=== PATIENT | male | born 1960 | race American Indian/Alaskan Native ===

== ENCOUNTER 2017-04-17 14:10 | Outpatient (CLI) | payer MEDICARE ==
[2017-04-17] MEDS ORDERED: XYLOCAINE TOPICAL 4% TP ONE ×3 (14:58→15:10)
== END 2017-04-17 14:11 | disposition home or self-care (01) ==
LOC: WOUND 14:10
PROVIDERS: ATTEND Surgery
DX: L73.2 Hidradenitis suppurativa (principal); F17.200 Nicotine dependence, unspecified, uncomplicated
CPT/HCPCS: 97606

== ENCOUNTER 2017-04-20 12:59 | Outpatient (CLI) | payer MEDICARE | END 2017-04-20 13:00 | disposition home or self-care (01) | LOC: WOUND 12:59 | PROVIDERS: ATTEND Podiatrist | DX: L73.2 Hidradenitis suppurativa (principal); F17.200 Nicotine dependence, unspecified, uncomplicated | CPT/HCPCS: 97606 ==

== ENCOUNTER 2017-04-24 12:31 | Outpatient (CLI) | payer MEDICARE ==
[2017-04-24] MEDS ORDERED: XYLOCAINE TOPICAL 4% TP ONE (13:03)
[2017-04-24] MEDS ORDERED: NACL 0.9% IR PRN (13:03)
== END 2017-04-24 12:32 | disposition home or self-care (01) ==
LOC: WOUND 12:31
PROVIDERS: ATTEND Surgery
DX: L73.2 Hidradenitis suppurativa (principal); F17.200 Nicotine dependence, unspecified, uncomplicated
CPT/HCPCS: 97606

== ENCOUNTER 2017-04-27 12:38 | Outpatient (CLI) | payer MEDICARE | END 2017-04-27 12:39 | disposition home or self-care (01) | LOC: WOUND 12:38 | PROVIDERS: ATTEND Podiatrist | DX: L73.2 Hidradenitis suppurativa (principal); F17.200 Nicotine dependence, unspecified, uncomplicated | CPT/HCPCS: 97606 ==

== ENCOUNTER 2017-06-12 16:33 | Inpatient (IN) | payer MEDICARE ==
[2017-06-12] MEDS ORDERED: NACL 0.9% 500 ML 500 ML IV ONE (16:58)
[2017-06-12] MEDS ORDERED: NACL 0.9% 1000 ML 2,000 ML ONE (17:08)
[2017-06-12] MEDS ORDERED: ZOSYN/NS 4.5GM/100ML 4.5 GM/100 ML VIAL IV ONE (17:29)
[2017-06-12] MEDS ORDERED: NACL 0.9% 1000 ML 1,000 ML IV ONE (17:29)
[2017-06-12 17:49] LABS: Basophils # (Auto) 0.1 K/mm3 (0.0-0.1); Basophils % (Auto) 0.9 % (0.0-1.8); Eosinophils # (Auto) 0.1 K/mm3 (0.0-0.4); Eosinophils % (Auto) 0.4 % (0.0-4.3); Hematocrit 31.3 % (35.5-45.6); Hemoglobin 10.1 gm/dl (11.8-15.2); Lymphocytes # (Auto) 3.6 K/mm3 (1.2-5.4); Lymphocytes % (Auto) 22.9 % (13.4-35.0); Mean Corpuscular HGB Conc 32 % (32-34); Mean Corpuscular Hemoglobin 27 pg (28-32); Mean Corpuscular Volume 84 fl (84-94); Monocytes # (Auto) 0.6 K/mm3 (0.0-0.8); Monocytes % (Auto) 3.6 % (0.0-7.3); Red Blood Count 3.74 M/mm3 (3.65-5.03); Red Cell Distribution Width 15.5 % (13.2-15.2)
[2017-06-12 17:59] LABS: INR 1.05 (0.87-1.13)
[2017-06-12 18:13] LABS: Albumin 1.4 g/dL (3.9-5); BUN/Creatinine Ratio 11; Blood Urea Nitrogen 17 mg/dL (9-20); Hemolysis Index 0
[2017-06-12 18:14] LABS: Alanine Aminotransferase < 5 units/L (7-56)
--- NOTE | 2017-06-12 18:18 | XRay Report ---
FINAL REPORT PROCEDURE: XR CHEST 1V AP TECHNIQUE: A portable AP chest radiograph was obtained at 06/12/2017 21:45 (T) . CPT 52615 HISTORY: Possible sepsis. COMPARISON: Chest radiograph dated 05/02/2017. FINDINGS: Heart: Normal. Mediastinum/Vessels: Mild aortic tortuosity. Lungs/Pleural space: Subtle line overlies lateral left lower thorax/costophrenic angle. Bony thorax: Mild degenerative changes of the spine. Subchondral cystic change of the left greater tuberosity. Life support devices: Removal of PICC line. IMPRESSION: Mild aortic tortuosity. No new radiographic evidence of acute cardiopulmonary disease. Subtle line overlying the lateral left lower thorax/costophrenic angle felt to most likely be overlying skin fold rather than subtle pneumothorax. Consider PA and lateral chest radiograph for further characterization if this is of continued clinical concern.
[2017-06-12 18:44] LABS: Platelet Count 437 K/mm3 (140-440)
--- NOTE | 2017-06-12 19:01 | Emergency Department Report ---
ED Abdominal Pain HPI - General Chief Complaint: Fever Stated Complaint: PAIN CHILLS Time Seen by Provider: 06/12/17 17:07 Source: patient Mode of arrival: Wheelchair Limitations: No Limitations - History of Present Illness Initial Comments: This is a pleasant 57-year-old Afro-[place] male who suffers from hydradenitis as well as rectal polyps, who reports that he has had surgery multiple times in the suprapubic and groin area. He last had surgery in May 2017 and again in March 2017. He denies really any other significant past medical history. He states that he smokes cigars from time to time but has not had any since January. He also denies any type of alcohol or illicit drug use. He reports that with this episode he noticed over the last 24 hours worsening abdominal pain with drainage as well. He also feels very weak and is nauseated. His blood pressure in triage was 71/35. He reports having chills. He also was noted to be tachycardic with a heart rate of 105 in triage. MD Complaint: abdominal pain -: Gradual Location: suprapubic Radiation: none Migration to: no migration Severity: severe Quality: dull Consistency: constant Improves With: nothing Worsens With: nothing Context: recent surgery/procedure Associated Symptoms: nausea, chills - Related Data Home Medications Medication Instructions Recorded Confirmed Last Taken No Known Home Medications [No 06/12/17 06/12/17 Unknown Reported Home Medications] Allergies Allergy/AdvReac Type Severity Reaction Status Date / Time No Known Allergies Allergy Verified 03/27/17 23:28 ED Review of Systems ROS: Stated complaint: PAIN CHILLS Other details as noted in HPI Comment: All other systems reviewed and negative Constitutional: see HPI, chills Eyes: as per HPI ENT: as per HPI Respiratory: see HPI Cardiovascular: as per HPI Endocrine: see HPI Gastrointestinal: as per HPI, nausea Genitourinary: as per HPI Musculoskeletal: as per HPI Skin: as per HPI Neurological: as per HPI Psychiatric: as per HPI Hematological/Lymphatic: as per HPI ED Past Medical Hx - Past Medical History Hx Hypertension: No Hx Deep Vein Thrombosis: No Hx Renal Disease: No Additional medical history: hydrodenitis, Rectal polyps, - Surgical History Hx Pacemaker: No Hx Internal Defibrillator: No Additional Surgical History: multiple skin graft, wound vac to stomach - Social History Smoking Status: Unknown if ever smoked Substance Use Type: None - Medications Home Medications: Home Medications Medication Instructions Recorded Confirmed Last Taken Type No Known Home Medications [No 06/12/17 06/12/17 Unknown History Reported Home Medications] ED Physical Exam - General Limitations: No Limitations General appearance: alert, anxious - Head Head exam: Present: atraumatic, normocephalic - Eye Eye exam: Present: normal appearance, PERRL, EOMI - ENT ENT exam: Present: normal exam, normal orophraynx - Neck Neck exam: Present: normal inspection, tenderness - Respiratory Respiratory exam: Present: normal lung sounds bilaterally. Absent: respiratory distress, wheezes, rales, rhonchi - Cardiovascular Cardiovascular Exam: Present: normal rhythm, tachycardia, normal heart sounds - GI/Abdominal GI/Abdominal exam: Present: soft, tenderness (suprapubic area, he is bandaged, I did remove the bandage and there is an open wound there with some purulent material but seems to be present. I cannot tell how deep this wound goes however.), normal bowel sounds. Absent: guarding, rebound, rigid - Rectal Rectal exam: Present: deferred - Extremities Exam Extremities exam: Present: normal inspection, normal capillary refill - Back Exam Back exam: Present: normal inspection, full ROM - Neurological Exam Neurological exam: Present: alert, oriented X3, CN II-XII intact - Psychiatric Psychiatric exam: Present: normal affect, normal mood - Skin Skin exam: Present: warm, dry ED Course Vital Signs 06/12/17 06/12/17 06/12/17 16:53 17:10 17:15 Temperature 97.6 F Pulse Rate 105 H 99 H 99 H Respiratory 18 15 17 Rate Blood Pressure 71/35 O2 Sat by Pulse 100 Oximetry 06/12/17 06/12/17 06/12/17 17:30 17:45 18:00 Temperature Pulse Rate 93 H 94 H 104 H Respiratory 14 12 11 L Rate Blood Pressure 127/57 127/57 133/58 O2 Sat by Pulse 99 100 100 Oximetry 06/12/17 06/12/17 06/12/17 18:15 18:30 18:32 Temperature Pulse Rate 100 H 99 H Respiratory 16 18 23 Rate Blood Pressure 130/59 125/53 O2 Sat by Pulse 100 100 Oximetry 06/12/17 06/12/17 06/12/17 18:45 19:21 19:30 Temperature Pulse Rate 102 H 91 H 91 H Respiratory 17 17 21 Rate Blood Pressure 125/53 114/62 O2 Sat by Pulse 100 100 100 Oximetry 06/12/17 06/12/17 06/12/17 19:45 20:00 20:15 Temperature Pulse Rate 91 H 90 98 H Respiratory 17 8 L 22 Rate Blood Pressure 115/56 119/63 105/51 O2 Sat by Pulse 100 100 100 Oximetry 06/12/17 20:27 Temperature 98 F Pulse Rate Respiratory Rate Blood Pressure O2 Sat by Pulse Oximetry - Reevaluation(s) Reevaluation #1: 06/12/17 19:02 At this time the patient does rule in for sepsis. We did give him Zosyn as well as 2 L of normal saline. I did return to the hospitalist as well for admission. He also complains of pain for which we'll give him Zofran and morphine. Admission pending. CT scan of the abdomen and pelvis is also pending at this time. 06/12/17 20:07 I discussed the case with hospitalist. We will go ahead and admit the patient for sepsis. We went ahead and give the patient Zofran IV as well as 2 L of normal saline. CT scan results are still pending at this time. ED Medical Decision Making - Lab Data Result diagrams: 06/12/17 17:43 06/12/17 17:43 Critical care attestation.: If time is entered above; I have spent that time in minutes in the direct care of this critically ill patient, excluding procedure time. ED Disposition Clinical Impression: Hydradenitis, Abscess Sepsis Qualifiers: Sepsis type: sepsis due to unspecified organism Qualified Code(s): A41.9 - Sepsis, unspecified organism Disposition: OP ADMIT IP TO THIS HOSP Is pt being admited?: Yes Does the pt Need Aspirin: No Condition: Stable
[2017-06-12] MEDS ORDERED: MORPHINE IV ONE (19:04)
[2017-06-12] MEDS ORDERED: ZOFRAN IV ONE (19:04)
--- NOTE | 2017-06-12 20:20 | Cat Scan Report ---
FINAL REPORT PROCEDURE: CT ABDOMEN PELVIS W CON TECHNIQUE: Computerized axial tomography of the abdomen and pelvis was performed after the IV injection of iodinated nonionic contrast. HISTORY: Fever/Sepsis COMPARISON: 04/30/2017 FINDINGS: Visualized lower thorax: No significant abnormality. Liver: The hepatic dome is not fully included on this exam.. Spleen: Normal size and attenuation. Gallbladder and biliary system: There is linear calcification, possibly related to cholelithiasis or wall calcification. Pancreas: Normal. Adrenals: Normal. Kidneys: Normal. GI tract: No bowel obstruction or acute inflammation is seen. Lymph nodes and mesentery: Enlarged bilateral inguinal nodes are present. Vasculature: Normal. Bladder: Circumferential wall thickening can be seen with cystitis. Reproductive organs: As seen on the prior exam there is perineal subcutaneous edema and abnormal skin thickening, in the perineal region, including the penile and scrotal skin. This appears mildly increased compared to the prior exam. No subcutaneous/soft tissue air is seen. There are phlegmonous changes in the scrotum. Edema involves the distal right inguinal canal. There may be complex scrotal hydrocele present. There is a small organized subcutaneous fluid collection/abscess, measuring up to 17 millimeters in the left buttock subcutaneous tissues. Peritoneum: No free fluid. Musculoskeletal structures: There are multilevel thoracolumbar spine degenerative disc changes. Other: None. 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 Findings were discussed with Dr. Toro at 7:11 p.m. central standard time on 06/12/2017
[2017-06-12 20:34] LABS: Bacteria,Urine 1+ /HPF (Negative); Bilirubin,Urine NEG (Negative); Blood,Urine SM (Negative); Color,Urine Yellow (Yellow); Hyaline Casts,Urine 1 /LPF; Mucus,Urine FEW /HPF
--- NOTE | 2017-06-12 21:28 | History and Physical Report ---
History of Present Illness Date of examination: 06/12/17 Date of admission: 06/12/17 Chief complaint: CC:Groin /Suprapubic Abscess for 1 month History of present illness: History of Present IllnessL: This is a pleasant 57-year-old Afro-[place] male who suffers from hydradenitis as well as rectal polyps, who reports that he has had surgery multiple times in the suprapubic and groin area. He last had surgery in May 2017 and again in March 2017. He denies really any other significant past medical history. He states that he smokes cigars from time to time but has not had any since January. He also denies any type of alcohol or illicit drug use. He reports that with this episode he noticed over the last 24 hours worsening abdominal pain with drainage as well. He also feels very weak and is nauseated. His blood pressure in triage was 71/35. He reports having chills. He also was noted to be tachycardic with a heart rate of 105 in triage. Past Medical History Hx Hypertension: No Hx Deep Vein Thrombosis: No Hx Renal Disease: No Additional medical history: hydrodenitis, Rectal polyps, Surgical History Hx Pacemaker: No Hx Internal Defibrillator: No Additional Surgical History: multiple skin graft, wound vac to stomach Social History Smoking Status: Unknown if ever smoked Substance Use Type: None Family HX Htn Medications Home Medications: Home Medications Medication Instructions Recorded Confirmed Last Taken Type No Known Home Medications [No 06/12/17 06/12/17 Unknown History Reported Home Medications] Medications and Allergies Allergies Allergy/AdvReac Type Severity Reaction Status Date / Time No Known Allergies Allergy Verified 03/27/17 23:28 Home Medications Medication Instructions Recorded Confirmed Last Taken Type No Known Home Medications [No 06/12/17 06/12/17 Unknown History Reported Home Medications] Review of Systems Constitutional: fever, chills, anorexia, fatigue, weakness, no weight loss, no weight gain Ears, nose, mouth and throat: sore throat, swelling in mouth Cardiovascular: no chest pain, no orthopnea, no palpitations, no rapid/ irregular heart beat, no edema, no syncope, no lightheadedness, no shortness of breath Respiratory: no cough, no cough with sputum, no excessive sputum, no hemoptysis , no shortness of breath, no dyspnea on exertion Gastrointestinal: no abdominal pain, no nausea, no vomiting, no diarrhea, no constipation, no change in bowel habits, no hematemesis, no coffee ground emesis Genitourinary Male: no dysuria, no hematuria, no flank pain, no discharge, no urinary frequency, no urinary hesitancy, no nocturia, no incontinence, no erectile dysfunction, no genital pain Rectal: pain Musculoskeletal: no neck stiffness, no neck pain, no shooting arm pain, no arm numbness/tingling, no low back pain, no shooting leg pain, no leg numbness/ tingling, no redness of joints Integumentary: redness, sores, wounds, boils, blisters Neurological: no seizures, no syncope Psychiatric: no anxiety, no memory loss, no change in sleep habits, no sleep disturbances, no insomnia, no hypersomnia, no change in appetite Endocrine: no cold intolerance, no heat intolerance, no polyphagia, no excessive thirst, no polydipsia, no polyuria, no nocturia, no excessive sweating , no flushing, no weight change Hematologic/Lymphatic: no easy bruising, no easy bleeding Allergic/Immunologic: no urticaria, no allergic rhinitis, no wheezing Exam - Constitutional Vitals: Temp Pulse Resp BP Pulse Ox 98 F 98 H 22 105/51 100 06/12/17 20:27 06/12/17 20:15 06/12/17 20:15 06/12/17 20:15 06/12/17 20:15 General appearance: Present: no acute distress, well-nourished - EENT Eyes: Present: PERRL ENT: hearing intact, clear oral mucosa - Neck Neck: Present: supple, normal ROM - Respiratory Respiratory effort: normal Respiratory: bilateral: CTA - Cardiovascular Heart rate: 70 Rhythm: regular Heart Sounds: Present: S1 & S2. Absent: rub, click - Extremities Extremities: no ischemia, pulses intact, pulses symmetrical, No edema - Peripheral Assessment Sacral Edema Type: Pitting Skin Temperature: Hot Peripheral Pulses: within normal limits - Abdominal General gastrointestinal: Present: tender (Suprapubic region and Groin --- Multiple abscesses,Sacral region --Decub ulcer), normal bowel sounds Male genitourinary: Present: normal - Rectal Rectal Exam: deferred - Integumentary Integumentary: Present: normal turgor - Musculoskeletal Musculoskeletal: gait normal, strength equal bilaterally - Psychiatric Psychiatric: appropriate mood/affect, intact judgment & insight - Neurologic Neurologic: CNII-XII intact, moves all extremities - Allied Health Allied health notes reviewed: nursing, case management Results - Labs CBC & Chem 7: 06/13/17 04:24 06/13/17 04:24 Labs: Laboratory Last Values WBC 15.8 K/mm3 (4.5-11.0) H 06/12/17 17:43 RBC 3.74 M/mm3 (3.65-5.03) 06/12/17 17:43 Hgb 10.1 gm/dl (11.8-15.2) L 06/12/17 17:43 Hct 31.3 % (35.5-45.6) L 06/12/17 17:43 MCV 84 fl (84-94) 06/12/17 17:43 MCH 27 pg (28-32) L 06/12/17 17:43 MCHC 32 % (32-34) 06/12/17 17:43 RDW 15.5 % (13.2-15.2) H 06/12/17 17:43 Plt Count 437 K/mm3 (140-440) 06/12/17 17:43 Lymph % (Auto) 22.9 % (13.4-35.0) 06/12/17 17:43 [place] % (Auto) 3.6 % (0.0-7.3) 06/12/17 17:43 Eos % (Auto) 0.4 % (0.0-4.3) 06/12/17 17:43 Baso % (Auto) 0.9 % (0.0-1.8) 06/12/17 17:43 Lymph # 3.6 K/mm3 (1.2-5.4) 06/12/17 17:43 [place] # 0.6 K/mm3 (0.0-0.8) 06/12/17 17:43 Eos # 0.1 K/mm3 (0.0-0.4) 06/12/17 17:43 Baso # 0.1 K/mm3 (0.0-0.1) 06/12/17 17:43 Seg Neutrophils % 72.2 % (40.0-70.0) H 06/12/17 17:43 Seg Neutrophils # 11.4 K/mm3 (1.8-7.7) H 06/12/17 17:43 PT 14.2 Sec. (12.2-14.9) 06/12/17 17:43 INR 1.05 (0.87-1.13) 06/12/17 17:43 VBG pH 7.273 (7.320-7.420) L 06/12/17 18:31 Sodium 139 mmol/L (137-145) 06/12/17 17:43 Potassium 3.8 mmol/L (3.6-5.0) 06/12/17 17:43 Chloride 99.2 mmol/L (98-107) 06/12/17 17:43 Carbon Dioxide 24 mmol/L (22-30) 06/12/17 17:43 Anion Gap 20 mmol/L 06/12/17 17:43 BUN 17 mg/dL (9-20) 06/12/17 17:43 Creatinine 1.5 mg/dL (0.8-1.5) 06/12/17 17:43 Estimated GFR 58 ml/min 06/12/17 17:43 BUN/Creatinine Ratio 11 % 06/12/17 17:43 Glucose 108 mg/dL (75-100) H 06/12/17 17:43 Lactic Acid 2.60 mmol/L (0.7-2.0) H* 06/12/17 20:38 Calcium 8.0 mg/dL (8.4-10.2) L 06/12/17 17:43 Total Bilirubin 0.60 mg/dL (0.1-1.2) 06/12/17 17:43 AST 9 units/L (5-40) 06/12/17 17:43 ALT < 5 units/L (7-56) L 06/12/17 17:43 Alkaline Phosphatase 116 units/L (35-129) 06/12/17 17:43 Total Protein 8.3 g/dL (6.3-8.2) H 06/12/17 17:43 Albumin 1.4 g/dL (3.9-5) L 06/12/17 17:43 Albumin/Globulin Ratio 0.2 % 06/12/17 17:43 Urine Color Yellow (Yellow) 06/12/17 Unknown Urine Turbidity Clear (Clear) 06/12/17 Unknown Urine pH 6.0 (5.0-7.0) 06/12/17 Unknown Ur Specific [place] 1.016 (1.003-1.030) 06/12/17 Unknown Urine Protein 30 mg/dl mg/dL (Negative) 06/12/17 Unknown Urine Glucose (UA) Neg mg/dL (Negative) 06/12/17 Unknown Urine Ketones Neg mg/dL (Negative) 06/12/17 Unknown Urine Blood Sm (Negative) 06/12/17 Unknown Urine Nitrite Neg (Negative) 06/12/17 Unknown Urine Bilirubin Neg (Negative) 06/12/17 Unknown Urine Urobilinogen 4.0 mg/dL (<2.0) 06/12/17 Unknown Ur Leukocyte Esterase Neg (Negative) 06/12/17 Unknown Urine WBC (Auto) 4.0 /HPF (0.0-6.0) 06/12/17 Unknown Urine RBC (Auto) 12.0 /HPF (0.0-6.0) 06/12/17 Unknown Urine Bacteria (Auto) 1+ /HPF (Negative) 06/12/17 Unknown Hyaline Casts 1 /LPF 06/12/17 Unknown Urine Mucus Few /HPF 06/12/17 Unknown Short CBC 06/12/17 Range/Units 17:43 WBC 15.8 H (4.5-11.0) K/mm3 Hgb 10.1 L (11.8-15.2) gm/dl Hct 31.3 L (35.5-45.6) % Plt Count 437 (140-440) K/mm3 BMP 06/12/17 17:43 Sodium 139 Potassium 3.8 Chloride 99.2 Carbon Dioxide 24 BUN 17 Creatinine 1.5 Glucose 108 H Calcium 8.0 L Liver Function 06/12/17 Range/Units 17:43 Total Bilirubin 0.60 (0.1-1.2) mg/dL AST 9 (5-40) units/L ALT < 5 L (7-56) units/L Alkaline Phosphatase 116 (35-129) units/L Albumin 1.4 L (3.9-5) g/dL Urine 06/12/17 Range/Units Unknown Urine Color Yellow (Yellow) Urine pH 6.0 (5.0-7.0) Ur Specific [place] 1.016 (1.003-1.030) Urine Protein 30 mg/dl (Negative) mg/dL Urine Glucose (UA) Neg (Negative) mg/dL - Imaging and Cardiology CT scan - abdomen: report reviewed (Perineal region thickening of skin sub cutaneous edema /Phlegmon ??Suzy's gangrene) Assessment and Plan Assessment and plan: The high probability of a clinically significant, sudden or life threatening deterioration of the [Pulmonary, cadiac, renal] system(s) required my full and direct attention, intervention and personal management. The aggregate critical care time was [35] minutes. This time is in addition to time spent performing reported procedures but includes the following: [x] Data Review and interpretation [x] Patient assessment and monitoring of vital signs [x] Documentation [x] Medication orders and management Advance Directives: Yes (Full code) VTE prophylaxis?: Chemical Plan of care discussed with patient/family: Yes - Patient Problems (1) Sepsis Current Visit: Yes Status: Acute Qualifiers: Sepsis type: sepsis due to unspecified organism Qualified Code(s): A41.9 - Sepsis, unspecified organism Plan to address problem: IV Zosyn and IV vancomycin IV Fluids ID consult Critical care consult (2) Hidradenitis suppurativa Current Visit: Yes Status: Acute Plan to address problem: Purulent discharge-may need I and D Surgery consult (3) Hypotension Current Visit: No Status: Acute Plan to address problem: IV Fluids for now Vasopressors if necessary (4) Elevated lactic acid level Current Visit: Yes Status: Acute Plan to address problem: Trending down-in favor of Sepsis-IV Abx for now. (5) DVT prophylaxis Current Visit: Yes Status: Acute Plan to address problem: On Heparin
[2017-06-12] MEDS ORDERED: ZOFRAN IV PRN (21:39)
[2017-06-12] MEDS ORDERED: SODIUM CHLORIDE FLUSH SYRINGE 10 ML IV PRN (21:39)
[2017-06-12] MEDS ORDERED: TYLENOL PO PRN (21:39)
[2017-06-12] MEDS ORDERED: ZOSYN/NS 4.5GM/100ML 4.5 GM/100 ML VIAL IV SCH (22:00)
[2017-06-12] MEDS ORDERED: VANCOMYCIN PHARMACY TO DOSE IV SCH (22:00)
[2017-06-12] MEDS ORDERED: VANCOMYCIN 1,750 MG in NACL 0.9% 500 ML 500 ML IV ONE (22:00)
[2017-06-12] MEDS ORDERED: DILAUDID IV ONE (22:07)
[2017-06-12] MEDS: SODIUM CHLORIDE FLUSH SYRINGE 10 ML IV SCH (23:58)
[2017-06-12] MEDS: DILAUDID IV PRN (23:59)
[2017-06-13] MEDS: HEPARIN SUB-Q SCH ×2 (00:01→10:33)
[2017-06-13] MEDS: ZOSYN/NS 3.375GM/50ML 3.375 GM/50 ML BAG IV SCH ×5 (00:13→18:10)
[2017-06-13] MEDS ORDERED: NACL 0.9% 1000 ML 1,000 ML IV ONE ×2 (01:25→02:11)
[2017-06-13 04:55] LABS: Basophils # (Auto) 0.1 K/mm3 (0.0-0.1); Basophils % (Auto) 0.5 % (0.0-1.8); Eosinophils # (Auto) 0.1 K/mm3 (0.0-0.4); Eosinophils % (Auto) 0.8 % (0.0-4.3); Hematocrit 25.1 % (35.5-45.6); Hemoglobin 7.9 gm/dl (11.8-15.2); Lymphocytes # (Auto) 3.2 K/mm3 (1.2-5.4); Lymphocytes % (Auto) 19.3 % (13.4-35.0); Mean Corpuscular HGB Conc 31 % (32-34); Mean Corpuscular Hemoglobin 27 pg (28-32); Mean Corpuscular Volume 85 fl (84-94); Monocytes # (Auto) 1.1 K/mm3 (0.0-0.8); Monocytes % (Auto) 6.7 % (0.0-7.3); Platelet Count 362 K/mm3 (140-440); Red Blood Count 2.95 M/mm3 (3.65-5.03); Red Cell Distribution Width 15.3 % (13.2-15.2)
[2017-06-13 05:07] LABS: Albumin 1.3 g/dL (3.9-5); BUN/Creatinine Ratio 11; Blood Urea Nitrogen 15 mg/dL (9-20); Calcium 7.1 mg/dL (8.4-10.2); Hemolysis Index 2
[2017-06-13 05:15] LABS: Alanine Aminotransferase < 5 units/L (7-56)
--- NOTE | 2017-06-13 09:14 | Event Note ---
Date: 06/13/17 Asked to see patient for surgical consult. Review of records show that Patient has been managed by Dr. Aguilar for his groin and perineal wounds. pt reports that he has chronic pain and wound issues in the perineal region. Today, the pain in that area has increased. Examination reveals clean groin and perineal wounds. The scrotum is thickened, tender, with multiple open wounds. I contacted Dr. Bradford and requested that he consult Dr. Aguilar for the wounds that he has been managing for the past couple of months. I asked that urology be consulted for the possible scrotal infection. Dr. Bradford said he would contact them. Please call if there are any questions. Thank you.
[2017-06-13] MEDS: SODIUM CHLORIDE FLUSH SYRINGE 10 ML IV SCH (10:28)
[2017-06-13] MEDS: DILAUDID IV PRN ×2 (13:22→18:09)
--- NOTE | 2017-06-13 14:22 | Consultation ---
History of Present Illness Consult date: 06/13/17 Reason for consult: other (Hidradenitis of perineum) - History of present illness History of present illness: 57 yo male well know to me for his severe hidradenitis of his lower abdomen, perineum, buttocks and right axilla Medications and Allergies Allergies Allergy/AdvReac Type Severity Reaction Status Date / Time No Known Allergies Allergy Verified 03/27/17 23:28 Home Medications Medication Instructions Recorded Confirmed Last Taken Type No Known Home Medications [No 06/12/17 06/12/17 Unknown History Reported Home Medications] Active Meds: Active Medications Acetaminophen (Tylenol) 650 mg PO Q4H PRN PRN Reason: Pain MILD(1-3)/Fever >100.5/BARNES Heparin Sodium (Porcine) (Heparin) 5,000 unit SUB-Q Q12HR [facility] Last Admin: 06/13/17 10:33 Dose: 5,000 unit Hydromorphone HCl (Dilaudid) 0.5 mg IV Q3H PRN PRN Reason: Pain , Severe (7-10) Last Admin: 06/13/17 13:22 Dose: 0.5 mg Sodium Chloride (Nacl 0.9% 1000 Ml) 1,000 mls @ 75 mls/hr IV DIRECT [facility] Piperacillin Sod/Tazobactam Sod (Zosyn/Ns 3.375gm/50ml) 3.375 gm in 50 mls @ 100 mls/hr IV Q6HR [facility] Last Admin: 06/13/17 12:43 Dose: 100 mls/hr Vancomycin HCl 1,250 mg/ (Sodium Chloride) 262.5 mls @ 166.667 mls/hr IV Q24H [facility] Morphine Sulfate (Morphine) 2 mg IV Q4H PRN PRN Reason: Pain, Moderate (4-6) Ondansetron HCl (Zofran) 4 mg IV Q8H PRN PRN Reason: Nausea And Vomiting Oxycodone/Acetaminophen (Percocet 5/325) 1 tab PO Q6H PRN PRN Reason: Pain, Moderate (4-6) Sodium Chloride (Sodium Chloride Flush Syringe 10 Ml) 10 ml IV BID [facility] Last Admin: 06/13/17 10:28 Dose: 10 ml Sodium Chloride (Sodium Chloride Flush Syringe 10 Ml) 10 ml IV PRN PRN PRN Reason: LINE FLUSH Vancomycin HCl (Vancomycin Pharmacy To Dose) 1 each IV PKCONSULT [facility]; Protocol Review of Systems All systems: negative (none) Exam Vital Signs Temp Pulse Resp BP Pulse Ox 97.6 F 105 H 18 71/35 100 06/12/17 16:53 06/12/17 16:53 06/12/17 16:53 06/12/17 16:53 06/12/17 16:53 - Integumentary other (Open wounds of the lower abdomen and perineum are fairly clean.) Results - Labs 06/13/17 04:24 06/13/17 04:24 Abnormal lab results 06/12/17 06/12/17 06/12/17 Range/Units 17:43 17:43 17:43 WBC 15.8 H (4.5-11.0) K/mm3 RBC (3.65-5.03) M/mm3 Hgb 10.1 L (11.8-15.2) gm/dl Hct 31.3 L (35.5-45.6) % MCH 27 L (28-32) pg MCHC (32-34) % RDW 15.5 H (13.2-15.2) % [place] # (0.0-0.8) K/mm3 Seg Neutrophils % 72.2 H (40.0-70.0) % Seg Neutrophils # 11.4 H (1.8-7.7) K/mm3 VBG pH (7.320-7.420) Glucose 108 H (75-100) mg/dL Lactic Acid 5.30 H* (0.7-2.0) mmol/L Calcium 8.0 L (8.4-10.2) mg/dL ALT < 5 L (7-56) units/L Total Protein 8.3 H (6.3-8.2) g/dL Albumin 1.4 L (3.9-5) g/dL 06/12/17 06/12/17 06/12/17 Range/Units 18:31 18:50 20:38 WBC (4.5-11.0) K/mm3 RBC (3.65-5.03) M/mm3 Hgb (11.8-15.2) gm/dl Hct (35.5-45.6) % MCH (28-32) pg MCHC (32-34) % RDW (13.2-15.2) % [place] # (0.0-0.8) K/mm3 Seg Neutrophils % (40.0-70.0) % Seg Neutrophils # (1.8-7.7) K/mm3 VBG pH 7.273 L (7.320-7.420) Glucose (75-100) mg/dL Lactic Acid 3.30 H* 2.60 H* (0.7-2.0) mmol/L Calcium (8.4-10.2) mg/dL ALT (7-56) units/L Total Protein (6.3-8.2) g/dL Albumin (3.9-5) g/dL 06/13/17 06/13/17 Range/Units 04:24 04:24 WBC 16.4 H (4.5-11.0) K/mm3 RBC 2.95 L (3.65-5.03) M/mm3 Hgb 7.9 L (11.8-15.2) gm/dl Hct 25.1 L D (35.5-45.6) % MCH 27 L (28-32) pg MCHC 31 L (32-34) % RDW 15.3 H (13.2-15.2) % [place] # 1.1 H (0.0-0.8) K/mm3 Seg Neutrophils % 72.7 H (40.0-70.0) % Seg Neutrophils # 11.9 H (1.8-7.7) K/mm3 VBG pH (7.320-7.420) Glucose (75-100) mg/dL Lactic Acid (0.7-2.0) mmol/L Calcium 7.1 L (8.4-10.2) mg/dL ALT < 5 L (7-56) units/L Total Protein 6.2 L D (6.3-8.2) g/dL Albumin 1.3 L (3.9-5) g/dL Diabetes panel 06/12/17 06/12/17 06/13/17 Range/Units 17:43 21:46 04:24 Sodium 139 137 (137-145) mmol/L Potassium 3.8 4.0 (3.6-5.0) mmol/L Chloride 99.2 102.5 (98-107) mmol/L Carbon Dioxide 24 25 (22-30) mmol/L BUN 17 15 (9-20) mg/dL Creatinine 1.5 1.4 (0.8-1.5) mg/dL Glucose 108 H 100 (75-100) mg/dL Hemoglobin A1c 4.5 (4-6) % Calcium 8.0 L 7.1 L (8.4-10.2) mg/dL AST 9 6 (5-40) units/L ALT < 5 L < 5 L (7-56) units/L Alkaline Phosphatase 116 82 (35-129) units/L Total Protein 8.3 H 6.2 L D (6.3-8.2) g/dL Albumin 1.4 L 1.3 L (3.9-5) g/dL Calcium panel 06/12/17 06/13/17 Range/Units 17:43 04:24 Calcium 8.0 L 7.1 L (8.4-10.2) mg/dL Albumin 1.4 L 1.3 L (3.9-5) g/dL Pituitary panel 06/12/17 06/13/17 Range/Units 17:43 04:24 Sodium 139 137 (137-145) mmol/L Potassium 3.8 4.0 (3.6-5.0) mmol/L Chloride 99.2 102.5 (98-107) mmol/L Carbon Dioxide 24 25 (22-30) mmol/L BUN 17 15 (9-20) mg/dL Creatinine 1.5 1.4 (0.8-1.5) mg/dL Glucose 108 H 100 (75-100) mg/dL Calcium 8.0 L 7.1 L (8.4-10.2) mg/dL Adrenal panel 06/12/17 06/13/17 Range/Units 17:43 04:24 Sodium 139 137 (137-145) mmol/L Potassium 3.8 4.0 (3.6-5.0) mmol/L Chloride 99.2 102.5 (98-107) mmol/L Carbon Dioxide 24 25 (22-30) mmol/L BUN 17 15 (9-20) mg/dL Creatinine 1.5 1.4 (0.8-1.5) mg/dL Glucose 108 H 100 (75-100) mg/dL Calcium 8.0 L 7.1 L (8.4-10.2) mg/dL Total Bilirubin 0.60 0.30 (0.1-1.2) mg/dL AST 9 6 (5-40) units/L ALT < 5 L < 5 L (7-56) units/L Alkaline Phosphatase 116 82 (35-129) units/L Total Protein 8.3 H 6.2 L D (6.3-8.2) g/dL Albumin 1.4 L 1.3 L (3.9-5) g/dL - Imaging CT scan - abdomen: report reviewed CT scan - pelvis: report reviewed Assessment and Plan - Patient Problems (1) Hidradenitis suppurativa Current Visit: Yes Status: Acute Plan to address problem: 1) Wound care consult to replace his wound vac (2) Left buttock abscess Current Visit: Yes Status: Acute Plan to address problem: 1) IV antibiotics 2) Consider I&D if unresponsive to antibiotics
--- NOTE | 2017-06-13 14:32 | Consultation ---
History of Present Illness - Reason for Consult Consult date: 06/13/17 hydradenitis Requesting physician: SYDNEY WHITTAKER - History of Present Illness 57 years old male with history of hidradenitis suppurativa, recently moved here from [place], known to ID, admitted on 03/27/2017 due to worsening right axillary pain and purulent drainage, bilateral inguinal pain and purulent drainage and gluteal pain and drainage as well as lower abdominal wall pain and drainage. Patient is status post multiple I and D's in the past as well as skin grafting. Patient was taken to the operating room and underwent I and D of abscess, skin and subcutaneous tissue on 03/29/2017. OR wound cultures grew MRSA. He was discharged on zyvox po. Unfortunately, patient was redmitted 04/30- due to worsening bilateral groin, suprapubic and perineal pain with foul -smelling discharge and subjective fever. He was found septic with leukocytosis and hypotension. Source was felt to be extensive bilateral groin, pubic and perineal cellulitis and abscesses from hidradenitis. CT showed marked perineal skin thickening with SQ stranding and edema cellulitiis /forniers. Taken to the OR debridement 05/01. ID plan was to continue vancomycin 1.5 g IV q day and levaquin 750 mg Po qday total 4 weeks until 05/28/17. Patient stayed in patient until he finished it. Unfortunately, patient was readmitted on 06/12/17 due to 24 hours history of worsening abdominal pain, scrotal edema and drainage. He has been experiencing chills and subjective fever for a week. In the ED, initial temperature 97.6, heart rate 105, respiration 18, O2 sat 100 , blood pressure 71/35. Initial white count 15.8. Hemoglobin 10.1. Platelets 437. Lactic acid 3.3. Urinalysis negative. Microbiology: Blood cultures: 04/28 neg 04/30 neg 06/12 ngtd Urine cultures: 06/12 pending Respiratory cultures: Wound cultures: 03/29 +MRSA Current Antimicrobials: Zosyn 06/12 Vancomycin 06/12 Past History Past Medical History: other (hidradenitis, MRSA infection ) Past Surgical History: Other (multiple hidradenitis I+D, previous skin grafts) Social history: no significant social history Family history: no significant family history Medications and Allergies Allergies Allergy/AdvReac Type Severity Reaction Status Date / Time No Known Allergies Allergy Verified 03/27/17 23:28 Home Medications Medication Instructions Recorded Confirmed Last Taken Type No Known Home Medications [No 06/12/17 06/12/17 Unknown History Reported Home Medications] Active Meds: Active Medications Acetaminophen (Tylenol) 650 mg PO Q4H PRN PRN Reason: Pain MILD(1-3)/Fever >100.5/BARNES Heparin Sodium (Porcine) (Heparin) 5,000 unit SUB-Q Q12HR [facility] Last Admin: 06/13/17 10:33 Dose: 5,000 unit Hydromorphone HCl (Dilaudid) 0.5 mg IV Q3H PRN PRN Reason: Pain , Severe (7-10) Last Admin: 06/13/17 13:22 Dose: 0.5 mg Sodium Chloride (Nacl 0.9% 1000 Ml) 1,000 mls @ 75 mls/hr IV DIRECT [facility] Piperacillin Sod/Tazobactam Sod (Zosyn/Ns 3.375gm/50ml) 3.375 gm in 50 mls @ 100 mls/hr IV Q6HR [facility] Last Admin: 06/13/17 12:43 Dose: 100 mls/hr Vancomycin HCl 1,250 mg/ (Sodium Chloride) 262.5 mls @ 166.667 mls/hr IV Q24H [facility] Morphine Sulfate (Morphine) 2 mg IV Q4H PRN PRN Reason: Pain, Moderate (4-6) Ondansetron HCl (Zofran) 4 mg IV Q8H PRN PRN Reason: Nausea And Vomiting Oxycodone/Acetaminophen (Percocet 5/325) 1 tab PO Q6H PRN PRN Reason: Pain, Moderate (4-6) Sodium Chloride (Sodium Chloride Flush Syringe 10 Ml) 10 ml IV BID [facility] Last Admin: 06/13/17 10:28 Dose: 10 ml Sodium Chloride (Sodium Chloride Flush Syringe 10 Ml) 10 ml IV PRN PRN PRN Reason: LINE FLUSH Vancomycin HCl (Vancomycin Pharmacy To Dose) 1 each IV PKCONSULT [facility]; Protocol Review of Systems All systems: negative (as per HPI) Physical Examination - Physical Exam Narrative exam: Assessment: 1) Sepsis: Present on admission, manifested by tachycardia, hypotension, leukocytosis, increased lactate. Etiology most likely surgical wound infection- scrotum wound. 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 -S/P OR I and D of abscess, skin and subcutaneous tissue on 03/29/2017. OR wound cultures grew MRSA. He was discharged on zyvox po. U -S/P extensive OR debridement 05/01/17. -S/P vancomycin 1.5 g IV q day and levaquin 750 mg Po qday total 4 weeks until 05/28/17. Plan: -follow-up blood cultures -obtain C-reactive protein -obtain deep wound cultures -Urology eval in view of worsening scrotal drainage and sinus tracts -continue zosyn and vanco -contact isolation Thank you for your consultation, will follow up with you. Leslee Gaston MD Infectious Diseases Specialist [facility] M [phone] O [phone] - Constitutional Vitals: Vital Signs Temp Pulse Resp BP Pulse Ox 98 F 78 16 106/57 96 06/13/17 06:50 06/13/17 13:10 06/13/17 13:10 06/13/17 13:10 06/13/17 13:10 Temperature -Last 24 Hours Temperature 98 F Temperature 98 F Temperature 97.6 F Results - Labs CBC & Chem 7: 06/13/17 04:24 06/13/17 04:24 Labs: Abnormal lab results 06/12/17 06/12/17 06/12/17 Range/Units 17:43 17:43 17:43 WBC 15.8 H (4.5-11.0) K/mm3 RBC (3.65-5.03) M/mm3 Hgb 10.1 L (11.8-15.2) gm/dl Hct 31.3 L (35.5-45.6) % MCH 27 L (28-32) pg MCHC (32-34) % RDW 15.5 H (13.2-15.2) % [place] # (0.0-0.8) K/mm3 Seg Neutrophils % 72.2 H (40.0-70.0) % Seg Neutrophils # 11.4 H (1.8-7.7) K/mm3 VBG pH (7.320-7.420) Glucose 108 H (75-100) mg/dL Lactic Acid 5.30 H* (0.7-2.0) mmol/L Calcium 8.0 L (8.4-10.2) mg/dL ALT < 5 L (7-56) units/L Total Protein 8.3 H (6.3-8.2) g/dL Albumin 1.4 L (3.9-5) g/dL 06/12/17 06/12/17 06/12/17 Range/Units 18:31 18:50 20:38 WBC (4.5-11.0) K/mm3 RBC (3.65-5.03) M/mm3 Hgb (11.8-15.2) gm/dl Hct (35.5-45.6) % MCH (28-32) pg MCHC (32-34) % RDW (13.2-15.2) % [place] # (0.0-0.8) K/mm3 Seg Neutrophils % (40.0-70.0) % Seg Neutrophils # (1.8-7.7) K/mm3 VBG pH 7.273 L (7.320-7.420) Glucose (75-100) mg/dL Lactic Acid 3.30 H* 2.60 H* (0.7-2.0) mmol/L Calcium (8.4-10.2) mg/dL ALT (7-56) units/L Total Protein (6.3-8.2) g/dL Albumin (3.9-5) g/dL 06/13/17 06/13/17 Range/Units 04:24 04:24 WBC 16.4 H (4.5-11.0) K/mm3 RBC 2.95 L (3.65-5.03) M/mm3 Hgb 7.9 L (11.8-15.2) gm/dl Hct 25.1 L D (35.5-45.6) % MCH 27 L (28-32) pg MCHC 31 L (32-34) % RDW 15.3 H (13.2-15.2) % [place] # 1.1 H (0.0-0.8) K/mm3 Seg Neutrophils % 72.7 H (40.0-70.0) % Seg Neutrophils # 11.9 H (1.8-7.7) K/mm3 VBG pH (7.320-7.420) Glucose (75-100) mg/dL Lactic Acid (0.7-2.0) mmol/L Calcium 7.1 L (8.4-10.2) mg/dL ALT < 5 L (7-56) units/L Total Protein 6.2 L D (6.3-8.2) g/dL Albumin 1.3 L (3.9-5) g/dL
--- NOTE | 2017-06-13 14:37 | Consultation ---
History of Present Illness - Reason for Consult Consult date: 06/13/17 - History of Present Illness This is a pleasant 57-year-old Afro-[place] male who suffers from hydradenitis as well as rectal polyps, who reports that he has had surgery multiple times in the suprapubic and groin area. He last had surgery in May 2017 and again in March 2017. He denies really any other significant past medical history. He states that he smokes cigars from time to time but has not had any since January. He also denies any type of alcohol or illicit drug use. He reports that with this episode he noticed over the last 24 hours worsening abdominal pain with drainage as well. He also feels very weak and is nauseated. His blood pressure in triage was 71/35. He reports having chills. Debridment by Dr. Jeff magallon abd would voided jesus colored urine CTAP - normal gu tract SQ inflammation A/P hydradenitis conservative therapy for now Medications and Allergies Allergies Allergy/AdvReac Type Severity Reaction Status Date / Time No Known Allergies Allergy Verified 03/27/17 23:28 Home Medications Medication Instructions Recorded Confirmed Last Taken Type No Known Home Medications [No 06/12/17 06/12/17 Unknown History Reported Home Medications] Active Meds: Active Medications Acetaminophen (Tylenol) 650 mg PO Q4H PRN PRN Reason: Pain MILD(1-3)/Fever >100.5/BARNES Heparin Sodium (Porcine) (Heparin) 5,000 unit SUB-Q Q12HR [facility] Last Admin: 06/13/17 10:33 Dose: 5,000 unit Hydromorphone HCl (Dilaudid) 0.5 mg IV Q3H PRN PRN Reason: Pain , Severe (7-10) Last Admin: 06/13/17 13:22 Dose: 0.5 mg Sodium Chloride (Nacl 0.9% 1000 Ml) 1,000 mls @ 75 mls/hr IV DIRECT [facility] Piperacillin Sod/Tazobactam Sod (Zosyn/Ns 3.375gm/50ml) 3.375 gm in 50 mls @ 100 mls/hr IV Q6HR [facility] Last Admin: 06/13/17 12:43 Dose: 100 mls/hr Vancomycin HCl 1,250 mg/ (Sodium Chloride) 262.5 mls @ 166.667 mls/hr IV Q24H [facility] Morphine Sulfate (Morphine) 2 mg IV Q4H PRN PRN Reason: Pain, Moderate (4-6) Ondansetron HCl (Zofran) 4 mg IV Q8H PRN PRN Reason: Nausea And Vomiting Oxycodone/Acetaminophen (Percocet 5/325) 1 tab PO Q6H PRN PRN Reason: Pain, Moderate (4-6) Sodium Chloride (Sodium Chloride Flush Syringe 10 Ml) 10 ml IV BID [facility] Last Admin: 06/13/17 10:28 Dose: 10 ml Sodium Chloride (Sodium Chloride Flush Syringe 10 Ml) 10 ml IV PRN PRN PRN Reason: LINE FLUSH Vancomycin HCl (Vancomycin Pharmacy To Dose) 1 each IV PKCONSULT [facility]; Protocol Exam - Constitutional Vitals: Temp Pulse Resp BP Pulse Ox 98 F 78 16 106/57 96 06/13/17 06:50 06/13/17 13:10 06/13/17 13:10 06/13/17 13:10 06/13/17 13:10 Results - Labs CBC & Chem 7: 06/13/17 04:24 06/13/17 04:24 Labs: Abnormal lab results 06/12/17 06/12/17 06/12/17 Range/Units 17:43 17:43 17:43 WBC 15.8 H (4.5-11.0) K/mm3 RBC (3.65-5.03) M/mm3 Hgb 10.1 L (11.8-15.2) gm/dl Hct 31.3 L (35.5-45.6) % MCH 27 L (28-32) pg MCHC (32-34) % RDW 15.5 H (13.2-15.2) % [place] # (0.0-0.8) K/mm3 Seg Neutrophils % 72.2 H (40.0-70.0) % Seg Neutrophils # 11.4 H (1.8-7.7) K/mm3 VBG pH (7.320-7.420) Glucose 108 H (75-100) mg/dL Lactic Acid 5.30 H* (0.7-2.0) mmol/L Calcium 8.0 L (8.4-10.2) mg/dL ALT < 5 L (7-56) units/L Total Protein 8.3 H (6.3-8.2) g/dL Albumin 1.4 L (3.9-5) g/dL 06/12/17 06/12/17 06/12/17 Range/Units 18:31 18:50 20:38 WBC (4.5-11.0) K/mm3 RBC (3.65-5.03) M/mm3 Hgb (11.8-15.2) gm/dl Hct (35.5-45.6) % MCH (28-32) pg MCHC (32-34) % RDW (13.2-15.2) % [place] # (0.0-0.8) K/mm3 Seg Neutrophils % (40.0-70.0) % Seg Neutrophils # (1.8-7.7) K/mm3 VBG pH 7.273 L (7.320-7.420) Glucose (75-100) mg/dL Lactic Acid 3.30 H* 2.60 H* (0.7-2.0) mmol/L Calcium (8.4-10.2) mg/dL ALT (7-56) units/L Total Protein (6.3-8.2) g/dL Albumin (3.9-5) g/dL 06/13/17 06/13/17 Range/Units 04:24 04:24 WBC 16.4 H (4.5-11.0) K/mm3 RBC 2.95 L (3.65-5.03) M/mm3 Hgb 7.9 L (11.8-15.2) gm/dl Hct 25.1 L D (35.5-45.6) % MCH 27 L (28-32) pg MCHC 31 L (32-34) % RDW 15.3 H (13.2-15.2) % [place] # 1.1 H (0.0-0.8) K/mm3 Seg Neutrophils % 72.7 H (40.0-70.0) % Seg Neutrophils # 11.9 H (1.8-7.7) K/mm3 VBG pH (7.320-7.420) Glucose (75-100) mg/dL Lactic Acid (0.7-2.0) mmol/L Calcium 7.1 L (8.4-10.2) mg/dL ALT < 5 L (7-56) units/L Total Protein 6.2 L D (6.3-8.2) g/dL Albumin 1.3 L (3.9-5) g/dL
--- NOTE | 2017-06-13 14:48 | Consultation ---
History of Present Illness Consult date: 06/13/17 Reason for consult: other (hypotension, sepsis, hydradenitis) History of present illness: Called to evaluate at the ED, case off a 57-year-old -[place] male, admitted reportedly with no shock, abdominal pain and history of suppurative hidradenitis. The patient reports that he had been on multiple surgeries and debridement 2 years. Currently being followed by Dr. Celis for surgery. He fell sick, no sharing with some mid lower abdominal discomfort today and then presented to the ER for evaluation. Also questionable fever. Noted with blood pressure 78/35 mmHg on arrival. Admitted by hospitalist with rule out sepsis with shock. However, has reported by nursing staff to me, the patient had a fluid bolus on some IV fluids and his blood pressure is 108/79 at the time of my review. He denies any cough or expectoration. He denies any chest pain. Currently is not on any pressors nor dizziness being used prior to my arrival. Medications and Allergies Allergies Allergy/AdvReac Type Severity Reaction Status Date / Time No Known Allergies Allergy Verified 03/27/17 23:28 Home Medications Medication Instructions Recorded Confirmed Last Taken Type No Known Home Medications [No 06/12/17 06/12/17 Unknown History Reported Home Medications] Active Meds: Active Medications Acetaminophen (Tylenol) 650 mg PO Q4H PRN PRN Reason: Pain MILD(1-3)/Fever >100.5/BARNES Heparin Sodium (Porcine) (Heparin) 5,000 unit SUB-Q Q12HR [facility] Last Admin: 06/13/17 10:33 Dose: 5,000 unit Hydromorphone HCl (Dilaudid) 0.5 mg IV Q3H PRN PRN Reason: Pain , Severe (7-10) Last Admin: 06/13/17 13:22 Dose: 0.5 mg Sodium Chloride (Nacl 0.9% 1000 Ml) 1,000 mls @ 75 mls/hr IV DIRECT [facility] Piperacillin Sod/Tazobactam Sod (Zosyn/Ns 3.375gm/50ml) 3.375 gm in 50 mls @ 100 mls/hr IV Q6HR [facility] Last Admin: 06/13/17 12:43 Dose: 100 mls/hr Vancomycin HCl 1,250 mg/ (Sodium Chloride) 262.5 mls @ 166.667 mls/hr IV Q24H [facility] Morphine Sulfate (Morphine) 2 mg IV Q4H PRN PRN Reason: Pain, Moderate (4-6) Ondansetron HCl (Zofran) 4 mg IV Q8H PRN PRN Reason: Nausea And Vomiting Oxycodone/Acetaminophen (Percocet 5/325) 1 tab PO Q6H PRN PRN Reason: Pain, Moderate (4-6) Sodium Chloride (Sodium Chloride Flush Syringe 10 Ml) 10 ml IV BID [facility] Last Admin: 06/13/17 10:28 Dose: 10 ml Sodium Chloride (Sodium Chloride Flush Syringe 10 Ml) 10 ml IV PRN PRN PRN Reason: LINE FLUSH Vancomycin HCl (Vancomycin Pharmacy To Dose) 1 each IV PKCONSULT [facility]; Protocol Review of Systems Constitutional: weakness, malaise, no fever, no chills, no sweats, no night sweats Cardiovascular: edema, lightheadedness, no chest pain, no orthopnea, no palpitations, no rapid/irregular heart beat, no shortness of breath, no dyspnea on exertion, no paroxysmal nocturnal dyspnea Respiratory: no cough, no cough with sputum, no excessive sputum, no hemoptysis , no wheezing Gastrointestinal: abdominal pain, nausea, no vomiting, no diarrhea, no constipation Genitourinary Male: other (see HPI) Musculoskeletal: no neck stiffness, no neck pain Integumentary: other (see HPI) Neurological: no head injury, no transient paralysis, no paralysis, no weakness , no parathesias Psychiatric: no anxiety, no memory loss, no change in sleep habits, no sleep disturbances Endocrine: no cold intolerance, no heat intolerance, no polyphagia Physical Examination Vital signs: Vital Signs Temp Pulse Resp BP Pulse Ox 97.6 F 105 H 18 71/35 100 06/12/17 16:53 06/12/17 16:53 06/12/17 16:53 06/12/17 16:53 06/12/17 16:53 General appearance: no acute distress Eyes: non-icteric ENT: oropharynx moist Neck: supple, no JVD Ascultation: Bilateral: clear, diminished breath sounds Cardiovascular: regular rate and rhythm Gastrointestinal: normoactive bowel sounds, non-distended Integumentary: other (open lower abdominal wound, no gross exudate) Extremities: no cyanosis Musculoskeletal: no deformities normal mental status, non-focal exam, CN II-XII normal, motor strength normal and mood appropriate, affect normal Results - Laboratory Findings CBC and BMP: 06/14/17 05:59 06/14/17 05:59 PT/INR, D-dimer PT 14.2 Sec. (12.2-14.9) 06/12/17 17:43 INR 1.05 (0.87-1.13) 06/12/17 17:43 Abnormal lab findings: Abnormal Labs 06/12/17 06/12/17 06/12/17 17:43 17:43 17:43 WBC 15.8 H RBC Hgb 10.1 L Hct 31.3 L MCH 27 L MCHC RDW 15.5 H [place] # Seg Neutrophils % 72.2 H Seg Neutrophils # 11.4 H VBG pH Glucose 108 H Lactic Acid 5.30 H* Calcium 8.0 L ALT < 5 L Total Protein 8.3 H Albumin 1.4 L 06/12/17 06/12/17 06/12/17 18:31 18:50 20:38 WBC RBC Hgb Hct MCH MCHC RDW [place] # Seg Neutrophils % Seg Neutrophils # VBG pH 7.273 L Glucose Lactic Acid 3.30 H* 2.60 H* Calcium ALT Total Protein Albumin 06/13/17 06/13/17 04:24 04:24 WBC 16.4 H RBC 2.95 L Hgb 7.9 L Hct 25.1 L D MCH 27 L MCHC 31 L RDW 15.3 H [place] # 1.1 H Seg Neutrophils % 72.7 H Seg Neutrophils # 11.9 H VBG pH Glucose Lactic Acid Calcium 7.1 L ALT < 5 L Total Protein 6.2 L D Albumin 1.3 L - Diagnostic Findings CT scan - chest: report reviewed Assessment and Plan Hypotension episode. Currently resolved. Blood pressure as noted above. Possibly related to hypovolemia, see prior discussion. Patient is not on any pressors Hidradenitis Supurativa Left buttock abscess. Evaluated by the ID for sepsis but currently the patient feels improved after IV fluids Continue antibiotics per hospital medicine, ID. No oxygen, respiratory or cardiac complaints at the bedside at the present time. If the patient blood pressure continues to be stable , would advise to continue with gentle fluids and hydration and monitor urine output. No indications for pressors at the present time. If his current clinical status continues to improve, he called possibly be admitted to the floor with close monitoring.Will leave to hospitalist to decide on this Thanks
--- NOTE | 2017-06-13 18:06 | Progress Note ---
Assessment and Plan Assessment and plan: Severe sepsis with hypotension - Patient is managed according to sepsis protocol with IV fluids and IV antibiotics - ID and mechanic and welder consult appreciated - Blood pressure is normalized now Extensive ulceration in the groin and scrotal area, left buttock abscess - Patient has been followed with Dr. Aguilar and had surgery before, evaluated by Dr. Aguilar recommended to continue IV antibiotics and if no improvement he will do I and D - Urology was consulted and recommended CT abdomen and pelvis, and conservative management - Pain control DVT prophylaxis - On heparin Disposition - Patient was held for ICU admission but vital signs are stable and can be downgraded to telemetry admission. History Interval history: Patient was seen and evaluated this morning, patient denied fever or chills. Patient had this wound for long time and had surgery by Dr. Aguilar Last month. Hospitalist Physical - Physical exam Narrative exam: Not in cardiopulmonary distress. The patient appeared well nourished and normally developed. Vital signs as documented. Head exam is unremarkable. No scleral icterus . Neck is without jugular venous distension, thyromegaly, or carotid bruits. Lungs are clear to auscultation. Cardiac exam reveals regular rate and Rhythm. First and second heart sounds normal. No murmurs, rubs or gallops. Abdominal exam reveals normal bowel sounds, no masses, no organomegaly and no aortic enlargement. Extensive ulceration in the groin area, involving the scrotum. Extremities are nonedematous and both femoral and pedal pulses are normal. 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 No focal weakness. - Constitutional Vitals: Temp Pulse Resp BP Pulse Ox 98 F 84 16 99/60 100 06/13/17 06:50 06/13/17 15:25 06/13/17 15:25 06/13/17 15:25 06/13/17 15:25 General appearance: Present: no acute distress, well-nourished Results - Labs CBC & Chem 7: 06/13/17 04:24 06/13/17 04:24 Labs: Laboratory Last Values WBC 16.4 K/mm3 (4.5-11.0) H 06/13/17 04:24 RBC 2.95 M/mm3 (3.65-5.03) L 06/13/17 04:24 Hgb 7.9 gm/dl (11.8-15.2) L 06/13/17 04:24 Hct 25.1 % (35.5-45.6) L D 06/13/17 04:24 MCV 85 fl (84-94) 06/13/17 04:24 MCH 27 pg (28-32) L 06/13/17 04:24 MCHC 31 % (32-34) L 06/13/17 04:24 RDW 15.3 % (13.2-15.2) H 06/13/17 04:24 Plt Count 362 K/mm3 (140-440) 06/13/17 04:24 Lymph % (Auto) 19.3 % (13.4-35.0) 06/13/17 04:24 [place] % (Auto) 6.7 % (0.0-7.3) 06/13/17 04:24 Eos % (Auto) 0.8 % (0.0-4.3) 06/13/17 04:24 Baso % (Auto) 0.5 % (0.0-1.8) 06/13/17 04:24 Lymph # 3.2 K/mm3 (1.2-5.4) 06/13/17 04:24 [place] # 1.1 K/mm3 (0.0-0.8) H 06/13/17 04:24 Eos # 0.1 K/mm3 (0.0-0.4) 06/13/17 04:24 Baso # 0.1 K/mm3 (0.0-0.1) 06/13/17 04:24 Seg Neutrophils % 72.7 % (40.0-70.0) H 06/13/17 04:24 Seg Neutrophils # 11.9 K/mm3 (1.8-7.7) H 06/13/17 04:24 PT 14.2 Sec. (12.2-14.9) 06/12/17 17:43 INR 1.05 (0.87-1.13) 06/12/17 17:43 VBG pH 7.273 (7.320-7.420) L 06/12/17 18:31 Sodium 137 mmol/L (137-145) 06/13/17 04:24 Potassium 4.0 mmol/L (3.6-5.0) 06/13/17 04:24 Chloride 102.5 mmol/L (98-107) 06/13/17 04:24 Carbon Dioxide 25 mmol/L (22-30) 06/13/17 04:24 Anion Gap 14 mmol/L 06/13/17 04:24 BUN 15 mg/dL (9-20) 06/13/17 04:24 Creatinine 1.4 mg/dL (0.8-1.5) 06/13/17 04:24 Estimated GFR > 60 ml/min 06/13/17 04:24 BUN/Creatinine Ratio 11 % 06/13/17 04:24 Glucose 100 mg/dL (75-100) 06/13/17 04:24 Hemoglobin A1c 4.5 % (4-6) 06/12/17 21:46 Lactic Acid 1.10 mmol/L (0.7-2.0) 06/12/17 23:09 Calcium 7.1 mg/dL (8.4-10.2) L 06/13/17 04:24 Total Bilirubin 0.30 mg/dL (0.1-1.2) 06/13/17 04:24 AST 6 units/L (5-40) 06/13/17 04:24 ALT < 5 units/L (7-56) L 06/13/17 04:24 Alkaline Phosphatase 82 units/L (35-129) 06/13/17 04:24 C-Reactive Protein 13.80 mg/dL (0.00-1.30) H 06/13/17 15:26 Total Protein 6.2 g/dL (6.3-8.2) L D 06/13/17 04:24 Albumin 1.3 g/dL (3.9-5) L 06/13/17 04:24 Albumin/Globulin Ratio 0.3 % 06/13/17 04:24 Urine Color Yellow (Yellow) 06/12/17 Unknown Urine Turbidity Clear (Clear) 06/12/17 Unknown Urine pH 6.0 (5.0-7.0) 06/12/17 Unknown Ur Specific [place] 1.016 (1.003-1.030) 06/12/17 Unknown Urine Protein 30 mg/dl mg/dL (Negative) 06/12/17 Unknown Urine Glucose (UA) Neg mg/dL (Negative) 06/12/17 Unknown Urine Ketones Neg mg/dL (Negative) 06/12/17 Unknown Urine Blood Sm (Negative) 06/12/17 Unknown Urine Nitrite Neg (Negative) 06/12/17 Unknown Urine Bilirubin Neg (Negative) 06/12/17 Unknown Urine Urobilinogen 4.0 mg/dL (<2.0) 06/12/17 Unknown Ur Leukocyte Esterase Neg (Negative) 06/12/17 Unknown Urine WBC (Auto) 4.0 /HPF (0.0-6.0) 06/12/17 Unknown Urine RBC (Auto) 12.0 /HPF (0.0-6.0) 06/12/17 Unknown Urine Bacteria (Auto) 1+ /HPF (Negative) 06/12/17 Unknown Hyaline Casts 1 /LPF 06/12/17 Unknown Urine Mucus Few /HPF 06/12/17 Unknown
[2017-06-14] MEDS: MORPHINE IV PRN ×2 (00:56→11:09)
[2017-06-14] MEDS: SODIUM CHLORIDE FLUSH SYRINGE 10 ML IV SCH ×3 (00:57→23:40)
[2017-06-14] MEDS: ZOSYN/NS 3.375GM/50ML 3.375 GM/50 ML BAG IV SCH ×5 (00:58→23:36)
[2017-06-14] MEDS: NACL 0.9% 1000 ML 1,000 ML IV SCH ×2 (00:59→10:04)
[2017-06-14] MEDS: HEPARIN SUB-Q SCH ×3 (01:09→23:23)
[2017-06-14] MEDS: VANCOMYCIN 1,250 MG in NACL 0.9% 250ML 250 ML IV SCH ×2 (01:10→23:38)
[2017-06-14 06:15] LABS: Basophils # (Auto) 0.1 K/mm3 (0.0-0.1); Basophils % (Auto) 0.5 % (0.0-1.8); Eosinophils # (Auto) 0.4 K/mm3 (0.0-0.4); Eosinophils % (Auto) 3.2 % (0.0-4.3); Hematocrit 24.9 % (35.5-45.6); Hemoglobin 7.8 gm/dl (11.8-15.2); Lymphocytes # (Auto) 2.7 K/mm3 (1.2-5.4); Lymphocytes % (Auto) 19.6 % (13.4-35.0); Mean Corpuscular HGB Conc 31 % (32-34); Mean Corpuscular Hemoglobin 27 pg (28-32); Mean Corpuscular Volume 85 fl (84-94); Monocytes # (Auto) 0.7 K/mm3 (0.0-0.8); Platelet Count 318 K/mm3 (140-440); Red Blood Count 2.95 M/mm3 (3.65-5.03); Red Cell Distribution Width 15.3 % (13.2-15.2)
[2017-06-14 06:36] LABS: BUN/Creatinine Ratio 9; Blood Urea Nitrogen 12 mg/dL (9-20); Hemolysis Index 0
--- NOTE | 2017-06-14 15:30 | Progress Note ---
Assessment and Plan Assessment and plan: Severe sepsis with hypotension - Patient is managed according to sepsis protocol with IV fluids and IV antibiotics - ID and lamp shade maker consult appreciated - Blood pressure is marginally low and NS ordered Extensive ulceration in the groin and scrotal area, left buttock abscess - Patient has been followed with Dr. Aguilar and had surgery before, evaluated by Dr. Aguilar recommended to continue IV antibiotics and if no improvement he will do I and D - Urology was consulted and recommended CT abdomen and pelvis, and conservative management - Pain control DVT prophylaxis - On heparin Disposition - Patient was held for ICU admission but vital signs are stable and can be downgraded to telemetry admission. History Interval history: Patient was seen and evaluated this morning, patient denied fever or chills. Patient had this wound for long time and had surgery by Dr. Aguilar Last month. Hospitalist Physical - Physical exam Narrative exam: Not in cardiopulmonary distress. The patient appeared well nourished and normally developed. Vital signs as documented. Head exam is unremarkable. No scleral icterus . Neck is without jugular venous distension, thyromegaly, or carotid bruits. Lungs are clear to auscultation. Cardiac exam reveals regular rate and Rhythm. First and second heart sounds normal. No murmurs, rubs or gallops. Abdominal exam reveals normal bowel sounds, no masses, no organomegaly and no aortic enlargement. Extensive ulceration in the groin area, involving the scrotum. Extremities are nonedematous and both femoral and pedal pulses are normal. 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 No focal weakness. - Constitutional Vitals: Temp Pulse Resp BP Pulse Ox 98.5 F 79 18 90/43 100 06/14/17 08:10 06/14/17 08:10 06/14/17 08:10 06/14/17 08:10 06/14/17 08:10 General appearance: Present: no acute distress, well-nourished Results - Labs CBC & Chem 7: 06/14/17 05:59 06/14/17 05:59 Labs: Laboratory Last Values WBC 13.7 K/mm3 (4.5-11.0) H 06/14/17 05:59 RBC 2.95 M/mm3 (3.65-5.03) L 06/14/17 05:59 Hgb 7.8 gm/dl (11.8-15.2) L 06/14/17 05:59 Hct 24.9 % (35.5-45.6) L 06/14/17 05:59 MCV 85 fl (84-94) 06/14/17 05:59 MCH 27 pg (28-32) L 06/14/17 05:59 MCHC 31 % (32-34) L 06/14/17 05:59 RDW 15.3 % (13.2-15.2) H 06/14/17 05:59 Plt Count 318 K/mm3 (140-440) 06/14/17 05:59 Lymph % (Auto) 19.6 % (13.4-35.0) 06/14/17 05:59 [place] % (Auto) 5.0 % (0.0-7.3) 06/14/17 05:59 Eos % (Auto) 3.2 % (0.0-4.3) 06/14/17 05:59 Baso % (Auto) 0.5 % (0.0-1.8) 06/14/17 05:59 Lymph # 2.7 K/mm3 (1.2-5.4) 06/14/17 05:59 [place] # 0.7 K/mm3 (0.0-0.8) 06/14/17 05:59 Eos # 0.4 K/mm3 (0.0-0.4) 06/14/17 05:59 Baso # 0.1 K/mm3 (0.0-0.1) 06/14/17 05:59 Seg Neutrophils % 71.7 % (40.0-70.0) H 06/14/17 05:59 Seg Neutrophils # 9.9 K/mm3 (1.8-7.7) H 06/14/17 05:59 PT 14.2 Sec. (12.2-14.9) 06/12/17 17:43 INR 1.05 (0.87-1.13) 06/12/17 17:43 VBG pH 7.273 (7.320-7.420) L 06/12/17 18:31 Sodium 138 mmol/L (137-145) 06/14/17 05:59 Potassium 3.9 mmol/L (3.6-5.0) 06/14/17 05:59 Chloride 104.4 mmol/L (98-107) 06/14/17 05:59 Carbon Dioxide 24 mmol/L (22-30) 06/14/17 05:59 Anion Gap 14 mmol/L 06/14/17 05:59 BUN 12 mg/dL (9-20) 06/14/17 05:59 Creatinine 1.4 mg/dL (0.8-1.5) 06/14/17 05:59 Estimated GFR > 60 ml/min 06/14/17 05:59 BUN/Creatinine Ratio 9 % 06/14/17 05:59 Glucose 61 mg/dL (75-100) L 06/14/17 05:59 Hemoglobin A1c 4.5 % (4-6) 06/12/17 21:46 Lactic Acid 1.10 mmol/L (0.7-2.0) 06/12/17 23:09 Calcium 7.0 mg/dL (8.4-10.2) L 06/14/17 05:59 Total Bilirubin 0.30 mg/dL (0.1-1.2) 06/13/17 04:24 AST 6 units/L (5-40) 06/13/17 04:24 ALT < 5 units/L (7-56) L 06/13/17 04:24 Alkaline Phosphatase 82 units/L (35-129) 06/13/17 04:24 C-Reactive Protein 13.80 mg/dL (0.00-1.30) H 06/13/17 15:26 Total Protein 6.2 g/dL (6.3-8.2) L D 06/13/17 04:24 Albumin 1.3 g/dL (3.9-5) L 06/13/17 04:24 Albumin/Globulin Ratio 0.3 % 06/13/17 04:24 Urine Color Yellow (Yellow) 06/12/17 Unknown Urine Turbidity Clear (Clear) 06/12/17 Unknown Urine pH 6.0 (5.0-7.0) 06/12/17 Unknown Ur Specific [place] 1.016 (1.003-1.030) 06/12/17 Unknown Urine Protein 30 mg/dl mg/dL (Negative) 06/12/17 Unknown Urine Glucose (UA) Neg mg/dL (Negative) 06/12/17 Unknown Urine Ketones Neg mg/dL (Negative) 06/12/17 Unknown Urine Blood Sm (Negative) 06/12/17 Unknown Urine Nitrite Neg (Negative) 06/12/17 Unknown Urine Bilirubin Neg (Negative) 06/12/17 Unknown Urine Urobilinogen 4.0 mg/dL (<2.0) 06/12/17 Unknown Ur Leukocyte Esterase Neg (Negative) 06/12/17 Unknown Urine WBC (Auto) 4.0 /HPF (0.0-6.0) 06/12/17 Unknown Urine RBC (Auto) 12.0 /HPF (0.0-6.0) 06/12/17 Unknown Urine Bacteria (Auto) 1+ /HPF (Negative) 06/12/17 Unknown Hyaline Casts 1 /LPF 06/12/17 Unknown Urine Mucus Few /HPF 06/12/17 Unknown
--- NOTE | 2017-06-14 17:52 | Progress Note ---
Assessment and Plan Assessment: 1) Sepsis: better, still hypotension. Etiology most likely surgical wound infection-scrotum wound. 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 -S/P OR I and D of abscess, skin and subcutaneous tissue on 03/29/2017. OR wound cultures grew MRSA. He was discharged on zyvox po. U -S/P extensive OR debridement 05/01/17. -S/P vancomycin 1.5 g IV q day and levaquin 750 mg Po qday total 4 weeks until 05/28/17. -crp=13.8 Plan: -follow-up blood cultures -obtain deep wound cultures -PENDING -continue zosyn and vanco -day 2 -contact isolation Thank you for your consultation, will follow up with you. Leslee Gaston MD Infectious Diseases Specialist [facility] ([facility] M [phone] O [phone] Subjective Date of service: 06/14/17 Principal diagnosis: scrotal wounds Interval history: Feels better, decreased scrotal pain. No fever. Still some hypotension. Microbiology: Blood cultures: 04/28 neg 04/30 neg 06/12 ngtd Urine cultures: 06/12 pending Respiratory cultures: Wound cultures: 03/29 +MRSA Current Antimicrobials: Zosyn 06/12 Vancomycin 06/12 Objective - Exam Narrative Exam: General appearance: Alert in NAD, conversant Eyes: anicteric sclerae, moist conjunctivae; no lid-lag; PERRLA HENT: Atraumatic; oropharynx clear with moist mucous membranes and no mucosal ulcerations/no oral thrush; normal hard and soft palate. Normal external ears. Neck: Trachea midline; supple, no thyromegaly or lymphadenopathy Lungs: CTA, with normal respiratory effort and no intercostal retractions CV: RRR, no murmurs Abdomen: Soft, non-tender; no masses or hepatosplenomegaly Extremities: No peripheral edema or extremity lymphadenopathy Skin: +mons / suprapubic and linnea groin wounds with good granulation tissue, no pus. Scrotal wound with sinus tracts and copious purulence.Not examined today Psych: Appropriate affect, alert and oriented to person, place and time. Neuro: alert and oriented x 3. Moving all extremities Lines: No CVL / PICC - Constitutional Vitals: Vital Signs Temp Pulse Resp BP Pulse Ox 99.0 F 90 18 94/56 100 06/14/17 15:24 06/14/17 15:24 06/14/17 15:23 06/14/17 15:23 06/14/17 15:24 Temperature -Last 24 Hours Temperature 99.0 F Temperature 99.0 F Temperature 98.4 F Temperature 98.5 F Temperature 98.5 F Temperature 98.1 F Temperature 98.0 F - Labs CBC & Chem 7: 06/14/17 05:59 06/14/17 05:59 Labs: Abnormal lab results 06/14/17 06/14/17 Range/Units 05:59 05:59 WBC 13.7 H (4.5-11.0) K/mm3 RBC 2.95 L (3.65-5.03) M/mm3 Hgb 7.8 L (11.8-15.2) gm/dl Hct 24.9 L (35.5-45.6) % MCH 27 L (28-32) pg MCHC 31 L (32-34) % RDW 15.3 H (13.2-15.2) % Seg Neutrophils % 71.7 H (40.0-70.0) % Seg Neutrophils # 9.9 H (1.8-7.7) K/mm3 Glucose 61 L (75-100) mg/dL Calcium 7.0 L (8.4-10.2) mg/dL
[2017-06-14] MEDS: PERCOCET 5/325 PO PRN (18:50)
[2017-06-15] MEDS: VANCOMYCIN 1,250 MG in NACL 0.9% 250ML 250 ML IV SCH ×2 (00:40→22:57)
[2017-06-15] MEDS: NACL 0.9% 1000 ML 1,000 ML IV SCH ×3 (00:43→19:19)
[2017-06-15] MEDS: PERCOCET 5/325 PO PRN ×3 (00:45→23:52)
[2017-06-15] MEDS: ZOSYN/NS 3.375GM/50ML 3.375 GM/50 ML BAG IV SCH ×4 (07:19→23:44)
[2017-06-15] MEDS: SODIUM CHLORIDE FLUSH SYRINGE 10 ML IV SCH ×2 (09:39→22:44)
[2017-06-15] MEDS: HEPARIN SUB-Q SCH ×2 (09:40→22:43)
--- NOTE | 2017-06-15 10:04 | Query- Nutrition ---
Kem Gurrola__Warren Date:__06/15/2017 Watch Train Inspector/CDS:__Shelby Phone#:___[phone] Exercise your independent professional judgment when responding to query. Questions asked do not imply a particular answer is desired or expected. We greatly appreciate your clarification on this issue. Clinical Documentation States: 57 Year old male was admitted on 06/12/2017 for Groin /Suprapubic Abscess for 1 month. Clinical Findings Show: Albumin: 1.4 Please select the most appropriate option 3 [] Mild Malnutrition [] Mild - Moderate Malnutrition [x] Moderate - Severe Malnutrition [] Severe Malnutrition Serum Albumin 2.8 to 3.4 g/dl or Pre-albumin 5 to 17 mg/dl1,2 Inadequate nutritional intake1,2,3,4 NPO > 5 days Weight loss: 5% in 1 month or 7.5% in 3 months or 10% in 6 months1, 3,4 BMI 16 to 18.4 or Weight <90% of ideal body weight1,2,3,4 Serum Albumin < 2.8 g/ dl1,2 Lymphocytes < 1500/ L2 Inadequate nutritional intake3, high stress e.g. major trauma, sepsis,pancreatitis, blunt etc. Decubitus ulcers1,2, , skin breakdown2, easy hair pluckability2 Weight <80% standard for height2 Triceps skin fold <3 mm2 Mid-arm muscle circumference <15 cm2 Creatinine-height index <60% standard2 [ ] Cachexia [ ] Emaciated w/Malnutrition [ ] Other: [ ] Unable to determine [ ] Comment/Explanation: Present on Admission: [ x] Yes (Y) [ ] Clinically undeterminable (W) [ ] No (N) Please also document response in your Progress Notes and/or Discharge Summary and indicate if the condition was present on admission. MTDD
--- NOTE | 2017-06-15 12:07 | Progress Note ---
Assessment and Plan Assessment and plan: Severe sepsis with hypotension - Patient is managed according to sepsis protocol with IV fluids and IV antibiotics - ID and method consultant consult appreciated - Blood pressure is on the low side of normal, continue IV fluids, could be due to loss of fluid through the skin or due to sepsis Extensive ulceration in the groin and scrotal area, left buttock abscess - Patient has been followed with Dr. Aguilar and had surgery before, evaluated by Dr. Aguilar recommended to continue IV antibiotics and if no improvement he will do I and D - Urology was consulted and recommended conservative management - Pain control DVT prophylaxis - On heparin Disposition - continue inpatient care. History Interval history: Patient was seen and evaluated this morning, patient denied fever or chills. Patient had this wound for long time and had surgery by Dr. Aguilar. Hospitalist Physical - Physical exam Narrative exam: Not in cardiopulmonary distress. The patient appeared well nourished and normally developed. Vital signs as documented. Head exam is unremarkable. No scleral icterus . Neck is without jugular venous distension, thyromegaly, or carotid bruits. Lungs are clear to auscultation. Cardiac exam reveals regular rate and Rhythm. First and second heart sounds normal. No murmurs, rubs or gallops. Abdominal exam reveals normal bowel sounds, no masses, no organomegaly and no aortic enlargement. Extensive ulceration in the groin area, involving the scrotum. Extremities are nonedematous and both femoral and pedal pulses are normal. 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 No focal weakness. - Constitutional Vitals: Temp Pulse Resp BP Pulse Ox 99.3 F 80 20 94/57 99 06/15/17 11:48 06/15/17 11:48 06/15/17 11:48 06/15/17 07:38 06/15/17 11:48 General appearance: Present: no acute distress, well-nourished Results - Labs CBC & Chem 7: 06/14/17 05:59 06/14/17 05:59 Labs: Laboratory Last Values WBC 13.7 K/mm3 (4.5-11.0) H 06/14/17 05:59 RBC 2.95 M/mm3 (3.65-5.03) L 06/14/17 05:59 Hgb 7.8 gm/dl (11.8-15.2) L 06/14/17 05:59 Hct 24.9 % (35.5-45.6) L 06/14/17 05:59 MCV 85 fl (84-94) 06/14/17 05:59 MCH 27 pg (28-32) L 06/14/17 05:59 MCHC 31 % (32-34) L 06/14/17 05:59 RDW 15.3 % (13.2-15.2) H 06/14/17 05:59 Plt Count 318 K/mm3 (140-440) 06/14/17 05:59 Lymph % (Auto) 19.6 % (13.4-35.0) 06/14/17 05:59 [place] % (Auto) 5.0 % (0.0-7.3) 06/14/17 05:59 Eos % (Auto) 3.2 % (0.0-4.3) 06/14/17 05:59 Baso % (Auto) 0.5 % (0.0-1.8) 06/14/17 05:59 Lymph # 2.7 K/mm3 (1.2-5.4) 06/14/17 05:59 [place] # 0.7 K/mm3 (0.0-0.8) 06/14/17 05:59 Eos # 0.4 K/mm3 (0.0-0.4) 06/14/17 05:59 Baso # 0.1 K/mm3 (0.0-0.1) 06/14/17 05:59 Seg Neutrophils % 71.7 % (40.0-70.0) H 06/14/17 05:59 Seg Neutrophils # 9.9 K/mm3 (1.8-7.7) H 06/14/17 05:59 PT 14.2 Sec. (12.2-14.9) 06/12/17 17:43 INR 1.05 (0.87-1.13) 06/12/17 17:43 VBG pH 7.273 (7.320-7.420) L 06/12/17 18:31 Sodium 138 mmol/L (137-145) 06/14/17 05:59 Potassium 3.9 mmol/L (3.6-5.0) 06/14/17 05:59 Chloride 104.4 mmol/L (98-107) 06/14/17 05:59 Carbon Dioxide 24 mmol/L (22-30) 06/14/17 05:59 Anion Gap 14 mmol/L 06/14/17 05:59 BUN 12 mg/dL (9-20) 06/14/17 05:59 Creatinine 1.4 mg/dL (0.8-1.5) 06/14/17 05:59 Estimated GFR > 60 ml/min 06/14/17 05:59 BUN/Creatinine Ratio 9 % 06/14/17 05:59 Glucose 61 mg/dL (75-100) L 06/14/17 05:59 Hemoglobin A1c 4.5 % (4-6) 06/12/17 21:46 Lactic Acid 1.10 mmol/L (0.7-2.0) 06/12/17 23:09 Calcium 7.0 mg/dL (8.4-10.2) L 06/14/17 05:59 Total Bilirubin 0.30 mg/dL (0.1-1.2) 06/13/17 04:24 AST 6 units/L (5-40) 06/13/17 04:24 ALT < 5 units/L (7-56) L 06/13/17 04:24 Alkaline Phosphatase 82 units/L (35-129) 06/13/17 04:24 C-Reactive Protein 13.80 mg/dL (0.00-1.30) H 06/13/17 15:26 Total Protein 6.2 g/dL (6.3-8.2) L D 06/13/17 04:24 Albumin 1.3 g/dL (3.9-5) L 06/13/17 04:24 Albumin/Globulin Ratio 0.3 % 06/13/17 04:24 Urine Color Yellow (Yellow) 06/12/17 Unknown Urine Turbidity Clear (Clear) 06/12/17 Unknown Urine pH 6.0 (5.0-7.0) 06/12/17 Unknown Ur Specific [place] 1.016 (1.003-1.030) 06/12/17 Unknown Urine Protein 30 mg/dl mg/dL (Negative) 06/12/17 Unknown Urine Glucose (UA) Neg mg/dL (Negative) 06/12/17 Unknown Urine Ketones Neg mg/dL (Negative) 06/12/17 Unknown Urine Blood Sm (Negative) 06/12/17 Unknown Urine Nitrite Neg (Negative) 06/12/17 Unknown Urine Bilirubin Neg (Negative) 06/12/17 Unknown Urine Urobilinogen 4.0 mg/dL (<2.0) 06/12/17 Unknown Ur Leukocyte Esterase Neg (Negative) 06/12/17 Unknown Urine WBC (Auto) 4.0 /HPF (0.0-6.0) 06/12/17 Unknown Urine RBC (Auto) 12.0 /HPF (0.0-6.0) 06/12/17 Unknown Urine Bacteria (Auto) 1+ /HPF (Negative) 06/12/17 Unknown Hyaline Casts 1 /LPF 06/12/17 Unknown Urine Mucus Few /HPF 06/12/17 Unknown
--- NOTE | 2017-06-15 14:27 | Progress Note ---
Assessment and Plan Assessment: 1) Sepsis: better, still hypotension. Etiology most likely surgical wound infection-scrotum wound. 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 -S/P OR I and D of abscess, skin and subcutaneous tissue on 03/29/2017. OR wound cultures grew MRSA. He was discharged on zyvox po. U -S/P extensive OR debridement 05/01/17. -S/P vancomycin 1.5 g IV q day and levaquin 750 mg Po qday total 4 weeks until 05/28/17. -crp=13.8 -Wound cx + normal skin deb 3) Anemia-worsening Plan: -anemia w/u per hospitalist -check cortisol -I asked Dr Aguilar need for further I&D and he will re-eval -continue zosyn and vanco -day 3 -contact isolation I am rounding on Sunday Thank you for your consultation, will follow up with you. Leslee Gaston MD Infectious Diseases Specialist [facility] [phone] O [phone] Subjective Date of service: 06/15/17 Principal diagnosis: scrotal wounds Interval history: Feels better, decreased scrotal pain. No fever. Still some hypotension. Microbiology: Blood cultures: 04/28 neg 04/30 neg 06/12 ngtd Urine cultures: 06/12 pending Respiratory cultures: Wound cultures: 03/29 +MRSA Current Antimicrobials: Zosyn 06/12 Vancomycin 06/12 Objective - Constitutional Vitals: Vital Signs Temp Pulse Resp BP Pulse Ox 99.3 F 80 20 94/57 99 06/15/17 11:48 06/15/17 11:48 06/15/17 11:48 06/15/17 07:38 06/15/17 11:48 Temperature -Last 24 Hours Temperature 99.3 F Temperature 98.3 F Temperature 98.5 F Temperature 98.7 F Temperature 99.1 F Temperature 99.0 F Temperature 99.0 F - Labs CBC & Chem 7: 06/14/17 05:59 06/14/17 05:59
[2017-06-15 15:30] LABS: Iron 32 ug/dL (49-181); Total Iron Binding Capacity 64 mcg/dL (250-450)
[2017-06-16 06:21] LABS: Basophils # (Auto) 0.1 K/mm3 (0.0-0.1); Basophils % (Auto) 0.6 % (0.0-1.8); Eosinophils # (Auto) 0.4 K/mm3 (0.0-0.4); Eosinophils % (Auto) 3.4 % (0.0-4.3); Hematocrit 23.9 % (35.5-45.6); Hemoglobin 7.7 gm/dl (11.8-15.2); Lymphocytes # (Auto) 2.9 K/mm3 (1.2-5.4); Lymphocytes % (Auto) 25.3 % (13.4-35.0); Mean Corpuscular HGB Conc 32 % (32-34); Mean Corpuscular Hemoglobin 27 pg (28-32); Mean Corpuscular Volume 83 fl (84-94); Monocytes # (Auto) 0.5 K/mm3 (0.0-0.8); Monocytes % (Auto) 4.8 % (0.0-7.3); Platelet Count 289 K/mm3 (140-440); Red Blood Count 2.89 M/mm3 (3.65-5.03); Red Cell Distribution Width 15.1 % (13.2-15.2)
[2017-06-16 06:35] LABS: BUN/Creatinine Ratio 8; Blood Urea Nitrogen 11 mg/dL (9-20); Calcium 7.1 mg/dL (8.4-10.2); Hemolysis Index 1
[2017-06-16] MEDS: ZOSYN/NS 3.375GM/50ML 3.375 GM/50 ML BAG IV SCH ×4 (06:50→23:20)
--- NOTE | 2017-06-16 08:38 | Progress Note ---
Assessment and Plan Assessment and plan: Severe sepsis with hypotension - Patient is managed according to sepsis protocol with IV fluids and IV antibiotics - ID and regional account director consult appreciated - Blood pressure is normalized Extensive ulceration in the groin and scrotal area, left buttock abscess - Patient has been followed with Dr. Aguilar and had surgery before, evaluated by Dr. Aguilar recommended to continue IV antibiotics and if no improvement he will do I and D - Urology was consulted and recommended conservative management - Pain control Anemia of chronic illness - patient doesn't need transfusion at this point from medical point of view - Will treat the underlying condition - Will transfuse if Hemoglobin is below 7 or if he is going to have surgery DVT prophylaxis - On heparin Disposition - continue inpatient care. History Interval history: Patient was seen and evaluated this morning, patient denied fever or chills. Patient had this wound for long time and had surgery by Dr. Aguilar. Hospitalist Physical - Physical exam Narrative exam: Not in cardiopulmonary distress. The patient appeared well nourished and normally developed. Vital signs as documented. Head exam is unremarkable. No scleral icterus . Neck is without jugular venous distension, thyromegaly, or carotid bruits. Lungs are clear to auscultation. Cardiac exam reveals regular rate and Rhythm. First and second heart sounds normal. No murmurs, rubs or gallops. Abdominal exam reveals normal bowel sounds, no masses, no organomegaly and no aortic enlargement. Extensive ulceration in the groin area, involving the scrotum. Extremities are nonedematous and both femoral and pedal pulses are normal. CARTON LINER: Alert and oriented 3. No focal weakness. - Constitutional Vitals: Temp Pulse Resp BP Pulse Ox 97.6 F 82 14 105/63 98 06/16/17 07:56 06/16/17 07:56 06/16/17 07:56 06/16/17 07:56 06/16/17 07:56 General appearance: Present: no acute distress, well-nourished Results - Labs CBC & Chem 7: 06/16/17 05:56 06/16/17 05:56 Labs: Laboratory Last Values WBC 11.3 K/mm3 (4.5-11.0) H 06/16/17 05:56 RBC 2.89 M/mm3 (3.65-5.03) L 06/16/17 05:56 Hgb 7.7 gm/dl (11.8-15.2) L 06/16/17 05:56 Hct 23.9 % (35.5-45.6) L 06/16/17 05:56 MCV 83 fl (84-94) L 06/16/17 05:56 MCH 27 pg (28-32) L 06/16/17 05:56 MCHC 32 % (32-34) 06/16/17 05:56 RDW 15.1 % (13.2-15.2) 06/16/17 05:56 Plt Count 289 K/mm3 (140-440) 06/16/17 05:56 Lymph % (Auto) 25.3 % (13.4-35.0) 06/16/17 05:56 [place] % (Auto) 4.8 % (0.0-7.3) 06/16/17 05:56 Eos % (Auto) 3.4 % (0.0-4.3) 06/16/17 05:56 Baso % (Auto) 0.6 % (0.0-1.8) 06/16/17 05:56 Lymph # 2.9 K/mm3 (1.2-5.4) 06/16/17 05:56 [place] # 0.5 K/mm3 (0.0-0.8) 06/16/17 05:56 Eos # 0.4 K/mm3 (0.0-0.4) 06/16/17 05:56 Baso # 0.1 K/mm3 (0.0-0.1) 06/16/17 05:56 Seg Neutrophils % 65.9 % (40.0-70.0) 06/16/17 05:56 Seg Neutrophils # 7.5 K/mm3 (1.8-7.7) 06/16/17 05:56 PT 14.2 Sec. (12.2-14.9) 06/12/17 17:43 INR 1.05 (0.87-1.13) 06/12/17 17:43 VBG pH 7.273 (7.320-7.420) L 06/12/17 18:31 Sodium 139 mmol/L (137-145) 06/16/17 05:56 Potassium 3.9 mmol/L (3.6-5.0) 06/16/17 05:56 Chloride 105.7 mmol/L (98-107) 06/16/17 05:56 Carbon Dioxide 24 mmol/L (22-30) 06/16/17 05:56 Anion Gap 13 mmol/L 06/16/17 05:56 BUN 11 mg/dL (9-20) 06/16/17 05:56 Creatinine 1.4 mg/dL (0.8-1.5) 06/16/17 05:56 Estimated GFR > 60 ml/min 06/16/17 05:56 BUN/Creatinine Ratio 8 % 06/16/17 05:56 Glucose 58 mg/dL (75-100) L 06/16/17 05:56 Hemoglobin A1c 4.5 % (4-6) 06/12/17 21:46 Lactic Acid 1.10 mmol/L (0.7-2.0) 06/12/17 23:09 Calcium 7.1 mg/dL (8.4-10.2) L 06/16/17 05:56 Iron 32 ug/dL (49-181) L 06/15/17 14:49 TIBC 64 mcg/dL (250-450) L 06/15/17 14:49 Ferritin 317.5 ng/mL (13.0-400.0) 06/15/17 14:49 Total Bilirubin 0.30 mg/dL (0.1-1.2) 06/13/17 04:24 AST 6 units/L (5-40) 06/13/17 04:24 ALT < 5 units/L (7-56) L 06/13/17 04:24 Alkaline Phosphatase 82 units/L (35-129) 06/13/17 04:24 C-Reactive Protein 13.80 mg/dL (0.00-1.30) H 06/13/17 15:26 Total Protein 6.2 g/dL (6.3-8.2) L D 06/13/17 04:24 Albumin 1.3 g/dL (3.9-5) L 06/13/17 04:24 Albumin/Globulin Ratio 0.3 % 06/13/17 04:24 Urine Color Yellow (Yellow) 06/12/17 Unknown Urine Turbidity Clear (Clear) 06/12/17 Unknown Urine pH 6.0 (5.0-7.0) 06/12/17 Unknown Ur Specific [place] 1.016 (1.003-1.030) 06/12/17 Unknown Urine Protein 30 mg/dl mg/dL (Negative) 06/12/17 Unknown Urine Glucose (UA) Neg mg/dL (Negative) 06/12/17 Unknown Urine Ketones Neg mg/dL (Negative) 06/12/17 Unknown Urine Blood Sm (Negative) 06/12/17 Unknown Urine Nitrite Neg (Negative) 06/12/17 Unknown Urine Bilirubin Neg (Negative) 06/12/17 Unknown Urine Urobilinogen 4.0 mg/dL (<2.0) 06/12/17 Unknown Ur Leukocyte Esterase Neg (Negative) 06/12/17 Unknown Urine WBC (Auto) 4.0 /HPF (0.0-6.0) 06/12/17 Unknown Urine RBC (Auto) 12.0 /HPF (0.0-6.0) 06/12/17 Unknown Urine Bacteria (Auto) 1+ /HPF (Negative) 06/12/17 Unknown Hyaline Casts 1 /LPF 06/12/17 Unknown Urine Mucus Few /HPF 06/12/17 Unknown Vancomycin Trough 18.7 ug/mL (5.0-20.0) 06/15/17 21:16
[2017-06-16] MEDS: HEPARIN SUB-Q SCH ×2 (10:08→21:44)
[2017-06-16] MEDS: SODIUM CHLORIDE FLUSH SYRINGE 10 ML IV SCH ×2 (10:09→22:25)
[2017-06-16] MEDS: NACL 0.9% 1000 ML 1,000 ML IV SCH ×2 (10:10→18:02)
[2017-06-16] MEDS: PERCOCET 5/325 PO PRN ×2 (13:12→21:43)
--- NOTE | 2017-06-16 15:00 | Progress Note ---
Assessment and Plan - Patient Problems (1) Hidradenitis suppurativa Current Visit: Yes Status: Acute (2) Left buttock abscess Current Visit: Yes Status: Acute Plan to address problem: 1) Continue IV antibiotics as I am trying to allow the extensive lower abdominal and perineal wounds heal before proceeding to excision of his buttock hidradenitis. Subjective Date of service: 06/16/17 Patient Reports: Positive: no new complaints Objective Vital Signs - 12hr 06/16/17 06/16/17 05:06 07:56 Temperature 98.1 F 97.6 F Pulse Rate 72 82 Respiratory 18 14 Rate Blood Pressure 107/54 105/63 O2 Sat by Pulse 99 98 Oximetry - Integumentary other (Abdominal, perineal and buttock wounds are unchanged.) - Labs 06/16/17 05:56 06/16/17 05:56 Diabetes panel 06/16/17 Range/Units 05:56 Sodium 139 (137-145) mmol/L Potassium 3.9 (3.6-5.0) mmol/L Chloride 105.7 (98-107) mmol/L Carbon Dioxide 24 (22-30) mmol/L BUN 11 (9-20) mg/dL Creatinine 1.4 (0.8-1.5) mg/dL Glucose 58 L (75-100) mg/dL Calcium 7.1 L (8.4-10.2) mg/dL Calcium panel 06/16/17 Range/Units 05:56 Calcium 7.1 L (8.4-10.2) mg/dL Pituitary panel 06/16/17 Range/Units 05:56 Sodium 139 (137-145) mmol/L Potassium 3.9 (3.6-5.0) mmol/L Chloride 105.7 (98-107) mmol/L Carbon Dioxide 24 (22-30) mmol/L BUN 11 (9-20) mg/dL Creatinine 1.4 (0.8-1.5) mg/dL Glucose 58 L (75-100) mg/dL Calcium 7.1 L (8.4-10.2) mg/dL Adrenal panel 06/16/17 Range/Units 05:56 Sodium 139 (137-145) mmol/L Potassium 3.9 (3.6-5.0) mmol/L Chloride 105.7 (98-107) mmol/L Carbon Dioxide 24 (22-30) mmol/L BUN 11 (9-20) mg/dL Creatinine 1.4 (0.8-1.5) mg/dL Glucose 58 L (75-100) mg/dL Calcium 7.1 L (8.4-10.2) mg/dL
[2017-06-16] MEDS: VANCOMYCIN 1,250 MG in NACL 0.9% 250ML 250 ML IV SCH (21:43)
[2017-06-17] MEDS: ZOSYN/NS 3.375GM/50ML 3.375 GM/50 ML BAG IV SCH ×4 (05:43→23:49)
[2017-06-17] MEDS: NACL 0.9% 1000 ML 1,000 ML IV SCH ×2 (05:47→16:16)
[2017-06-17] MEDS: SODIUM CHLORIDE FLUSH SYRINGE 10 ML IV SCH ×2 (09:23→21:48)
[2017-06-17] MEDS: HEPARIN SUB-Q SCH ×2 (09:23→21:36)
--- NOTE | 2017-06-17 10:39 | Progress Note ---
Assessment and Plan Assessment and plan: Severe sepsis with hypotension - Patient is managed according to sepsis protocol with IV fluids and IV antibiotics - ID and director aeronautics commission consult appreciated - Blood pressure is normalized Extensive ulceration in the groin and scrotal area, left buttock abscess - Patient has been followed with Dr. Aguilar and had surgery before, evaluated by Dr. Aguilar recommended to continue IV antibiotics and if no improvement he will do I and D - Urology was consulted and recommended conservative management - Pain control Anemia of chronic illness - patient doesn't need transfusion at this point from medical point of view - Will treat the underlying condition - Will transfuse if Hemoglobin is below 7 or if he is going to have surgery DVT prophylaxis - On heparin Disposition - continue inpatient care. History Interval history: Patient was seen and evaluated this morning, patient denied fever or chills. Patient is complaining pain. Hospitalist Physical - Physical exam Narrative exam: Not in cardiopulmonary distress. The patient appeared well nourished and normally developed. Vital signs as documented. Head exam is unremarkable. No scleral icterus . Neck is without jugular venous distension, thyromegaly, or carotid bruits. Lungs are clear to auscultation. Cardiac exam reveals regular rate and Rhythm. First and second heart sounds normal. No murmurs, rubs or gallops. Abdominal exam reveals normal bowel sounds, no masses, no organomegaly and no aortic enlargement. Extensive ulceration in the groin area, involving the scrotum. Extremities are nonedematous and both femoral and pedal pulses are normal. PRESS TENDER SH[employer] GOODS: Alert and oriented 3. No focal weakness. - Constitutional Vitals: Temp Pulse Resp BP Pulse Ox 98.2 F 80 16 104/62 99 06/17/17 08:14 06/17/17 08:14 06/17/17 08:14 06/17/17 08:14 06/17/17 08:14 General appearance: Present: no acute distress, well-nourished Results - Labs CBC & Chem 7: 06/16/17 05:56 06/16/17 05:56 Labs: Laboratory Last Values WBC 11.3 K/mm3 (4.5-11.0) H 06/16/17 05:56 RBC 2.89 M/mm3 (3.65-5.03) L 06/16/17 05:56 Hgb 7.7 gm/dl (11.8-15.2) L 06/16/17 05:56 Hct 23.9 % (35.5-45.6) L 06/16/17 05:56 MCV 83 fl (84-94) L 06/16/17 05:56 MCH 27 pg (28-32) L 06/16/17 05:56 MCHC 32 % (32-34) 06/16/17 05:56 RDW 15.1 % (13.2-15.2) 06/16/17 05:56 Plt Count 289 K/mm3 (140-440) 06/16/17 05:56 Lymph % (Auto) 25.3 % (13.4-35.0) 06/16/17 05:56 [place] % (Auto) 4.8 % (0.0-7.3) 06/16/17 05:56 Eos % (Auto) 3.4 % (0.0-4.3) 06/16/17 05:56 Baso % (Auto) 0.6 % (0.0-1.8) 06/16/17 05:56 Lymph # 2.9 K/mm3 (1.2-5.4) 06/16/17 05:56 [place] # 0.5 K/mm3 (0.0-0.8) 06/16/17 05:56 Eos # 0.4 K/mm3 (0.0-0.4) 06/16/17 05:56 Baso # 0.1 K/mm3 (0.0-0.1) 06/16/17 05:56 Seg Neutrophils % 65.9 % (40.0-70.0) 06/16/17 05:56 Seg Neutrophils # 7.5 K/mm3 (1.8-7.7) 06/16/17 05:56 PT 14.2 Sec. (12.2-14.9) 06/12/17 17:43 INR 1.05 (0.87-1.13) 06/12/17 17:43 VBG pH 7.273 (7.320-7.420) L 06/12/17 18:31 Sodium 139 mmol/L (137-145) 06/16/17 05:56 Potassium 3.9 mmol/L (3.6-5.0) 06/16/17 05:56 Chloride 105.7 mmol/L (98-107) 06/16/17 05:56 Carbon Dioxide 24 mmol/L (22-30) 06/16/17 05:56 Anion Gap 13 mmol/L 06/16/17 05:56 BUN 11 mg/dL (9-20) 06/16/17 05:56 Creatinine 1.4 mg/dL (0.8-1.5) 06/16/17 05:56 Estimated GFR > 60 ml/min 06/16/17 05:56 BUN/Creatinine Ratio 8 % 06/16/17 05:56 Glucose 58 mg/dL (75-100) L 06/16/17 05:56 Hemoglobin A1c 4.5 % (4-6) 06/12/17 21:46 Lactic Acid 1.10 mmol/L (0.7-2.0) 06/12/17 23:09 Calcium 7.1 mg/dL (8.4-10.2) L 06/16/17 05:56 Iron 32 ug/dL (49-181) L 06/15/17 14:49 TIBC 64 mcg/dL (250-450) L 06/15/17 14:49 Ferritin 317.5 ng/mL (13.0-400.0) 06/15/17 14:49 Total Bilirubin 0.30 mg/dL (0.1-1.2) 06/13/17 04:24 AST 6 units/L (5-40) 06/13/17 04:24 ALT < 5 units/L (7-56) L 06/13/17 04:24 Alkaline Phosphatase 82 units/L (35-129) 06/13/17 04:24 C-Reactive Protein 13.80 mg/dL (0.00-1.30) H 06/13/17 15:26 Total Protein 6.2 g/dL (6.3-8.2) L D 06/13/17 04:24 Albumin 1.3 g/dL (3.9-5) L 06/13/17 04:24 Albumin/Globulin Ratio 0.3 % 06/13/17 04:24 Urine Color Yellow (Yellow) 06/12/17 Unknown Urine Turbidity Clear (Clear) 06/12/17 Unknown Urine pH 6.0 (5.0-7.0) 06/12/17 Unknown Ur Specific [place] 1.016 (1.003-1.030) 06/12/17 Unknown Urine Protein 30 mg/dl mg/dL (Negative) 06/12/17 Unknown Urine Glucose (UA) Neg mg/dL (Negative) 06/12/17 Unknown Urine Ketones Neg mg/dL (Negative) 06/12/17 Unknown Urine Blood Sm (Negative) 06/12/17 Unknown Urine Nitrite Neg (Negative) 06/12/17 Unknown Urine Bilirubin Neg (Negative) 06/12/17 Unknown Urine Urobilinogen 4.0 mg/dL (<2.0) 06/12/17 Unknown Ur Leukocyte Esterase Neg (Negative) 06/12/17 Unknown Urine WBC (Auto) 4.0 /HPF (0.0-6.0) 06/12/17 Unknown Urine RBC (Auto) 12.0 /HPF (0.0-6.0) 06/12/17 Unknown Urine Bacteria (Auto) 1+ /HPF (Negative) 06/12/17 Unknown Hyaline Casts 1 /LPF 06/12/17 Unknown Urine Mucus Few /HPF 06/12/17 Unknown Vancomycin Trough 18.7 ug/mL (5.0-20.0) 06/15/17 21:16
[2017-06-17] MEDS: PERCOCET 5/325 PO PRN (21:43)
[2017-06-17] MEDS: VANCOMYCIN 1,250 MG in NACL 0.9% 250ML 250 ML IV SCH (21:44)
[2017-06-18] MEDS: NACL 0.9% 1000 ML 1,000 ML IV SCH (05:35)
[2017-06-18] MEDS: ZOSYN/NS 3.375GM/50ML 3.375 GM/50 ML BAG IV SCH ×3 (05:35→22:57)
[2017-06-18 05:41] LABS: Basophils # (Auto) 0.1 K/mm3 (0.0-0.1); Basophils % (Auto) 0.6 % (0.0-1.8); Eosinophils # (Auto) 0.5 K/mm3 (0.0-0.4); Eosinophils % (Auto) 4.4 % (0.0-4.3); Hematocrit 23.1 % (35.5-45.6); Hemoglobin 7.6 gm/dl (11.8-15.2); Lymphocytes # (Auto) 3.2 K/mm3 (1.2-5.4); Mean Corpuscular HGB Conc 33 % (32-34); Mean Corpuscular Hemoglobin 27 pg (28-32); Mean Corpuscular Volume 83 fl (84-94); Monocytes # (Auto) 0.5 K/mm3 (0.0-0.8); Platelet Count 258 K/mm3 (140-440); Red Blood Count 2.79 M/mm3 (3.65-5.03); Red Cell Distribution Width 15.2 % (13.2-15.2)
--- NOTE | 2017-06-18 06:53 | Progress Note ---
Assessment and Plan Assessment and plan: Severe sepsis with hypotension - Patient is managed according to sepsis protocol with IV fluids and IV antibiotics - Hypertension resolved with - Leukocytosis resolved with - Cultures no growth so far Extensive ulceration in the groin and scrotal area, left buttock abscess - Patient has been followed with Dr. Aguilar - Urology was consulted for ulceration around the testicular area and recommended conservative management Anemia of chronic illness - Hemoglobin this morning is 7.6 - We will transfuse if hemoglobin is below 7 DVT prophylaxis - On heparin Disposition -Continue inpatient care, follow with surgery if they want to any intervention at this time. History Interval history: Patient was seen and evaluated this morning, patient denied fever or chills. Patient is complaining pain. Hospitalist Physical - Physical exam Narrative exam: Not in cardiopulmonary distress. The patient appeared well nourished and normally developed. Vital signs as documented. Head exam is unremarkable. No scleral icterus . Neck is without jugular venous distension, thyromegaly, or carotid bruits. Lungs are clear to auscultation. Cardiac exam reveals regular rate and Rhythm. First and second heart sounds normal. No murmurs, rubs or gallops. Abdominal exam reveals normal bowel sounds, no masses, no organomegaly and no aortic enlargement. Extensive ulceration in the groin area, involving the scrotum. Extremities are nonedematous and both femoral and pedal pulses are normal. STAFF RADIOLOGIST: Alert and oriented 3. No focal weakness. - Constitutional Vitals: Temp Pulse Resp BP Pulse Ox 98.1 F 74 17 108/59 99 06/18/17 02:05 06/18/17 05:35 06/18/17 05:35 06/18/17 05:35 06/18/17 05:35 General appearance: Present: no acute distress, well-nourished Results - Labs CBC & Chem 7: 06/18/17 04:45 06/18/17 04:45 Labs: Laboratory Last Values WBC 10.8 K/mm3 (4.5-11.0) 06/18/17 04:45 RBC 2.79 M/mm3 (3.65-5.03) L 06/18/17 04:45 Hgb 7.6 gm/dl (11.8-15.2) L 06/18/17 04:45 Hct 23.1 % (35.5-45.6) L 06/18/17 04:45 MCV 83 fl (84-94) L 06/18/17 04:45 MCH 27 pg (28-32) L 06/18/17 04:45 MCHC 33 % (32-34) 06/18/17 04:45 RDW 15.2 % (13.2-15.2) 06/18/17 04:45 Plt Count 258 K/mm3 (140-440) 06/18/17 04:45 Lymph % (Auto) 30.0 % (13.4-35.0) 06/18/17 04:45 [place] % (Auto) 5.0 % (0.0-7.3) 06/18/17 04:45 Eos % (Auto) 4.4 % (0.0-4.3) H 06/18/17 04:45 Baso % (Auto) 0.6 % (0.0-1.8) 06/18/17 04:45 Lymph # 3.2 K/mm3 (1.2-5.4) 06/18/17 04:45 [place] # 0.5 K/mm3 (0.0-0.8) 06/18/17 04:45 Eos # 0.5 K/mm3 (0.0-0.4) H 06/18/17 04:45 Baso # 0.1 K/mm3 (0.0-0.1) 06/18/17 04:45 Seg Neutrophils % 60.0 % (40.0-70.0) 06/18/17 04:45 Seg Neutrophils # 6.5 K/mm3 (1.8-7.7) 06/18/17 04:45 PT 14.2 Sec. (12.2-14.9) 06/12/17 17:43 INR 1.05 (0.87-1.13) 06/12/17 17:43 VBG pH 7.273 (7.320-7.420) L 06/12/17 18:31 Sodium 139 mmol/L (137-145) 06/18/17 04:45 Potassium 3.7 mmol/L (3.6-5.0) 06/18/17 04:45 Chloride 106.1 mmol/L (98-107) 06/18/17 04:45 Carbon Dioxide 23 mmol/L (22-30) 06/18/17 04:45 Anion Gap 14 mmol/L 06/18/17 04:45 BUN 11 mg/dL (9-20) 06/18/17 04:45 Creatinine 1.5 mg/dL (0.8-1.5) 06/18/17 04:45 Estimated GFR 58 ml/min 06/18/17 04:45 BUN/Creatinine Ratio 7 % 06/18/17 04:45 Glucose 65 mg/dL (75-100) L 06/18/17 04:45 Hemoglobin A1c 4.5 % (4-6) 06/12/17 21:46 Lactic Acid 1.10 mmol/L (0.7-2.0) 06/12/17 23:09 Calcium 7.0 mg/dL (8.4-10.2) L 06/18/17 04:45 Iron 32 ug/dL (49-181) L 06/15/17 14:49 TIBC 64 mcg/dL (250-450) L 06/15/17 14:49 Ferritin 317.5 ng/mL (13.0-400.0) 06/15/17 14:49 Total Bilirubin 0.30 mg/dL (0.1-1.2) 06/13/17 04:24 AST 6 units/L (5-40) 06/13/17 04:24 ALT < 5 units/L (7-56) L 06/13/17 04:24 Alkaline Phosphatase 82 units/L (35-129) 06/13/17 04:24 C-Reactive Protein 13.80 mg/dL (0.00-1.30) H 06/13/17 15:26 Total Protein 6.2 g/dL (6.3-8.2) L D 06/13/17 04:24 Albumin 1.3 g/dL (3.9-5) L 06/13/17 04:24 Albumin/Globulin Ratio 0.3 % 06/13/17 04:24 Urine Color Yellow (Yellow) 06/12/17 Unknown Urine Turbidity Clear (Clear) 06/12/17 Unknown Urine pH 6.0 (5.0-7.0) 06/12/17 Unknown Ur Specific [place] 1.016 (1.003-1.030) 06/12/17 Unknown Urine Protein 30 mg/dl mg/dL (Negative) 06/12/17 Unknown Urine Glucose (UA) Neg mg/dL (Negative) 06/12/17 Unknown Urine Ketones Neg mg/dL (Negative) 06/12/17 Unknown Urine Blood Sm (Negative) 06/12/17 Unknown Urine Nitrite Neg (Negative) 06/12/17 Unknown Urine Bilirubin Neg (Negative) 06/12/17 Unknown Urine Urobilinogen 4.0 mg/dL (<2.0) 06/12/17 Unknown Ur Leukocyte Esterase Neg (Negative) 06/12/17 Unknown Urine WBC (Auto) 4.0 /HPF (0.0-6.0) 06/12/17 Unknown Urine RBC (Auto) 12.0 /HPF (0.0-6.0) 06/12/17 Unknown Urine Bacteria (Auto) 1+ /HPF (Negative) 06/12/17 Unknown Hyaline Casts 1 /LPF 06/12/17 Unknown Urine Mucus Few /HPF 06/12/17 Unknown Vancomycin Trough 18.7 ug/mL (5.0-20.0) 06/15/17 21:16
[2017-06-18] MEDS ORDERED: MYLICON PO PRN (09:46)
--- NOTE | 2017-06-18 10:12 | Progress Note ---
Assessment and Plan Assessment: 1) Sepsis: resolved. Etiology most likely surgical wound infection-scrotum wound. 2) Extensive hidradenitis suppurative to pubic mons, bilateral groin, bilateral gluteal area, scrotum and bialteral axilla: better -Patient is status post multiple I and D's in the past as well as skin grafting. -S/P OR I & D of abscess, skin and subcutaneous tissue on 03/29/2017. OR wound cultures grew MRSA. He was discharged on zyvox po. U -S/P extensive OR debridement 05/01/17. -S/P vancomycin 1.5 g IV q day and levaquin 750 mg Po q day total 4 weeks until 05/28/17. -crp=13.8 -Wound cx + normal skin deb 3) Anemia Plan: -per Dr Aguilar- continue IV abx as extensive lower abdominal and perineal wounds heal before proceeding to excision of his buttock hidradenitis. -continue zosyn and vanco -day 6 -repeat CRP -contact isolation -pt has not coverage for home IV abx, will consider PO abx as the only option, will discuss with Dr Aguilar Thank you for your consultation, will follow up with you. Leslee Gaston MD Infectious Diseases Specialist [facility] ([facility]) M [phone] O [phone] Subjective Date of service: 06/18/17 Principal diagnosis: scrotal wounds Interval history: Feels better, decreased scrotal pain, still 8/10. No fever. No hypotension. Microbiology: Blood cultures: 04/28 neg 04/30 neg 06/12 ngtd Urine cultures: 06/12 pending Respiratory cultures: Wound cultures: 03/29 +MRSA 06/14 usual skin deb Current Antimicrobials: Zosyn 06/12 Vancomycin 06/12 Objective - Exam Narrative Exam: General appearance: Alert in NAD, conversant Eyes: anicteric sclerae, moist conjunctivae; no lid-lag; PERRLA HENT: Atraumatic; oropharynx clear with moist mucous membranes and no mucosal ulcerations/no oral thrush; normal hard and soft palate. Normal external ears. Neck: Trachea midline; supple, no thyromegaly or lymphadenopathy Lungs: CTA, with normal respiratory effort and no intercostal retractions CV: RRR, no murmurs Abdomen: Soft, non-tender; no masses or hepatosplenomegaly Extremities: No peripheral edema or extremity lymphadenopathy Skin: Not examined today Psych: Appropriate affect, alert and oriented to person, place and time. Neuro: alert and oriented x 3. Moving all extremities Lines: No CVL / PICC - Constitutional Vitals: Vital Signs Temp Pulse Resp BP Pulse Ox 97.7 F 71 20 109/62 100 06/18/17 08:25 06/18/17 08:25 06/18/17 08:25 06/18/17 08:25 06/18/17 08:25 Temperature -Last 24 Hours Temperature 97.7 F Temperature 98.1 F Temperature 98.8 F Temperature 98.3 F - Labs CBC & Chem 7: 06/18/17 04:45 06/18/17 04:45 Labs: Abnormal lab results 06/18/17 06/18/17 Range/Units 04:45 04:45 RBC 2.79 L (3.65-5.03) M/mm3 Hgb 7.6 L (11.8-15.2) gm/dl Hct 23.1 L (35.5-45.6) % MCV 83 L (84-94) fl MCH 27 L (28-32) pg Eos % (Auto) 4.4 H (0.0-4.3) % Eos # 0.5 H (0.0-0.4) K/mm3 Glucose 65 L (75-100) mg/dL Calcium 7.0 L (8.4-10.2) mg/dL
[2017-06-18] MEDS: PEPCID PO SCH (10:30)
[2017-06-18] MEDS: HEPARIN SUB-Q SCH ×2 (10:33→22:57)
[2017-06-18] MEDS: SODIUM CHLORIDE FLUSH SYRINGE 10 ML IV SCH ×2 (15:24→22:57)
[2017-06-18] MEDS: PERCOCET 5/325 PO PRN (22:56)
[2017-06-18] MEDS: VANCOMYCIN 1,250 MG in NACL 0.9% 250ML 250 ML IV SCH (22:58)
[2017-06-19] MEDS: ZOSYN/NS 3.375GM/50ML 3.375 GM/50 ML BAG IV SCH ×5 (01:42→23:26)
[2017-06-19] MEDS: NACL 0.9% 1000 ML 1,000 ML IV SCH ×2 (01:43→18:35)
--- NOTE | 2017-06-19 11:23 | Progress Note ---
Assessment and Plan Assessment: 1) Sepsis: resolved. Etiology most likely surgical wound infection-scrotum wound. 2) Extensive hidradenitis suppurative to pubic mons, bilateral groin, bilateral gluteal area, scrotum and bialteral axilla: better -Patient is status post multiple I and D's in the past as well as skin grafting. -S/P OR I & D of abscess, skin and subcutaneous tissue on 03/29/2017. OR wound cultures grew MRSA. He was discharged on zyvox po. U -S/P extensive OR debridement 05/01/17. -S/P vancomycin 1.5 g IV q day and levaquin 750 mg Po q day total 4 weeks until 05/28/17. -crp=13.8 -Wound cx + normal skin deb 3) Anemia Plan: -Dr Aguilar will take him to the OR for buttocks I+D -continue zosyn and vanco -day 7 -contact isolation -pt has not coverage for home IV abx, will consider PO abx as the only option, will discuss with Dr Aguilar Thank you for your consultation, will follow up with you. Leslee Gaston MD Infectious Diseases Specialist [facility] ([facility]) M [phone] O [phone] Subjective Date of service: 06/19/17 Principal diagnosis: scrotal wounds Interval history: still 11/09. No fever. No hypotension. Microbiology: Blood cultures: 04/28 neg 04/30 neg 06/12 ngtd Urine cultures: 06/12 pending Respiratory cultures: Wound cultures: 03/29 +MRSA 06/14 usual skin deb Current Antimicrobials: Zosyn 06/12 Vancomycin 06/12 Objective - Exam Narrative Exam: General appearance: Alert in NAD, conversant Eyes: anicteric sclerae, moist conjunctivae; no lid-lag; PERRLA HENT: Atraumatic; oropharynx clear with moist mucous membranes and no mucosal ulcerations/no oral thrush; normal hard and soft palate. Normal external ears. Neck: Trachea midline; supple, no thyromegaly or lymphadenopathy Lungs: CTA, with normal respiratory effort and no intercostal retractions CV: RRR, no murmurs Abdomen: Soft, non-tender; no masses or hepatosplenomegaly Extremities: No peripheral edema or extremity lymphadenopathy Skin: Not examined today Psych: Appropriate affect, alert and oriented to person, place and time. Neuro: alert and oriented x 3. Moving all extremities Lines: No CVL / PICC - Constitutional Vitals: Vital Signs Temp Pulse Resp BP Pulse Ox 97.9 F 79 20 104/62 99 06/19/17 08:33 06/19/17 08:33 06/19/17 08:33 06/19/17 08:33 06/19/17 08:33 Temperature -Last 24 Hours Temperature 97.9 F Temperature 97.9 F Temperature 98.3 F Temperature 98.3 F - Labs CBC & Chem 7: 06/18/17 04:45 06/18/17 04:45 Labs: Abnormal lab results 06/18/17 Range/Units 04:45 C-Reactive Protein 6.90 H (0.00-1.30) mg/dL
[2017-06-19] MEDS: PEPCID PO SCH (12:07)
[2017-06-19] MEDS: PERCOCET 5/325 PO PRN ×3 (12:07→23:25)
[2017-06-19] MEDS: HEPARIN SUB-Q SCH ×2 (12:08→21:57)
[2017-06-19] MEDS: SODIUM CHLORIDE FLUSH SYRINGE 10 ML IV SCH ×2 (12:09→21:57)
--- NOTE | 2017-06-19 14:36 | Progress Note ---
Assessment and Plan - Patient Problems (1) Hidradenitis suppurativa Current Visit: Yes Status: Acute (2) Left buttock abscess Current Visit: Yes Status: Acute Plan to address problem: 1) I&D tomorrow 2) NPO after MN Subjective Date of service: 06/19/17 Patient Reports: Positive: other (Continues to c/o left buttock pain/drainage) Objective Vital Signs - 12hr 06/19/17 06/19/17 06/19/17 05:00 08:33 12:01 Temperature 97.9 F 97.9 F 97.8 F Pulse Rate 78 79 98 H Respiratory 16 20 20 Rate Blood Pressure 108/60 104/62 101/44 O2 Sat by Pulse 99 99 96 Oximetry - Integumentary other (Cont'd drainage from left buttock) - Labs 06/18/17 04:45 06/18/17 04:45
--- NOTE | 2017-06-19 16:22 | Progress Note ---
Assessment and Plan Assessment and plan: Patient a 57-year-old male with past medical history of hidradenitis who presents to the Emergency Department for complains gluteal pain and discharge, Patient is status post excision of hidradenitis in the lower abdomen are currently doing well with good healing but still has extensive disesas Generalized Hidradenitis s/p Excision of abscessed skin * Excision of gluteal lesion by surgery in am * Continue abx, ID following. Patient will need extensive abx, await surgical outcome Chronic Pain syndrome * Continue pain control Anemia.of chronic disease * Stable will monitor Extensive bilateral groin, pubic and perineal cellulitis * urology recommend conservative managment, patient with multiple skin surgeries in the past CKD * Stable Tobacco abuse * quite DVT prophylaxis - On heparin Disposition -Continue inpatient care, 3) Anemia History Interval history: Patient seen and examined, still requiring more pain meds for better control, Hospitalist Physical - Physical exam Narrative exam: General appearance: NAD HEENT PERRLA, Atraumatic; oropharynx clear with moist mucous membranes Neck is supple, no thyromegaly or lymphadenopathy Lungs: CTA, no wheezing or Rhonchi CV: RRR, no murmurs, rubs or gallops Abdomen: Soft, +BS, non-tender; no masses or hepatosplenomegaly Extremities: No peripheral edema or extremity lymphadenopathy Neuro:AAOX3 Psych: Appropriate affect, alert and oriented to person, place and time. Skin: Wound dressing in place with drainage - Constitutional Vitals: Temp Pulse Resp BP Pulse Ox 97.8 F 98 H 20 101/44 96 06/19/17 12:01 06/19/17 12:01 06/19/17 12:01 06/19/17 12:01 06/19/17 12:01 General appearance: Present: no acute distress, well-nourished Results - Labs CBC & Chem 7: 06/18/17 04:45 06/18/17 04:45 Labs: Laboratory Last Values WBC 10.8 K/mm3 (4.5-11.0) 06/18/17 04:45 RBC 2.79 M/mm3 (3.65-5.03) L 06/18/17 04:45 Hgb 7.6 gm/dl (11.8-15.2) L 06/18/17 04:45 Hct 23.1 % (35.5-45.6) L 06/18/17 04:45 MCV 83 fl (84-94) L 06/18/17 04:45 MCH 27 pg (28-32) L 06/18/17 04:45 MCHC 33 % (32-34) 06/18/17 04:45 RDW 15.2 % (13.2-15.2) 06/18/17 04:45 Plt Count 258 K/mm3 (140-440) 06/18/17 04:45 Lymph % (Auto) 30.0 % (13.4-35.0) 06/18/17 04:45 [place] % (Auto) 5.0 % (0.0-7.3) 06/18/17 04:45 Eos % (Auto) 4.4 % (0.0-4.3) H 06/18/17 04:45 Baso % (Auto) 0.6 % (0.0-1.8) 06/18/17 04:45 Lymph # 3.2 K/mm3 (1.2-5.4) 06/18/17 04:45 [place] # 0.5 K/mm3 (0.0-0.8) 06/18/17 04:45 Eos # 0.5 K/mm3 (0.0-0.4) H 06/18/17 04:45 Baso # 0.1 K/mm3 (0.0-0.1) 06/18/17 04:45 Seg Neutrophils % 60.0 % (40.0-70.0) 06/18/17 04:45 Seg Neutrophils # 6.5 K/mm3 (1.8-7.7) 06/18/17 04:45 PT 14.2 Sec. (12.2-14.9) 06/12/17 17:43 INR 1.05 (0.87-1.13) 06/12/17 17:43 VBG pH 7.273 (7.320-7.420) L 06/12/17 18:31 Sodium 139 mmol/L (137-145) 06/18/17 04:45 Potassium 3.7 mmol/L (3.6-5.0) 06/18/17 04:45 Chloride 106.1 mmol/L (98-107) 06/18/17 04:45 Carbon Dioxide 23 mmol/L (22-30) 06/18/17 04:45 Anion Gap 14 mmol/L 06/18/17 04:45 BUN 11 mg/dL (9-20) 06/18/17 04:45 Creatinine 1.5 mg/dL (0.8-1.5) 06/18/17 04:45 Estimated GFR 58 ml/min 06/18/17 04:45 BUN/Creatinine Ratio 7 % 06/18/17 04:45 Glucose 65 mg/dL (75-100) L 06/18/17 04:45 Hemoglobin A1c 4.5 % (4-6) 06/12/17 21:46 Lactic Acid 1.10 mmol/L (0.7-2.0) 06/12/17 23:09 Calcium 7.0 mg/dL (8.4-10.2) L 06/18/17 04:45 Iron 32 ug/dL (49-181) L 06/15/17 14:49 TIBC 64 mcg/dL (250-450) L 06/15/17 14:49 Ferritin 317.5 ng/mL (13.0-400.0) 06/15/17 14:49 Total Bilirubin 0.30 mg/dL (0.1-1.2) 06/13/17 04:24 AST 6 units/L (5-40) 06/13/17 04:24 ALT < 5 units/L (7-56) L 06/13/17 04:24 Alkaline Phosphatase 82 units/L (35-129) 06/13/17 04:24 C-Reactive Protein 6.90 mg/dL (0.00-1.30) H 06/18/17 04:45 Total Protein 6.2 g/dL (6.3-8.2) L D 06/13/17 04:24 Albumin 1.3 g/dL (3.9-5) L 06/13/17 04:24 Albumin/Globulin Ratio 0.3 % 06/13/17 04:24 Urine Color Yellow (Yellow) 06/12/17 Unknown Urine Turbidity Clear (Clear) 06/12/17 Unknown Urine pH 6.0 (5.0-7.0) 06/12/17 Unknown Ur Specific [place] 1.016 (1.003-1.030) 06/12/17 Unknown Urine Protein 30 mg/dl mg/dL (Negative) 06/12/17 Unknown Urine Glucose (UA) Neg mg/dL (Negative) 06/12/17 Unknown Urine Ketones Neg mg/dL (Negative) 06/12/17 Unknown Urine Blood Sm (Negative) 06/12/17 Unknown Urine Nitrite Neg (Negative) 06/12/17 Unknown Urine Bilirubin Neg (Negative) 06/12/17 Unknown Urine Urobilinogen 4.0 mg/dL (<2.0) 06/12/17 Unknown Ur Leukocyte Esterase Neg (Negative) 06/12/17 Unknown Urine WBC (Auto) 4.0 /HPF (0.0-6.0) 06/12/17 Unknown Urine RBC (Auto) 12.0 /HPF (0.0-6.0) 06/12/17 Unknown Urine Bacteria (Auto) 1+ /HPF (Negative) 06/12/17 Unknown Hyaline Casts 1 /LPF 06/12/17 Unknown Urine Mucus Few /HPF 06/12/17 Unknown Vancomycin Trough 18.7 ug/mL (5.0-20.0) 06/15/17 21:16
--- NOTE | 2017-06-19 18:11 | Anesthesia Consultation ---
Anesthesia Consult and Med Hx Date of service: 06/19/17 - Airway Anesthetic Teeth Evaluation: Good ROM Head & Neck: Adequate Mental/Hyoid Distance: Adequate Mallampati Class: Class II Intubation Access Assessment: Probably Good - Pulmonary Exam CTA: Yes - Cardiac Exam Cardiac Exam: RRR - Pre-Operative Health Status ASA Pre-Surgery Classification: ASA2 Proposed Anesthetic Plan: General - Pulmonary Hx Smoking: Yes (cigars) Hx Asthma: No COPD: No Hx Pneumonia: No - Cardiovascular System Hx Hypertension: No Hx Pacemaker: No Hx Internal Defibrillator: No - Central Nervous System Hx Neuromuscular Disorder: No - Gastrointestinal Hx Gastroesophageal Reflux Disease: No - Endocrine Hx Renal Disease: No Hx End Stage Renal Disease: No - Hematic Hx Anemia: Yes (HGB 7.0 prior to 2 units rbc's) - Other Systems Hx Alcohol Use: Yes (rare) Hx Substance Use: No Hx Cancer: No Hx Obesity: No
[2017-06-19] MEDS: VANCOMYCIN 1,250 MG in NACL 0.9% 250ML 250 ML IV SCH (21:56)
[2017-06-20] MEDS: NACL 0.9% 1000 ML 1,000 ML IV SCH ×2 (05:30→20:32)
[2017-06-20] MEDS: ZOSYN/NS 3.375GM/50ML 3.375 GM/50 ML BAG IV SCH ×4 (05:30→23:14)
[2017-06-20 06:19] LABS: Hematocrit 21.8 % (35.5-45.6); Hemoglobin 6.9 gm/dl (11.8-15.2); Mean Corpuscular HGB Conc 32 % (32-34); Mean Corpuscular Hemoglobin 27 pg (28-32); Mean Corpuscular Volume 84 fl (84-94); Platelet Count 242 K/mm3 (140-440); Red Blood Count 2.59 M/mm3 (3.65-5.03); Red Cell Distribution Width 15.3 % (13.2-15.2)
[2017-06-20 06:39] LABS: Calcium 7.1 mg/dL (8.4-10.2)
[2017-06-20] MEDS ORDERED: NACL 0.9% 500 ML 500 ML IV ONE (11:00)
[2017-06-20] MEDS ORDERED: DILAUDID ONE (12:22)
[2017-06-20] MEDS ORDERED: XYLOCAINE MPF 2% ONE (12:22)
[2017-06-20] MEDS ORDERED: DIPRIVAN 10 MG/ML IV ONE (12:23)
[2017-06-20] MEDS ORDERED: MARCAINE 0.5% INFILTRATI ONE (12:42)
[2017-06-20] MEDS ORDERED: HYDROGEN PEROXIDE ONE (12:56)
[2017-06-20] MEDS: HEPARIN SUB-Q SCH ×2 (12:59→23:18)
[2017-06-20] MEDS: PEPCID PO SCH (12:59)
[2017-06-20] MEDS ORDERED: ZOFRAN IV PRN (13:15)
--- NOTE | 2017-06-20 13:19 | Anesthesia Day of Surgery ---
Anesthesia Day of Surgery - Day of Surgery Patient Examined: Yes Patient H&P Reviewed: Yes Patient is NPO: Yes
[2017-06-20] MEDS ORDERED: NACL 0.9% 1000 ML 1,000 ML ONE (13:28)
--- NOTE | 2017-06-20 13:49 | Anesthesia Day of Surgery ---
Anesthesia Day of Surgery - Day of Surgery Patient Examined: Yes Patient H&P Reviewed: Yes Patient is NPO: Yes
--- NOTE | 2017-06-20 13:50 | Anesthesia Consultation ---
Anesthesia Consult and Med Hx - Airway Anesthetic Teeth Evaluation: Good ROM Head & Neck: Adequate Mental/Hyoid Distance: Adequate Mallampati Class: Class III Intubation Access Assessment: Good - Pulmonary Exam CTA: Yes - Cardiac Exam Cardiac Exam: RRR - Pre-Operative Health Status ASA Pre-Surgery Classification: ASA3 Proposed Anesthetic Plan: General - Pulmonary Hx Smoking: Yes (cigars) Hx Asthma: No COPD: No Hx Pneumonia: No - Cardiovascular System Hx Hypertension: No Hx Pacemaker: No Hx Internal Defibrillator: No - Central Nervous System Hx Neuromuscular Disorder: No - Gastrointestinal Hx Gastroesophageal Reflux Disease: No - Endocrine Hx Renal Disease: No Hx End Stage Renal Disease: No - Hematic Hx Anemia: Yes (HGB 7.0 prior to 2 units rbc's) - Other Systems Hx Alcohol Use: Yes (rare) Hx Substance Use: No Hx Cancer: No Hx Obesity: No
[2017-06-20] MEDS ORDERED: D50W (25GM) Syringe IV ONE (13:56)
[2017-06-20] MEDS ORDERED: NEURONTIN PO NR (14:00)
[2017-06-20] MEDS ORDERED: VERSED IV NR (14:00)
[2017-06-20] MEDS ORDERED: ePHEDrine SULFATE ONE (14:15)
[2017-06-20] MEDS ORDERED: NACL 0.9% IR ONE (14:20)
[2017-06-20] MEDS: MORPHINE IV PRN ×3 (15:38→16:34)
--- NOTE | 2017-06-20 17:27 | Procedure Note ---
Date of procedure: 06/20/17 Pre-op diagnosis: Left buttock abscess Post-op diagnosis: same Procedure: I&D of left buttock abscess Description of procedure: Pt was intubated supine on his bed. He was repositioned prone on the OR table. Buttocks, thighs and lower back were prepped and draped. A hemostat was used to probe the left buttock abscess cavity. Skin and SQ tissue were incised over the hemostat completely unroofing the abscessed tract. This resulted in an approximately 10 cm incision after complete unroofing of the tract. The cavity was irrigated and packed with Surgicel followed by dry 4 X 4's, and ABD and Medipore tape. Pt tolerated the procedure well. He was extubated in the OR and was taken to PACU in stable condition. Anesthesia: CHAITANYA Surgeon: BECKY HERNANDEZ Estimated blood loss: minimal Pathology: none Condition: stable Disposition: PACU
--- NOTE | 2017-06-20 22:11 | Progress Note ---
Assessment and Plan Assessment and plan: Patient a 57-year-old male with past medical history of hidradenitis who presents to the Emergency Department for complains gluteal pain and discharge, Patient is status post excision of hidradenitis in the lower abdomen are currently doing well with good healing but still has extensive disesas Generalized Hidradenitis s/p Excision of abscessed skin * Excision of gluteal lesion today * Continue abx, ID following. Patient will need extensive abx, await surgical outcome * woundcare management of dressings Chronic Pain syndrome * Continue pain control Anemia.of chronic disease-severe * Stable will monitor * Give 2 units of PRBC, check h/h in am Extensive bilateral groin, pubic and perineal cellulitis * Urology recommend conservative management, patient with multiple skin surgeries in the past CKD * Stable Tobacco abuse * Patient states that he quit DVT prophylaxis - On heparin Disposition -Continue inpatient care, History Interval history: Patient seen and examined, better pain controlled, no new complaints. Hospitalist Physical - Physical exam Narrative exam: General appearance: NAD HEENT PERRLA, Atraumatic; oropharynx clear with moist mucous membranes Neck is supple, no thyromegaly or lymphadenopathy Lungs: CTA, no wheezing or Rhonchi CV: RRR, no murmurs, rubs or gallops Abdomen: Soft, +BS, non-tender; no masses or hepatosplenomegaly, dressing around the abdomen and perineum Extremities: No peripheral edema or extremity lymphadenopathy Neuro:AAOX3 Psych: Appropriate affect, alert and oriented to person, place and time. Skin: Wound dressing in place with drainage - Constitutional Vitals: Temp Pulse Resp BP Pulse Ox 97.9 F 95 H 18 117/70 99 06/20/17 19:29 06/20/17 19:29 06/20/17 19:29 06/20/17 19:29 06/20/17 19:29 General appearance: Present: no acute distress, well-nourished Results - Labs CBC & Chem 7: 06/20/17 05:25 06/20/17 05:25 Labs: Laboratory Last Values WBC 10.4 K/mm3 (4.5-11.0) 06/20/17 05:25 RBC 2.59 M/mm3 (3.65-5.03) L 06/20/17 05:25 Hgb 6.9 gm/dl (11.8-15.2) L 06/20/17 05:25 Hct 21.8 % (35.5-45.6) L 06/20/17 05:25 MCV 84 fl (84-94) 06/20/17 05:25 MCH 27 pg (28-32) L 06/20/17 05:25 MCHC 32 % (32-34) 06/20/17 05:25 RDW 15.3 % (13.2-15.2) H 06/20/17 05:25 Plt Count 242 K/mm3 (140-440) 06/20/17 05:25 Lymph % (Auto) 30.0 % (13.4-35.0) 06/18/17 04:45 [place] % (Auto) 5.0 % (0.0-7.3) 06/18/17 04:45 Eos % (Auto) 4.4 % (0.0-4.3) H 06/18/17 04:45 Baso % (Auto) 0.6 % (0.0-1.8) 06/18/17 04:45 Lymph # 3.2 K/mm3 (1.2-5.4) 06/18/17 04:45 [place] # 0.5 K/mm3 (0.0-0.8) 06/18/17 04:45 Eos # 0.5 K/mm3 (0.0-0.4) H 06/18/17 04:45 Baso # 0.1 K/mm3 (0.0-0.1) 06/18/17 04:45 Seg Neutrophils % 60.0 % (40.0-70.0) 06/18/17 04:45 Seg Neutrophils # 6.5 K/mm3 (1.8-7.7) 06/18/17 04:45 PT 14.2 Sec. (12.2-14.9) 06/12/17 17:43 INR 1.05 (0.87-1.13) 06/12/17 17:43 VBG pH 7.273 (7.320-7.420) L 06/12/17 18:31 Sodium 139 mmol/L (137-145) 06/20/17 05:25 Potassium 3.8 mmol/L (3.6-5.0) 06/20/17 05:25 Chloride 105.1 mmol/L (98-107) 06/20/17 05:25 Carbon Dioxide 25 mmol/L (22-30) 06/20/17 05:25 Anion Gap 13 mmol/L 06/20/17 05:25 BUN 14 mg/dL (9-20) 06/20/17 05:25 Creatinine 1.5 mg/dL (0.8-1.5) 06/20/17 05:25 Estimated GFR 58 ml/min 06/20/17 05:25 BUN/Creatinine Ratio 9 % 06/20/17 05:25 Glucose 52 mg/dL (75-100) L 06/20/17 05:25 POC Glucose 73 (70-105) 06/20/17 15:24 Hemoglobin A1c 4.5 % (4-6) 06/12/17 21:46 Lactic Acid 1.10 mmol/L (0.7-2.0) 06/12/17 23:09 Calcium 7.1 mg/dL (8.4-10.2) L 06/20/17 05:25 Iron 32 ug/dL (49-181) L 06/15/17 14:49 TIBC 64 mcg/dL (250-450) L 06/15/17 14:49 Ferritin 317.5 ng/mL (13.0-400.0) 06/15/17 14:49 Total Bilirubin 0.30 mg/dL (0.1-1.2) 06/13/17 04:24 AST 6 units/L (5-40) 06/13/17 04:24 ALT < 5 units/L (7-56) L 06/13/17 04:24 Alkaline Phosphatase 82 units/L (35-129) 06/13/17 04:24 C-Reactive Protein 6.90 mg/dL (0.00-1.30) H 06/18/17 04:45 Total Protein 6.2 g/dL (6.3-8.2) L D 06/13/17 04:24 Albumin 1.3 g/dL (3.9-5) L 06/13/17 04:24 Albumin/Globulin Ratio 0.3 % 06/13/17 04:24 Urine Color Yellow (Yellow) 06/12/17 Unknown Urine Turbidity Clear (Clear) 06/12/17 Unknown Urine pH 6.0 (5.0-7.0) 06/12/17 Unknown Ur Specific [place] 1.016 (1.003-1.030) 06/12/17 Unknown Urine Protein 30 mg/dl mg/dL (Negative) 06/12/17 Unknown Urine Glucose (UA) Neg mg/dL (Negative) 06/12/17 Unknown Urine Ketones Neg mg/dL (Negative) 06/12/17 Unknown Urine Blood Sm (Negative) 06/12/17 Unknown Urine Nitrite Neg (Negative) 06/12/17 Unknown Urine Bilirubin Neg (Negative) 06/12/17 Unknown Urine Urobilinogen 4.0 mg/dL (<2.0) 06/12/17 Unknown Ur Leukocyte Esterase Neg (Negative) 06/12/17 Unknown Urine WBC (Auto) 4.0 /HPF (0.0-6.0) 06/12/17 Unknown Urine RBC (Auto) 12.0 /HPF (0.0-6.0) 06/12/17 Unknown Urine Bacteria (Auto) 1+ /HPF (Negative) 06/12/17 Unknown Hyaline Casts 1 /LPF 06/12/17 Unknown Urine Mucus Few /HPF 06/12/17 Unknown Vancomycin Trough 22.6 ug/mL (5.0-20.0) H 06/20/17 20:37 Blood Type O POSITIVE 06/20/17 08:24 Antibody Screen Negative 06/20/17 08:24 Crossmatch See Detail 06/20/17 08:24
[2017-06-20] MEDS: VANCOMYCIN 1,250 MG in NACL 0.9% 250ML 250 ML IV SCH (23:08)
[2017-06-20] MEDS: SODIUM CHLORIDE FLUSH SYRINGE 10 ML IV SCH (23:08)
[2017-06-20] MEDS: DILAUDID IV PRN (23:16)
[2017-06-21 05:53] LABS: Hematocrit 25.7 % (35.5-45.6); Hemoglobin 8.3 gm/dl (11.8-15.2); Mean Corpuscular HGB Conc 33 % (32-34); Mean Corpuscular Hemoglobin 27 pg (28-32); Mean Corpuscular Volume 82 fl (84-94); Platelet Count 247 K/mm3 (140-440); Red Blood Count 3.12 M/mm3 (3.65-5.03); Red Cell Distribution Width 16.1 % (13.2-15.2)
[2017-06-21] MEDS: DILAUDID IV PRN (06:03)
[2017-06-21] MEDS: ZOSYN/NS 3.375GM/50ML 3.375 GM/50 ML BAG IV SCH (06:04)
[2017-06-21] MEDS: SODIUM CHLORIDE FLUSH SYRINGE 10 ML IV SCH ×3 (07:38→21:45)
[2017-06-21] MEDS: NACL 0.9% 1000 ML 1,000 ML IV SCH ×2 (10:24→19:31)
[2017-06-21] MEDS: HEPARIN SUB-Q SCH ×2 (10:25→21:45)
[2017-06-21] MEDS: PEPCID PO SCH (10:25)
[2017-06-21] MEDS: PERCOCET 5/325 PO PRN ×3 (10:32→21:44)
[2017-06-21] MEDS: ZOSYN/NS 4.5GM/100ML 4.5 GM/100 ML VIAL IV SCH ×2 (13:10→21:43)
--- NOTE | 2017-06-21 13:46 | Progress Note ---
Assessment and Plan Assessment: 1) Sepsis: resolved. Etiology most likely surgical wound infection-left buttocks abscess 2) Extensive hidradenitis suppurative to pubic mons, bilateral groin, bilateral gluteal area, scrotum and bialteral axilla: better -Patient is status post multiple I and D's in the past as well as skin grafting. -S/P OR I & D of abscess, skin and subcutaneous tissue on 03/29/2017. OR wound cultures grew MRSA. He was discharged on zyvox po. U -S/P extensive OR debridement 05/01/17. -S/P vancomycin 1.5 g IV q day and levaquin 750 mg Po q day total 4 weeks until 05/28/17. -crp=13.8 -Wound cx + normal skin dbe -S/P left buttocks I+D on 06/20 3) Anemia Plan: -upon discharge will do linezolid 600 mg po BID, cipro 500 mg PO q12 total 3 weeks until 07/03 -continue zosyn and vanco -day 9 while inpatient -contact isolation -pt to have excision of his buttock hidradenitis in the near future per Dr Aguilar. -ID clinic f/u in 2 weeks - after linezolid and cipro will do chronic suppression with doxycycline. I am signing off Thank you for your consultation, will follow up with you. Leslee Gaston MD Infectious Diseases Specialist [facility] ([facility]) M [phone] O [phone] Subjective Date of service: 06/21/17 Principal diagnosis: scrotal wounds Interval history: Feels ok, went to the OR yesterday. No fever. No hypotension. Microbiology: Blood cultures: 04/28 neg 04/30 neg 06/12 neg Urine cultures: 06/12 pending Respiratory cultures: Wound cultures: 03/29 +MRSA 06/14 usual skin deb Current Antimicrobials: Zosyn 06/12 Vancomycin 06/12 Objective - Exam Narrative Exam: General appearance: Alert in NAD, conversant Eyes: anicteric sclerae, moist conjunctivae; no lid-lag; PERRLA HENT: Atraumatic; oropharynx clear with moist mucous membranes and no mucosal ulcerations/no oral thrush; normal hard and soft palate. Normal external ears. Neck: Trachea midline; supple, no thyromegaly or lymphadenopathy Lungs: CTA, with normal respiratory effort and no intercostal retractions CV: RRR, no murmurs Abdomen: Soft, non-tender; no masses or hepatosplenomegaly Extremities: No peripheral edema or extremity lymphadenopathy Skin: Not examined today Psych: Appropriate affect, alert and oriented to person, place and time. Neuro: alert and oriented x 3. Moving all extremities Lines: No CVL / PICC - Constitutional Vitals: Vital Signs Temp Pulse Resp BP Pulse Ox 98.6 F 88 20 109/69 98 06/21/17 07:25 06/21/17 07:25 06/21/17 07:25 06/21/17 07:25 06/21/17 07:25 Temperature -Last 24 Hours Temperature 98.6 F Temperature 98.4 F Temperature 98.4 F Temperature 97.9 F Temperature 98.0 F Temperature 98.1 F Temperature 98.8 F - Labs CBC & Chem 7: 06/21/17 04:58 06/20/17 05:25 Labs: Abnormal lab results 06/20/17 06/20/17 06/21/17 Range/Units 08:24 20:37 04:58 WBC 12.2 H (4.5-11.0) K/mm3 RBC 3.12 L (3.65-5.03) M/mm3 Hgb 8.3 L (11.8-15.2) gm/dl Hct 25.7 L (35.5-45.6) % MCV 82 L (84-94) fl MCH 27 L (28-32) pg RDW 16.1 H (13.2-15.2) % Vancomycin Trough 22.6 H (5.0-20.0) ug/mL Crossmatch See Detail
--- NOTE | 2017-06-21 17:01 | Progress Note ---
Assessment and Plan Assessment and plan: Patient a 57-year-old male with past medical history of hidradenitis who presents to the Emergency Department for complains gluteal pain and discharge, Patient is status post excision of hidradenitis in the lower abdomen are currently doing well with good healing but still has extensive disesas Generalized Hidradenitis s/p Excision of abscessed skin * Excision of gluteal lesion done with success * Continue abx, ID following. Patient will need extensive abx, per ID can be switched to oral medications on discharge * woundcare management of dressings Chronic Pain syndrome * Continue pain control Anemia.of chronic disease-severe * Good response to 2 untis PRBC Extensive bilateral groin, pubic and perineal cellulitis * Urology recommend conservative management, patient with multiple skin surgeries in the past CKD * Stable Tobacco abuse * Patient states that he quit DVT prophylaxis - On heparin Disposition -Continue inpatient care, Discharge in am History Interval history: Patient seen and examined, doing well, s/p resection. pain better controlled Hospitalist Physical - Physical exam Narrative exam: General appearance: NAD HEENT PERRLA, Atraumatic; oropharynx clear with moist mucous membranes Neck is supple, no thyromegaly or lymphadenopathy Lungs: CTA, no wheezing or Rhonchi CV: RRR, no murmurs, rubs or gallops Abdomen: Soft, +BS, non-tender; no masses or hepatosplenomegaly, dressing around the abdomen and perineum Extremities: No peripheral edema or extremity lymphadenopathy Neuro:AAOX3 Psych: Appropriate affect, alert and oriented to person, place and time. Skin: Wound dressing in place with drainage - Constitutional Vitals: Temp Pulse Resp BP Pulse Ox 98.1 F 78 20 106/51 99 06/21/17 15:31 06/21/17 15:31 06/21/17 15:31 06/21/17 15:31 06/21/17 15:31 General appearance: Present: no acute distress, well-nourished Results - Labs CBC & Chem 7: 06/21/17 04:58 06/20/17 05:25 Labs: Laboratory Last Values WBC 12.2 K/mm3 (4.5-11.0) H 06/21/17 04:58 RBC 3.12 M/mm3 (3.65-5.03) L 06/21/17 04:58 Hgb 8.3 gm/dl (11.8-15.2) L 06/21/17 04:58 Hct 25.7 % (35.5-45.6) L 06/21/17 04:58 MCV 82 fl (84-94) L 06/21/17 04:58 MCH 27 pg (28-32) L 06/21/17 04:58 MCHC 33 % (32-34) 06/21/17 04:58 RDW 16.1 % (13.2-15.2) H 06/21/17 04:58 Plt Count 247 K/mm3 (140-440) 06/21/17 04:58 Lymph % (Auto) 30.0 % (13.4-35.0) 06/18/17 04:45 [place] % (Auto) 5.0 % (0.0-7.3) 06/18/17 04:45 Eos % (Auto) 4.4 % (0.0-4.3) H 06/18/17 04:45 Baso % (Auto) 0.6 % (0.0-1.8) 06/18/17 04:45 Lymph # 3.2 K/mm3 (1.2-5.4) 06/18/17 04:45 [place] # 0.5 K/mm3 (0.0-0.8) 06/18/17 04:45 Eos # 0.5 K/mm3 (0.0-0.4) H 06/18/17 04:45 Baso # 0.1 K/mm3 (0.0-0.1) 06/18/17 04:45 Seg Neutrophils % 60.0 % (40.0-70.0) 06/18/17 04:45 Seg Neutrophils # 6.5 K/mm3 (1.8-7.7) 06/18/17 04:45 PT 14.2 Sec. (12.2-14.9) 06/12/17 17:43 INR 1.05 (0.87-1.13) 06/12/17 17:43 VBG pH 7.273 (7.320-7.420) L 06/12/17 18:31 Sodium 139 mmol/L (137-145) 06/20/17 05:25 Potassium 3.8 mmol/L (3.6-5.0) 06/20/17 05:25 Chloride 105.1 mmol/L (98-107) 06/20/17 05:25 Carbon Dioxide 25 mmol/L (22-30) 06/20/17 05:25 Anion Gap 13 mmol/L 06/20/17 05:25 BUN 14 mg/dL (9-20) 06/20/17 05:25 Creatinine 1.5 mg/dL (0.8-1.5) 06/20/17 05:25 Estimated GFR 58 ml/min 06/20/17 05:25 BUN/Creatinine Ratio 9 % 06/20/17 05:25 Glucose 52 mg/dL (75-100) L 06/20/17 05:25 POC Glucose 73 (70-105) 06/20/17 15:24 Hemoglobin A1c 4.5 % (4-6) 06/12/17 21:46 Lactic Acid 1.10 mmol/L (0.7-2.0) 06/12/17 23:09 Calcium 7.1 mg/dL (8.4-10.2) L 06/20/17 05:25 Iron 32 ug/dL (49-181) L 06/15/17 14:49 TIBC 64 mcg/dL (250-450) L 06/15/17 14:49 Ferritin 317.5 ng/mL (13.0-400.0) 06/15/17 14:49 Total Bilirubin 0.30 mg/dL (0.1-1.2) 06/13/17 04:24 AST 6 units/L (5-40) 06/13/17 04:24 ALT < 5 units/L (7-56) L 06/13/17 04:24 Alkaline Phosphatase 82 units/L (35-129) 06/13/17 04:24 C-Reactive Protein 6.90 mg/dL (0.00-1.30) H 06/18/17 04:45 Total Protein 6.2 g/dL (6.3-8.2) L D 06/13/17 04:24 Albumin 1.3 g/dL (3.9-5) L 06/13/17 04:24 Albumin/Globulin Ratio 0.3 % 06/13/17 04:24 Urine Color Yellow (Yellow) 06/12/17 Unknown Urine Turbidity Clear (Clear) 06/12/17 Unknown Urine pH 6.0 (5.0-7.0) 06/12/17 Unknown Ur Specific [place] 1.016 (1.003-1.030) 06/12/17 Unknown Urine Protein 30 mg/dl mg/dL (Negative) 06/12/17 Unknown Urine Glucose (UA) Neg mg/dL (Negative) 06/12/17 Unknown Urine Ketones Neg mg/dL (Negative) 06/12/17 Unknown Urine Blood Sm (Negative) 06/12/17 Unknown Urine Nitrite Neg (Negative) 06/12/17 Unknown Urine Bilirubin Neg (Negative) 06/12/17 Unknown Urine Urobilinogen 4.0 mg/dL (<2.0) 06/12/17 Unknown Ur Leukocyte Esterase Neg (Negative) 06/12/17 Unknown Urine WBC (Auto) 4.0 /HPF (0.0-6.0) 06/12/17 Unknown Urine RBC (Auto) 12.0 /HPF (0.0-6.0) 06/12/17 Unknown Urine Bacteria (Auto) 1+ /HPF (Negative) 06/12/17 Unknown Hyaline Casts 1 /LPF 06/12/17 Unknown Urine Mucus Few /HPF 06/12/17 Unknown Vancomycin Trough 22.6 ug/mL (5.0-20.0) H 06/20/17 20:37 Blood Type O POSITIVE 06/20/17 08:24 Antibody Screen Negative 06/20/17 08:24 Crossmatch See Detail 06/20/17 08:24
--- NOTE | 2017-06-21 18:11 | Progress Note ---
Assessment and Plan - Patient Problems (1) Hidradenitis suppurativa Current Visit: Yes Status: Acute (2) Left buttock abscess Current Visit: Yes Status: Acute Plan to address problem: 1) Pt may be discharged from my perspective. 2) F/u in Wound Clinic Subjective Date of service: 06/21/17 Patient Reports: Positive: no new complaints Narrative: Pt states his left buttock feels much better. Objective Vital Signs - 12hr 06/21/17 06/21/17 07:25 15:31 Temperature 98.6 F 98.1 F Pulse Rate 88 78 Respiratory 20 20 Rate Blood Pressure 109/69 106/51 O2 Sat by Pulse 98 99 Oximetry - Rectum other (Left buttock wound was not examined.) - Labs 06/21/17 04:58 06/20/17 05:25
[2017-06-22] MEDS: ZOSYN/NS 4.5GM/100ML 4.5 GM/100 ML VIAL IV SCH (05:30)
[2017-06-22] MEDS: NACL 0.9% 1000 ML 1,000 ML IV SCH (05:30)
[2017-06-22] MEDS ORDERED: VANCOMYCIN/0.45 NS 1 GM/250 ML 1 GM/250 ML BAG IV SCH (06:00)
[2017-06-22] MEDS: PERCOCET 5/325 PO PRN (06:29)
[2017-06-22 07:21] LABS: Hematocrit 27.5 % (35.5-45.6); Hemoglobin 8.8 gm/dl (11.8-15.2); Mean Corpuscular HGB Conc 32 % (32-34); Mean Corpuscular Hemoglobin 27 pg (28-32); Mean Corpuscular Volume 83 fl (84-94); Platelet Count 237 K/mm3 (140-440); Red Cell Distribution Width 16.1 % (13.2-15.2)
[2017-06-22 07:44] LABS: Calcium 7.5 mg/dL (8.4-10.2)
[2017-06-22 07:52] VITALS: BP 112/70
--- NOTE | 2017-06-22 08:05 | Discharge Summary ---
Providers - Providers Date of Admission: 06/12/17 21:13 Attending physician: RUKHSANA CASH MD 06/12/17 21:39 Consult to Physician [CONS] Routine Consulting Provider: RIKI LOMAS Reason For Exam: Hydradenitis Place consult to:: Dr. Dolan Notified:: yes Phone number called:: [phone] Was contact made?: Yes If yes, spoke with:: Dr. Dolan Time called:: 10:04 06/12/17 21:40 Consult to Physician [CONS] Routine Consulting Provider: ABIMAEL KEE Reason For Exam: ccu admission Place consult to:: Dr. Soriano Notified:: Answering Service Phone number called:: [phone] Was contact made?: Yes If yes, spoke with:: Dr. Soriano Time called:: 21:50 06/13/17 08:34 Consult to Physician [CONS] Routine Consulting Provider: STEVE LUNA Reason For Exam: ?foreigners gangrene Place consult to:: Dr. Luna Notified:: yes Was contact made?: Yes If yes, spoke with:: Dr. Chan Time called:: 09:30 06/13/17 09:09 Consult to Physician [CONS] Routine Consulting Provider: BECKY LORA Reason For Exam: ulcer in the groin area Place consult to:: office Notified:: yes Phone number called:: [phone] Was contact made?: Yes If yes, spoke with:: Lavinia Time called:: 10:15 06/13/17 09:10 Consult to Physician [CONS] Routine Consulting Provider: ODELL LAFLEUR Reason For Exam: wound in the groin area extending to the scrotum Place consult to:: office Notified:: yes Phone number called:: [phone] Was contact made?: Yes If yes, spoke with:: Elida Time called:: 10:20 06/14/17 07:56 Consult to Dietitian/Nutrition [CONS] Routine Physician Instructions: Reason For Exam: Reason for Consult: Malnutrition 06/14/17 09:03 Consult to Wound/ET Nurse [CONS] Routine Reason For Exam: wound eval 06/14/17 10:32 Physical Therapy Evaluation and Treat [CONS] Routine Comment: Reason For Exam: decreased mobility/ deconditioning 06/20/17 17:17 Consult to Wound/ET Nurse [CONS] Routine Reason For Exam: Left buttock wound Primary care physician: EMILY LAM Hospitalization Reason for admission: severe soft tissue wound Condition: Stable Hospital course: Patient a 57-year-old male with past medical history of hidradenitis who presents to the Emergency Department for complains gluteal pain and discharge, Patient is status post excision of hidradenitis in the lower abdomen are currently doing well with good healing but still has extensive disesase . Patient has extensive disease and has reported multiple excisions. Today presented with presumed sepsis although more of increased drainage in the sacral area requiring further treatment debridements during this hospitalization. Patient was seen by infectious disease and also by wound surgeon with debridement done. Patient was advised about need to follow up at the wound care clinic we actually had arranged to provide Abbas past for this patient but he stated that he is financially stable to come to the Wound Care clinic and that the last time it was because he did not have access to his back count which has all been resolved at this time. He has a daughter who he says is also helpful. ID recommended that linezolid 600 mg po BID, cipro 500 mg PO q12 total 3 weeks until 07/03. This was prescribed for the patient. He did receive 2 unit packed red blood cells of blood prior to surgery. Since of anemia is felt to be secondary to multiple skin wound. He was seen by urologist recommendation for conservative management. In the past patient has had multiple skin surgeries including graft. Discharge diagnosis Sepsis Generalized Hidradenitis s/p Excision of abscessed skin Chronic Pain syndrome Anemia.of chronic disease-severe Extensive bilateral groin, pubic and perineal cellulitis CKD Ex tobacco user 1) : resolved. Etiology most likely surgical wound infection-left buttocks abscess 2) Extensive hidradenitis suppurative to pubic mons, bilateral groin, bilateral gluteal area, scrotum and bialteral axilla: better Disposition: DC-01 TO HOME OR SELFCARE Time spent for discharge: 35 mins Core Measure Documentation - Palliative Care Palliative Care/ Comfort Measures: Not Applicable - Core Measures Any of the following diagnoses?: none - VTE Discharge Requirements Deep Vein Thrombosis/Pulmonary Embolism Present on Admission: No Exam - Physical Exam Narrative exam: General appearance: NAD HEENT PERRLA, Atraumatic; oropharynx clear with moist mucous membranes Neck is supple, no thyromegaly or lymphadenopathy Lungs: CTA, no wheezing or Rhonchi CV: RRR, no murmurs, rubs or gallops Abdomen: Soft, +BS, non-tender; no masses or hepatosplenomegaly, dressing around the abdomen and perineum Extremities: No peripheral edema or extremity lymphadenopathy Neuro:AAOX3 Psych: Appropriate affect, alert and oriented to person, place and time. Skin: Wound dressing in place with drainage - Constitutional Vitals: Temp Pulse Resp BP Pulse Ox 98.8 F 67 20 112/70 93 06/22/17 07:21 06/22/17 07:21 06/22/17 07:21 06/22/17 07:21 06/22/17 07:21 Plan Activity: advance as tolerated, fall precautions Diet: regular Wound: per your surgeon's advice, per wound nurse instructions Special Instructions: smoking cessation Additional Instructions: follow at the wound care clinic with dr lora Follow up with: EMILY LAM MD [Primary Care Provider] - 3-5 Days BECKY LORA MD [Staff Physician] - 7 Days RIKI LOMAS MD [Staff Physician] - 7 Days Prescriptions: Ciprofloxacin HCl [Ciprofloxacin TAB] 500 mg PO Q12H #24 tab Linezolid [Zyvox] 600 mg PO BID #24 tablet Oxycodone HCl/Acetaminophen [Percocet 10/325 mg] 1 each PO Q6HR PRN #14 tablet PRN Reason: Pain
[2017-06-22] MEDS: HEPARIN SUB-Q SCH (10:36)
[2017-06-22] MEDS: DILAUDID IV PRN (10:36)
[2017-06-22] MEDS: PEPCID PO SCH (10:37)
[2017-06-22] MEDS: SODIUM CHLORIDE FLUSH SYRINGE 10 ML IV SCH (10:38)
== END 2017-06-22 13:30 | disposition home or self-care (01) | DRG 856 ==
LOC: ED 16:33 → CC1 21:13 → 3A 06-13 19:59
PROVIDERS: ADMIT Internal Medicine; ATTEND Internal Medicine
PROC: 30233N1 Transfusion of Nonautologous Red Blood Cells into Peripheral Vein, Percutaneous Approach (ICD-10-PCS; 2017-06-20)
PROC: 0JB90ZZ Excision of Buttock Subcutaneous Tissue and Fascia, Open Approach (ICD-10-PCS; principal; 2017-06-21)
PROC: 0J990ZZ Drainage of Buttock Subcutaneous Tissue and Fascia, Open Approach (ICD-10-PCS; 2017-06-21)
DX: T81.4XXA Infection following a procedure, initial encounter (principal); A41.9 Sepsis, unspecified organism; E43 Unspecified severe protein-calorie malnutrition; R65.20 Severe sepsis without septic shock; L02.31 Cutaneous abscess of buttock; L03.315 Cellulitis of perineum; L03.314 Cellulitis of groin; L73.2 Hidradenitis suppurativa; Z68.25 Body mass index [BMI] 25.0-25.9, adult; K62.1 Rectal polyp; N50.89 Other specified disorders of the male genital organs; D63.8 Anemia in other chronic diseases classified elsewhere; N18.9 Chronic kidney disease, unspecified; G89.4 Chronic pain syndrome; Z87.891 Personal history of nicotine dependence; Y83.8 Other surgical procedures as the cause of abnormal reaction of the patient, or of later complication, without mention of misadventure at the time of the procedure; Y92.89 Other specified places as the place of occurrence of the external cause
CPT/HCPCS: 36415; 71045; 74177; 80048; 80053; 80202; 81001; 82140; 82533; 82728; 82805; 82962; 83036; 83550; 85025; 85027; 85610; 86140; 86850; 86900; 86901; 86920; 87040; 87075; 87086; 87116; 93005; 93010; 96361; 96365; 96366; 96375; G8978-GP; G8979-GP; J1170; J1644; J2250; J2270; J2405; J2543; J2704; J3370; J7030; J7040; J7050; P9016; Q9967

== ENCOUNTER 2017-07-03 12:40 | Outpatient (CLI) | payer MEDICARE ==
[2017-07-03] MEDS ORDERED: XYLOCAINE TOPICAL 4% TP ONE ×2 (13:33→14:20)
[2017-07-03] MEDS ORDERED: NACL 0.9% IR ONE (13:33)
[2017-07-03] MEDS ORDERED: SILVER NITRATE TP ONE ×2 (14:16→16:00)
== END 2017-07-03 12:41 | disposition home or self-care (01) ==
LOC: WOUND 12:40
PROVIDERS: ATTEND Surgery
DX: T81.89XD Other complications of procedures, not elsewhere classified, subsequent encounter (principal); L73.2 Hidradenitis suppurativa; F17.200 Nicotine dependence, unspecified, uncomplicated; Y83.8 Other surgical procedures as the cause of abnormal reaction of the patient, or of later complication, without mention of misadventure at the time of the procedure
CPT/HCPCS: 97597; 97598

== ENCOUNTER 2017-07-10 12:58 | Outpatient (CLI) | payer MEDICARE ==
[2017-07-10] MEDS ORDERED: XYLOCAINE TOPICAL 4% TP ONE ×2 (13:16)
[2017-07-10] MEDS ORDERED: SILVER NITRATE TP ONE ×2 (13:52→14:34)
== END 2017-07-10 12:59 | disposition home or self-care (01) ==
LOC: WOUND 12:58
PROVIDERS: ATTEND Surgery
DX: T81.89XD Other complications of procedures, not elsewhere classified, subsequent encounter (principal); L73.2 Hidradenitis suppurativa; F17.200 Nicotine dependence, unspecified, uncomplicated; Y83.8 Other surgical procedures as the cause of abnormal reaction of the patient, or of later complication, without mention of misadventure at the time of the procedure
CPT/HCPCS: 17250

== ENCOUNTER 2017-07-17 12:47 | Outpatient (CLI) | payer MEDICARE ==
[2017-07-17] MEDS ORDERED: XYLOCAINE TOPICAL 4% TP ONE (13:35)
[2017-07-17] MEDS ORDERED: SILVER NITRATE TP ONE ×2 (14:17→16:52)
== END 2017-07-17 12:48 | disposition home or self-care (01) ==
LOC: WOUND 12:47
PROVIDERS: ATTEND Surgery
DX: T81.89XD Other complications of procedures, not elsewhere classified, subsequent encounter (principal); F17.210 Nicotine dependence, cigarettes, uncomplicated; Y83.8 Other surgical procedures as the cause of abnormal reaction of the patient, or of later complication, without mention of misadventure at the time of the procedure
CPT/HCPCS: 17250

== ENCOUNTER 2017-07-24 13:09 | Outpatient (CLI) | payer MEDICARE ==
[2017-07-24] MEDS ORDERED: XYLOCAINE TOPICAL 4% TP ONE ×2 (13:30→13:32)
[2017-07-24] MEDS ORDERED: SILVER NITRATE TP ONE ×2 (14:20→16:07)
== END 2017-07-24 13:10 | disposition home or self-care (01) ==
LOC: WOUND 13:09
PROVIDERS: ATTEND Surgery
DX: T81.89XD Other complications of procedures, not elsewhere classified, subsequent encounter (principal); F17.200 Nicotine dependence, unspecified, uncomplicated; Y83.8 Other surgical procedures as the cause of abnormal reaction of the patient, or of later complication, without mention of misadventure at the time of the procedure
CPT/HCPCS: 17250

== ENCOUNTER 2017-07-31 13:02 | Outpatient (CLI) | payer MEDICARE ==
[2017-07-31] MEDS ORDERED: XYLOCAINE TOPICAL 4% TP ONE ×2 (13:35→16:14)
== END 2017-07-31 13:03 | disposition home or self-care (01) ==
LOC: WOUND 13:02
PROVIDERS: ATTEND Surgery
DX: T81.89XD Other complications of procedures, not elsewhere classified, subsequent encounter (principal); L73.2 Hidradenitis suppurativa; F17.200 Nicotine dependence, unspecified, uncomplicated; Y83.8 Other surgical procedures as the cause of abnormal reaction of the patient, or of later complication, without mention of misadventure at the time of the procedure
CPT/HCPCS: 99215; G0463

== ENCOUNTER 2017-08-07 12:51 | Outpatient (CLI) | payer MEDICARE ==
[2017-08-07] MEDS ORDERED: XYLOCAINE TOPICAL 4% TP ONE (13:01)
[2017-08-07] MEDS ORDERED: SILVER NITRATE TP ONE ×2 (13:43→14:34)
== END 2017-08-07 12:52 | disposition home or self-care (01) ==
LOC: WOUND 12:51
PROVIDERS: ATTEND Surgery
DX: T81.89XD Other complications of procedures, not elsewhere classified, subsequent encounter (principal); L73.2 Hidradenitis suppurativa; F17.200 Nicotine dependence, unspecified, uncomplicated; Y83.8 Other surgical procedures as the cause of abnormal reaction of the patient, or of later complication, without mention of misadventure at the time of the procedure
CPT/HCPCS: 17250

== ENCOUNTER 2017-08-14 12:45 | Outpatient (CLI) | payer MEDICARE ==
[2017-08-14] MEDS ORDERED: SILVER NITRATE TP ONE ×2 (13:53→14:53)
[2017-08-14] MEDS ORDERED: XYLOCAINE TOPICAL 4% TP ONE (14:00)
== END 2017-08-14 12:46 | disposition home or self-care (01) ==
LOC: WOUND 12:45
PROVIDERS: ATTEND Surgery
DX: T81.89XD Other complications of procedures, not elsewhere classified, subsequent encounter (principal); L73.2 Hidradenitis suppurativa; F17.200 Nicotine dependence, unspecified, uncomplicated; Y83.8 Other surgical procedures as the cause of abnormal reaction of the patient, or of later complication, without mention of misadventure at the time of the procedure
CPT/HCPCS: 17250

== ENCOUNTER 2017-08-21 13:04 | Outpatient (CLI) | payer MEDICARE ==
[2017-08-21] MEDS ORDERED: XYLOCAINE TOPICAL 4% TP ONE ×2 (13:09→13:44)
[2017-08-21] MEDS ORDERED: SILVER NITRATE TP ONE ×2 (13:47→15:50)
[2017-08-21] MEDS ORDERED: NACL 0.9% 500 ML IR ONE (13:48)
[2017-08-21] MEDS ORDERED: NACL 0.9% IR ONE (15:00)
== END 2017-08-21 13:05 | disposition home or self-care (01) ==
LOC: WOUND 13:04
PROVIDERS: ATTEND Surgery
DX: T81.89XD Other complications of procedures, not elsewhere classified, subsequent encounter (principal); L73.2 Hidradenitis suppurativa; F17.200 Nicotine dependence, unspecified, uncomplicated; Y83.8 Other surgical procedures as the cause of abnormal reaction of the patient, or of later complication, without mention of misadventure at the time of the procedure
CPT/HCPCS: 17250

== ENCOUNTER 2017-08-28 12:53 | Outpatient (CLI) | payer MEDICARE ==
[2017-08-28] MEDS ORDERED: XYLOCAINE TOPICAL 4% TP ONE ×2 (13:09→14:00)
[2017-08-28] MEDS ORDERED: SILVER NITRATE TP ONE ×2 (13:37→13:45)
== END 2017-08-28 12:54 | disposition home or self-care (01) ==
LOC: WOUND 12:53
PROVIDERS: ATTEND Surgery
DX: T81.89XD Other complications of procedures, not elsewhere classified, subsequent encounter (principal); L73.2 Hidradenitis suppurativa; F17.200 Nicotine dependence, unspecified, uncomplicated; Y83.8 Other surgical procedures as the cause of abnormal reaction of the patient, or of later complication, without mention of misadventure at the time of the procedure
CPT/HCPCS: 17250

== ENCOUNTER 2017-09-04 12:41 | Outpatient (CLI) | payer MEDICARE ==
[2017-09-04] MEDS ORDERED: XYLOCAINE TOPICAL 4% TP ONE ×2 (13:26)
[2017-09-04] MEDS ORDERED: SILVER NITRATE TP ONE ×2 (13:28→14:55)
== END 2017-09-04 12:42 | disposition home or self-care (01) ==
LOC: WOUND 12:41
PROVIDERS: ATTEND Surgery
DX: T81.89XD Other complications of procedures, not elsewhere classified, subsequent encounter (principal); L73.2 Hidradenitis suppurativa; F17.200 Nicotine dependence, unspecified, uncomplicated; Y83.8 Other surgical procedures as the cause of abnormal reaction of the patient, or of later complication, without mention of misadventure at the time of the procedure
CPT/HCPCS: 17250

== ENCOUNTER 2017-09-18 12:58 | Outpatient (CLI) | payer MEDICARE ==
[2017-09-18] MEDS ORDERED: XYLOCAINE TOPICAL 4% TP ONE ×2 (13:04→13:36)
[2017-09-18] MEDS ORDERED: SILVER NITRATE TP ONE ×2 (13:05→13:36)
== END 2017-09-18 12:59 | disposition home or self-care (01) ==
LOC: WOUND 12:58
PROVIDERS: ATTEND Surgery
DX: T81.89XD Other complications of procedures, not elsewhere classified, subsequent encounter (principal); L73.2 Hidradenitis suppurativa; F17.200 Nicotine dependence, unspecified, uncomplicated; Y83.8 Other surgical procedures as the cause of abnormal reaction of the patient, or of later complication, without mention of misadventure at the time of the procedure
CPT/HCPCS: 17250

== ENCOUNTER 2017-09-25 13:03 | Outpatient (CLI) | payer MEDICARE ==
[2017-09-25] MEDS ORDERED: NACL 0.9% IR PRN (13:33)
[2017-09-25] MEDS ORDERED: XYLOCAINE TOPICAL 2% 5ML ONE (13:37)
[2017-09-25] MEDS ORDERED: XYLOCAINE TOPICAL 2% 30ML TP ONE ×2 (13:38→13:41)
[2017-09-25] MEDS ORDERED: XYLOCAINE TOPICAL 4% TP ONE (14:00)
[2017-09-25] MEDS ORDERED: SILVER NITRATE TP ONE (14:00)
== END 2017-09-25 13:04 | disposition home or self-care (01) ==
LOC: WOUND 13:03
PROVIDERS: ATTEND Surgery
DX: T81.89XD Other complications of procedures, not elsewhere classified, subsequent encounter (principal); L73.2 Hidradenitis suppurativa; F17.200 Nicotine dependence, unspecified, uncomplicated; Y83.8 Other surgical procedures as the cause of abnormal reaction of the patient, or of later complication, without mention of misadventure at the time of the procedure
CPT/HCPCS: 17250

== ENCOUNTER 2017-10-16 12:58 | Outpatient (CLI) | payer MEDICARE ==
[2017-10-16] MEDS ORDERED: XYLOCAINE TOPICAL 4% TP ONE ×2 (13:10→13:43)
[2017-10-16] MEDS ORDERED: SILVER NITRATE TP ONE (14:45)
== END 2017-10-16 12:59 | disposition home or self-care (01) ==
LOC: WOUND 12:58
PROVIDERS: ATTEND Surgery
DX: T81.89XD Other complications of procedures, not elsewhere classified, subsequent encounter (principal); L73.2 Hidradenitis suppurativa; F17.200 Nicotine dependence, unspecified, uncomplicated; Y83.8 Other surgical procedures as the cause of abnormal reaction of the patient, or of later complication, without mention of misadventure at the time of the procedure
CPT/HCPCS: 17250

== ENCOUNTER 2017-10-23 13:08 | Outpatient (CLI) | payer MEDICARE ==
[2017-10-23] MEDS ORDERED: XYLOCAINE TOPICAL 4% TP ONE ×2 (13:11→13:13)
[2017-10-23] MEDS ORDERED: SILVER NITRATE TP ONE ×2 (13:46→13:58)
[2017-10-23] MEDS ORDERED: NACL 0.9% 500 ML IR ONE (14:48)
[2017-10-23] MEDS ORDERED: NACL 0.9% IR PRN (15:06)
== END 2017-10-23 13:09 | disposition home or self-care (01) ==
LOC: WOUND 13:08
PROVIDERS: ATTEND Surgery
DX: T81.89XD Other complications of procedures, not elsewhere classified, subsequent encounter (principal); L73.2 Hidradenitis suppurativa; F17.200 Nicotine dependence, unspecified, uncomplicated; Y83.8 Other surgical procedures as the cause of abnormal reaction of the patient, or of later complication, without mention of misadventure at the time of the procedure
CPT/HCPCS: 17250

== ENCOUNTER 2017-10-30 12:59 | Outpatient (CLI) | payer MEDICARE ==
[2017-10-30] MEDS ORDERED: XYLOCAINE TOPICAL 4% TP ONE ×2 (13:08→13:31)
[2017-10-30] MEDS ORDERED: SILVER NITRATE TP ONE (13:31)
== END 2017-10-30 13:00 | disposition home or self-care (01) ==
LOC: WOUND 12:59
PROVIDERS: ATTEND Surgery
DX: T81.89XD Other complications of procedures, not elsewhere classified, subsequent encounter (principal); L73.2 Hidradenitis suppurativa; F17.200 Nicotine dependence, unspecified, uncomplicated; Y83.8 Other surgical procedures as the cause of abnormal reaction of the patient, or of later complication, without mention of misadventure at the time of the procedure
CPT/HCPCS: 17250; G0463; 99214

== ENCOUNTER → 2017-11-13 | Outpatient (CLI) | payer MEDICARE ==
[~2017-11-13] MED LIST: SILVER NITRATE TP ONE; XYLOCAINE TOPICAL 4% TP ONE
== END | disposition home or self-care (01) ==
LOC: WOUND 08:24
PROVIDERS: ATTEND Surgery
DX: T81.89XD Other complications of procedures, not elsewhere classified, subsequent encounter (principal); L73.2 Hidradenitis suppurativa; F17.200 Nicotine dependence, unspecified, uncomplicated; Y83.8 Other surgical procedures as the cause of abnormal reaction of the patient, or of later complication, without mention of misadventure at the time of the procedure
CPT/HCPCS: 17250

== ENCOUNTER 2017-11-20 12:15 | Outpatient (CLI) | payer MEDICARE ==
[2017-11-20] MEDS ORDERED: XYLOCAINE TOPICAL 4% TP ONE ×2 (12:55→13:01)
[2017-11-20] MEDS ORDERED: SILVER NITRATE TP ONE ×2 (13:05→15:51)
== END 2017-11-20 12:16 | disposition home or self-care (01) ==
LOC: WOUND 12:15
PROVIDERS: ATTEND Surgery
DX: T81.89XD Other complications of procedures, not elsewhere classified, subsequent encounter (principal); L73.2 Hidradenitis suppurativa; F17.200 Nicotine dependence, unspecified, uncomplicated; Y83.8 Other surgical procedures as the cause of abnormal reaction of the patient, or of later complication, without mention of misadventure at the time of the procedure
CPT/HCPCS: 17250

== ENCOUNTER 2017-12-11 13:03 | Outpatient (CLI) | payer MEDICARE ==
[2017-12-11] MEDS ORDERED: XYLOCAINE TOPICAL 4% TP ONE ×2 (13:08→14:27)
[2017-12-11] MEDS ORDERED: SILVER NITRATE TP ONE ×2 (13:24→14:27)
== END 2017-12-11 13:04 | disposition home or self-care (01) ==
LOC: WOUND 13:03
PROVIDERS: ATTEND Surgery
DX: T81.89XD Other complications of procedures, not elsewhere classified, subsequent encounter (principal); L73.2 Hidradenitis suppurativa; F17.200 Nicotine dependence, unspecified, uncomplicated; Y83.8 Other surgical procedures as the cause of abnormal reaction of the patient, or of later complication, without mention of misadventure at the time of the procedure
CPT/HCPCS: 17250

== ENCOUNTER 2017-12-18 12:45 | Outpatient (CLI) | payer MEDICARE ==
[2017-12-18] MEDS ORDERED: XYLOCAINE TOPICAL 4% TP ONE ×2 (12:58→13:14)
[2017-12-18] MEDS ORDERED: SILVER NITRATE TP ONE ×3 (13:05→13:57)
== END 2017-12-18 12:46 | disposition home or self-care (01) ==
LOC: WOUND 12:45
PROVIDERS: ATTEND Surgery
DX: T81.89XD Other complications of procedures, not elsewhere classified, subsequent encounter (principal); L73.2 Hidradenitis suppurativa; F17.200 Nicotine dependence, unspecified, uncomplicated; Y83.8 Other surgical procedures as the cause of abnormal reaction of the patient, or of later complication, without mention of misadventure at the time of the procedure
CPT/HCPCS: 17250

== ENCOUNTER 2018-03-19 13:22 | Outpatient (CLI) | payer MEDICARE ==
[2018-03-19] MEDS ORDERED: SILVER NITRATE TP ONE (14:00)
[2018-03-19] MEDS ORDERED: XYLOCAINE TOPICAL 4% TP ONE (14:00)
== END 2018-03-19 13:23 | disposition home or self-care (01) ==
LOC: WOUND 13:22
PROVIDERS: ATTEND Surgery
DX: T81.89XD Other complications of procedures, not elsewhere classified, subsequent encounter (principal); L73.2 Hidradenitis suppurativa; F17.200 Nicotine dependence, unspecified, uncomplicated; Y83.8 Other surgical procedures as the cause of abnormal reaction of the patient, or of later complication, without mention of misadventure at the time of the procedure
CPT/HCPCS: 17250

== ENCOUNTER 2018-04-16 13:12 | Outpatient (CLI) | payer MEDICARE ==
[2018-04-16] MEDS ORDERED: SILVER NITRATE TP ONE (13:30)
[2018-04-16] MEDS ORDERED: XYLOCAINE TOPICAL 4% TP ONE (13:30)
== END 2018-04-16 13:13 | disposition home or self-care (01) ==
LOC: WOUND 13:12
PROVIDERS: ATTEND Surgery
DX: T81.89XD Other complications of procedures, not elsewhere classified, subsequent encounter (principal); L73.2 Hidradenitis suppurativa; F17.200 Nicotine dependence, unspecified, uncomplicated; Y83.8 Other surgical procedures as the cause of abnormal reaction of the patient, or of later complication, without mention of misadventure at the time of the procedure
CPT/HCPCS: 17250

== ENCOUNTER 2018-04-27 21:43 | Inpatient (IN) | payer MEDICARE ==
[2018-04-27] MEDS ORDERED: NACL 0.9% 1000 ML 1,000 ML IV ONE (22:07)
[2018-04-27 22:30] LABS: Mean Corpuscular HGB Conc 30 % (32-34); Mean Corpuscular Volume 88 fl (84-94); Platelet Count 333 K/mm3 (140-440); Red Blood Count 1.21 M/mm3 (3.65-5.03)
[2018-04-27 22:43] LABS: INR 1.29 (0.87-1.13)
[2018-04-27 22:47] LABS: Partial Thromboplastin Time 21.5 Sec. (24.2-36.6)
[2018-04-27 22:48] LABS: Albumin 1.6 g/dL (3.9-5); BUN/Creatinine Ratio 29; Blood Urea Nitrogen 64 mg/dL (9-20); Calcium 7.2 mg/dL (8.4-10.2); Hemolysis Index 11
[2018-04-27 22:52] LABS: Hematocrit 10.6 % (35.5-45.6); Hemoglobin 3.1 gm/dl (11.8-15.2)
[2018-04-27 22:54] LABS: Alanine Aminotransferase < 5 units/L (7-56)
[2018-04-27] MEDS ORDERED: NACL 0.9% 500 ML 500 ML IV ONE (22:54)
[2018-04-27] MEDS ORDERED: PROTONIX IV ONE (22:56)
[2018-04-27] MEDS ORDERED: PROTONIX 80 MG in NACL 0.9% 100 ML IV SCH (23:00)
--- NOTE | 2018-04-27 23:05 | Emergency Department Report ---
ED GI Bleed HPI - General Chief complaint: GI Bleed Stated complaint: POSS GI BLEED Time Seen by Provider: 04/27/18 22:14 Source: EMS Mode of arrival: Stretcher Limitations: No Limitations - History of Present Illness Initial comments: 58-year-old male presents to ED with complaint of bloody stools 2 days. Reports dark red blood in stool. Also reports rectal pain due to history of hidradenitis. Patient reports nausea. Denies abdominal pain. Patient reports history of GI bleeding in the past. Does not currently have a russian rubber. MD complaint: melena -: days(s) (2) Quality: painless Consistency: intermittent Improves with: none Worsens with: none Context: history of GI bleed Associated Symptoms: nausea. denies: abdominal pain, fever/chills - Related Data Previous Rx's Medication Instructions Recorded Last Taken Type Ciprofloxacin HCl [Ciprofloxacin 500 mg PO Q12H #24 tab 06/22/17 Unknown Rx TAB] Linezolid [Zyvox] 600 mg PO BID #24 tablet 06/22/17 Unknown Rx Oxycodone HCl/Acetaminophen 1 each PO Q6HR PRN #14 tablet 06/22/17 Unknown Rx [Percocet 10/325 mg] Allergies Allergy/AdvReac Type Severity Reaction Status Date / Time No Known Allergies Allergy Verified 03/27/17 23:28 ED Review of Systems ROS: Stated complaint: POSS GI BLEED Other details as noted in HPI Comment: All other systems reviewed and negative Constitutional: denies: chills, fever Respiratory: denies: shortness of breath Cardiovascular: denies: chest pain Gastrointestinal: nausea, melena. denies: abdominal pain ED Past Medical Hx - Past Medical History Previous Medical History?: Yes Hx Hypertension: No Hx Congestive Heart Failure: No Hx Diabetes: No Hx Deep Vein Thrombosis: No Hx Renal Disease: No Hx Asthma: No Hx COPD: No Additional medical history: hydrodenitis, Rectal polyps, - Surgical History Past Surgical History?: Yes Hx Pacemaker: No Hx Internal Defibrillator: No Additional Surgical History: multiple skin graft, wound vac to stomach - Social History Smoking Status: Unknown if ever smoked Substance Use Type: None - Medications Home Medications: Home Medications Medication Instructions Recorded Confirmed Last Taken Type Ciprofloxacin HCl [Ciprofloxacin 500 mg PO Q12H #24 tab 06/22/17 Unknown Rx TAB] Linezolid [Zyvox] 600 mg PO BID #24 tablet 06/22/17 Unknown Rx Oxycodone HCl/Acetaminophen 1 each PO Q6HR PRN #14 tablet 06/22/17 Unknown Rx [Percocet 10/325 mg] ED Physical Exam - General Limitations: No Limitations General appearance: alert, in no apparent distress - Head Head exam: Present: atraumatic, normocephalic - Eye Eye exam: Present: normal appearance - ENT ENT exam: Present: mucous membranes moist - Neck Neck exam: Present: normal inspection - Respiratory Respiratory exam: Present: normal lung sounds bilaterally. Absent: respiratory distress - Cardiovascular Cardiovascular Exam: Present: regular rate, normal rhythm - GI/Abdominal GI/Abdominal exam: Present: soft. Absent: distended, tenderness - Rectal Rectal exam: Present: heme (+) stool, bloody stool (melena), other (intergluteal folds have appearance consistent w/ chronic hidradenitis) - Extremities Exam Extremities exam: Present: normal inspection - Neurological Exam Neurological exam: Present: alert, oriented X3 - Psychiatric Psychiatric exam: Present: normal affect, normal mood - Skin Skin exam: Present: warm, dry ED Course Vital Signs 04/27/18 04/27/18 04/27/18 21:48 21:55 22:00 Temperature 97.8 F Pulse Rate 92 H 93 H Respiratory 22 Rate Blood Pressure 68/21 97/38 97/38 O2 Sat by Pulse 67 L 67 L Oximetry 04/27/18 04/27/18 04/27/18 22:15 22:30 22:45 Temperature Pulse Rate 92 H 95 H 96 H Respiratory 12 22 13 Rate Blood Pressure 97/45 97/43 89/43 O2 Sat by Pulse 100 Oximetry 04/27/18 04/27/18 04/27/18 23:00 23:16 23:30 Temperature Pulse Rate 98 H 92 H 91 H Respiratory 18 19 17 Rate Blood Pressure 88/40 95/35 89/26 O2 Sat by Pulse 98 100 Oximetry 04/27/18 04/27/18 04/27/18 23:45 23:46 23:51 Temperature 97.6 F Pulse Rate 91 H 91 H 88 Respiratory 17 17 11 L Rate Blood Pressure 82/29 82/29 87/29 O2 Sat by Pulse 100 100 100 Oximetry 04/27/18 04/28/18 04/28/18 23:55 00:00 00:04 Temperature 97.5 F L Pulse Rate 90 88 Respiratory 14 11 L Rate Blood Pressure 85/31 93/31 O2 Sat by Pulse 100 100 Oximetry 04/28/18 04/28/18 04/28/18 00:05 00:07 00:10 Temperature Pulse Rate 91 H 89 95 H Respiratory 14 16 14 Rate Blood Pressure 91/39 91/39 76/37 O2 Sat by Pulse 100 100 100 Oximetry 04/28/18 04/28/18 04/28/18 00:12 00:15 00:16 Temperature 98.0 F Pulse Rate 94 H 92 H 92 H Respiratory 17 17 19 Rate Blood Pressure 76/37 83/44 83/44 O2 Sat by Pulse 100 100 100 Oximetry 04/28/18 04/28/18 04/28/18 00:20 00:25 00:30 Temperature Pulse Rate 91 H 91 H 91 H Respiratory 15 14 14 Rate Blood Pressure 80/35 101/31 100/20 O2 Sat by Pulse 100 100 Oximetry 04/28/18 04/28/18 04/28/18 00:35 00:40 00:45 Temperature Pulse Rate 91 H 90 89 Respiratory 17 14 13 Rate Blood Pressure 98/33 96/39 101/40 O2 Sat by Pulse 100 100 100 Oximetry 04/28/18 04/28/18 04/28/18 00:50 00:55 00:59 Temperature 97.9 F Pulse Rate 88 87 Respiratory 12 16 Rate Blood Pressure 100/45 100/45 O2 Sat by Pulse 100 100 Oximetry 04/28/18 04/28/18 04/28/18 01:00 01:02 01:05 Temperature 97.8 F Pulse Rate 89 87 Respiratory 13 19 Rate Blood Pressure 93/48 96/38 O2 Sat by Pulse 100 100 Oximetry 04/28/18 04/28/18 04/28/18 01:10 01:15 01:20 Temperature Pulse Rate 88 88 88 Respiratory 17 17 18 Rate Blood Pressure 98/39 93/37 97/40 O2 Sat by Pulse 100 100 100 Oximetry 04/28/18 04/28/18 04/28/18 01:25 01:30 01:35 Temperature Pulse Rate 85 83 82 Respiratory 14 12 12 Rate Blood Pressure 95/40 95/37 92/34 O2 Sat by Pulse 100 100 100 Oximetry 04/28/18 04/28/18 04/28/18 01:40 01:45 01:50 Temperature Pulse Rate 84 84 84 Respiratory 19 11 L 10 L Rate Blood Pressure 89/40 93/41 88/40 O2 Sat by Pulse 100 100 Oximetry 04/28/18 04/28/18 04/28/18 01:54 01:55 02:00 Temperature 98.0 F 98.3 F Pulse Rate 85 83 Respiratory 15 18 Rate Blood Pressure 91/36 88/37 O2 Sat by Pulse 100 100 Oximetry 04/28/18 04/28/18 04/28/18 02:05 02:10 02:15 Temperature Pulse Rate 85 88 86 Respiratory 15 13 17 Rate Blood Pressure 91/41 87/37 90/39 O2 Sat by Pulse Oximetry 04/28/18 04/28/18 04/28/18 02:20 02:25 02:30 Temperature Pulse Rate 86 85 84 Respiratory 14 14 11 L Rate Blood Pressure 89/38 87/39 88/40 O2 Sat by Pulse 100 100 Oximetry 04/28/18 04/28/18 04/28/18 02:35 02:39 02:45 Temperature 98.1 F Pulse Rate 84 87 Respiratory 14 16 Rate Blood Pressure 91/42 87/43 O2 Sat by Pulse 100 Oximetry 04/28/18 04/28/18 04/28/18 03:00 03:15 03:30 Temperature Pulse Rate 89 90 90 Respiratory 17 22 20 Rate Blood Pressure 91/36 92/46 86/41 O2 Sat by Pulse 100 Oximetry 04/28/18 03:45 Temperature Pulse Rate 88 Respiratory 18 Rate Blood Pressure 79/40 O2 Sat by Pulse Oximetry - Central Line Placement Left Femoral Consent Obtained: verbal consent Time Out Performed: Yes Patient Placed on Monitor/Pulse Ox: Yes MD Prep: mask, gown, gloves Central Line Prep: Chlorhexidine scrub Local Anesthesia Used: Lidocaine 1% Amount of Anesthesia Used (mls): 3 Ultrasound Used for Placement: No Central Line Lumen Inserted: triple Bloods Obtained for Lab: No Central Line Position: good blood return, all ports aspirated, flus, sutured in place with nyl Dressing Applied: Tegaderm Patient Tolerated Procedure: well Complications: none ED Medical Decision Making - Lab Data Result diagrams: 04/27/18 22:44 04/27/18 22:09 - Radiology Data Radiology results: report reviewed, image reviewed - Medical Decision Making 58-year-old male presents to ED with upper GI bleed. Patient with melena on exam. Hypotensive, with hemoglobin of 3.1. Patient also showing signs of acute renal failure with elevated BUN of 64 and creatinine of 2.2. This is likely due to his GI bleed and anemia. IV fluids given and 4 units of PRBCs ordered. Protonix bolus and drip also administered. Patient did have one bloody stool here in the ED. I spoke with Dr. North, russ[place] rubber. He is aware of patient and will see in the morning. Patient also has elevated WBCs at 20. So lactic acid, blood cultures, ua and culture sent. Zosyn given empirically. Lactate elevated. CXR shows pneumonia. Also possibly elevated due to his hidradenitis lesions. Patient will be admitted by hospitalist, Dr. Thao. - Differential Diagnosis GI bleed, UTI, anemia Critical Care Time: Yes Critical care time in (mins) excluding proc time.: 70 Critical care attestation.: If time is entered above; I have spent that time in minutes in the direct care of this critically ill patient, excluding procedure time. Critical Care Time: 70 minutes ED Disposition Clinical Impression: Anemia, Acute renal failure, GI bleed, Pneumonia, Sepsis Disposition: 09 OP ADMIT IP TO THIS HOSP Is pt being admited?: Yes Condition: Critical Time of Disposition: 23:23
[2018-04-28] MEDS ORDERED: NACL 0.9% 1000 ML 1,000 ML IV ONE (00:13)
[2018-04-28] MEDS ORDERED: ZOSYN/NS 4.5GM/100ML 4.5 GM/100 ML VIAL IV ONE (00:14)
--- NOTE | 2018-04-28 00:52 | XRay Report ---
FINAL REPORT PROCEDURE: XR CHEST 1V AP TECHNIQUE: Chest radiograph anteroposterior view. CPT 06001 HISTORY: sob, weakness COMPARISON: No prior studies are available for comparison. FINDINGS: Heart: Normal. Mediastinum/Vessels: Normal. Lungs/Pleural space: There are infiltrates at the right lung base. There are no effusions or pneumoth oraces.. Bony thorax: No acute osseous abnormality. Life support devices: None. IMPRESSION: Heart size is normal..There are infiltrates at the right lung base. There are no effusions or pneumot horaces.
[2018-04-28 00:56] LABS: Band Neutrophils # (Manual) 3.4 K/mm3; Basophils % (Manual) 0 % (0.0-1.8); Total Cells Counted 100
[2018-04-28 00:57] LABS: Hypochromasia 2+; Platelet Estimate Consistent w Auto
[2018-04-28] MEDS ORDERED: ZITHROMAX PO ONE (01:12)
[2018-04-28] MEDS ORDERED: ZOFRAN IV PRN (01:23)
[2018-04-28] MEDS ORDERED: TYLENOL PR PRN (01:32)
[2018-04-28] MEDS: NACL 0.9% 1000 ML 1,000 ML IV SCH ×2 (03:00→10:30)
[2018-04-28 03:55] LABS: Bilirubin,Urine NEG (Negative); Blood,Urine NEG (Negative); Color,Urine Yellow (Yellow); Mucus,Urine FEW /HPF; Urobilinogen,Urine < 2.0 mg/dL (<2.0)
[2018-04-28] MEDS ORDERED: LEVOPHED DRIP 4 MG/NS 250 ML 4 MG/250 ML BAG IV ONE ×2 (04:16→11:47)
[2018-04-28] MEDS: LEVOPHED DRIP 4 MG/NS 250 ML 4 MG/250 ML BAG IV SCH ×3 (04:20→22:17)
[2018-04-28] MEDS ORDERED: LEVOPHED DRIP 4 MG/NS 250 ML 4 MG/250 ML BAG IV SCH ×2 (04:20→05:00)
[2018-04-28] MEDS ORDERED: ZOSYN/NS 3.375GM/50ML 3.375 GM/50 ML BAG IV SCH (06:00)
[2018-04-28 06:49] LABS: Hematocrit 21.3 % (35.5-45.6)
[2018-04-28 06:59] LABS: Calcium 6.6 mg/dL (8.4-10.2)
[2018-04-28] MEDS ORDERED: NACL 0.9% 1000 ML 1,000 ML ONE ×2 (08:41→10:22)
[2018-04-28] MEDS ORDERED: WATER FOR IRRIG STERILE IR ONE (08:41)
[2018-04-28] MEDS ORDERED: ZOFRAN ONE (09:08)
[2018-04-28] MEDS ORDERED: DIPRIVAN 10 MG/ML IV ONE (09:08)
[2018-04-28] MEDS ORDERED: VERSED ONE (09:08)
--- NOTE | 2018-04-28 09:28 | History and Physical Report ---
CHIEF COMPLAINT: Rectal bleeding, HISTORY OF PRESENT ILLNESS: The patient is a 58-year-old male complaining about bloody stool going on for 2 days. The patient states that it started as dark red blood in the stool and also complained of some rectal pain which he says he suspected to be due to his hidradenitis condition. The patient also complained of nausea with no vomiting, no hematemesis. There is no history of abdominal pain. There is no history of shortness of breath or chest pain. The patient denied intake of NSAID or alcohol. PAST MEDICAL HISTORY: Pertinent for GI bleed in the past. Also, the patient has past medical history of hidradenitis and rectal polyp. PAST SURGICAL HISTORY: Pertinent for multiple skin graft, wound VAC placement to the stomach. FAMILY HISTORY: Noncontributory. SOCIAL HISTORY: The patient does not smoke, does not drink alcohol, and does not use illicit drugs. MEDICATIONS: The patient was on ciprofloxacin sometime in the past and was on Linezolid or Zyvox in the past as well as Percocet sometime in 2018, but currently there is no medication listed for 2019. ALLERGIES: There are no known drug allergies. REVIEW OF SYSTEMS: CONSTITUTIONAL: There is no fever, no chills, no diaphoresis. HEENT: There is no headache or sore throat. CARDIOVASCULAR: There is no chest pain or orthopnea. RESPIRATORY SYSTEM: There is no shortness of breath or cough. GASTROINTESTINAL SYSTEM: There is nausea, but no vomiting. There is passage of dark red blood stool and rectal pain, but no hematemesis, no abdominal pain, and no constipation or diarrhea. NEUROLOGICAL SYSTEM: There is no numbness, no dizziness, no altered mental status. MUSCULOSKELETAL SYSTEM: There is no joint pain or swelling. DERMATOLOGICAL SYSTEM: There is no skin rash or itching. GENITOURINARY SYSTEM: There is no dysuria, hematuria, or flank pain. Rest of system review is normal. PHYSICAL EXAMINATION: GENERAL: At the time of exam, the patient was found to be alert, oriented x 3 and not in acute distress. VITAL SIGNS: At the initial time of presentation showed temperature of 97.8 degrees Fahrenheit, pulse of 92, respirations of 22, blood pressure of 97/38 which initially was 68/21, O2 of 98-100% on room air. HEENT: Shows pupils to be equal, round, reactive to light and accommodating. Extraocular muscles are intact. NECK: Supple with no JVD or carotid bruit. CARDIOVASCULAR SYSTEM: Showed normal first and second heart sounds with no gallops or murmur. RESPIRATORY SYSTEM: Showed good air entry on both sides of the lung with no abnormal breath sounds. GASTROINTESTINAL SYSTEM: Shows abdomen to be full, soft, nontender with no organomegaly or rigidity. NEUROLOGICAL: Shows no focal deficit. MUSCULOSKELETAL SYSTEM: Show no joint swelling or tenderness. DERMATOLOGICAL SYSTEM: Showing no skin rash. GENITOURINARY SYSTEM: Showing no costovertebral angle tenderness. PERTINENT LABORATORY AND IMAGING STUDIES: The patient had a chest x-ray done, which shows normal size heart with right lung base infiltrate without any effusions or pneumothorax. Lab results: The patient's CBC showed elevated white count of 20,200 with low hemoglobin of 3.1, low hematocrit of 10.6, and normal MCV with CBC differential showing slightly elevated segmented neutrophil count of 71%. The patient's coagulation studies show slight increase in protime of 16.5 with slightly elevated INR of 1.29 and unremarkable PTT. The patient's chemistry show elevated BUN of 64 and elevated creatinine of 2.2 and elevated lactic acid level of 4.5. The patient's urinalysis was unremarkable. DIAGNOSES: 1. Gastrointestinal bleed. 2. Right lung pneumonia. 3. Acute kidney injury. 4. Anemia. PLAN OF ACTION: 1. The patient will be admitted to ICU because of the low blood pressure. 2. The patient will continue blood transfusion started in the Emergency Room. 3. The patient will remain n.p.o. until seen by the traffic safety administrator. 4. The patient will have GI consult with Dr. Can Flores of the [facility] for GI bleed. 5. The patient will have a critical care consult with Dr. Betancourt for ICU admission because of a GI bleed with a low blood pressure. 6. The patient will have hemoglobin and hematocrit checked every 6 hours x 2 more levels and will have basic metabolic panel checked in the morning to monitor the renal function. 7. The patient will have Nephrology consult with Dr. Cabello because of acute kidney injury. 8. The patient will be on IV Zosyn 3.375 grams q. 8 hours for treatment of right lung pneumonia and will also be on Zithromax 500 mg IV daily. 9. The patient will be on IV Zofran 4 mg every 8 hours as needed for nausea and vomiting. 10. The patient will be on p.r.n. medications like Tylenol 650 mg rectally every 4 hours for fever and headache and will continue Protonix drip IV started in the Emergency Room as part of treatment of GI bleed. JOB# [id number] OCN/NTS MTDD
--- NOTE | 2018-04-28 11:27 | Post Operative Note ---
Pre-op diagnosis: gi bleed Findings: EGD: hiatal hernia - gastritis - raised nodular area (8mm) with noted white based ulcer w/o bleeding stigmata (bx's) - negative other Procedure: EGD Anesthesia: MAC Surgeon: JEANNINE HUNT Estimated blood loss: none Pathology: list Specimen disposition: to lab Disposition: floor
--- NOTE | 2018-04-28 12:02 | Operative Report ---
PROCEDURE: Esophagogastroduodenoscopy with cold biopsy. INDICATION: 1. Anemia. 2. GI bleed. MEDICATIONS: Propofol per UI SOFTWARE DEVELOPER. COMPLICATIONS: None. DESCRIPTION OF PROCEDURE: The procedure was done as travel case to the Emergency Room. The patient had the procedure discussed with him at length. All risks, complications, and benefits discussed, after which the patient signed for the procedure to be performed. The patient was placed in left lateral decubitus position. Mouth block was placed in the patient's oral cavity. After adequate sedation medication as above, endoscope was introduced into the mouth and brought to the second portion of duodenum. Retroflexion view performed. The patient's vital signs remained stable throughout the procedure. FINDINGS: There was a small to medium hiatal hernia at GE junction 40 cm from the gums. Findings consistent with eosinophilic esophagitis noted, but no biopsies were performed of the esophagus. The esophagus otherwise appeared to be normal. There is mild antral gastritis noted. The stomach otherwise appeared to be normal. There was an 8-10 mm nodular, raised mucosal nodule with a central white base ulcer noted in the very proximal duodenal bulb. Finding was not as smooth as it would lead to the feeling of a GIST tumor. The ulcer itself was approximately 5-7 mm, white base without severe stigmata. No possible source of bleeding given severity of anemia as consistent as one would like. Biopsies were taken of this nodular area and sent to pathology. The remaining duodenum otherwise appeared to be normal. Retroflexion view performed in the stomach showed no other pathology other than noted above. The patient tolerated the procedure well. No complications during the procedure. IMPRESSION: 1. Hiatal hernia. 2. Otherwise, normal esophagus. 3. Mild gastritis. 4. Otherwise, normal stomach. 5. Raised nodular area with white-based ulcer without bleeding stigmata, status post biopsy. Not as classified appearance for GIST. No potential source of bleeding doubt given its finding and severity of anemia. 6. Otherwise, normal duodenum. RECOMMENDATIONS: 1. PPI IV b.i.d. 2. Follow hematocrit and transfuse as needed. 3. Follow up biopsies. 4. We will plan for colonoscopy in a.m. JOB# [id number] [facility]
[2018-04-28] MEDS: ZITHROMAX 500 MG in NACL 0.9% 250ML 250 ML IV SCH (12:25)
--- NOTE | 2018-04-28 12:44 | Progress Note ---
Assessment and Plan /Acute upper GI bleed - due to gastric ulcer, biopsy pending - cont PPI IV, GI following, s/p EGD - monitor H/H, NPO /Severe anemia due to Upper GI bleed - s/p 4 unit PRBC transfusion - cont to monitor h/H, transfuse as needed /DWIGHT, likely from vasomotor nephropathy - cont iv fluid, monitor BMP, renal consulted /Hypotension/shock on pressor due to hypovolumia and sepsis - - cont iv fluid, wean off pressor as tolerated /Sepsis with RLL PNA, tachycardia and leukocytosis - CXR showed RLL infiltrates, cont zosyn /DVT Px, on SCD Brief history: 58-year-old male presents to ED with complaint of bloody stools 2 days. Hb on admission was 3.1, s/p 4 units PRBC transfusion. EGD today showed gastritis with raised nodular area (8mm) with noted white based ulcer w/o bleeding stigmata, obtained biopsy. The high probability of a clinically significant, sudden or life threatening deterioration of the [CVS/Renal] system(s) required my full and direct attention, intervention and personal management. The aggregate critical care time was [36] minutes. This time is in addition to time spent performing reporte d procedures but includes the following: [x] Data Review and interpretation [x] Patient assessment and monitoring of vital signs [x] Documentation [x] Medication orders and management Subjective Date of service: 04/28/18 Interval history: Pt seen and examined had another BM with black stool today following EGD denies any abdominal pain Objective - Constitutional Vitals: Vital Signs - 12hr 04/28/18 04/28/18 04/28/18 00:45 00:50 00:55 Temperature Pulse Rate 89 88 87 Respiratory 13 12 16 Rate Blood Pressure 101/40 100/45 100/45 O2 Sat by Pulse 100 100 100 Oximetry 04/28/18 04/28/18 04/28/18 00:59 01:00 01:02 Temperature 97.9 F 97.8 F Pulse Rate 89 Respiratory 13 Rate Blood Pressure 93/48 O2 Sat by Pulse 100 Oximetry 04/28/18 04/28/18 04/28/18 01:05 01:10 01:15 Temperature Pulse Rate 87 88 88 Respiratory 19 17 17 Rate Blood Pressure 96/38 98/39 93/37 O2 Sat by Pulse 100 100 100 Oximetry 04/28/18 04/28/18 04/28/18 01:20 01:25 01:30 Temperature Pulse Rate 88 85 83 Respiratory 18 14 12 Rate Blood Pressure 97/40 95/40 95/37 O2 Sat by Pulse 100 100 100 Oximetry 04/28/18 04/28/18 04/28/18 01:35 01:40 01:45 Temperature Pulse Rate 82 84 84 Respiratory 12 19 11 L Rate Blood Pressure 92/34 89/40 93/41 O2 Sat by Pulse 100 100 Oximetry 04/28/18 04/28/18 04/28/18 01:50 01:54 01:55 Temperature 98.0 F 98.3 F Pulse Rate 84 85 Respiratory 10 L 15 Rate Blood Pressure 88/40 91/36 O2 Sat by Pulse 100 100 Oximetry 04/28/18 04/28/18 04/28/18 02:00 02:05 02:10 Temperature Pulse Rate 83 85 88 Respiratory 18 15 13 Rate Blood Pressure 88/37 91/41 87/37 O2 Sat by Pulse 100 Oximetry 04/28/18 04/28/18 04/28/18 02:15 02:20 02:25 Temperature Pulse Rate 86 86 85 Respiratory 17 14 14 Rate Blood Pressure 90/39 89/38 87/39 O2 Sat by Pulse 100 100 Oximetry 04/28/18 04/28/18 04/28/18 02:30 02:35 02:39 Temperature 98.1 F Pulse Rate 84 84 Respiratory 11 L 14 Rate Blood Pressure 88/40 91/42 O2 Sat by Pulse 100 Oximetry 04/28/18 04/28/18 04/28/18 02:45 03:00 03:15 Temperature Pulse Rate 87 89 90 Respiratory 16 17 22 Rate Blood Pressure 87/43 91/36 92/46 O2 Sat by Pulse 100 Oximetry 04/28/18 04/28/18 04/28/18 03:30 03:45 04:00 Temperature Pulse Rate 90 88 92 H Respiratory 20 18 22 Rate Blood Pressure 86/41 79/40 84/48 O2 Sat by Pulse 100 Oximetry 04/28/18 04/28/18 04/28/18 04:15 04:30 04:45 Temperature Pulse Rate 89 88 89 Respiratory 19 18 16 Rate Blood Pressure 81/40 82/43 88/42 O2 Sat by Pulse 100 Oximetry 04/28/18 04/28/1804/28/19 05:00 05:15 05:30 Temperature Pulse Rate 89 89 91 H Respiratory 15 15 17 Rate Blood Pressure 81/39 80/37 81/37 O2 Sat by Pulse 99 99 99 Oximetry 04/28/18 04/28/18 04/28/18 05:45 06:00 06:15 Temperature Pulse Rate 90 89 92 H Respiratory 17 15 18 Rate Blood Pressure 84/39 84/38 82/40 O2 Sat by Pulse 100 99 99 Oximetry 04/28/18 04/28/18 04/28/18 06:30 06:45 07:00 Temperature Pulse Rate 79 77 82 Respiratory 20 20 22 Rate Blood Pressure 96/50 98/46 99/49 O2 Sat by Pulse 100 99 Oximetry 04/28/18 04/28/18 04/28/18 07:15 07:30 07:45 Temperature Pulse Rate 85 86 89 Respiratory 16 18 11 L Rate Blood Pressure 97/47 100/45 96/48 O2 Sat by Pulse 99 99 99 Oximetry 04/28/18 04/28/18 04/28/18 08:00 08:15 08:30 Temperature Pulse Rate 86 89 86 Respiratory 12 17 18 Rate Blood Pressure 93/47 98/46 97/46 O2 Sat by Pulse 99 99 99 Oximetry 04/28/18 04/28/18 04/28/18 08:45 09:00 09:15 Temperature Pulse Rate 87 88 85 Respiratory 16 12 13 Rate Blood Pressure 100/48 97/47 94/47 O2 Sat by Pulse 100 99 Oximetry 04/28/18 04/28/18 04/28/18 09:30 09:45 10:00 Temperature 98.5 F Pulse Rate 89 80 82 Respiratory 16 11 L 16 Rate Blood Pressure 97/47 79/32 97/43 O2 Sat by Pulse 100 99 Oximetry 04/28/18 04/28/18 04/28/18 10:15 10:30 10:45 Temperature 99.1 F Pulse Rate 83 82 83 Respiratory 16 13 12 Rate Blood Pressure 95/36 93/30 94/31 O2 Sat by Pulse 100 100 100 Oximetry 04/28/18 04/28/18 04/28/18 11:00 11:15 11:30 Temperature Pulse Rate 88 82 80 Respiratory 13 13 11 L Rate Blood Pressure 94/30 79/27 79/32 O2 Sat by Pulse 100 100 100 Oximetry General appearance: Present: no acute distress, well-nourished - EENT Eyes: PERRL, EOM intact ENT: hearing intact, clear oral mucosa Ears: bilateral: normal - Neck Neck: supple, normal ROM - Respiratory Respiratory effort: normal Respiratory: bilateral: CTA - Cardiovascular Rhythm: regular Heart Sounds: Present: S1 & S2. Absent: gallop, rub Extremities: pulses intact, No edema, normal color, Full ROM - Gastrointestinal General gastrointestinal: Present: soft, non-tender, non-distended, normal bowel sounds - Integumentary Integumentary: clear, warm, dry - Musculoskeletal Musculoskeletal: 1, strength equal bilaterally - Neurologic Neurologic: moves all extremities - Psychiatric Psychiatric: memory intact, appropriate mood/affect, intact judgment & insight - Labs CBC & Chem 7: 04/29/18 06:57 04/29/18 06:57 Labs: Abnormal lab results 04/27/18 04/27/18 04/27/18 Range/Units 22:09 22:09 22:09 WBC (4.5-11.0) K/mm3 RBC (3.65-5.03) M/mm3 Hgb (11.8-15.2) gm/dl Hct (35.5-45.6) % MCH (28-32) pg MCHC (32-34) % RDW (13.2-15.2) % Seg Neuts % (Manual) (40.0-70.0) % Lymphocytes % (Manual) (13.4-35.0) % Seg Neutrophils # Man (1.8-7.7) K/mm3 PT 16.5 H (12.2-14.9) Sec. INR 1.29 H (0.87-1.13) APTT 21.5 L (24.2-36.6) Sec. Chloride (98-107) mmol/L Carbon Dioxide 16 L (22-30) mmol/L BUN 64 H (9-20) mg/dL Creatinine 2.2 H (0.8-1.5) mg/dL Glucose 165 H (75-100) mg/dL Lactic Acid (0.7-2.0) mmol/L Calcium 7.2 L (8.4-10.2) mg/dL ALT < 5 L (7-56) units/L Albumin 1.6 L (3.9-5) g/dL Lipase 12 L (13-60) units/L Crossmatch See Detail 04/27/18 04/28/18 04/28/18 Range/Units 22:44 00:22 01:57 WBC 20.2 H (4.5-11.0) K/mm3 RBC 1.21 L (3.65-5.03) M/mm3 Hgb 3.1 L* (11.8-15.2) gm/dl Hct 10.6 L* (35.5-45.6) % MCH 26 L (28-32) pg MCHC 30 L (32-34) % RDW 16.0 H (13.2-15.2) % Seg Neuts % (Manual) 71.0 H (40.0-70.0) % Lymphocytes % (Manual) 9.0 L (13.4-35.0) % Seg Neutrophils # Man 14.3 H (1.8-7.7) K/mm3 PT (12.2-14.9) Sec. INR (0.87-1.13) APTT (24.2-36.6) Sec. Chloride (98-107) mmol/L Carbon Dioxide (22-30) mmol/L BUN (9-20) mg/dL Creatinine (0.8-1.5) mg/dL Glucose (75-100) mg/dL Lactic Acid 6.50 H* 4.50 H* (0.7-2.0) mmol/L Calcium (8.4-10.2) mg/dL ALT (7-56) units/L Albumin (3.9-5) g/dL Lipase (13-60) units/L Crossmatch 04/28/18 04/28/18 Range/Units 06:13 06:13 WBC (4.5-11.0) K/mm3 RBC (3.65-5.03) M/mm3 Hgb 7.0 L D (11.8-15.2) gm/dl Hct 21.3 L D (35.5-45.6) % MCH (28-32) pg MCHC (32-34) % RDW (13.2-15.2) % Seg Neuts % (Manual) (40.0-70.0) % Lymphocytes % (Manual) (13.4-35.0) % Seg Neutrophils # Man (1.8-7.7) K/mm3 PT (12.2-14.9) Sec. INR (0.87-1.13) APTT (24.2-36.6) Sec. Chloride 112.0 H (98-107) mmol/L Carbon Dioxide 19 L (22-30) mmol/L BUN 58 H (9-20) mg/dL Creatinine 1.9 H (0.8-1.5) mg/dL Glucose 101 H (75-100) mg/dL Lactic Acid (0.7-2.0) mmol/L Calcium 6.6 L (8.4-10.2) mg/dL ALT (7-56) units/L Albumin (3.9-5) g/dL Lipase (13-60) units/L Crossmatch
--- NOTE | 2018-04-28 12:50 | Consultation ---
History of Present Illness Consult date: 04/28/18 Requesting physician: CARL LINARES Reason for consult: other (Acute G.I. Bleeding) History of present illness: PULMONARY/CCM CONSULT NOTE (Full dictation # [id number]) Please see dictated notes for full details Medications and Allergies Allergies Allergy/AdvReac Type Severity Reaction Status Date / Time No Known Allergies Allergy Verified 03/27/17 23:28 Home Medications Medication Instructions Recorded Confirmed Last Taken Type Ciprofloxacin HCl [Ciprofloxacin 500 mg PO Q12H #24 tab 06/22/17 Unknown Rx TAB] Linezolid [Zyvox] 600 mg PO BID #24 tablet 06/22/17 Unknown Rx Oxycodone HCl/Acetaminophen 1 each PO Q6HR PRN #14 tablet 06/22/17 Unknown Rx [Percocet 10/325 mg] Active Meds: Active Medications Acetaminophen (Tylenol) 650 mg [place] Q4H PRN PRN Reason: Fever >101 Pantoprazole Sodium 80 mg/ (Sodium Chloride) 100 mls @ 10 mls/hr IV DIRECT NESTOR Last Infusion: 04/28/18 09:40 Dose: 6.4 mg/hr, 8 mls/hr Documented by: Norepinephrine (Levophed Drip 4 Mg/Ns 250 Ml) 4 mg in 250 mls @ 7.5 mls/hr IV TITR NESTOR; Protocol Last Titration: 04/28/18 11:39 Dose: 10 mcg/min, 37.5 mls/hr Documented by: Azithromycin 500 mg/ Sodium (Chloride) 250 mls @ 250 mls/hr IV Q24HR NESTOR Last Admin: 04/28/18 12:25 Dose: 250 mls/hr Documented by: Piperacillin Sod/Tazobactam Sod (Zosyn/Ns 4.5gm/100ml) 4.5 gm in 100 mls @ 200 mls/hr IV Q8HR NESTOR Dextrose/Sodium Chloride (D5ns) 1,000 mls @ 100 mls/hr IV DIRECT NESTOR Ondansetron HCl (Zofran) 4 mg IV Q8H PRN PRN Reason: Nausea And Vomiting Polyethylene Glycol/Electrolytes (Golytely) 4,000 ml PO ONCE ONE Stop: 04/29/18 06:01 Physical Examination Vital signs: Vital Signs BP Pulse Ox 68/21 67 L 04/27/18 21:48 04/27/18 21:48 Results - Laboratory Findings CBC and BMP: 04/29/18 06:57 04/29/18 06:57 PT/INR, D-dimer PT 16.5 Sec. (12.2-14.9) H 04/27/18 22:09 INR 1.29 (0.87-1.13) H 04/27/18 22:09 Abnormal lab findings: Abnormal Labs 04/27/18 04/27/18 04/27/18 22:09 22:09 22:09 WBC RBC Hgb Hct MCH MCHC RDW Seg Neuts % (Manual) Lymphocytes % (Manual) Seg Neutrophils # Man PT 16.5 H INR 1.29 H APTT 21.5 L Chloride Carbon Dioxide 16 L BUN 64 H Creatinine 2.2 H Glucose 165 H Lactic Acid Calcium 7.2 L ALT < 5 L Albumin 1.6 L Lipase 12 L Crossmatch See Detail 04/27/18 04/28/18 04/28/18 22:44 00:22 01:57 WBC 20.2 H RBC 1.21 L Hgb 3.1 L* Hct 10.6 L* MCH 26 L MCHC 30 L RDW 16.0 H Seg Neuts % (Manual) 71.0 H Lymphocytes % (Manual) 9.0 L Seg Neutrophils # Man 14.3 H PT INR APTT Chloride Carbon Dioxide BUN Creatinine Glucose Lactic Acid 6.50 H* 4.50 H* Calcium ALT Albumin Lipase Crossmatch 04/28/18 04/28/18 06:13 06:13 WBC RBC Hgb 7.0 L D Hct 21.3 L D MCH MCHC RDW Seg Neuts % (Manual) Lymphocytes % (Manual) Seg Neutrophils # Man PT INR APTT Chloride 112.0 H Carbon Dioxide 19 L BUN 58 H Creatinine 1.9 H Glucose 101 H Lactic Acid Calcium 6.6 L ALT Albumin Lipase Crossmatch
[2018-04-28] MEDS: ZOSYN/NS 4.5GM/100ML 4.5 GM/100 ML VIAL IV SCH ×2 (15:40→22:38)
[2018-04-28] MEDS ORDERED: NACL 0.9% IR ONE (16:00)
[2018-04-28] MEDS ORDERED: LEVOPHED DRIP 4 MG/NS 250 ML IV ONE (16:00)
[2018-04-28 16:19] LABS: Hematocrit 20.4 % (35.5-45.6); Hemoglobin 6.6 gm/dl (11.8-15.2)
[2018-04-28] MEDS ORDERED: D5NS 1,000 ML IV ONE (16:23)
[2018-04-28] MEDS: D5NS 1,000 ML IV SCH (16:25)
--- NOTE | 2018-04-28 16:44 | Consultation ---
History of Present Illness - Reason for Consult Consult date: 04/28/18 acute renal failure Requesting physician: CARL LINARES - History of Present Illness This is a 58 y/o male who presented to [facility] ED today with c/o black stools for the past 2 days, nausea, vomiting, and fatigue. GI consulted, s/p EGD hiatal hernia, gastritis, raised nodular area (8mm) with noted white based ulcer w/o bleeding stigmata. Pt started on levaphed drip for hypotension. On admission, SCr level was 2.2, today's SCr level was 1.9. Review of labs from [id number] showed SCr level between 1.2-1.7. Pt denies hx of kidney problems. Pt denies NSAIDs use. We were consulted to evaluate this pt who has DWIGHT. Medications and Allergies Allergies Allergy/AdvReac Type Severity Reaction Status Date / Time No Known Allergies Allergy Verified 03/27/17 23:28 Home Medications Medication Instructions Recorded Confirmed Last Taken Type Ciprofloxacin HCl [Ciprofloxacin 500 mg PO Q12H #24 tab 06/22/17 Unknown Rx TAB] Linezolid [Zyvox] 600 mg PO BID #24 tablet 06/22/17 Unknown Rx Oxycodone HCl/Acetaminophen 1 each PO Q6HR PRN #14 tablet 06/22/17 Unknown Rx [Percocet 10/325 mg] Active Meds: Active Medications Acetaminophen (Tylenol) 650 mg [place] Q4H PRN PRN Reason: Fever >101 Pantoprazole Sodium 80 mg/ (Sodium Chloride) 100 mls @ 10 mls/hr IV DIRECT S CH Last Infusion: 04/28/18 09:40 Dose: 6.4 mg/hr, 8 mls/hr Documented by: Norepinephrine (Levophed Drip 4 Mg/Ns 250 Ml) 4 mg in 250 mls @ 7.5 mls/hr IV TITR NESTOR; Protocol Last Titration: 04/28/18 11:39 Dose: 10 mcg/min, 37.5 mls/hr Documented by: Azithromycin 500 mg/ Sodium (Chloride) 250 mls @ 250 mls/hr IV Q24HR NESTOR Last Admin: 04/28/18 12:25 Dose: 250 mls/hr Documented by: Piperacillin Sod/Tazobactam Sod (Zosyn/Ns 4.5gm/100ml) 4.5 gm in 100 mls @ 200 mls/hr IV Q8HR [facility] Last Admin: 04/28/18 15:40 Dose: 200 mls/hr Documented by: Dextrose/Sodium Chloride (D5ns) 1,000 mls @ 100 mls/hr IV DIRECT [facility] Last Admin: 04/28/18 16:25 Dose: 100 mls/hr Documented by: Ondansetron HCl (Zofran) 4 mg IV Q8H PRN PRN Reason: Nausea And Vomiting Polyethylene Glycol/Electrolytes (Golytely) 4,000 ml PO ONCE ONE Stop: 04/29/18 06:01 Review of Systems Constitutional: fatigue, weakness Cardiovascular: no chest pain, no shortness of breath, no dyspnea on exertion Respiratory: no shortness of breath, no dyspnea on exertion Gastrointestinal: nausea, vomiting, other (black stools) Genitourinary Male: no dysuria, no hematuria Integumentary: no sores, no wounds Neurological: weakness, no headaches Endocrine: fatigue Exam - Vital Signs Vital signs: Vital Signs BP Pulse Ox 68/21 67 L 04/27/18 21:48 04/27/18 21:48 - General Appearance General appearance: other (awake) EENT: ATNC Neck: Present: neck supple Respiratory: Clear to Ascultation Heart: regular, S1S2 Gastrointestinal: Present: normoactive bowel sounds. Absent: tenderness Integumentary: warm and dry Neurologic: alert and oriented x3 Musculoskeletal: Present: other (No edema to BLE) Psychiatric: mood/affect appropriate, cooperative Results - Lab Results 04/28/18 16:07 04/28/18 06:13 Most recent lab results Calcium 6.6 mg/dL (8.4-10.2) L 04/28/18 06:13 Assessment and Plan Acute Kidney Injury possibly multi-factorial secondary to prerenal/ATN, nausea, vomiting, hypotension, possible underlying CKD process, r/o obstruction: Non-Anion Gap Metabolic Acidosis: - Renal function reviewed, SCr level was 1.9 today, yesterday's SCr level was 2.2 - Review of labs from [id number] showed SCr level between 1.2-1.7 - On D5 0.9% NS infusion at 100 ml/hr - Started on levaphed drip for blood pressure support - Obtain urine lytes/protein - Check urine eosinophils - Renal US pending - Renally dose meds - Mercado Catheter: No - Renal plan d/w Dr Ochoa Anemia: GI Bleed: - Hgb level was 3.1 on admission - GI consulted, s/p EGD on 04/28/18 hiatal hernia, gastritis, raised nodular area (8mm) with noted white based ulcer w/o bleeding stigmata. - S/p blood transfusions - On protonix drip - Transfuse as per GI/primary Leukocytosis: Hypotension: - Started on levaphed drip - Follow cultures - On antibiotics
[2018-04-28 18:42] LABS: Microalbumin/Creatinine Ratio 370.2 ug/mg
--- NOTE | 2018-04-28 20:55 | Consultation ---
REFERRING PHYSICIAN: Francy Pulliam MD INDICATION: 1. Gastrointestinal bleed. 2. Anemia. HISTORY OF PRESENT ILLNESS: The patient is a 58-year-old black male with history of hidradenitis presents with GI bleed. The patient reports 2 days of dark and black stools. He reports also some rectal pain, which he thinks may be more related to his hidradenitis. The patient reports no nausea, vomiting. Reports mild epigastric pain. Denies any significant weight loss. The patient does report a history of NSAID use. The patient subsequently came to Emergency Room, was noted to be heme positive and severely anemic, admitted and GI consulted. The patient is unclear as to when his last colonoscopy was. PAST MEDICAL HISTORY: Hidradenitis. MEDICATIONS: Seen chart and updated in chart. ALLERGIES: No known drug allergies. SOCIAL HISTORY: Denies alcohol, tobacco or drug abuse. FAMILY HISTORY: Negative for colon cancer, IBD or liver disease. REVIEW OF SYSTEMS: GENERAL: Reports mild weakness. HEENT: No visual complaints or tinnitus. PULMONARY: No shortness of breath. No cough. No chest pain. GASTROINTESTINAL: Reports rectal bleeding. All points of 13-point review of systems otherwise negative. PHYSICAL EXAMINATION: VITAL SIGNS: Temperature of 98.6, pulse 89, respirations 18, blood pressure 100/48. GENERAL: Fairly nourished male, in no acute distress. HEENT: Pupils equal, round and reactive. PULMONARY: Clear to auscultation bilaterally. CARDIOVASCULAR: Regular rhythm. Normal S1 and S2. ABDOMEN: Positive bowel sounds. Soft. SKIN: No obvious rashes. LABORATORY DATA: Pertinent for white count of 20.2. Initial hemoglobin and hematocrit of 3.1 and 10.6, now 7.0 and 21.3 after 4 units, platelet count of 333. Coags within normal limits except for slightly increased INR of 1.29. Chem-7 within normal limits except for BUN and creatinine of 64 and 2.2. LFTs within normal limits. ASSESSMENT AND PLAN: A 58-year-old male with history of hidradenitis presents with dark red and black stools and noted to be significantly anemic with a hemoglobin initially of 3.1. Concern for GI related pathology of blood loss. Management is noted below. PLAN: 1. Follow hematocrit and transfuse as needed. 2. PPI IV b.i.d. 3. Avoid NSAIDs and aspirin. 4. Plan EGD today. 5. We will consider colonoscopy based on EGD results. JOB# [id number] CAB/NTS
[2018-04-28] MEDS ORDERED: NACL 0.9% 500 ML 500 ML IV ONE (22:19)
[2018-04-28] MEDS: PERCOCET 5/325 PO PRN (23:34)
[2018-04-29] MEDS: LEVOPHED DRIP 4 MG/NS 250 ML 4 MG/250 ML BAG IV SCH ×6 (02:36→18:58)
[2018-04-29] MEDS: ZOSYN/NS 4.5GM/100ML 4.5 GM/100 ML VIAL IV SCH (05:43)
[2018-04-29] MEDS ORDERED: GOLYTELY PO ONE (06:00)
[2018-04-29 07:17] LABS: Basophils # (Auto) 0.1 K/mm3 (0.0-0.1); Basophils % (Auto) 0.6 % (0.0-1.8); Eosinophils # (Auto) 0.2 K/mm3 (0.0-0.4); Eosinophils % (Auto) 0.8 % (0.0-4.3); Hematocrit 22.3 % (35.5-45.6); Hemoglobin 7.4 gm/dl (11.8-15.2); Lymphocytes # (Auto) 2.2 K/mm3 (1.2-5.4); Lymphocytes % (Auto) 11.6 % (13.4-35.0); Mean Corpuscular HGB Conc 33 % (32-34); Mean Corpuscular Volume 86 fl (84-94); Monocytes # (Auto) 0.9 K/mm3 (0.0-0.8); Monocytes % (Auto) 4.8 % (0.0-7.3); Platelet Count 203 K/mm3 (140-440); Red Blood Count 2.59 M/mm3 (3.65-5.03); Red Cell Distribution Width 16.1 % (13.2-15.2)
[2018-04-29 07:32] LABS: Albumin 1.5 g/dL (3.9-5); BUN/Creatinine Ratio 20; Blood Urea Nitrogen 43 mg/dL (9-20); Calcium 6.9 mg/dL (8.4-10.2); Hemolysis Index 1
[2018-04-29 07:45] LABS: Alanine Aminotransferase < 5 units/L (7-56)
[2018-04-29] MEDS ORDERED: MAGNESIUM SULFATE 2GM/50ML 2 GM/50 ML BAG IV ONE (10:00)
[2018-04-29] MEDS ORDERED: NEO SYNEPHRINE/NS Syringe(OR USE) IV ONE (10:00)
[2018-04-29] MEDS: D5NS 1,000 ML IV SCH ×2 (11:07→21:50)
[2018-04-29] MEDS: ZITHROMAX 500 MG in NACL 0.9% 250ML 250 ML IV SCH (11:09)
--- NOTE | 2018-04-29 12:08 | Progress Note ---
Assessment and Plan Acute Kidney Injury possibly multi-factorial secondary to prerenal/ATN, nausea, vomiting, hypotension, possible underlying CKD process, r/o obstruction: Non-Anion Gap Metabolic Acidosis: - stable kidney function with good UOP - Review of labs from [id number] showed SCr level between 1.2-1.7 - On D5 0.9% NS infusion at 100 ml/hr - Started on levaphed drip for blood pressure support - Renal US pending - Renally dose meds - Mercado Catheter: No Anemia: GI Bleed: - Hgb level was 3.1 on admission - GI consulted, s/p EGD on 04/28/18 hiatal hernia, gastritis, raised nodular area (8mm) with noted white based ulcer w/o bleeding stigmata. - S/p blood transfusions - On protonix drip - Transfuse as per GI/primary Leukocytosis: Hypotension: - Started on levaphed drip - Follow cultures - On antibiotics Subjective Date of service: 04/29/18 Principal diagnosis: anemia Interval history: weak but comfortable Objective - Vital Signs Vital signs: Vital Signs - 12hr 04/29/18 04/29/18 04/29/18 00:32 00:36 00:40 Temperature Pulse Rate 90 86 85 Respiratory 14 17 15 Rate Blood Pressure O2 Sat by Pulse 100 100 100 Oximetry 04/29/18 04/29/18 04/29/18 00:45 00:50 00:56 Temperature Pulse Rate 82 81 80 Respiratory 20 19 18 Rate Blood Pressure 91/35 91/35 91/35 O2 Sat by Pulse 100 100 100 Oximetry 04/29/18 04/29/18 04/29/18 01:00 01:06 01:10 Temperature 99.1 F Pulse Rate 82 76 79 Respiratory 17 15 17 Rate Blood Pressure 97/41 97/41 97/41 O2 Sat by Pulse 100 100 100 Oximetry 04/29/18 04/29/18 04/29/18 01:15 01:20 01:26 Temperature Pulse Rate 80 78 75 Respiratory 15 18 13 Rate Blood Pressure 106/45 106/45 106/45 O2 Sat by Pulse 100 100 100 Oximetry 04/29/18 04/29/18 04/29/18 01:30 01:36 01:40 Temperature Pulse Rate 77 77 80 Respiratory 19 17 21 Rate Blood Pressure 101/40 106/45 106/45 O2 Sat by Pulse 100 100 100 Oximetry 04/29/18 04/29/18 04/29/18 01:45 01:50 01:56 Temperature Pulse Rate 78 81 84 Respiratory 18 13 21 Rate Blood Pressure 98/42 98/42 98/42 O2 Sat by Pulse 100 100 100 Oximetry 04/29/18 04/29/18 04/29/18 02:00 02:06 02:10 Temperature Pulse Rate 79 Respiratory 17 Rate Blood Pressure 94/27 98/42 98/42 O2 Sat by Pulse 100 100 100 Oximetry 04/29/18 04/29/18 04/29/18 02:15 02:20 02:26 Temperature Pulse Rate 73 80 70 Respiratory 15 21 13 Rate Blood Pressure 113/45 113/45 113/45 O2 Sat by Pulse 100 100 100 Oximetry 04/29/18 04/29/18 04/29/18 02:30 02:36 02:40 Temperature Pulse Rate 71 81 72 Respiratory 14 11 L 10 L Rate Blood Pressure 107/47 107/47 107/47 O2 Sat by Pulse 100 100 100 Oximetry 04/29/18 04/29/18 04/29/18 02:45 02:50 02:56 Temperature Pulse Rate 75 74 74 Respiratory 14 13 11 L Rate Blood Pressure 109/47 109/47 109/47 O2 Sat by Pulse 100 100 100 Oximetry 04/29/18 04/29/18 04/29/18 03:00 03:06 03:10 Temperature Pulse Rate 74 76 82 Respiratory 13 15 11 L Rate Blood Pressure 100/45 100/45 107/47 O2 Sat by Pulse 100 100 100 Oximetry 04/29/18 04/29/18 04/29/18 03:15 03:20 03:26 Temperature Pulse Rate 75 80 75 Respiratory 15 11 L 14 Rate Blood Pressure 108/47 108/47 108/47 O2 Sat by Pulse 100 100 100 Oximetry 04/29/18 04/29/18 04/29/18 03:30 03:51 08:00 Temperature 98.8 F 98.1 F Pulse Rate 79 Respiratory 14 Rate Blood Pressure 115/52 O2 Sat by Pulse 100 Oximetry - General Appearance General appearance: well-developed, well-nourished, appears stated age EENT: ATNC, PERRL, mucous membranes moist Neck: no JVD, no carotid bruit Respiratory: Present: Clear to Ascultation. Absent: Rales, Ronchi Cardiology: regular, S1S2 Gastrointestinal: normoactive bowel sounds, no tenderness, no distended Integumentary: no rash, warm and dry Neurologic: no focal deficit, no asterixis Musculoskeletal: other (no edema in BLE) Psychiatric: cooperative - Lab 04/29/18 06:57 04/29/18 06:57 Most recent lab results Calcium 6.9 mg/dL (8.4-10.2) L 04/29/18 06:57 Phosphorus 3.00 mg/dL (2.5-4.5) 04/29/18 07:13 Magnesium 1.50 mg/dL (1.7-2.3) L 04/29/18 07:13 Urine Creatinine 37.0 mg/dL (0.1-20.0) H 04/28/18 18:01 Urine Sodium 93 mmol/L 04/28/18 18:01 Urine Total Protein 83 mg/dL (5-11.8) H 04/28/18 18:01 Medications & Allergies - Medications Allergies/Adverse Reactions: Allergies No Known Allergies Allergy (Verified 03/27/17 23:28) Home Medications: Home Medications Medication Instructions Recorded Confirmed Last Taken Type Ciprofloxacin HCl [Ciprofloxacin 500 mg PO Q12H #24 tab 06/22/17 Unknown Rx TAB] Linezolid [Zyvox] 600 mg PO BID #24 tablet 06/22/17 Unknown Rx Oxycodone HCl/Acetaminophen 1 each PO Q6HR PRN #14 tablet 06/22/17 Unknown Rx [Percocet 10/325 mg] Active Medications: Generic Name Dose Route Start Last Admin Trade Name Freq PRN Reason Stop Dose Admin Acetaminophen 650 mg 04/28/18 01:[address] Q4H PRN Fever >101 Norepinephrine 4 mg in 250 mls @ 7.5 mls/hr 04/28/18 05:00 04/29/18 08:57 Levophed Drip 4 Mg/Ns 250 Ml IV 26 mcg/min TITR NESTOR 97.5 mls/hr Administration Protocol 2 MCG/MIN Azithromycin 500 mg/ Sodium 250 mls @ 250 mls/hr 04/28/18 10:00 04/29/18 11:09 Chloride IV 250 mls/hr Q24HR NESTOR Administration Piperacillin Sod/Tazobactam Sod 4.5 gm in 100 mls @ 200 mls/hr 04/28/18 14:00 04/29/18 06:13 Zosyn/Ns 4.5gm/100ml IV Infused Q8HR NESTOR Infusion Dextrose/Sodium Chloride 1,000 mls @ 100 mls/hr 04/28/18 13:00 04/29/18 11:07 D5ns IV 100 mls/hr DIRECT NESTOR Administration Ondansetron HCl 4 mg 04/28/18 01:23 Zofran IV Q8H PRN Nausea And Vomiting Oxycodone/Acetaminophen 1 tab 04/28/18 23:00 04/28/18 23:34 Percocet 5/325 PO 1 tab Q4H PRN Administration Pain, Moderate (4-6) Pantoprazole Sodium 40 mg 04/29/18 22:00 Protonix IV BID NESTOR
--- NOTE | 2018-04-29 12:57 | Progress Note ---
Assessment and Plan Acute gastrointestinal bleeding, probably secondary to #2. Rectal polyps. Severe sepsis with shock. Leukocytosis. Moderate to severe protein-calorie malnutrition. Symptomatic anemia, acute blood loss anemia. Mild metabolic acidosis. Acute kidney injury. Lactic acidosis. Hypoalbuminemia. - continue to wean levophed to keep MAP > 65 mmHg - continue gentle volume resuscitation for sepsis and Azotemia - nephrology evaluation ongoing - continue supplemental oxygen and wean to keep O2 Sat's > 90% - for colonoscopy to evaluate bleeding today - place PICC line and discontinue femoral line - discontinue zosyn and zithromax and begin empiric levaquin (CRP unremarkable and clinicallly too) - follow cultures also for antibiotic de-escalation - place FMS if OK with GI team post colonoscopy due to diarrhea issues - repeat INR and address as necessary - PT/OT - continue mobility protocol for pressure ulcer prophylaxis - continue other care per attending / other consultants The high probability of a clinically significant, sudden or life-threatening deterioration of the [cardiac and G.I.] system(s) required my full and direct attention, intervention and personal management. The aggregate critical care time was [32] minutes without overlap. Time includes spent on; [x] Data Review and interpretation [x] Patient assessment and monitoring of vital signs [x] Documentation [x] Medication orders and management Subjective Date of service: 04/29/18 Principal diagnosis: Acute GI Bleed; Severe Anemia (ABLA); Severe Sepsis with Shock Interval history: Patient is seen today for: Acute GI Bleed; Severe Anemia (ABLA); Severe Sepsis with Shock; Leukocytosis; Moderate to severe protein-calorie malnutrition. Seen and examined at bedside; 24hour events reviewed; nursing and respiratory care staff consulted; no adverse overnight events reported to me; remains on Levophed at 22 mics/min; he denies chest pains or palpitations; no gross bleeding today; tentatively for colonoscopy; seen by wound care and he is having diarrhea which is complicating skin healing in perineal region Objective Vital Signs - 12hr 04/29/18 04/29/18 04/29/18 01:00 01:06 01:10 Temperature 99.1 F Pulse Rate 82 76 79 Respiratory 17 15 17 Rate Blood Pressure 97/41 97/41 97/41 O2 Sat by Pulse 100 100 100 Oximetry 04/29/18 04/29/18 04/29/18 01:15 01:20 01:26 Temperature Pulse Rate 80 78 75 Respiratory 15 18 13 Rate Blood Pressure 106/45 106/45 106/45 O2 Sat by Pulse 100 100 100 Oximetry 04/29/18 04/29/18 04/29/18 01:30 01:36 01:40 Temperature Pulse Rate 77 77 80 Respiratory 19 17 21 Rate Blood Pressure 101/40 106/45 106/45 O2 Sat by Pulse 100 100 100 Oximetry 04/29/18 04/29/18 04/29/18 01:45 01:50 01:56 Temperature Pulse Rate 78 81 84 Respiratory 18 13 21 Rate Blood Pressure 98/42 98/42 98/42 O2 Sat by Pulse 100 100 100 Oximetry 04/29/18 04/29/18 04/29/18 02:00 02:06 02:10 Temperature Pulse Rate 79 Respiratory 17 Rate Blood Pressure 94/27 98/42 98/42 O2 Sat by Pulse 100 100 100 Oximetry 04/29/18 04/29/18 04/29/18 02:15 02:20 02:26 Temperature Pulse Rate 73 80 70 Respiratory 15 21 13 Rate Blood Pressure 113/45 113/45 113/45 O2 Sat by Pulse 100 100 100 Oximetry 04/29/18 04/29/18 04/29/18 02:30 02:36 02:40 Temperature Pulse Rate 71 81 72 Respiratory 14 11 L 10 L Rate Blood Pressure 107/47 107/47 107/47 O2 Sat by Pulse 100 100 100 Oximetry 04/29/18 04/29/18 04/29/18 02:45 02:50 02:56 Temperature Pulse Rate 75 74 74 Respiratory 14 13 11 L Rate Blood Pressure 109/47 109/47 109/47 O2 Sat by Pulse 100 100 100 Oximetry 04/29/18 04/29/18 04/29/18 03:00 03:06 03:10 Temperature Pulse Rate 74 76 82 Respiratory 13 15 11 L Rate Blood Pressure 100/45 100/45 107/47 O2 Sat by Pulse 100 100 100 Oximetry 04/29/18 04/29/18 04/29/18 03:15 03:20 03:26 Temperature Pulse Rate 75 80 75 Respiratory 15 11 L 14 Rate Blood Pressure 108/47 108/47 108/47 O2 Sat by Pulse 100 100 100 Oximetry 04/29/18 04/29/18 04/29/18 03:30 03:51 08:00 Temperature 98.8 F 98.1 F Pulse Rate 79 Respiratory 14 Rate Blood Pressure 115/52 O2 Sat by Pulse 100 Oximetry Constitutional: alert, appears uncomfortable, other (middle aged AAM, normocephalic and atraumatic with mildly increased resp effort at rest) Eyes: non-icteric ENT: oropharynx moist Neck: supple, no lymphadenopathy, no JVD Effort: mildly labored Ascultation: Bilateral: diminished breath sounds, rhonchi Percussion: Bilateral: not dull Cardiovascular: regular rate and rhythm Gastrointestinal: hypoactive bowel sounds, soft, non-tender, non-distended Integumentary: rash, other (hydradenitis) Extremities: no cyanosis, no edema, pulses normal, no ischemia or petechiae Neurologic: normal mental status, non-focal exam, pupils equal and round, motor strength normal and Psychiatric: mood appropriate, anxious CBC and BMP: 04/30/18 04:50 04/30/18 04:50 ABG, PT/INR, D-dimer: PT/INR, D-dimer PT 16.5 Sec. (12.2-14.9) H 04/27/18 22:09 INR 1.29 (0.87-1.13) H 04/27/18 22:09 Abnormal lab findings: Abnormal Labs 04/27/18 04/27/18 04/27/18 22:09 22:09 22:09 WBC RBC Hgb Hct MCH MCHC RDW Lymph % (Auto) [place] # Seg Neutrophils % Seg Neuts % (Manual) Lymphocytes % (Manual) Seg Neutrophils # Seg Neutrophils # Man PT 16.5 H INR 1.29 H APTT 21.5 L Chloride Carbon Dioxide 16 L BUN 64 H Creatinine 2.2 H Glucose 165 H Lactic Acid Calcium 7.2 L Magnesium ALT < 5 L Total Protein Albumin 1.6 L Lipase 12 L Urine Creatinine Urine Total Protein Crossmatch See Detail 04/27/18 04/28/18 04/28/18 22:44 00:22 01:57 WBC 20.2 H RBC 1.21 L Hgb 3.1 L* Hct 10.6 L* MCH 26 L MCHC 30 L RDW 16.0 H Lymph % (Auto) [place] # Seg Neutrophils % Seg Neuts % (Manual) 71.0 H Lymphocytes % (Manual) 9.0 L Seg Neutrophils # Seg Neutrophils # Man 14.3 H PT INR APTT Chloride Carbon Dioxide BUN Creatinine Glucose Lactic Acid 6.50 H* 4.50 H* Calcium Magnesium ALT Total Protein Albumin Lipase Urine Creatinine Urine Total Protein Crossmatch 04/28/18 04/28/18 04/28/18 06:13 06:13 16:07 WBC RBC Hgb 7.0 L D 6.6 L Hct 21.3 L D 20.4 L MCH MCHC RDW Lymph % (Auto) [place] # Seg Neutrophils % Seg Neuts % (Manual) Lymphocytes % (Manual) Seg Neutrophils # Seg Neutrophils # Man PT INR APTT Chloride 112.0 H Carbon Dioxide 19 L BUN 58 H Creatinine 1.9 H Glucose 101 H Lactic Acid Calcium 6.6 L Magnesium ALT Total Protein Albumin Lipase Urine Creatinine Urine Total Protein Crossmatch 04/28/18 04/29/18 04/29/18 18:01 06:57 06:57 WBC 19.0 H RBC 2.59 L Hgb 7.4 L Hct 22.3 L MCH MCHC RDW 16.1 H Lymph % (Auto) 11.6 L [place] # 0.9 H Seg Neutrophils % 82.2 H Seg Neuts % (Manual) Lymphocytes % (Manual) Seg Neutrophils # 15.6 H Seg Neutrophils # Man PT INR APTT Chloride 116.2 H Carbon Dioxide 19 L BUN 43 H Creatinine 2.1 H Glucose 145 H Lactic Acid Calcium 6.9 L Magnesium ALT < 5 L Total Protein 6.0 L Albumin 1.5 L Lipase Urine Creatinine 37.0 H Urine Total Protein 83 H Crossmatch 04/29/18 07:13 WBC RBC Hgb Hct MCH MCHC RDW Lymph % (Auto) [place] # Seg Neutrophils % Seg Neuts % (Manual) Lymphocytes % (Manual) Seg Neutrophils # Seg Neutrophils # Man PT INR APTT Chloride Carbon Dioxide BUN Creatinine Glucose Lactic Acid Calcium Magnesium 1.50 L ALT Total Protein Albumin Lipase Urine Creatinine Urine Total Protein Crossmatch Chest x-ray: image reviewed Allied health notes reviewed: nursing
[2018-04-29] MEDS ORDERED: NACL 0.9% 1000 ML 1,000 ML IV SCH (14:00)
[2018-04-29] MEDS ORDERED: WATER FOR IRRIG STERILE ONE (14:12)
[2018-04-29] MEDS ORDERED: WATER FOR IRRIG STERILE IR ONE (14:12)
[2018-04-29] MEDS ORDERED: LEVAQUIN 750MG/150ML 750 MG/150 ML BAG IV SCH (15:00)
[2018-04-29] MEDS ORDERED: NACL 0.9% 1000 ML 1,000 ML ONE (15:29)
[2018-04-29] MEDS ORDERED: DIPRIVAN 10 MG/ML IV ONE ×3 (15:55)
[2018-04-29] MEDS ORDERED: NACL 0.9% 100 ML ONE (15:59)
--- NOTE | 2018-04-29 16:37 | Progress Note ---
Assessment and Plan /Acute upper GI bleed - due to gastric ulcer, biopsy pending - cont PPI IV, GI following, s/p EGD - monitor H/H, NPO, plan for coloscopy today /Severe anemia due to Upper GI bleed - s/p 4 unit PRBC transfusion - cont to monitor h/H, transfuse as needed /DWIGHT, likely from vasomotor nephropathy - cont iv fluid, monitor BMP, renal consulted /Hypotension/shock on pressor due to hypovolumia and sepsis - - cont iv fluid, wean off pressor as tolerated /Sepsis with RLL PNA, tachycardia and leukocytosis - CXR showed RLL infiltrates, cont zosyn /DVT Px, on SCD Brief history: 58-year-old male presents to ED with complaint of bloody stools 2 days. Hb on admission was 3.1, s/p 4 units PRBC transfusion. EGD today showed gastritis with raised nodular area (8mm) with noted white based ulcer w/o bleeding stigmata, obtained biopsy. The high probability of a clinically significant, sudden or life threatening de terioration of the [CVS/Renal] system(s) required my full and direct attention, intervention and personal management. The aggregate critical care time was [36] minutes. This time is in addition to time spent performing reported procedures but includes the following: [x] Data Review and interpretation [x] Patient assessment and monitoring of vital signs [x] Documentation [x] Medication orders and management Physical exam: General appearance: Present: no acute distress, well-nourished - EENT Eyes: PERRL, EOM intact ENT: hearing intact, clear oral mucosa Ears: bilateral: normal - Neck Neck: supple, normal ROM - Respiratory Respiratory effort: normal Respiratory: bilateral: CTA - Cardiovascular Rhythm: regular Heart Sounds: Present: S1 & S2. Absent: gallop, rub Extremities: pulses intact, No edema, normal color, Full ROM - Gastrointestinal General gastrointestinal: Present: soft, non-tender, non-distended, normal bowel sounds - Integumentary Integumentary: clear, warm, dry - Musculoskeletal Musculoskeletal: 1, strength equal bilaterally - Neurologic Neurologic: moves all extremities - Psychiatric Psychiatric: memory intact, appropriate mood/affect, intact judgment & insight Subjective Date of service: 04/29/18 Principal diagnosis: anemia Interval history: Pt seen and examined No further bloody or black stool denies any abdominal pain NPO for colonoscopy now remained on pressor Objective - Constitutional Vitals: Vital Signs - 12hr 04/29/18 04/29/18 08:00 14:51 Temperature 98.1 F 98.5 F - Labs CBC & Chem 7: 04/30/18 04:50 04/30/18 04:50 Labs: Abnormal lab results 04/27/18 04/28/18 04/28/18 Range/Units 22:09 16:07 18:01 WBC (4.5-11.0) K/mm3 RBC (3.65-5.03) M/mm3 Hgb 6.6 L (11.8-15.2) gm/dl Hct 20.4 L (35.5-45.6) % RDW (13.2-15.2) % Lymph % (Auto) (13.4-35.0) % [place] # (0.0-0.8) K/mm3 Seg Neutrophils % (40.0-70.0) % Seg Neutrophils # (1.8-7.7) K/mm3 Chloride (98-107) mmol/L Carbon Dioxide (22-30) mmol/L BUN (9-20) mg/dL Creatinine (0.8-1.5) mg/dL Glucose (75-100) mg/dL Calcium (8.4-10.2) mg/dL Magnesium (1.7-2.3) mg/dL ALT (7-56) units/L Total Protein (6.3-8.2) g/dL Albumin (3.9-5) g/dL Urine Creatinine 37.0 H (0.1-20.0) mg/dL Urine Total Protein 83 H (5-11.8) mg/dL Crossmatch See Detail 04/29/18 04/29/18 04/29/18 Range/Units 06:57 06:57 07:13 WBC 19.0 H (4.5-11.0) K/mm3 RBC 2.59 L (3.65-5.03) M/mm3 Hgb 7.4 L (11.8-15.2) gm/dl Hct 22.3 L (35.5-45.6) % RDW 16.1 H (13.2-15.2) % Lymph % (Auto) 11.6 L (13.4-35.0) % [place] # 0.9 H (0.0-0.8) K/mm3 Seg Neutrophils % 82.2 H (40.0-70.0) % Seg Neutrophils # 15.6 H (1.8-7.7) K/mm3 Chloride 116.2 H (98-107) mmol/L Carbon Dioxide 19 L (22-30) mmol/L BUN 43 H (9-20) mg/dL Creatinine 2.1 H (0.8-1.5) mg/dL Glucose 145 H (75-100) mg/dL Calcium 6.9 L (8.4-10.2) mg/dL Magnesium 1.50 L (1.7-2.3) mg/dL ALT < 5 L (7-56) units/L Total Protein 6.0 L (6.3-8.2) g/dL Albumin 1.5 L (3.9-5) g/dL Urine Creatinine (0.1-20.0) mg/dL Urine Total Protein (5-11.8) mg/dL Crossmatch
--- NOTE | 2018-04-29 16:53 | Anesthesia Day of Surgery ---
Anesthesia Day of Surgery - Day of Surgery Patient Examined: Yes Patient H&P Reviewed: Yes Patient is NPO: Yes
--- NOTE | 2018-04-29 16:53 | Anesthesia Consultation ---
Anesthesia Consult and Med Hx Date of service: 04/29/18 - Airway Anesthetic Teeth Evaluation: Poor, Chipped (missing) ROM Head & Neck: Adequate Mental/Hyoid Distance: Adequate - Pre-Operative Health Status ASA Pre-Surgery Classification: ASA3 (Hidradenitis; multiple skin grafts) - Pulmonary Hx Smoking: Yes (cigars) Hx Asthma: No COPD: No Hx Pneumonia: No - Cardiovascular System Hx Hypertension: No Hx Pacemaker: No Hx Internal Defibrillator: No - Central Nervous System Hx Neuromuscular Disorder: No - Gastrointestinal Hx Gastroesophageal Reflux Disease: No - Endocrine Hx Renal Disease: No Hx End Stage Renal Disease: No - Hematic Hx Anemia: Yes (HGB 7.0 prior to 2 units rbc's) - Other Systems Hx Alcohol Use: Yes (rare) Hx Substance Use: No Hx Cancer: No Hx Obesity: No
--- NOTE | 2018-04-29 16:54 | Post Anesthesia Evaluation ---
- Post Anesthesia Evaluation Patient Participated: Yes (sleeping) Airway Patent: Yes Stable Respiratory Function: Yes Nausea/Vomiting: No Temp > 96.8F: Yes Pain Manageable: Yes Adequeate Hydration: Yes Anesthesia Complications: No Block Receding Appropriately: Not Applicable Patient on Ventilator: No
--- NOTE | 2018-04-29 17:44 | Post Operative Note ---
Pre-op diagnosis: gi bleed Post-op diagnosis: same Findings: colonoscopy; 7-9 mm polyp transverse (hot snare polypectomy) - medium internal hemorrhoids - negative other Procedure: colonoscopy Anesthesia: MAC Surgeon: JEANNINE HUNT Estimated blood loss: none Pathology: list Specimen disposition: to lab Condition: stable Disposition: floor
[2018-04-29] MEDS: NACL 0.9% 1000 ML 1,000 ML IV SCH (17:48)
[2018-04-29] MEDS ORDERED: XYLOCAINE MPF 0.5% INFILTRATI ONE (17:50)
--- NOTE | 2018-04-29 19:23 | Operative Report ---
PROCEDURE: Colonoscopy. INDICATION: 1. Anemia. 2. GI bleed. MEDICATIONS: Propofol per CHASER TAR. COMPLICATIONS: None. DESCRIPTION OF PROCEDURE: The patient was brought to the Medical Intensive Care Unit. The patient had the procedure discussed with them at length. All risks, complications, and benefits discussed after which the patient signed for the procedure to be performed. The patient was placed in left lateral decubitus position. Rectal exam performed prior to insertion of the scope. After adequate sedation medication as above, scope was inserted into the rectum and brought to the level of cecum. Ileocecal valve and appendiceal orifice, cecal strap were adequately visualized. Colonoscope was then removed and the mucosa of colon visualized. Prep quality for this procedure was fair. The patient's vital signs remained stable throughout the procedure. FINDINGS: There was noted to be a single sessile 7-9 mm polyp noted in transverse colon. Hot snare polypectomy was applied with removal and retrieval of this polyp and sent to pathology. No other mass lesions or polyps were noted. No diverticulosis was noted. Retroflexion view performed in the rectum showed medium internal hemorrhoids. The patient tolerated the procedure well. No complications during the procedure. IMPRESSION: 1. Polyp x 1, status post hot snare polypectomy. 2. Internal hemorrhoids. 3. Otherwise, benign. RECOMMENDATIONS: 1. Follow up biopsy results. 2. Follow H and H and transfuse as needed. 3. Start p.o. and advance based on progress. If H and H are stable in a.m., okay to discontinue from GI standpoint. JOB# [id number] CAB/NTS
[2018-04-29] MEDS: PROTONIX IV SCH (21:44)
--- NOTE | 2018-04-29 23:59 | Consultation ---
PULMONARY CRITICAL CARE CONSULTATION CONSULTING PHYSICIAN: Dr. Nilay Thao. REASON FOR CONSULTATION: Acute GI bleeding. Symptomatic. CHIEF COMPLAINT AND HISTORY OF PRESENT ILLNESS: The patient is a 58-year-old -Japanese male with past medical history significant amongst other things for a diagnosis of hidradenitis suppurativa involving his armpits and the rectal area as well as rectal polyps who came in to the Emergency Room complaining of bloody stools for about a couple of days. It was described as dark red blood in his stools. He also complained of severe pain with hidradenitis. He described nausea, denied vomiting. He has had GI bleeding in the past. He was evaluated in the Emergency Room, amongst other things, he was found to be severely anemic with a serum hemoglobin of 3.1. He also had an acute kidney injury. A GI consultation was requested and the patient had an EGD done in the Emergency Room. As part of his management, the EGD showed a hiatal hernia, gastritis, raised nodular area with noted white-based ulcer without bleeding stigmata. Biopsies were taken. Postprocedure, he was left on a Protonix drip and brought in to the intensive care unit for closer observation. When I stopped by to see him, he was resting in bed. He had another planned procedure for the next day. He was complaining again of the pain related with his hidradenitis. He denied fevers or chills. When asked about history of tobacco use or abuse, he was a little noncommittal, but had earlier said that he does not smoke and does not drink. This really is as much of the history of presentation as I have. I should mention he denied any use of NSAIDs, overt use of alcohol. Denied any trauma to the abdomen. PAST MEDICAL HISTORY: Significant for history of rectal polyps and history of hidradenitis. PAST SURGICAL HISTORY: He has had multiple skin grafts with a wound VAC to the stomach. MEDICATIONS: He was on at the time I stopped by to see him were reviewed. Pertinent medications included the following: He was on a Protonix drip at 8 mg per hour. He was on a Levophed drip at 12 mcg per minute with a MAP still a little low about 64 at that time. He received azithromycin 500 mg IV q. 24 hours, Zosyn 4.5 grams IV q. 8 hours, Zofran 4 mg IV q. 8 hours p.r.n. nausea and vomiting and had received some GoLYTELY for tentative colonoscopy assisted. ALLERGIES: No known drug allergies. DIET: Thin gentleman. Denies acute weight loss or gain in the preceding few weeks to months. FAMILY AND SOCIAL HISTORY: Lives in the community. Denies alcohol, tobacco, or illicit drug use or abuse. Denied any family history of GI bleeding or other significant family history. REVIEW OF SYSTEMS: A little difficult to obtain secondary to the patient's medical and mental condition. Since he has been here, no gross hemoptysis, no hematuria. He complains of abdominal pain. He denied new onset focal weakness. He denied new onset seizures. Denies heat or cold intolerance. Denies any new rash on his body. Denies chest pains or palpitations. Complete 13-system review of systems obtained as best as I could. Pertinent positives and/or negatives as in body of history above, otherwise noncontributory. PHYSICAL EXAMINATION: VITAL SIGNS: At presentation, he was afebrile, temperature 97.8 degrees Fahrenheit with a pulse of 92, respiratory rate of 22, blood pressure 68/21, O2 sat 67% on presentation. Inspired oxygen concentration at that time was not recorded. When I saw him, O2 sats were 98% that was on 2 liters nasal cannula. GENERAL: A middle-aged, somewhat chronically ill-looking -Japanese male. Normocephalic, atraumatic, resting in bed with mildly increased work of breathing. HEAD, EYES, EARS, NOSE AND THROAT: He is anicteric. His conjunctivae are pale. Oropharynx dry. NECK: No gross jugular venous distention, no thyromegaly, no palpable lymph nodes in the supraclavicular or submandibular lymph node chains. LUNGS: Auscultation of both lung hilario significant for clear lungs bilaterally without wheezing. HEART: Heart sounds 1 and 2 are heard. They were regular in rate and rhythm at the time of my evaluation. No rubs or murmurs. ABDOMEN: Soft. Bowel sounds are positive, mild tenderness. No palpable hepatosplenomegaly. EXTREMITIES: Without overt digital clubbing, cyanosis and no pedal edema. Dorsalis pedis pulses are palpable bilaterally. NEUROLOGIC: Pupils are equal, round, reactive to light. Extraocular muscle movements are intact. He moves all 4 extremities spontaneously. PSYCHIATRIC: His mood is depressed. His affect is flat. SKIN: Normal turgor. He did have old skin graft sites to inner the thighs bilaterally and some erythema around the scrotum. LABORATORY DATA: From my review are as follows: Admission white cell count of 20,200, hemoglobin 3.1, hematocrit 10.6, platelet count was 333, MCV was within normal limits. INR 1.29. Serum sodium 138, potassium 4.5, chloride 104, bicarbonate 16, BUN 64, creatinine 2.2 and a glucose of 165. Lactic acid level was elevated at 4.5 at presentation. Liver function tests essentially within normal limits except for an albumin of 1.6. Urinalysis was unremarkable. Blood cultures and urine cultures no growth to date. RADIOLOGICAL DATA: He had a chest x-ray done. I have reviewed the chest x-ray as well as the radiologist's interpretation. There is some right lower lobe infiltrates that suggest possible aspiration, but he denies overt vomiting. Otherwise, no gross pneumothorax, no gross bony fracture. ASSESSMENT AND PLAN: 1. Acute gastrointestinal bleeding, probably secondary to #2. 2. Rectal polyps. 3. Severe sepsis with shock. 4. Leukocytosis. 5. Moderate to severe protein-calorie malnutrition. 6. Symptomatic anemia, acute blood loss anemia. 7. Mild metabolic acidosis. 8. Acute kidney injury. 9. Lactic acidosis. 10. Hypoalbuminemia. PLAN: We will defer to the GI team and their input is appreciated. We will continue the Protonix drip at this point. He is tentatively scheduled for colonoscopy in the morning. We will continue Levophed with a target mean arterial pressures of 65 mmHg. Volume hydration will also be continued. Gentle volume hydration. He will remain n.p.o. until cleared by the GI team. We will continue empiric antibiotic therapy. I will order a CRP level and repeat the lactic acid level and trend as necessary to help antibiotic de-escalation. Nutritional consult will be placed to help optimize nutritional intake. Volume resuscitation will be continued with regard to the acute kidney injury, possibly from vasomotor nephropathy. We will continue to monitor the serum creatinine, Nephrology evaluation will be at the behest of the attending physician. Flu and pneumonia vaccination will be addressed per protocol. Thank you very much for the consult. We will follow along and make further recommendations as the picture progresses/becomes clearer. He is critically ill on life-sustaining interventions including vasopressors, at high risk of from deterioration of gastrointestinal system in particular at this time. I have spent about 35-40 minutes of critical care time without overlap and excluding any procedural time that may be necessary. JOB# [id number] LES/COLETTE ORTEGA
[2018-04-30] MEDS: LEVOPHED DRIP 4 MG/NS 250 ML 4 MG/250 ML BAG IV SCH ×6 (00:59→21:20)
[2018-04-30 05:04] LABS: Hemoglobin 6.8 gm/dl (11.8-15.2); Mean Corpuscular HGB Conc 32 % (32-34); Mean Corpuscular Volume 88 fl (84-94); Platelet Count 191 K/mm3 (140-440); Red Blood Count 2.39 M/mm3 (3.65-5.03); Red Cell Distribution Width 16.8 % (13.2-15.2)
[2018-04-30 05:45] LABS: Calcium 6.8 mg/dL (8.4-10.2)
[2018-04-30] MEDS: D5NS 1,000 ML IV SCH (06:59)
[2018-04-30] MEDS: ZOSYN/NS 4.5GM/100ML 4.5 GM/100 ML VIAL IV SCH (07:34)
[2018-04-30] MEDS: LEVAQUIN 750MG/150ML 750 MG/150 ML BAG IV SCH (10:43)
[2018-04-30] MEDS: PROTONIX IV SCH ×2 (10:49→22:09)
[2018-04-30] MEDS: PERCOCET 5/325 PO PRN ×2 (10:52→20:31)
--- NOTE | 2018-04-30 11:09 | Gastroenterology Progress Note ---
Assessment and Plan 1.GI bleed 2.anemia -H/H 6.8/21.0-trending down -continue to monitor H/H and transfuse as needed -s/p EGD 04/28/17 showed hiatal hernia, mild gastritis, and a raised nodular area w/ white based ulcer w/o bleeding stigmata in very proximal duodenal bulb (not classified appearance for GIST)- bx results pending -s/p colon 04/29/17 revealed a colon polyp (s/p removal with hot snare), and internal hemorrhoids -clinically, patient is w/o active signs of bleeding overnight or this am. No abd pain or N/V. Tolerating diet. -continue PPI and supportive care -will follow Subjective Date of service: 04/30/18 Principal diagnosis: anemia/GI bleed Interval history: No active signs of bleeding overnight or this am per pt/nursing. Objective - Constitutional Vitals: Temp Pulse Resp BP Pulse Ox 98.7 F 75 11 L 127/60 99 04/30/18 08:15 04/30/18 09:00 04/30/18 09:00 04/30/18 09:00 04/30/18 09:00 General appearance: no acute distress - Respiratory Respiratory: bilateral: CTA (anterior) - Cardiovascular Rhythm: regular Heart Sounds: Present: S1 & S2 - Gastrointestinal General gastrointestinal: Present: soft, non-tender, non-distended, normal bowel sounds - Labs CBC & Chem 7: 04/30/18 04:50 04/30/18 04:50 Labs: Laboratory Results - last 24 hr 04/30/18 04/30/18 04:50 04:50 WBC 17.1 H RBC 2.39 L Hgb 6.8 L Hct 21.0 L MCV 88 MCH 29 MCHC 32 RDW 16.8 H Plt Count 191 Sodium 141 Potassium 3.8 Chloride 113.7 H Carbon Dioxide 17 L Anion Gap 14 BUN 27 H Creatinine 1.8 H Estimated GFR 47 BUN/Creatinine Ratio 15 Glucose 137 H Calcium 6.8 L
--- NOTE | 2018-04-30 11:16 | Progress Note ---
Assessment and Plan Acute Kidney Injury possibly multi-factorial secondary to prerenal/ATN, nausea, vomiting, hypotension, possible underlying CKD process, r/o obstruction: Non-Anion Gap Metabolic Acidosis: - Cr cont to improve - will change IVF to 1/2 NS with sodium bicarb for worsening acidosis - Review of labs from [id number] showed SCr level between 1.2-1.7 - Renally dose meds - Mercado Catheter: No Anemia: GI Bleed: - GI consulted, s/p EGD on 04/28/18 hiatal hernia, gastritis, raised nodular area (8mm) with noted white based ulcer w/o bleeding stigmata. - S/p blood transfusions - On protonix drip - Transfuse as per GI/primary Leukocytosis: Hypotension: - Follow cultures - On antibiotics Subjective Date of service: 04/30/18 Principal diagnosis: anemia/GI bleed Interval history: comfortable, denies acute issues Objective - Vital Signs Vital signs: Vital Signs - 12hr 04/29/18 04/29/18 04/29/18 23:20 23:21 23:30 Temperature 99.4 F Pulse Rate 67 63 Respiratory 11 L 14 Rate Blood Pressure 132/60 123/61 O2 Sat by Pulse 100 100 Oximetry 04/29/18 04/29/18 04/30/18 23:40 23:50 00:00 Temperature Pulse Rate 83 68 68 Respiratory 10 L 17 11 L Rate Blood Pressure 134/60 124/61 126/58 O2 Sat by Pulse 100 100 100 Oximetry 04/30/18 04/30/18 04/30/18 00:10 00:20 00:30 Temperature Pulse Rate 70 73 64 Respiratory 12 19 12 Rate Blood Pressure 119/59 116/59 118/57 O2 Sat by Pulse 100 100 100 Oximetry 04/30/18 04/30/18 04/30/18 00:40 00:50 01:00 Temperature Pulse Rate 69 69 74 Respiratory 12 12 29 H Rate Blood Pressure 112/59 125/56 94/40 O2 Sat by Pulse 100 100 100 Oximetry 04/30/18 04/30/18 04/30/18 01:10 01:20 01:30 Temperature Pulse Rate 63 65 64 Respiratory 20 12 11 L Rate Blood Pressure 121/53 124/61 123/57 O2 Sat by Pulse 100 99 100 Oximetry 04/30/18 04/30/18 04/30/18 01:40 01:50 02:00 Temperature Pulse Rate 65 68 77 Respiratory 11 L 12 18 Rate Blood Pressure 122/59 130/62 129/55 O2 Sat by Pulse 100 99 100 Oximetry 04/30/18 04/30/18 04/30/18 02:10 02:20 02:30 Temperature Pulse Rate 67 66 63 Respiratory 11 L 11 L 12 Rate Blood Pressure 125/61 125/57 121/58 O2 Sat by Pulse 100 100 100 Oximetry 04/30/18 04/30/18 04/30/18 02:40 02:50 03:00 Temperature Pulse Rate 68 68 70 Respiratory 12 11 L 13 Rate Blood Pressure 121/58 124/59 134/56 O2 Sat by Pulse 100 98 98 Oximetry 04/30/18 04/30/18 04/30/18 03:10 03:20 03:30 Temperature Pulse Rate 72 68 64 Respiratory 11 L 12 12 Rate Blood Pressure 123/56 130/58 121/56 O2 Sat by Pulse 100 97 100 Oximetry 04/30/18 04/30/18 04/30/18 03:34 03:40 03:50 Temperature 99.5 F Pulse Rate 64 75 Respiratory 13 18 Rate Blood Pressure 130/56 109/50 O2 Sat by Pulse 100 99 Oximetry 04/30/18 04/30/18 04/30/18 04:00 04:10 04:20 Temperature Pulse Rate 67 68 70 Respiratory 12 11 L 11 L Rate Blood Pressure 117/57 112/56 113/54 O2 Sat by Pulse 100 100 98 Oximetry 04/30/18 04/30/18 04/30/18 04:30 04:40 04:50 Temperature Pulse Rate 65 69 69 Respiratory 12 11 L 13 Rate Blood Pressure 109/50 122/54 115/57 O2 Sat by Pulse 100 100 99 Oximetry 04/30/18 04/30/18 04/30/18 05:00 05:10 05:20 Temperature Pulse Rate 66 63 63 Respiratory 11 L 10 L 17 Rate Blood Pressure 121/52 120/55 126/58 O2 Sat by Pulse 100 100 98 Oximetry 04/30/18 04/30/18 04/30/18 05:30 05:40 05:50 Temperature Pulse Rate 60 62 61 Respiratory 17 10 L 12 Rate Blood Pressure 119/56 129/61 128/56 O2 Sat by Pulse 100 100 99 Oximetry 04/30/18 04/30/18 04/30/18 06:00 06:10 06:20 Temperature Pulse Rate 64 67 63 Respiratory 12 10 L 14 Rate Blood Pressure 124/55 118/56 132/55 O2 Sat by Pulse 100 100 98 Oximetry 04/30/18 04/30/18 04/30/18 06:30 06:40 06:50 Temperature Pulse Rate 64 62 65 Respiratory 15 15 11 L Rate Blood Pressure 138/55 131/59 123/57 O2 Sat by Pulse 100 100 98 Oximetry 04/30/18 04/30/18 04/30/18 07:00 07:10 07:20 Temperature Pulse Rate 63 69 61 Respiratory 13 10 L 11 L Rate Blood Pressure 128/55 126/58 113/50 O2 Sat by Pulse 100 100 98 Oximetry 04/30/18 04/30/18 04/30/18 07:30 07:40 07:50 Temperature Pulse Rate 70 63 61 Respiratory 15 11 L 10 L Rate Blood Pressure 133/60 129/57 128/57 O2 Sat by Pulse 100 100 98 Oximetry 04/30/18 04/30/18 04/30/18 08:00 08:10 08:15 Temperature 98.7 F Pulse Rate 67 64 Respiratory 11 L 11 L Rate Blood Pressure 126/58 134/61 O2 Sat by Pulse 100 100 100 Oximetry 04/30/18 04/30/18 04/30/18 08:20 08:30 08:40 Temperature Pulse Rate 63 61 63 Respiratory 12 11 L 15 Rate Blood Pressure 135/62 126/60 134/59 O2 Sat by Pulse 98 100 100 Oximetry 04/30/18 04/30/18 08:50 09:00 Temperature Pulse Rate 71 75 Respiratory 14 11 L Rate Blood Pressure 139/64 127/60 O2 Sat by Pulse 98 99 Oximetry - General Appearance General appearance: well-developed, cachectic EENT: ATNC, PERRL Neck: no JVD, no carotid bruit Cardiology: regular, S1S2 Gastrointestinal: normoactive bowel sounds, no tenderness, no distended Integumentary: no rash, warm and dry Neurologic: no focal deficit, no asterixis Musculoskeletal: other (no edema in BLE) Psychiatric: mood/affect appropriate, cooperative - Lab 04/30/18 04:50 04/30/18 04:50 Most recent lab results Calcium 6.8 mg/dL (8.4-10.2) L 04/30/18 04:50 Phosphorus 3.00 mg/dL (2.5-4.5) 04/29/18 07:13 Magnesium 1.50 mg/dL (1.7-2.3) L 04/29/18 07:13 Urine Creatinine 37.0 mg/dL (0.1-20.0) H 04/28/18 18:01 Urine Sodium 93 mmol/L 04/28/18 18:01 Urine Total Protein 83 mg/dL (5-11.8) H 04/28/18 18:01 Medications & Allergies - Medications Allergies/Adverse Reactions: Allergies No Known Allergies Allergy (Verified 03/27/17 23:28) Home Medications: Home Medications Medication Instructions Recorded Confirmed Last Taken Type Ciprofloxacin HCl [Ciprofloxacin 500 mg PO Q12H #24 tab 06/22/17 Unknown Rx TAB] Linezolid [Zyvox] 600 mg PO BID #24 tablet 06/22/17 Unknown Rx Oxycodone HCl/Acetaminophen 1 each PO Q6HR PRN #14 tablet 06/22/17 Unknown Rx [Percocet 10/325 mg] Active Medications: Generic Name Dose Route Start Last Admin Trade Name Freq PRN Reason Stop Dose Admin Acetaminophen 650 mg 04/28/18 01:32 Tylenol WI Q4H PRN Fever >101 Norepinephrine 4 mg in 250 mls @ 7.5 mls/hr 04/28/18 05:00 04/30/18 10:43 Levophed Drip 4 Mg/Ns 250 Ml IV 18 mcg/min TITR NESTOR 67.5 mls/hr Administration Protocol 2 MCG/MIN Sodium Chloride 1,000 mls @ 50 mls/hr 04/29/18 14:00 Nacl 0.9% 1000 Ml IV DIRECT NESTOR Levofloxacin/Dextrose 750 mg in 150 mls @ 100 mls/hr 04/30/18 10:00 04/30/18 10:43 Levaquin 750mg/150ml IV 05/03/18 11:29 100 mls/hr Q24HR NESTOR Administration Sodium Bicarbonate 75 meq/ 1,075 mls @ 75 mls/hr 04/30/18 12:00 Sodium Chloride IV DIRECT NESTOR Ondansetron HCl 4 mg 04/28/18 01:23 Zofran IV Q8H PRN Nausea And Vomiting Oxycodone/Acetaminophen 1 tab 04/28/18 23:00 04/30/18 10:52 Percocet 5/325 PO 1 tab Q4H PRN Administration Pain, Moderate (4-6) Pantoprazole Sodium 40 mg 04/29/18 22:00 04/30/18 10:49 Protonix IV 40 mg BID NESTOR Administration
[2018-04-30] MEDS ORDERED: NACL 0.9% 500 ML 500 ML IV NR (11:27)
--- NOTE | 2018-04-30 11:37 | Progress Note ---
Assessment and Plan Acute gastrointestinal bleeding, probably secondary to #2. Rectal polyps. Severe sepsis with shock. Leukocytosis. Moderate to severe protein-calorie malnutrition. Symptomatic anemia, acute blood loss anemia. Mild metabolic acidosis. Acute kidney injury. Lactic acidosis. Hypoalbuminemia. - continue to wean levophed to keep MAP > 65 mmHg - continue volume resuscitation for sepsis and Azotemia - nephrology evaluation ongoing and to change to alkalanized fluids - continue supplemental oxygen and wean to keep O2 Sat's > 90% - s/p colonoscopy t - s/p PICC line and discontinued femoral line - continue empiric levaquin (CRP unremarkable and clinicallly too) - follow cultures also for antibiotic de-escalation - diarrhea has resolved - repeat INR and address as necessary - PT/OT - continue mobility protocol for pressure ulcer prophylaxis - continue other care per attending / other consultants The high probability of a clinically significant, sudden or life-threatening deterioration of the [cardiac and G.I.] system(s) required my full and direct attention, intervention and personal management. The aggregate critical care time was [35] minutes without overlap. Time includes spent on; [x] Data Review and interpretation [x] Patient assessment and monitoring of vital signs [x] Documentation [x] Medication orders and management Subjective Date of service: 04/30/18 Principal diagnosis: Acute GI Bleed; Severe Anemia (ABLA); Severe Sepsis with Shock Interval history: Patient is seen today for: Acute GI Bleed; Severe Anemia (ABLA); Severe Sepsis with Shock; Leukocytosis; Moderate to severe protein-calorie malnutrition. Seen and examined at bedside; 24hour events reviewed; nursing and respiratory care staff consulted; no adverse overnight events reported to me; remains on Levophed at 18 mics/min; s/p Colonoscopy yesterday with poypectomy; tolerating oral meals now; no active G.I. bleeding; denies acute chest pains or palpitations Objective Vital Signs - 12hr 04/29/18 04/29/18 04/30/18 23:40 23:50 00:00 Temperature Pulse Rate 83 68 68 Respiratory 10 L 17 11 L Rate Blood Pressure 134/60 124/61 126/58 O2 Sat by Pulse 100 100 100 Oximetry 04/30/18 04/30/18 04/30/18 00:10 00:20 00:30 Temperature Pulse Rate 70 73 64 Respiratory 12 19 12 Rate Blood Pressure 119/59 116/59 118/57 O2 Sat by Pulse 100 100 100 Oximetry 04/30/18 04/30/18 04/30/18 00:40 00:50 01:00 Temperature Pulse Rate 69 69 74 Respiratory 12 12 29 H Rate Blood Pressure 112/59 125/56 94/40 O2 Sat by Pulse 100 100 100 Oximetry 04/30/18 04/30/18 04/30/18 01:10 01:20 01:30 Temperature Pulse Rate 63 65 64 Respiratory 20 12 11 L Rate Blood Pressure 121/53 124/61 123/57 O2 Sat by Pulse 100 99 100 Oximetry 04/30/18 04/30/18 04/30/18 01:40 01:50 02:00 Temperature Pulse Rate 65 68 77 Respiratory 11 L 12 18 Rate Blood Pressure 122/59 130/62 129/55 O2 Sat by Pulse 100 99 100 Oximetry 04/30/18 04/30/18 04/30/18 02:10 02:20 02:30 Temperature Pulse Rate 67 66 63 Respiratory 11 L 11 L 12 Rate Blood Pressure 125/61 125/57 121/58 O2 Sat by Pulse 100 100 100 Oximetry 04/30/18 04/30/18 04/30/18 02:40 02:50 03:00 Temperature Pulse Rate 68 68 70 Respiratory 12 11 L 13 Rate Blood Pressure 121/58 124/59 134/56 O2 Sat by Pulse 100 98 98 Oximetry 04/30/18 04/30/18 04/30/18 03:10 03:20 03:30 Temperature Pulse Rate 72 68 64 Respiratory 11 L 12 12 Rate Blood Pressure 123/56 130/58 121/56 O2 Sat by Pulse 100 97 100 Oximetry 04/30/18 04/30/18 04/30/18 03:34 03:40 03:50 Temperature 99.5 F Pulse Rate 64 75 Respiratory 13 18 Rate Blood Pressure 130/56 109/50 O2 Sat by Pulse 100 99 Oximetry 04/30/18 04/30/18 04/30/18 04:00 04:10 04:20 Temperature Pulse Rate 67 68 70 Respiratory 12 11 L 11 L Rate Blood Pressure 117/57 112/56 113/54 O2 Sat by Pulse 100 100 98 Oximetry 04/30/18 04/30/18 04/30/18 04:30 04:40 04:50 Temperature Pulse Rate 65 69 69 Respiratory 12 11 L 13 Rate Blood Pressure 109/50 122/54 115/57 O2 Sat by Pulse 100 100 99 Oximetry 04/30/18 04/30/18 04/30/18 05:00 05:10 05:20 Temperature Pulse Rate 66 63 63 Respiratory 11 L 10 L 17 Rate Blood Pressure 121/52 120/55 126/58 O2 Sat by Pulse 100 100 98 Oximetry 04/30/18 04/30/18 04/30/18 05:30 05:40 05:50 Temperature Pulse Rate 60 62 61 Respiratory 17 10 L 12 Rate Blood Pressure 119/56 129/61 128/56 O2 Sat by Pulse 100 100 99 Oximetry 04/30/18 04/30/18 04/30/18 06:00 06:10 06:20 Temperature Pulse Rate 64 67 63 Respiratory 12 10 L 14 Rate Blood Pressure 124/55 118/56 132/55 O2 Sat by Pulse 100 100 98 Oximetry 04/30/18 04/30/18 04/30/18 06:30 06:40 06:50 Temperature Pulse Rate 64 62 65 Respiratory 15 15 11 L Rate Blood Pressure 138/55 131/59 123/57 O2 Sat by Pulse 100 100 98 Oximetry 04/30/18 04/30/18 04/30/18 07:00 07:10 07:20 Temperature Pulse Rate 63 69 61 Respiratory 13 10 L 11 L Rate Blood Pressure 128/55 126/58 113/50 O2 Sat by Pulse 100 100 98 Oximetry 04/30/18 04/30/18 04/30/18 07:30 07:40 07:50 Temperature Pulse Rate 70 63 61 Respiratory 15 11 L 10 L Rate Blood Pressure 133/60 129/57 128/57 O2 Sat by Pulse 100 100 98 Oximetry 04/30/18 04/30/18 04/30/18 08:00 08:10 08:15 Temperature 98.7 F Pulse Rate 67 64 Respiratory 11 L 11 L Rate Blood Pressure 126/58 134/61 O2 Sat by Pulse 100 100 100 Oximetry 04/30/18 04/30/18 04/30/18 08:20 08:30 08:40 Temperature Pulse Rate 63 61 63 Respiratory 12 11 L 15 Rate Blood Pressure 135/62 126/60 134/59 O2 Sat by Pulse 98 100 100 Oximetry 04/30/18 04/30/18 08:50 09:00 Temperature Pulse Rate 71 75 Respiratory 14 11 L Rate Blood Pressure 139/64 127/60 O2 Sat by Pulse 98 99 Oximetry Constitutional: alert, appears uncomfortable, other (middle aged AAM, normocephalic and atraumatic with mildly increased resp effort at rest) Eyes: non-icteric ENT: oropharynx moist Neck: supple, no lymphadenopathy, no JVD Effort: mildly labored Ascultation: Bilateral: diminished breath sounds, rhonchi Percussion: Bilateral: not dull Cardiovascular: regular rate and rhythm Gastrointestinal: hypoactive bowel sounds, soft, non-tender, non-distended Integumentary: rash, other (hydradenitis) Extremities: no cyanosis, no edema, pulses normal, no ischemia or petechiae Neurologic: normal mental status, non-focal exam, pupils equal and round, motor strength normal and Psychiatric: mood appropriate, affect normal CBC and BMP: 05/01/18 09:17 05/01/18 04:30 ABG, PT/INR, D-dimer: PT/INR, D-dimer PT 16.5 Sec. (12.2-14.9) H 04/27/18 22:09 INR 1.29 (0.87-1.13) H 04/27/18 22:09 Abnormal lab findings: Abnormal Labs 04/27/18 04/27/18 04/27/18 22:09 22:09 22:09 WBC RBC Hgb Hct MCH MCHC RDW Lymph % (Auto) [place] # Seg Neutrophils % Seg Neuts % (Manual) Lymphocytes % (Manual) Seg Neutrophils # Seg Neutrophils # Man PT 16.5 H INR 1.29 H APTT 21.5 L Chloride Carbon Dioxide 16 L BUN 64 H Creatinine 2.2 H Glucose 165 H Lactic Acid Calcium 7.2 L Magnesium ALT < 5 L Total Protein Albumin 1.6 L Lipase 12 L Urine Creatinine Urine Total Protein Crossmatch See Detail 04/27/18 04/28/18 04/28/18 22:44 00:22 01:57 WBC 20.2 H RBC 1.21 L Hgb 3.1 L* Hct 10.6 L* MCH 26 L MCHC 30 L RDW 16.0 H Lymph % (Auto) [place] # Seg Neutrophils % Seg Neuts % (Manual) 71.0 H Lymphocytes % (Manual) 9.0 L Seg Neutrophils # Seg Neutrophils # Man 14.3 H PT INR APTT Chloride Carbon Dioxide BUN Creatinine Glucose Lactic Acid 6.50 H* 4.50 H* Calcium Magnesium ALT Total Protein Albumin Lipase Urine Creatinine Urine Total Protein Crossmatch 04/28/18 04/28/18 04/28/18 06:13 06:13 16:07 WBC RBC Hgb 7.0 L D 6.6 L Hct 21.3 L D 20.4 L MCH MCHC RDW Lymph % (Auto) [place] # Seg Neutrophils % Seg Neuts % (Manual) Lymphocytes % (Manual) Seg Neutrophils # Seg Neutrophils # Man PT INR APTT Chloride 112.0 H Carbon Dioxide 19 L BUN 58 H Creatinine 1.9 H Glucose 101 H Lactic Acid Calcium 6.6 L Magnesium ALT Total Protein Albumin Lipase Urine Creatinine Urine Total Protein Crossmatch 04/28/18 04/29/18 04/29/18 18:01 06:57 06:57 WBC 19.0 H RBC 2.59 L Hgb 7.4 L Hct 22.3 L MCH MCHC RDW 16.1 H Lymph % (Auto) 11.6 L [place] # 0.9 H Seg Neutrophils % 82.2 H Seg Neuts % (Manual) Lymphocytes % (Manual) Seg Neutrophils # 15.6 H Seg Neutrophils # Man PT INR APTT Chloride 116.2 H Carbon Dioxide 19 L BUN 43 H Creatinine 2.1 H Glucose 145 H Lactic Acid Calcium 6.9 L Magnesium ALT < 5 L Total Protein 6.0 L Albumin 1.5 L Lipase Urine Creatinine 37.0 H Urine Total Protein 83 H Crossmatch 04/29/18 04/30/18 04/30/18 07:13 04:50 04:50 WBC 17.1 H RBC 2.39 L Hgb 6.8 L Hct 21.0 L MCH MCHC RDW 16.8 H Lymph % (Auto) [place] # Seg Neutrophils % Seg Neuts % (Manual) Lymphocytes % (Manual) Seg Neutrophils # Seg Neutrophils # Man PT INR APTT Chloride 113.7 H Carbon Dioxide 17 L BUN 27 H Creatinine 1.8 H Glucose 137 H Lactic Acid Calcium 6.8 L Magnesium 1.50 L ALT Total Protein Albumin Lipase Urine Creatinine Urine Total Protein Crossmatch Chest x-ray: image reviewed (RLL pneumonia) Allied health notes reviewed: nursing
[2018-04-30] MEDS ORDERED: NACL 0.45% 1000 ML 1,000 ML with SODIUM BICARBONATE 75 MEQ IV SCH (12:30)
--- NOTE | 2018-04-30 14:34 | XRay Report ---
AP CHEST: HISTORY: Left arm PICC placement The left arm PICC terminates in the lower SVC. Heart size is normal. There is hazy opacity at the right lung base which appears to represent atelectatic changes or residual infiltrate. The left lung is clear. Heart size is within normal limits. IMPRESSION: Left arm PICC terminates in the lower SVC.
--- NOTE | 2018-04-30 15:50 | Progress Note ---
Assessment and Plan /Acute upper GI bleed - due to gastric ulcer, biopsy pending - cont PPI IV, GI following, s/p EGD and colonoscopy - monitor H/H, /Severe anemia due to Upper GI bleed - s/p 5 units PRBC transfusion - cont to monitor h/H, transfuse as needed - Hb dropped to 6.9 today, will transfuse additional unit today /DWIGHT, likely from vasomotor nephropathy - cont iv fluid, monitor BMP, renal consulted /Hypotension/shock on pressor due to hypovolumia and sepsis - - cont iv fluid, wean off pressor as tolerated /Sepsis with RLL PNA, tachycardia and leukocytosis - CXR showed RLL infiltrates, cont zosyn /DVT Px, on SCD Brief history: 58-year-old male presents to ED with complaint of bloody stools 2 days. Hb on admission was 3.1, s/p 4 units PRBC transfusion. EGD today showed gastritis with raised nodular area (8mm) with noted white based ulcer w/o bleeding stigmata, obtained biopsy. The high probability of a clinically significant, sudden or life threatening deterioration of the [CVS/Renal] system(s) required my full and direct attention, intervention and personal management. The aggregate critical care t peace was [36] minutes. This time is in addition to time spent performing reported procedures but includes the following: [x] Data Review and interpretation [x] Patient assessment and monitoring of vital signs [x] Documentation [x] Medication orders and management Physical exam: General appearance: Present: no acute distress, well-nourished - EENT Eyes: PERRL, EOM intact ENT: hearing intact, clear oral mucosa Ears: bilateral: normal - Neck Neck: supple, normal ROM - Respiratory Respiratory effort: normal Respiratory: bilateral: CTA - Cardiovascular Rhythm: regular Heart Sounds: Present: S1 & S2. Absent: gallop, rub Extremities: pulses intact, No edema, normal color, Full ROM - Gastrointestinal General gastrointestinal: Present: soft, non-tender, non-distended, normal bowel sounds - Integumentary Integumentary: clear, warm, dry - Musculoskeletal Musculoskeletal: 1, strength equal bilaterally - Neurologic Neurologic: moves all extremities - Psychiatric Psychiatric: memory intact, appropriate mood/affect, intact judgment & insight Subjective Date of service: 04/30/18 Principal diagnosis: anemia Objective - Constitutional Vitals: Vital Signs - 12hr 04/30/18 04/30/18 04/30/18 03:50 04:00 04:10 Temperature Pulse Rate 75 67 68 Respiratory 18 12 11 L Rate Blood Pressure 109/50 117/57 112/56 O2 Sat by Pulse 99 100 100 Oximetry 04/30/18 04/30/18 04/30/18 04:20 04:30 04:40 Temperature Pulse Rate 70 65 69 Respiratory 11 L 12 11 L Rate Blood Pressure 113/54 109/50 122/54 O2 Sat by Pulse 98 100 100 Oximetry 04/30/18 04/30/18 04/30/18 04:50 05:00 05:10 Temperature Pulse Rate 69 66 63 Respiratory 13 11 L 10 L Rate Blood Pressure 115/57 121/52 120/55 O2 Sat by Pulse 99 100 100 Oximetry 04/30/18 04/30/18 04/30/18 05:20 05:30 05:40 Temperature Pulse Rate 63 60 62 Respiratory 17 17 10 L Rate Blood Pressure 126/58 119/56 129/61 O2 Sat by Pulse 98 100 100 Oximetry 04/30/18 04/30/18 04/30/18 05:50 06:00 06:10 Temperature Pulse Rate 61 64 67 Respiratory 12 12 10 L Rate Blood Pressure 128/56 124/55 118/56 O2 Sat by Pulse 99 100 100 Oximetry 04/30/18 04/30/18 04/30/18 06:20 06:30 06:40 Temperature Pulse Rate 63 64 62 Respiratory 14 15 15 Rate Blood Pressure 132/55 138/55 131/59 O2 Sat by Pulse 98 100 100 Oximetry 04/30/18 04/30/18 04/30/18 06:50 07:00 07:10 Temperature Pulse Rate 65 63 69 Respiratory 11 L 13 10 L Rate Blood Pressure 123/57 128/55 126/58 O2 Sat by Pulse 98 100 100 Oximetry 04/30/18 04/30/18 04/30/18 07:20 07:30 07:40 Temperature Pulse Rate 61 70 63 Respiratory 11 L 15 11 L Rate Blood Pressure 113/50 133/60 129/57 O2 Sat by Pulse 98 100 100 Oximetry 04/30/18 04/30/18 04/30/18 07:50 08:00 08:10 Temperature Pulse Rate 61 67 64 Respiratory 10 L 11 L 11 L Rate Blood Pressure 128/57 126/58 134/61 O2 Sat by Pulse 98 100 100 Oximetry 04/30/18 04/30/18 04/30/18 08:15 08:20 08:30 Temperature 98.7 F Pulse Rate 63 61 Respiratory 12 11 L Rate Blood Pressure 135/62 126/60 O2 Sat by Pulse 100 98 100 Oximetry 04/30/18 04/30/18 04/30/18 08:40 08:50 09:00 Temperature Pulse Rate 63 71 75 Respiratory 15 14 11 L Rate Blood Pressure 134/59 139/64 127/60 O2 Sat by Pulse 100 98 99 Oximetry 04/30/18 12:00 Temperature 98.6 F Pulse Rate Respiratory Rate Blood Pressure O2 Sat by Pulse Oximetry - Labs CBC & Chem 7: 04/30/18 04:50 04/30/18 04:50 Labs: Abnormal lab results 04/27/18 04/30/18 04/30/18 Range/Units 22:09 04:50 04:50 WBC 17.1 H (4.5-11.0) K/mm3 RBC 2.39 L (3.65-5.03) M/mm3 Hgb 6.8 L (11.8-15.2) gm/dl Hct 21.0 L (35.5-45.6) % RDW 16.8 H (13.2-15.2) % Chloride 113.7 H (98-107) mmol/L Carbon Dioxide 17 L (22-30) mmol/L BUN 27 H (9-20) mg/dL Creatinine 1.8 H (0.8-1.5) mg/dL Glucose 137 H (75-100) mg/dL Calcium 6.8 L (8.4-10.2) mg/dL C-Reactive Protein (0.00-1.30) mg/dL Crossmatch See Detail 04/30/18 Range/Units 04:50 WBC (4.5-11.0) K/mm3 RBC (3.65-5.03) M/mm3 Hgb (11.8-15.2) gm/dl Hct (35.5-45.6) % RDW (13.2-15.2) % Chloride (98-107) mmol/L Carbon Dioxide (22-30) mmol/L BUN (9-20) mg/dL Creatinine (0.8-1.5) mg/dL Glucose (75-100) mg/dL Calcium (8.4-10.2) mg/dL C-Reactive Protein 12.30 H (0.00-1.30) mg/dL Crossmatch
[2018-04-30] MEDS ORDERED: LEVOPHED DRIP 4 MG/NS 250 ML 4 MG/250 ML BAG IV ONE (16:11)
[2018-05-01] MEDS ORDERED: SODIUM BICARBONATE 75 MEQ in NACL 0.45% 1000 ML 1,000 ML IV SCH (04:02)
[2018-05-01 06:58] LABS: Hemoglobin 6.4 gm/dl (11.8-15.2); Mean Corpuscular HGB Conc 33 % (32-34); Mean Corpuscular Volume 87 fl (84-94); Platelet Count 131 K/mm3 (140-440); Red Blood Count 2.25 M/mm3 (3.65-5.03); Red Cell Distribution Width 16.4 % (13.2-15.2)
[2018-05-01] MEDS: LEVOPHED DRIP 4 MG/NS 250 ML 4 MG/250 ML BAG IV SCH (07:00)
[2018-05-01 07:02] LABS: Hematocrit 19.6 % (35.5-45.6)
[2018-05-01] MEDS: K-DUR PO SCH (08:41)
[2018-05-01] MEDS ORDERED: MAGNESIUM SULFATE 4GM/100ML 4 GM/100 ML BAG IV ONE (09:00)
[2018-05-01 09:28] LABS: Hemoglobin 7.4 gm/dl (11.8-15.2)
[2018-05-01] MEDS: LEVAQUIN 750MG/150ML 750 MG/150 ML BAG IV SCH (10:14)
[2018-05-01] MEDS: PROTONIX PO SCH ×2 (10:16→23:07)
--- NOTE | 2018-05-01 12:27 | Progress Note ---
Assessment and Plan /Acute upper GI bleed - due to gastric ulcer, biopsy pending - cont PPI IV, GI following, s/p EGD and colonoscopy - monitor H/H, GI sofr diet started /Severe anemia due to Upper GI bleed - s/p 4 unit PRBC transfusion - cont to monitor h/H, transfuse as needed - Hb dropped to 6.8 - transfuse another unit /DWIGHT, likely from vasomotor nephropathy - cont iv fluid, monitor BMP, renal consulted /Hypotension/shock on pressor due to hypovolumia and sepsis - - cont iv fluid, wean off pressor as tolerated /Sepsis with RLL PNA, tachycardia and leukocytosis - CXR showed RLL infiltrates, cont zosyn /DVT Px, on SCD Brief history: 58-year-old male presents to ED with complaint of bloody stools 2 days. Hb on admission was 3.1, s/p 4 units PRBC transfusion. EGD today showed gastritis with raised nodular area (8mm) with noted white based ulcer w/o bleeding stigmata, obtained biopsy. The high probability of a clinically significant, sudden or life threatening deterioration of the [CVS/Renal] system(s) required my full and direct attention, intervention and personal management. The aggregate critical care t peace was [36] minutes. This time is in addition to time spent performing reported procedures but includes the following: [x] Data Review and interpretation [x] Patient assessment and monitoring of vital signs [x] Documentation [x] Medication orders and management Physical exam: General appearance: Present: no acute distress, well-nourished - EENT Eyes: PERRL, EOM intact ENT: hearing intact, clear oral mucosa Ears: bilateral: normal - Neck Neck: supple, normal ROM - Respiratory Respiratory effort: normal Respiratory: bilateral: CTA - Cardiovascular Rhythm: regular Heart Sounds: Present: S1 & S2. Absent: gallop, rub Extremities: pulses intact, No edema, normal color, Full ROM - Gastrointestinal General gastrointestinal: Present: soft, non-tender, non-distended, normal bowel sounds - Integumentary Integumentary: clear, warm, dry - Musculoskeletal Musculoskeletal: 1, strength equal bilaterally - Neurologic Neurologic: moves all extremities - Psychiatric Psychiatric: memory intact, appropriate mood/affect, intact judgment & insight Subjective Date of service: 04/30/18 Principal diagnosis: anemia Interval history: Pt seen and examined No further bloody or black stool denies any abdominal pain remained on pressor hb dropped to 6.8 Objective - Constitutional Vitals: Vital Signs - 12hr 05/01/18 05/01/18 05/01/18 00:40 00:50 01:00 Temperature Pulse Rate 71 66 62 Respiratory 17 16 14 Rate Blood Pressure 113/52 113/52 113/52 O2 Sat by Pulse 100 100 100 Oximetry 05/01/18 05/01/18 05/01/18 01:10 01:20 01:30 Temperature Pulse Rate 66 59 L 70 Respiratory 12 16 18 Rate Blood Pressure 134/49 134/49 134/49 O2 Sat by Pulse 100 100 100 Oximetry 05/01/18 05/01/18 05/01/18 01:40 01:50 02:00 Temperature 98.6 F Pulse Rate 73 69 79 Respiratory 19 14 12 Rate Blood Pressure 118/56 118/56 118/56 O2 Sat by Pulse 100 100 100 Oximetry 05/01/18 05/01/18 05/01/18 02:10 02:20 02:30 Temperature Pulse Rate 70 67 78 Respiratory 18 15 14 Rate Blood Pressure 124/67 124/67 124/67 O2 Sat by Pulse 100 100 100 Oximetry 05/01/18 05/01/18 05/01/18 02:40 02:50 03:00 Temperature Pulse Rate 80 64 72 Respiratory 16 11 L 16 Rate Blood Pressure 111/47 111/47 111/47 O2 Sat by Pulse 100 100 100 Oximetry 05/01/18 05/01/18 05/01/18 03:10 03:20 03:30 Temperature Pulse Rate 77 73 64 Respiratory 16 15 12 Rate Blood Pressure 118/47 118/47 118/47 O2 Sat by Pulse 100 100 100 Oximetry 05/01/18 05/01/18 05/01/18 03:40 03:50 04:00 Temperature Pulse Rate 69 67 71 Respiratory 12 12 16 Rate Blood Pressure 103/38 103/38 103/38 O2 Sat by Pulse 100 100 100 Oximetry 05/01/18 05/01/18 05/01/18 04:10 04:20 04:30 Temperature Pulse Rate 62 71 67 Respiratory 15 21 18 Rate Blood Pressure 105/44 105/44 105/44 O2 Sat by Pulse 100 100 100 Oximetry 05/01/18 05/01/18 05/01/18 04:40 04:50 05:00 Temperature Pulse Rate 63 66 72 Respiratory 13 15 14 Rate Blood Pressure 100/45 100/45 100/45 O2 Sat by Pulse 100 100 99 Oximetry 05/01/18 05/01/18 05/01/18 05:10 05:20 05:30 Temperature Pulse Rate 69 67 67 Respiratory 14 12 12 Rate Blood Pressure 99/26 99/26 99/26 O2 Sat by Pulse 100 100 100 Oximetry 05/01/18 05/01/18 05/01/18 05:40 05:50 06:00 Temperature 98.6 F Pulse Rate 67 64 63 Respiratory 16 12 10 L Rate Blood Pressure 100/43 100/43 100/43 O2 Sat by Pulse 100 100 100 Oximetry 05/01/18 05/01/18 05/01/18 06:10 06:20 06:30 Temperature Pulse Rate 66 64 64 Respiratory 10 L 17 14 Rate Blood Pressure 103/43 103/43 103/43 O2 Sat by Pulse 100 100 100 Oximetry 05/01/18 05/01/18 05/01/18 06:40 06:50 07:00 Temperature Pulse Rate 64 69 59 L Respiratory 10 L 12 13 Rate Blood Pressure 103/43 103/43 117/49 O2 Sat by Pulse 100 100 100 Oximetry 05/01/18 05/01/18 05/01/18 07:10 07:20 07:30 Temperature Pulse Rate 64 67 62 Respiratory 16 15 12 Rate Blood Pressure 117/49 117/49 117/49 O2 Sat by Pulse 100 100 100 Oximetry 05/01/18 05/01/18 05/01/18 07:40 07:41 07:50 Temperature Pulse Rate 68 67 Respiratory 16 9 L Rate Blood Pressure 115/54 115/54 O2 Sat by Pulse 100 100 100 Oximetry 05/01/18 05/01/18 05/01/18 08:00 08:10 08:20 Temperature Pulse Rate 66 69 69 Respiratory 9 L 15 13 Rate Blood Pressure 115/54 115/49 115/49 O2 Sat by Pulse 100 100 100 Oximetry 05/01/18 05/01/18 05/01/18 08:30 08:40 08:50 Temperature 97.9 F Pulse Rate 79 84 74 Respiratory 10 L 16 19 Rate Blood Pressure 115/49 120/54 124/63 O2 Sat by Pulse 100 100 100 Oximetry 05/01/18 09:00 Temperature Pulse Rate 88 Respiratory 14 Rate Blood Pressure 108/55 O2 Sat by Pulse 100 Oximetry - Labs CBC & Chem 7: 05/01/18 09:17 05/01/18 04:30 Labs: Abnormal lab results 04/27/18 04/30/18 05/01/18 Range/Units 22:09 04:50 04:30 WBC 11.4 H (4.5-11.0) K/mm3 RBC 2.25 L (3.65-5.03) M/mm3 Hgb 6.4 L (11.8-15.2) gm/dl Hct 19.6 L* (35.5-45.6) % RDW 16.4 H (13.2-15.2) % Plt Count 131 L (140-440) K/mm3 Potassium (3.6-5.0) mmol/L Chloride (98-107) mmol/L Creatinine (0.8-1.5) mg/dL Glucose (75-100) mg/dL Calcium (8.4-10.2) mg/dL Magnesium (1.7-2.3) mg/dL C-Reactive Protein 12.30 H (0.00-1.30) mg/dL Crossmatch See Detail 05/01/18 05/01/18 Range/Units 04:30 09:17 WBC (4.5-11.0) K/mm3 RBC (3.65-5.03) M/mm3 Hgb 7.4 L (11.8-15.2) gm/dl Hct 23.0 L (35.5-45.6) % RDW (13.2-15.2) % Plt Count (140-440) K/mm3 Potassium 3.1 L (3.6-5.0) mmol/L Chloride 110.4 H (98-107) mmol/L Creatinine 1.6 H (0.8-1.5) mg/dL Glucose 48 L (75-100) mg/dL Calcium 6.0 L (8.4-10.2) mg/dL Magnesium 1.40 L (1.7-2.3) mg/dL C-Reactive Protein (0.00-1.30) mg/dL Crossmatch
--- NOTE | 2018-05-01 12:52 | Progress Note ---
Assessment and Plan Acute gastrointestinal bleeding, probably secondary to #2. Rectal polyps. Severe sepsis with shock. Leukocytosis. Moderate to severe protein-calorie malnutrition. Symptomatic anemia, acute blood loss anemia. Mild metabolic acidosis. Acute kidney injury. Lactic acidosis. Hypoalbuminemia. - continue to watch in the ICU for now - re-evaluate for stepdown unit later today - resume levophed as needed to keep MAP > 65 mmHg - continue volume resuscitation for sepsis and Azotemia - nephrology evaluation ongoing - continue supplemental oxygen and wean to keep O2 Sat's > 90% - s/p colonoscopy - s/p PICC line and discontinued femoral line - complete empiric levaquin (CRP unremarkable and clinicallly too) - follow cultures also for antibiotic de-escalation - diarrhea has resolved - repeat INR and address as necessary - PT/OT - continue mobility protocol for pressure ulcer prophylaxis - continue other care per attending / other consultants The high probability of a clinically significant, sudden or life-threatening deterioration of the [cardiac and G.I.] system(s) required my full and direct attention, intervention and personal management. The aggregate critical care time was [32] minutes without overlap. Time includes spent on; [x] Data Review and interpretation [x] Patient assessment and monitoring of vital signs [x] Documentation [x] Medication orders and management Subjective Date of service: 05/01/18 Principal diagnosis: Acute GI Bleed; Severe Anemia (ABLA); Severe Sepsis with Shock Interval history: Patient is seen today for: Acute GI Bleed; Severe Anemia (ABLA); Severe Sepsis with Shock; Leukocytosis; Moderate to severe protein-calorie malnutrition. Seen and examined at bedside; 24hour events reviewed; nursing and respiratory care staff consulted; no adverse overnight events reported to me; remained on levophed drip overnight; no repeat G.I. bleeding; tolerating oral meals; No N/V/F/C Objective Vital Signs - 12hr 05/01/18 05/01/18 05/01/18 01:00 01:10 01:20 Temperature Pulse Rate 62 66 59 L Respiratory 14 12 16 Rate Blood Pressure 113/52 134/49 134/49 O2 Sat by Pulse 100 100 100 Oximetry 05/01/18 05/01/18 05/01/18 01:30 01:40 01:50 Temperature Pulse Rate 70 73 69 Respiratory 18 19 14 Rate Blood Pressure 134/49 118/56 118/56 O2 Sat by Pulse 100 100 100 Oximetry 05/01/18 05/01/18 05/01/18 02:00 02:10 02:20 Temperature 98.6 F Pulse Rate 79 70 67 Respiratory 12 18 15 Rate Blood Pressure 118/56 124/67 124/67 O2 Sat by Pulse 100 100 100 Oximetry 05/01/18 05/01/18 05/01/18 02:30 02:40 02:50 Temperature Pulse Rate 78 80 64 Respiratory 14 16 11 L Rate Blood Pressure 124/67 111/47 111/47 O2 Sat by Pulse 100 100 100 Oximetry 05/01/18 05/01/18 05/01/18 03:00 03:10 03:20 Temperature Pulse Rate 72 77 73 Respiratory 16 16 15 Rate Blood Pressure 111/47 118/47 118/47 O2 Sat by Pulse 100 100 100 Oximetry 05/01/18 05/01/18 05/01/18 03:30 03:40 03:50 Temperature Pulse Rate 64 69 67 Respiratory 12 12 12 Rate Blood Pressure 118/47 103/38 103/38 O2 Sat by Pulse 100 100 100 Oximetry 05/01/18 05/01/18 05/01/18 04:00 04:10 04:20 Temperature Pulse Rate 71 62 71 Respiratory 16 15 21 Rate Blood Pressure 103/38 105/44 105/44 O2 Sat by Pulse 100 100 100 Oximetry 05/01/18 05/01/18 05/01/18 04:30 04:40 04:50 Temperature Pulse Rate 67 63 66 Respiratory 18 13 15 Rate Blood Pressure 105/44 100/45 100/45 O2 Sat by Pulse 100 100 100 Oximetry 05/01/18 05/01/18 05/01/18 05:00 05:10 05:20 Temperature Pulse Rate 72 69 67 Respiratory 14 14 12 Rate Blood Pressure 100/45 99/26 99/26 O2 Sat by Pulse 99 100 100 Oximetry 05/01/18 05/01/18 05/01/18 05:30 05:40 05:50 Temperature Pulse Rate 67 67 64 Respiratory 12 16 12 Rate Blood Pressure 99/26 100/43 100/43 O2 Sat by Pulse 100 100 100 Oximetry 05/01/18 05/01/18 05/01/18 06:00 06:10 06:20 Temperature 98.6 F Pulse Rate 63 66 64 Respiratory 10 L 10 L 17 Rate Blood Pressure 100/43 103/43 103/43 O2 Sat by Pulse 100 100 100 Oximetry 05/01/18 05/01/18 05/01/18 06:30 06:40 06:50 Temperature Pulse Rate 64 64 69 Respiratory 14 10 L 12 Rate Blood Pressure 103/43 103/43 103/43 O2 Sat by Pulse 100 100 100 Oximetry 05/01/18 05/01/18 05/01/18 07:00 07:10 07:20 Temperature Pulse Rate 59 L 64 67 Respiratory 13 16 15 Rate Blood Pressure 117/49 117/49 117/49 O2 Sat by Pulse 100 100 100 Oximetry 05/01/18 05/01/18 05/01/18 07:30 07:40 07:41 Temperature Pulse Rate 62 68 Respiratory 12 16 Rate Blood Pressure 117/49 115/54 O2 Sat by Pulse 100 100 100 Oximetry 05/01/18 05/01/18 05/01/18 07:50 08:00 08:10 Temperature Pulse Rate 67 66 69 Respiratory 9 L 9 L 15 Rate Blood Pressure 115/54 115/54 115/49 O2 Sat by Pulse 100 100 100 Oximetry 05/01/18 05/01/18 05/01/18 08:20 08:30 08:40 Temperature Pulse Rate 69 79 84 Respiratory 13 10 L 16 Rate Blood Pressure 115/49 115/49 120/54 O2 Sat by Pulse 100 100 100 Oximetry 05/01/18 05/01/18 05/01/18 08:50 09:00 12:45 Temperature 97.9 F 98.6 F Pulse Rate 74 88 Respiratory 19 14 Rate Blood Pressure 124/63 108/55 O2 Sat by Pulse 100 100 Oximetry Constitutional: alert, appears uncomfortable, other (middle aged AAM, normocepha lic and atraumatic with mildly increased resp effort at rest) Eyes: non-icteric ENT: oropharynx moist Neck: supple, no lymphadenopathy, no JVD Effort: mildly labored Ascultation: Bilateral: diminished breath sounds, rhonchi Percussion: Bilateral: not dull Cardiovascular: regular rate and rhythm Gastrointestinal: hypoactive bowel sounds, soft, non-tender, non-distended Integumentary: rash, other (hydradenitis) Extremities: no cyanosis, no edema, pulses normal, no ischemia or petechiae Neurologic: normal mental status, non-focal exam, pupils equal and round, motor strength normal and Psychiatric: mood appropriate, affect normal CBC and BMP: 05/04/18 05:20 05/04/18 05:20 ABG, PT/INR, D-dimer: PT/INR, D-dimer PT 16.5 Sec. (12.2-14.9) H 04/27/18 22:09 INR 1.29 (0.87-1.13) H 04/27/18 22:09 Abnormal lab findings: Abnormal Labs 04/27/18 04/27/18 04/27/18 22:09 22:09 22:09 WBC RBC Hgb Hct MCH MCHC RDW Plt Count Lymph % (Auto) [place] # Seg Neutrophils % Seg Neuts % (Manual) Lymphocytes % (Manual) Seg Neutrophils # Seg Neutrophils # Man PT 16.5 H INR 1.29 H APTT 21.5 L Potassium Chloride Carbon Dioxide 16 L BUN 64 H Creatinine 2.2 H Glucose 165 H Lactic Acid Calcium 7.2 L Magnesium ALT < 5 L C-Reactive Protein Total Protein Albumin 1.6 L Lipase 12 L Urine Creatinine Urine Total Protein Crossmatch See Detail 04/27/18 04/28/18 04/28/18 22:44 00:22 01:57 WBC 20.2 H RBC 1.21 L Hgb 3.1 L* Hct 10.6 L* MCH 26 L MCHC 30 L RDW 16.0 H Plt Count Lymph % (Auto) [place] # Seg Neutrophils % Seg Neuts % (Manual) 71.0 H Lymphocytes % (Manual) 9.0 L Seg Neutrophils # Seg Neutrophils # Man 14.3 H PT INR APTT Potassium Chloride Carbon Dioxide BUN Creatinine Glucose Lactic Acid 6.50 H* 4.50 H* Calcium Magnesium ALT C-Reactive Protein Total Protein Albumin Lipase Urine Creatinine Urine Total Protein Crossmatch 04/28/18 04/28/18 04/28/18 06:13 06:13 16:07 WBC RBC Hgb 7.0 L D 6.6 L Hct 21.3 L D 20.4 L MCH MCHC RDW Plt Count Lymph % (Auto) [place] # Seg Neutrophils % Seg Neuts % (Manual) Lymphocytes % (Manual) Seg Neutrophils # Seg Neutrophils # Man PT INR APTT Potassium Chloride 112.0 H Carbon Dioxide 19 L BUN 58 H Creatinine 1.9 H Glucose 101 H Lactic Acid Calcium 6.6 L Magnesium ALT C-Reactive Protein Total Protein Albumin Lipase Urine Creatinine Urine Total Protein Crossmatch 04/28/18 04/29/18 04/29/18 18:01 06:57 06:57 WBC 19.0 H RBC 2.59 L Hgb 7.4 L Hct 22.3 L MCH MCHC RDW 16.1 H Plt Count Lymph % (Auto) 11.6 L [place] # 0.9 H Seg Neutrophils % 82.2 H Seg Neuts % (Manual) Lymphocytes % (Manual) Seg Neutrophils # 15.6 H Seg Neutrophils # Man PT INR APTT Potassium Chloride 116.2 H Carbon Dioxide 19 L BUN 43 H Creatinine 2.1 H Glucose 145 H Lactic Acid Calcium 6.9 L Magnesium ALT < 5 L C-Reactive Protein Total Protein 6.0 L Albumin 1.5 L Lipase Urine Creatinine 37.0 H Urine Total Protein 83 H Crossmatch 04/29/18 04/30/18 04/30/18 07:13 04:50 04:50 WBC 17.1 H RBC 2.39 L Hgb 6.8 L Hct 21.0 L MCH MCHC RDW 16.8 H Plt Count Lymph % (Auto) [place] # Seg Neutrophils % Seg Neuts % (Manual) Lymphocytes % (Manual) Seg Neutrophils # Seg Neutrophils # Man PT INR APTT Potassium Chloride 113.7 H Carbon Dioxide 17 L BUN 27 H Creatinine 1.8 H Glucose 137 H Lactic Acid Calcium 6.8 L Magnesium 1.50 L ALT C-Reactive Protein Total Protein Albumin Lipase Urine Creatinine Urine Total Protein Crossmatch 04/30/18 05/01/18 05/01/18 04:50 04:30 04:30 WBC 11.4 H RBC 2.25 L Hgb 6.4 L Hct 19.6 L* MCH MCHC RDW 16.4 H Plt Count 131 L Lymph % (Auto) [place] # Seg Neutrophils % Seg Neuts % (Manual) Lymphocytes % (Manual) Seg Neutrophils # Seg Neutrophils # Man PT INR APTT Potassium 3.1 L Chloride 110.4 H Carbon Dioxide BUN Creatinine 1.6 H Glucose 48 L Lactic Acid Calcium 6.0 L Magnesium 1.40 L ALT C-Reactive Protein 12.30 H Total Protein Albumin Lipase Urine Creatinine Urine Total Protein Crossmatch 05/01/18 09:17 WBC RBC Hgb 7.4 L Hct 23.0 L MCH MCHC RDW Plt Count Lymph % (Auto) [place] # Seg Neutrophils % Seg Neuts % (Manual) Lymphocytes % (Manual) Seg Neutrophils # Seg Neutrophils # Man PT INR APTT Potassium Chloride Carbon Dioxide BUN Creatinine Glucose Lactic Acid Calcium Magnesium ALT C-Reactive Protein Total Protein Albumin Lipase Urine Creatinine Urine Total Protein Crossmatch Allied health notes reviewed: nursing
--- NOTE | 2018-05-01 13:03 | Progress Note ---
Assessment and Plan Acute Kidney Injury possibly multi-factorial secondary to prerenal/ATN, nausea, vomiting, hypotension, possible underlying CKD process: Non-Anion Gap Metabolic Acidosis: - Renal function reviewed. Serum creatinine 1.6 today from 1.8 yesterday - On 04/03 NS with sodium bicarb for worsening acidosis - Review of labs from [id number] showed SCr level between 1.2-1.7 - Renally dose meds - Mercado Catheter: No - Continue to monitor renal function Anemia: GI Bleed: - S/P EGD on 04/28/18 showed- hiatal hernia, gastritis, raised nodular area (8mm) with noted white based ulcer w/o bleeding stigmata. - S/p blood transfusions - On Protonix - Transfuse as per GI/primary Leukocytosis: Hypotension: - Urine and Blood cultures- no growth so far - On IV Levaquin Subjective Date of service: 05/01/18 Principal diagnosis: Acute GI Bleed; Severe Anemia (ABLA); Severe Sepsis with Shock Interval history: Patient seen lying in bed. States he is feeling ok. Objective - Vital Signs Vital signs: Vital Signs - 12hr 05/01/18 05/01/18 05/01/18 01:00 01:10 01:20 Temperature Pulse Rate 62 66 59 L Respiratory 14 12 16 Rate Blood Pressure 113/52 134/49 134/49 O2 Sat by Pulse 100 100 100 Oximetry 05/01/18 05/01/18 05/01/18 01:30 01:40 01:50 Temperature Pulse Rate 70 73 69 Respiratory 18 19 14 Rate Blood Pressure 134/49 118/56 118/56 O2 Sat by Pulse 100 100 100 Oximetry 05/01/18 05/01/18 05/01/18 02:00 02:10 02:20 Temperature 98.6 F Pulse Rate 79 70 67 Respiratory 12 18 15 Rate Blood Pressure 118/56 124/67 124/67 O2 Sat by Pulse 100 100 100 Oximetry 05/01/18 05/01/18 05/01/18 02:30 02:40 02:50 Temperature Pulse Rate 78 80 64 Respiratory 14 16 11 L Rate Blood Pressure 124/67 111/47 111/47 O2 Sat by Pulse 100 100 100 Oximetry 05/01/18 05/01/18 05/01/18 03:00 03:10 03:20 Temperature Pulse Rate 72 77 73 Respiratory 16 16 15 Rate Blood Pressure 111/47 118/47 118/47 O2 Sat by Pulse 100 100 100 Oximetry 05/01/18 05/01/18 05/01/18 03:30 03:40 03:50 Temperature Pulse Rate 64 69 67 Respiratory 12 12 12 Rate Blood Pressure 118/47 103/38 103/38 O2 Sat by Pulse 100 100 100 Oximetry 05/01/18 05/01/18 05/01/18 04:00 04:10 04:20 Temperature Pulse Rate 71 62 71 Respiratory 16 15 21 Rate Blood Pressure 103/38 105/44 105/44 O2 Sat by Pulse 100 100 100 Oximetry 05/01/18 05/01/18 05/01/18 04:30 04:40 04:50 Temperature Pulse Rate 67 63 66 Respiratory 18 13 15 Rate Blood Pressure 105/44 100/45 100/45 O2 Sat by Pulse 100 100 100 Oximetry 05/01/18 05/01/18 05/01/18 05:00 05:10 05:20 Temperature Pulse Rate 72 69 67 Respiratory 14 14 12 Rate Blood Pressure 100/45 99/26 99/26 O2 Sat by Pulse 99 100 100 Oximetry 05/01/18 05/01/18 05/01/18 05:30 05:40 05:50 Temperature Pulse Rate 67 67 64 Respiratory 12 16 12 Rate Blood Pressure 99/26 100/43 100/43 O2 Sat by Pulse 100 100 100 Oximetry 05/01/18 05/01/18 05/01/18 06:00 06:10 06:20 Temperature 98.6 F Pulse Rate 63 66 64 Respiratory 10 L 10 L 17 Rate Blood Pressure 100/43 103/43 103/43 O2 Sat by Pulse 100 100 100 Oximetry 05/01/18 05/01/18 05/01/18 06:30 06:40 06:50 Temperature Pulse Rate 64 64 69 Respiratory 14 10 L 12 Rate Blood Pressure 103/43 103/43 103/43 O2 Sat by Pulse 100 100 100 Oximetry 05/01/18 05/01/18 05/01/18 07:00 07:10 07:20 Temperature Pulse Rate 59 L 64 67 Respiratory 13 16 15 Rate Blood Pressure 117/49 117/49 117/49 O2 Sat by Pulse 100 100 100 Oximetry 05/01/18 05/01/18 05/01/18 07:30 07:40 07:41 Temperature Pulse Rate 62 68 Respiratory 12 16 Rate Blood Pressure 117/49 115/54 O2 Sat by Pulse 100 100 100 Oximetry 05/01/18 05/01/18 05/01/18 07:50 08:00 08:10 Temperature Pulse Rate 67 66 69 Respiratory 9 L 9 L 15 Rate Blood Pressure 115/54 115/54 115/49 O2 Sat by Pulse 100 100 100 Oximetry 05/01/18 05/01/18 05/01/18 08:20 08:30 08:40 Temperature Pulse Rate 69 79 84 Respiratory 13 10 L 16 Rate Blood Pressure 115/49 115/49 120/54 O2 Sat by Pulse 100 100 100 Oximetry 05/01/18 05/01/18 05/01/18 08:50 09:00 12:45 Temperature 97.9 F 98.6 F Pulse Rate 74 88 Respiratory 19 14 Rate Blood Pressure 124/63 108/55 O2 Sat by Pulse 100 100 Oximetry - General Appearance General appearance: well-developed, fatigue EENT: ATNC, PERRL Neck: no JVD, supple Respiratory: Present: Decreased Breath Sounds Cardiology: S1S2 Gastrointestinal: normoactive bowel sounds Integumentary: warm and dry Neurologic: alert and oriented x3 Musculoskeletal: other (No edema) Psychiatric: cooperative - Lab 05/01/18 09:17 05/01/18 04:30 Most recent lab results Calcium 6.0 mg/dL (8.4-10.2) L 05/01/18 04:30 Phosphorus 3.00 mg/dL (2.5-4.5) 04/29/18 07:13 Magnesium 1.40 mg/dL (1.7-2.3) L 05/01/18 04:30 Urine Creatinine 37.0 mg/dL (0.1-20.0) H 04/28/18 18:01 Urine Sodium 93 mmol/L 04/28/18 18:01 Urine Total Protein 83 mg/dL (5-11.8) H 04/28/18 18:01 Medications & Allergies - Medications Allergies/Adverse Reactions: Allergies No Known Allergies Allergy (Verified 03/27/17 23:28) Home Medications: Home Medications Medication Instructions Recorded Confirmed Last Taken Type Ciprofloxacin HCl [Ciprofloxacin 500 mg PO Q12H #24 tab 06/22/17 Unknown Rx TAB] Linezolid [Zyvox] 600 mg PO BID #24 tablet 06/22/17 Unknown Rx Oxycodone HCl/Acetaminophen 1 each PO Q6HR PRN #14 tablet 06/22/17 Unknown Rx [Percocet 10/325 mg] Active Medications: Generic Name Dose Route Start Last Admin Trade Name Jacki PRN Reason Stop Dose Admin Acetaminophen 650 mg 04/28/18 01:32 Tylenol MD Q4H PRN Fever >101 Norepinephrine 4 mg in 250 mls @ 7.5 mls/hr 04/28/18 05:00 05/01/18 08:52 Levophed Drip 4 Mg/Ns 250 Ml IV 0 mcg/min TITR NESTOR 0 mls/hr Titration Protocol 2 MCG/MIN Levofloxacin/Dextrose 750 mg in 150 mls @ 100 mls/hr 04/30/18 10:00 05/01/18 10:14 Levaquin 750mg/150ml IV 05/03/18 11:29 100 mls/hr Q24HR NESTOR Administration Sodium Bicarbonate 75 meq/ 1,075 mls @ 75 mls/hr 05/01/18 04:02 05/01/18 05:01 Sodium Chloride IV 75 mls/hr DIRECT NESTOR Administration Magnesium Sulfate 4 gm in 100 mls @ 25 mls/hr 05/01/18 09:00 05/01/18 08:42 Magnesium Sulfate 4gm/100ml IV 05/01/18 12:59 25 mls/hr ONCE ONE Administration Ondansetron HCl 4 mg 04/28/18 01:23 Zofran IV Q8H PRN Nausea And Vomiting Oxycodone/Acetaminophen 1 tab 04/28/18 23:00 04/30/18 20:31 Percocet 5/325 PO 1 tab Q4H PRN Administration Pain, Moderate (4-6) Pantoprazole Sodium 40 mg 05/01/18 10:00 05/01/18 10:16 Protonix PO 40 mg BID NESTOR Administration Potassium Chloride 40 meq 05/01/18 09:00 05/01/18 08:41 K-Dur PO 05/01/18 13:01 40 meq Q4H NESTOR Administration
--- NOTE | 2018-05-01 13:20 | Gastroenterology Progress Note ---
Subjective Date of service: 05/01/18 Principal diagnosis: GI bleed Interval history: No active signs of bleeding overnight or this am. Objective - Constitutional Vitals: Temp Pulse Resp BP Pulse Ox 98.6 F 88 14 108/55 100 05/01/18 12:45 05/01/18 09:00 05/01/18 09:00 05/01/18 09:00 05/01/18 09:00 - Labs CBC & Chem 7: 05/01/18 09:17 05/01/18 04:30 Labs: Laboratory Results - last 24 hr 04/27/18 05/01/18 05/01/18 22:09 04:30 04:30 WBC 11.4 H RBC 2.25 L Hgb 6.4 L Hct 19.6 L* MCV 87 MCH 28 MCHC 33 RDW 16.4 H Plt Count 131 L Sodium 142 Potassium 3.1 L Chloride 110.4 H Carbon Dioxide 23 Anion Gap 12 BUN 19 Creatinine 1.6 H Estimated GFR 54 BUN/Creatinine Ratio 12 Glucose 48 L Calcium 6.0 L Magnesium 1.40 L Blood Type O POSITIVE Antibody Screen Negative Crossmatch See Detail 05/01/18 09:17 WBC RBC Hgb 7.4 L Hct 23.0 L MCV MCH MCHC RDW Plt Count Sodium Potassium Chloride Carbon Dioxide Anion Gap BUN Creatinine Estimated GFR BUN/Creatinine Ratio Glucose Calcium Magnesium Blood Type Antibody Screen Crossmatch
--- NOTE | 2018-05-01 14:30 | Gastroenterology Progress Note ---
Assessment and Plan 1.GI bleed 2.anemia -H/H 7.4/23.0-trending up s/p transfusion of PRBCs -continue to monitor H/H and transfuse as needed -s/p EGD 04/28/17 showed hiatal hernia, mild gastritis, and a raised nodular area w/ white based ulcer w/o bleeding stigmata in very proximal duodenal bulb (not classified appearance for GIST)- bx results negative -s/p colon 04/29/17 revealed a colon polyp (s/p removal with hot snare), and internal hemorrhoids -clinically, patient is w/o active signs of bleeding overnight or this am. No abd pain or N/V. Tolerating diet. -avoid NSAIDs -continue PPI and supportive care -no plans for further intervention at this time per GI standpoint, continue conservative management -will sign off, please call back if needed or if situation changes Subjective Date of service: 05/01/18 Principal diagnosis: Acute GI Bleed Interval history: No active signs of bleeding overnight or this am. Stool in diaper upon exam brown/green. Objective - Constitutional Vitals: Temp Pulse Resp BP Pulse Ox 98.6 F 88 14 108/55 100 05/01/18 12:45 05/01/18 09:00 05/01/18 09:00 05/01/18 09:00 05/01/18 09:00 General appearance: no acute distress - Respiratory Respiratory: bilateral: diminished - Cardiovascular Rhythm: regular Heart Sounds: Present: S1 & S2 - Gastrointestinal General gastrointestinal: Present: soft, non-tender, non-distended, normal bowel sounds - Labs CBC & Chem 7: 05/01/18 09:17 05/01/18 04:30 Labs: Laboratory Results - last 24 hr 04/27/18 05/01/18 05/01/18 22:09 04:30 04:30 WBC 11.4 H RBC 2.25 L Hgb 6.4 L Hct 19.6 L* MCV 87 MCH 28 MCHC 33 RDW 16.4 H Plt Count 131 L Sodium 142 Potassium 3.1 L Chloride 110.4 H Carbon Dioxide 23 Anion Gap 12 BUN 19 Creatinine 1.6 H Estimated GFR 54 BUN/Creatinine Ratio 12 Glucose 48 L Calcium 6.0 L Magnesium 1.40 L Blood Type O POSITIVE Antibody Screen Negative Crossmatch See Detail 01/30/19 09:17 WBC RBC Hgb 7.4 L Hct 23.0 L MCV MCH MCHC RDW Plt Count Sodium Potassium Chloride Carbon Dioxide Anion Gap BUN Creatinine Estimated GFR BUN/Creatinine Ratio Glucose Calcium Magnesium Blood Type Antibody Screen Crossmatch
--- NOTE | 2018-05-01 18:18 | Progress Note ---
Assessment and Plan /Acute upper GI bleed - due to gastric ulcer, biopsy pending - cont PPI IV, GI following, s/p EGD and colonoscopy - monitor H/H, GI soft diet started /Severe anemia due to Upper GI bleed - s/p total 6 units of PRBC transfusion - cont to monitor h/H, transfuse as needed /DWIGHT, likely from vasomotor nephropathy - cont iv fluid, monitor BMP, renal consulted /Hypotension/shock on pressor due to hypovolumia and sepsis - - cont iv fluid, weaned off pressor, bp now stable off prossor /Sepsis with RLL PNA, tachycardia and leukocytosis - CXR showed RLL infiltrates, cont zosyn /DVT Px, on SCD Brief history: 58-year-old male presents to ED with complaint of bloody stools 2 days. Hb on admission was 3.1, s/p 4 units PRBC transfusion. EGD today showed gastritis with raised nodular area (8mm) with noted white based ulcer w/o bleeding stigmata, obtained biopsy. The high probability of a clinically significant, sudden or life threatening deterioration of the [CVS/Renal] system(s) required my full and direct attention, intervention and personal management. The aggregate critical care time was [36] minutes. This time is in addition to time spent performing reported procedures but includes the following: [x] Data Review and interpretation [x] Patient assessment and monitoring of vital signs [x] Documentation [x] Medication orders and management Physical exam: General appearance: Present: no acute distress, well-nourished - EENT Eyes: PERRL, EOM intact ENT: hearing intact, clear oral mucosa Ears: bilateral: normal - Neck Neck: supple, normal ROM - Respiratory Respiratory effort: normal Respiratory: bilateral: CTA - Cardiovascular Rhythm: regular Heart Sounds: Present: S1 & S2. Absent: gallop, rub Extremities: pulses intact, No edema, normal color, Full ROM - Gastrointestinal General gastrointestinal: Present: soft, non-tender, non-distended, normal bowel sounds - Integumentary Integumentary: clear, warm, dry - Musculoskeletal Musculoskeletal: 1, strength equal bilaterally - Neurologic Neurologic: moves all extremities - Psychiatric Psychiatric: memory intact, appropriate mood/affect, intact judgment & insight Subjective Date of service: 05/01/18 Principal diagnosis: Acute GI Bleed Interval history: Pt seen and examined No further bloody or black stool denies any abdominal pain off prossor, transfer out off icu today Objective - Constitutional Vitals: Vital Signs - 12hr 05/01/18 05/01/18 05/01/18 06:20 06:30 06:40 Temperature Pulse Rate 64 64 64 Respiratory 17 14 10 L Rate Blood Pressure 103/43 103/43 103/43 O2 Sat by Pulse 100 100 100 Oximetry 05/01/18 05/01/18 05/01/18 06:50 07:00 07:10 Temperature Pulse Rate 69 59 L 64 Respiratory 12 13 16 Rate Blood Pressure 103/43 117/49 117/49 O2 Sat by Pulse 100 100 100 Oximetry 05/01/18 05/01/18 05/01/18 07:20 07:30 07:40 Temperature Pulse Rate 67 62 68 Respiratory 15 12 16 Rate Blood Pressure 117/49 117/49 115/54 O2 Sat by Pulse 100 100 100 Oximetry 05/01/18 05/01/18 05/01/18 07:41 07:50 08:00 Temperature Pulse Rate 67 66 Respiratory 9 L 9 L Rate Blood Pressure 115/54 115/54 O2 Sat by Pulse 100 100 100 Oximetry 05/01/18 05/01/18 05/01/18 08:10 08:20 08:30 Temperature Pulse Rate 69 69 79 Respiratory 15 13 10 L Rate Blood Pressure 115/49 115/49 115/49 O2 Sat by Pulse 100 100 100 Oximetry 05/01/18 05/01/18 05/01/18 08:40 08:50 09:00 Temperature 97.9 F Pulse Rate 84 74 88 Respiratory 16 19 14 Rate Blood Pressure 120/54 124/63 108/55 O2 Sat by Pulse 100 100 100 Oximetry 05/01/18 05/01/18 05/01/18 10:00 11:00 12:00 Temperature Pulse Rate 88 83 83 Respiratory 17 17 18 Rate Blood Pressure 111/54 109/57 98/54 O2 Sat by Pulse 100 100 Oximetry 05/01/18 05/01/18 05/01/18 12:45 13:00 14:00 Temperature 98.6 F Pulse Rate 68 71 Respiratory 16 17 Rate Blood Pressure 92/42 97/46 O2 Sat by Pulse 100 100 Oximetry 05/01/18 05/01/18 05/01/18 15:00 15:09 16:00 Temperature 98.6 F Pulse Rate 77 Respiratory 19 Rate Blood Pressure 104/52 O2 Sat by Pulse 100 Oximetry - Labs CBC & Chem 7: 05/02/18 05:00 05/02/18 05:00 Labs: Abnormal lab results 04/27/18 05/01/18 05/01/18 Range/Units 22:09 04:30 04:30 WBC 11.4 H (4.5-11.0) K/mm3 RBC 2.25 L (3.65-5.03) M/mm3 Hgb 6.4 L (11.8-15.2) gm/dl Hct 19.6 L* (35.5-45.6) % RDW 16.4 H (13.2-15.2) % Plt Count 131 L (140-440) K/mm3 Potassium 3.1 L (3.6-5.0) mmol/L Chloride 110.4 H (98-107) mmol/L Creatinine 1.6 H (0.8-1.5) mg/dL Glucose 48 L (75-100) mg/dL Calcium 6.0 L (8.4-10.2) mg/dL Magnesium 1.40 L (1.7-2.3) mg/dL Crossmatch See Detail 05/01/18 Range/Units 09:17 WBC (4.5-11.0) K/mm3 RBC (3.65-5.03) M/mm3 Hgb 7.4 L (11.8-15.2) gm/dl Hct 23.0 L (35.5-45.6) % RDW (13.2-15.2) % Plt Count (140-440) K/mm3 Potassium (3.6-5.0) mmol/L Chloride (98-107) mmol/L Creatinine (0.8-1.5) mg/dL Glucose (75-100) mg/dL Calcium (8.4-10.2) mg/dL Magnesium (1.7-2.3) mg/dL Crossmatch
[2018-05-01] MEDS ORDERED: K-DUR PO ONE (18:22)
[2018-05-01] MEDS: PERCOCET 5/325 PO PRN (23:07)
[2018-05-02] MEDS: PERCOCET 5/325 PO PRN ×2 (05:45→23:18)
[2018-05-02 06:13] LABS: Hematocrit 20.5 % (35.5-45.6); Hemoglobin 6.8 gm/dl (11.8-15.2); Mean Corpuscular HGB Conc 33 % (32-34); Mean Corpuscular Volume 87 fl (84-94); Platelet Count 148 K/mm3 (140-440); Red Blood Count 2.35 M/mm3 (3.65-5.03); Red Cell Distribution Width 16.4 % (13.2-15.2)
[2018-05-02 06:37] LABS: Calcium 6.9 mg/dL (8.4-10.2)
[2018-05-02] MEDS ORDERED: NACL 0.9% 500 ML 500 ML IV NR (08:53)
--- NOTE | 2018-05-02 09:09 | Progress Note ---
Assessment and Plan Acute gastrointestinal bleeding, probably secondary to #2. Rectal polyps. Severe sepsis with shock-resolved Leukocytosis. Moderate to severe protein-calorie malnutrition. Symptomatic anemia, acute blood loss anemia. Mild metabolic acidosis. Acute kidney injury. Lactic acidosis. Hypoalbuminemia. - continue supplemental oxygen and wean to keep O2 Sat's > 90% - PICC line - follow cultures also for antibiotic de-escalation - on going incontinence -transfuse for HgB <7g/dL - monitor leukocytosis - PT/OT -nutritional support -recommend to discontinue antibiotics and monitor clinically -aspiration precautions -follow up CXR - continue other care per attending / other consultants Subjective Date of service: 05/02/18 Principal diagnosis: Acute GI Bleed Interval history: Patient is seen today for: Acute GI Bleed; Severe Anemia (ABLA); Severe Sepsis with Shock; Leukocytosis; Moderate to severe protein-calorie malnutrition. Seen and examined at bedside; 24hour events reviewed; nursing and respiratory care staff consulted; no adverse overnight events reported to me; Lying quietly in bed not in any distress. reports fecal incontinence. Still states he does not understand why or where he is bleeding from. Denies any cough or shortness of breath. Supplemental oxygen at 2L/min, prn though Objective Vital Signs - 12hr 05/01/18 05/01/18 05/01/18 21:11 21:21 21:30 Temperature Pulse Rate 75 70 72 Respiratory 20 20 11 L Rate Blood Pressure 103/56 103/56 117/62 O2 Sat by Pulse 100 100 100 Oximetry 05/01/18 05/01/18 05/01/18 21:41 21:51 22:00 Temperature Pulse Rate 71 73 80 Respiratory 17 13 17 Rate Blood Pressure 117/62 117/62 103/60 O2 Sat by Pulse 100 100 100 Oximetry 05/01/18 05/01/18 05/02/18 22:11 23:26 05:27 Temperature 97.0 F L Pulse Rate 76 79 Respiratory 13 16 Rate Blood Pressure 117/62 117/62 96/56 O2 Sat by Pulse 100 97 Oximetry Constitutional: no acute distress, alert, other (middle aged AAM, normocephalic and atraumatic without increased resp effort at rest) Eyes: non-icteric ENT: oropharynx moist Neck: supple, no lymphadenopathy, no JVD Effort: normal Ascultation: Bilateral: diminished breath sounds Percussion: Bilateral: not dull Cardiovascular: regular rate and rhythm, other (S1,S2, no murmurs, gallops or rubs) Gastrointestinal: normoactive bowel sounds, hypoactive bowel sounds, soft, non- tender, non-distended Integumentary: rash, other (hydradenitis) Extremities: no cyanosis, no edema, pulses normal, no ischemia or petechiae Neurologic: normal mental status, non-focal exam, pupils equal and round, motor strength normal and Psychiatric: mood appropriate, affect normal CBC and BMP: 05/03/18 05:35 05/03/18 05:30 ABG, PT/INR, D-dimer: PT/INR, D-dimer PT 16.5 Sec. (12.2-14.9) H 04/27/18 22:09 INR 1.29 (0.87-1.13) H 04/27/18 22:09 Abnormal lab findings: Abnormal Labs 04/27/18 04/27/18 04/27/18 22:09 22:09 22:09 WBC RBC Hgb Hct MCH MCHC RDW Plt Count Lymph % (Auto) Mobile # Seg Neutrophils % Seg Neuts % (Manual) Lymphocytes % (Manual) Seg Neutrophils # Seg Neutrophils # Man PT 16.5 H INR 1.29 H APTT 21.5 L Potassium Chloride Carbon Dioxide 16 L BUN 64 H Creatinine 2.2 H Glucose 165 H Lactic Acid Calcium 7.2 L Magnesium ALT < 5 L C-Reactive Protein Total Protein Albumin 1.6 L Lipase 12 L Urine Creatinine Urine Total Protein Crossmatch See Detail 04/27/18 04/28/18 04/28/18 22:44 00:22 01:57 WBC 20.2 H RBC 1.21 L Hgb 3.1 L* Hct 10.6 L* MCH 26 L MCHC 30 L RDW 16.0 H Plt Count Lymph % (Auto) Mobile # Seg Neutrophils % Seg Neuts % (Manual) 71.0 H Lymphocytes % (Manual) 9.0 L Seg Neutrophils # Seg Neutrophils # Man 14.3 H PT INR APTT Potassium Chloride Carbon Dioxide BUN Creatinine Glucose Lactic Acid 6.50 H* 4.50 H* Calcium Magnesium ALT C-Reactive Protein Total Protein Albumin Lipase Urine Creatinine Urine Total Protein Crossmatch 04/28/18 04/28/18 04/28/18 06:13 06:13 16:07 WBC RBC Hgb 7.0 L D 6.6 L Hct 21.3 L D 20.4 L MCH MCHC RDW Plt Count Lymph % (Auto) Mobile # Seg Neutrophils % Seg Neuts % (Manual) Lymphocytes % (Manual) Seg Neutrophils # Seg Neutrophils # Man PT INR APTT Potassium Chloride 112.0 H Carbon Dioxide 19 L BUN 58 H Creatinine 1.9 H Glucose 101 H Lactic Acid Calcium 6.6 L Magnesium ALT C-Reactive Protein Total Protein Albumin Lipase Urine Creatinine Urine Total Protein Crossmatch 04/28/18 04/29/18 04/29/18 18:01 06:57 06:57 WBC 19.0 H RBC 2.59 L Hgb 7.4 L Hct 22.3 L MCH MCHC RDW 16.1 H Plt Count Lymph % (Auto) 11.6 L Mobile # 0.9 H Seg Neutrophils % 82.2 H Seg Neuts % (Manual) Lymphocytes % (Manual) Seg Neutrophils # 15.6 H Seg Neutrophils # Man PT INR APTT Potassium Chloride 116.2 H Carbon Dioxide 19 L BUN 43 H Creatinine 2.1 H Glucose 145 H Lactic Acid Calcium 6.9 L Magnesium ALT < 5 L C-Reactive Protein Total Protein 6.0 L Albumin 1.5 L Lipase Urine Creatinine 37.0 H Urine Total Protein 83 H Crossmatch 04/29/18 04/30/18 04/30/18 07:13 04:50 04:50 WBC 17.1 H RBC 2.39 L Hgb 6.8 L Hct 21.0 L MCH MCHC RDW 16.8 H Plt Count Lymph % (Auto) Mobile # Seg Neutrophils % Seg Neuts % (Manual) Lymphocytes % (Manual) Seg Neutrophils # Seg Neutrophils # Man PT INR APTT Potassium Chloride 113.7 H Carbon Dioxide 17 L BUN 27 H Creatinine 1.8 H Glucose 137 H Lactic Acid Calcium 6.8 L Magnesium 1.50 L ALT C-Reactive Protein Total Protein Albumin Lipase Urine Creatinine Urine Total Protein Crossmatch 04/30/18 05/01/18 05/01/18 04:50 04:30 04:30 WBC 11.4 H RBC 2.25 L Hgb 6.4 L Hct 19.6 L* MCH MCHC RDW 16.4 H Plt Count 131 L Lymph % (Auto) Mobile # Seg Neutrophils % Seg Neuts % (Manual) Lymphocytes % (Manual) Seg Neutrophils # Seg Neutrophils # Man PT INR APTT Potassium 3.1 L Chloride 110.4 H Carbon Dioxide BUN Creatinine 1.6 H Glucose 48 L Lactic Acid Calcium 6.0 L Magnesium 1.40 L ALT C-Reactive Protein 12.30 H Total Protein Albumin Lipase Urine Creatinine Urine Total Protein Crossmatch 05/01/18 05/02/18 05/02/18 09:17 05:00 05:00 WBC RBC 2.35 L Hgb 7.4 L 6.8 L Hct 23.0 L 20.5 L MCH MCHC RDW 16.4 H Plt Count Lymph % (Auto) Mobile # Seg Neutrophils % Seg Neuts % (Manual) Lymphocytes % (Manual) Seg Neutrophils # Seg Neutrophils # Man PT INR APTT Potassium Chloride 110.6 H Carbon Dioxide 21 L BUN Creatinine 1.8 H Glucose 54 L Lactic Acid Calcium 6.9 L Magnesium ALT C-Reactive Protein Total Protein Albumin Lipase Urine Creatinine Urine Total Protein Crossmatch Allied health notes reviewed: nursing
--- NOTE | 2018-05-02 09:22 | Progress Note ---
Assessment and Plan Acute Kidney Injury possibly multi-factorial secondary to prerenal/ATN, nausea, vomiting, hypotension, possible underlying CKD process: Non-Anion Gap Metabolic Acidosis: - stable Cr - cont IVF - Review of labs from [id number] showed SCr level between 1.2-1.7 - Renally dose meds - Mercado Catheter: No - Continue to monitor renal function Anemia: GI Bleed: - S/P EGD on 04/28/18 showed- hiatal hernia, gastritis, raised nodular area (8mm) with noted white based ulcer w/o bleeding stigmata. - S/p blood transfusions - On Protonix - Transfuse as per GI/primary Leukocytosis: Hypotension: - Urine and Blood cultures- no growth so far - On IV Levaquin Subjective Date of service: 05/02/18 Principal diagnosis: Acute GI Bleed Objective - Vital Signs Vital signs: Vital Signs - 12hr 05/01/18 05/01/18 05/01/18 21:21 21:30 21:41 Temperature Pulse Rate 70 72 71 Respiratory 20 11 L 17 Rate Blood Pressure 103/56 117/62 117/62 O2 Sat by Pulse 100 100 100 Oximetry 05/01/18 05/01/18 05/01/18 21:51 22:00 22:11 Temperature Pulse Rate 73 80 76 Respiratory 13 17 13 Rate Blood Pressure 117/62 103/60 117/62 O2 Sat by Pulse 100 100 100 Oximetry 05/01/18 05/02/18 23:26 05:27 Temperature 97.0 F L Pulse Rate 79 Respiratory 16 Rate Blood Pressure 117/62 96/56 O2 Sat by Pulse 97 Oximetry - Lab 05/02/18 05:00 05/02/18 05:00 Most recent lab results Calcium 6.9 mg/dL (8.4-10.2) L 05/02/18 05:00 Phosphorus 3.00 mg/dL (2.5-4.5) 04/29/18 07:13 Magnesium 1.40 mg/dL (1.7-2.3) L 05/01/18 04:30 Urine Creatinine 37.0 mg/dL (0.1-20.0) H 04/28/18 18:01 Urine Sodium 93 mmol/L 04/28/18 18:01 Urine Total Protein 83 mg/dL (5-11.8) H 04/28/18 18:01 Medications & Allergies - Medications Allergies/Adverse Reactions: Allergies No Known Allergies Allergy (Verified 03/27/17 23:28) Home Medications: Home Medications Medication Instructions Recorded Confirmed Last Taken Type Ciprofloxacin HCl [Ciprofloxacin 500 mg PO Q12H #24 tab 06/22/17 Unknown Rx TAB] Linezolid [Zyvox] 600 mg PO BID #24 tablet 06/22/17 Unknown Rx Oxycodone HCl/Acetaminophen 1 each PO Q6HR PRN #14 tablet 06/22/17 Unknown Rx [Percocet 10/325 mg] Active Medications: Generic Name Dose Route Start Last Admin Trade Name Freq PRN Reason Stop Dose Admin Acetaminophen 650 mg 04/28/18 01:32 Tylenol AL Q4H PRN Fever >101 Levofloxacin/Dextrose 750 mg in 150 mls @ 100 mls/hr 04/30/18 10:00 05/01/18 10:14 Levaquin 750mg/150ml IV 05/03/18 11:29 100 mls/hr Q24HR NESTOR Administration Sodium Bicarbonate 75 meq/ 1,075 mls @ 75 mls/hr 05/01/18 04:02 05/01/18 05:01 Sodium Chloride IV 75 mls/hr DIRECT NESTOR Administration Dextrose/Sodium Chloride 1,000 mls @ 42 mls/hr 05/02/18 09:00 D5/0.45ns IV DIRECT NESTOR Sodium Chloride 500 mls @ 0 mls/hr 05/02/18 08:53 Nacl 0.9% 500 Ml IV 05/02/18 22:00 ONCE NR As Directed Ondansetron HCl 4 mg 04/28/18 01:23 Zofran IV Q8H PRN Nausea And Vomiting Oxycodone/Acetaminophen 1 tab 04/28/18 23:00 05/02/18 05:45 Percocet 5/325 PO 1 tab Q4H PRN Administration Pain, Moderate (4-6) Pantoprazole Sodium 40 mg 05/01/18 10:00 05/01/18 23:07 Protonix PO 40 mg BID NESTOR Administration
[2018-05-02] MEDS: PROTONIX PO SCH ×2 (10:51→23:19)
[2018-05-02] MEDS: D5/0.45NS 1,000 ML IV SCH (10:51)
[2018-05-02] MEDS: LEVAQUIN 750MG/150ML 750 MG/150 ML BAG IV SCH (10:52)
--- NOTE | 2018-05-02 11:59 | Progress Note ---
Assessment and Plan Acute Kidney Injury possibly multi-factorial secondary to prerenal/ATN, nausea, vomiting, hypotension, possible underlying CKD process: Non-Anion Gap Metabolic Acidosis: - Renal function reviewed. Serum creatinine 1.8 today from 1.6 yesterday - On 04/03 NS with sodium bicarb for acidosis - Review of labs from [id number] showed SCr level between 1.2-1.7 - Renally dose meds - Mercado Catheter: No - Continue to monitor renal function Anemia: GI Bleed: - S/P EGD on 04/28/18 showed- hiatal hernia, gastritis, raised nodular area (8mm) with noted white based ulcer w/o bleeding stigmata. - On Protonix 40 mg po BID - S/p multiple blood transfusions since hospitalized - HGB 6.8 today, will need more PRBC transfusions today - Transfuse as per GI/primary Leukocytosis: Hypotension: - Urine and Blood cultures- no growth so far - On IV Levaquin Subjective Date of service: 05/02/18 Principal diagnosis: Acute GI Bleed Interval history: Patient seen lying in bed. Reviewed renal plan of care. Objective - Vital Signs Vital signs: Vital Signs - 12hr 05/02/18 05/02/18 05:27 10:34 Temperature 97.0 F L Pulse Rate 79 Respiratory 16 Rate Blood Pressure 96/56 O2 Sat by Pulse 97 100 Oximetry - General Appearance General appearance: well-developed, appears stated age EENT: ATNC, PERRL, hearing intact, vision intact Neck: no JVD, supple Respiratory: Present: Decreased Breath Sounds Cardiology: S1S2 Gastrointestinal: normoactive bowel sounds Integumentary: warm and dry Neurologic: alert and oriented x3 Musculoskeletal: other (No edema) - Lab 05/02/18 05:00 05/02/18 05:00 Most recent lab results Calcium 6.9 mg/dL (8.4-10.2) L 05/02/18 05:00 Phosphorus 3.00 mg/dL (2.5-4.5) 04/29/18 07:13 Magnesium 1.40 mg/dL (1.7-2.3) L 05/01/18 04:30 Urine Creatinine 37.0 mg/dL (0.1-20.0) H 04/28/18 18:01 Urine Sodium 93 mmol/L 04/28/18 18:01 Urine Total Protein 83 mg/dL (5-11.8) H 04/28/18 18:01 Medications & Allergies - Medications Allergies/Adverse Reactions: Allergies No Known Allergies Allergy (Verified 03/27/17 23:28) Home Medications: Home Medications Medication Instructions Recorded Confirmed Last Taken Type Ciprofloxacin HCl [Ciprofloxacin 500 mg PO Q12H #24 tab 06/22/17 Unknown Rx TAB] Linezolid [Zyvox] 600 mg PO BID #24 tablet 06/22/17 Unknown Rx Oxycodone HCl/Acetaminophen 1 each PO Q6HR PRN #14 tablet 06/22/17 Unknown Rx [Percocet 10/325 mg] Active Medications: Generic Name Dose Route Start Last Admin Trade Name Freq PRN Reason Stop Dose Admin Acetaminophen 650 mg 04/28/18 01:32 Tylenol ME Q4H PRN Fever >101 Levofloxacin/Dextrose 750 mg in 150 mls @ 100 mls/hr 04/30/18 10:00 05/02/18 10:52 Levaquin 750mg/150ml IV 05/03/18 11:29 100 mls/hr Q24HR NESTOR Administration Sodium Bicarbonate 75 meq/ 1,075 mls @ 75 mls/hr 05/01/18 04:02 05/01/18 05:01 Sodium Chloride IV 75 mls/hr DIRECT NESTOR Administration Dextrose/Sodium Chloride 1,000 mls @ 42 mls/hr 05/02/18 09:00 05/02/18 10:51 D5/0.45ns IV 42 mls/hr DIRECT NESTOR Administration Sodium Chloride 500 mls @ 0 mls/hr 05/02/18 08:53 05/02/18 10:51 Nacl 0.9% 500 Ml IV 05/02/18 22:00 50 mls/hr ONCE NR Administration As Directed Ondansetron HCl 4 mg 04/28/18 01:23 Zofran IV Q8H PRN Nausea And Vomiting Oxycodone/Acetaminophen 1 tab 04/28/18 23:00 05/02/18 05:45 Percocet 5/325 PO 1 tab Q4H PRN Administration Pain, Moderate (4-6) Pantoprazole Sodium 40 mg 05/01/18 10:00 05/02/18 10:51 Protonix PO 40 mg BID NESTOR Administration
[2018-05-02] MEDS ORDERED: K-DUR PO ONE (13:57)
--- NOTE | 2018-05-02 15:36 | Progress Note ---
Assessment and Plan /Acute upper GI bleed - due to gastric ulcer, biopsy pending - cont PPI IV, GI following, s/p EGD and colonoscopy - biopsy negative for any malignancy - monitor H/H, GI soft diet started /Severe anemia due to Upper GI bleed - s/p total 6 units of PRBC transfusion - cont to monitor h/H, Hb 6.8 today, transfuse additional unit /DWIGHT, likely from vasomotor nephropathy - cont iv fluid, monitor BMP, renal consulted /Hypotension/shock on pressor due to hypovolumia and sepsis - - cont iv fluid, weaned off pressor, bp now stable off prossor /Sepsis with RLL PNA, tachycardia and leukocytosis - CXR showed RLL infiltrates, cont zosyn /DVT Px, on SCD Brief history: 58-year-old male presents to ED with complaint of bloody stools 2 days. Hb on admission was 3.1, s/p 4 units PRBC transfusion. EGD today showed gastritis with raised nodular area (8mm) with noted white based ulcer w/o bleeding stigmata, obtained biopsy. Physical exam: General appearance: Present: no acute distress, well-nourished - EENT Eyes: PERRL, EOM intact ENT: hearing intact, clear oral mucosa Ears: bilateral: normal - Neck Neck: supple, normal ROM - Respiratory Respiratory effort: normal Respiratory: bilateral: CTA - Cardiovascular Rhythm: regular Heart Sounds: Present: S1 & S2. Absent: gallop, rub Extremities: pulses intact, No edema, normal color, Full ROM - Gastrointestinal General gastrointestinal: Present: soft, non-tender, non-distended, normal bowel sounds - Integumentary Integumentary: clear, warm, dry - Musculoskeletal Musculoskeletal: 1, strength equal bilaterally - Neurologic Neurologic: moves all extremities - Psychiatric Psychiatric: memory intact, appropriate mood/affect, intact judgment & insight Subjective Date of service: 05/02/18 Principal diagnosis: Acute GI Bleed Interval history: Pt seen and examined No further bloody or black stool denies any abdominal pain off prossor, resting at tele Objective - Constitutional Vitals: Vital Signs - 12hr 05/02/18 05/02/18 05/02/18 05:27 10:34 12:15 Temperature 97.0 F L 98.1 F Pulse Rate 79 82 Respiratory 16 22 Rate Blood Pressure 96/56 99/59 O2 Sat by Pulse 97 100 96 Oximetry - Labs CBC & Chem 7: 05/03/18 05:35 05/03/18 05:30 Labs: Abnormal lab results 05/02/18 05/02/18 05/02/18 Range/Units 05:00 05:00 11:00 RBC 2.35 L (3.65-5.03) M/mm3 Hgb 6.8 L (11.8-15.2) gm/dl Hct 20.5 L (35.5-45.6) % RDW 16.4 H (13.2-15.2) % Chloride 110.6 H (98-107) mmol/L Carbon Dioxide 21 L (22-30) mmol/L Creatinine 1.8 H (0.8-1.5) mg/dL Glucose 54 L (75-100) mg/dL Calcium 6.9 L (8.4-10.2) mg/dL Crossmatch See Detail
[2018-05-03 05:46] LABS: Hematocrit 22.8 % (35.5-45.6); Hemoglobin 7.6 gm/dl (11.8-15.2); Mean Corpuscular HGB Conc 33 % (32-34); Mean Corpuscular Volume 86 fl (84-94); Platelet Count 155 K/mm3 (140-440); Red Blood Count 2.64 M/mm3 (3.65-5.03); Red Cell Distribution Width 16.5 % (13.2-15.2)
[2018-05-03 06:12] LABS: Calcium 6.9 mg/dL (8.4-10.2)
[2018-05-03] MEDS: PROTONIX PO SCH ×2 (09:57→23:11)
[2018-05-03] MEDS: LEVAQUIN 750MG/150ML 750 MG/150 ML BAG IV SCH (09:57)
[2018-05-03] MEDS: PERCOCET 5/325 PO PRN ×2 (10:02→23:11)
--- NOTE | 2018-05-03 11:10 | Progress Note ---
Assessment and Plan Acute gastrointestinal bleeding, probably secondary to #2. Rectal polyps. Severe sepsis with shock( resolved) Thrombocytopenia Moderate to severe protein-calorie malnutrition. Symptomatic anemia, acute blood loss anemia. Mild metabolic acidosis. Acute kidney injury. Lactic acidosis. Hypoalbuminemia. - continue supplemental oxygen and wean to keep O2 Sat's > 90% - PICC line - follow cultures also for antibiotic de-escalation - on going incontinence -transfuse for HgB <7g/dL - monitor leukocytosis - PT/OT -nutritional support -recommend to discontinue antibiotics and monitor clinically -aspiration precautions -follow up CXR - continue other care per attending / other consultants Subjective Date of service: 05/03/18 Principal diagnosis: Acute GI Bleed Interval history: Patient is seen today for: Acute GI Bleed; Severe Anemia (ABLA); Severe Sepsis with Shock; Leukocytosis; Moderate to severe protein-calorie malnutrition. Seen and examined at bedside; 24hour events reviewed; nursing and respiratory care staff consulted; no adverse overnight events reported to me; Lying quietly in bed not in any distress. s/p 1 unit PRBC Denies any cough or shortness of breath. Supplemental oxygen at 2L/min, prn though Objective Vital Signs - 12hr 05/03/18 05:04 Temperature 98.3 F Respiratory 16 Rate Blood Pressure 108/57 Constitutional: no acute distress, alert Eyes: non-icteric ENT: oropharynx moist Neck: supple, no lymphadenopathy, no JVD Effort: mildly labored Ascultation: Bilateral: diminished breath sounds, rhonchi Percussion: Bilateral: not dull Cardiovascular: regular rate and rhythm Gastrointestinal: hypoactive bowel sounds, soft, non-tender, non-distended Integumentary: rash, other (hydradenitis) Extremities: no cyanosis, no edema, pulses normal, no ischemia or petechiae Neurologic: normal mental status, non-focal exam, pupils equal and round, motor strength normal and Psychiatric: mood appropriate, affect normal CBC and BMP: 05/03/18 05:35 05/03/18 05:30 ABG, PT/INR, D-dimer: PT/INR, D-dimer PT 16.5 Sec. (12.2-14.9) H 04/27/18 22:09 INR 1.29 (0.87-1.13) H 04/27/18 22:09 Abnormal lab findings: Abnormal Labs 04/27/18 04/27/18 04/27/18 22:09 22:09 22:09 WBC RBC Hgb Hct MCH MCHC RDW Plt Count Lymph % (Auto) [place] # Seg Neutrophils % Seg Neuts % (Manual) Lymphocytes % (Manual) Seg Neutrophils # Seg Neutrophils # Man PT 16.5 H INR 1.29 H APTT 21.5 L Potassium Chloride Carbon Dioxide 16 L BUN 64 H Creatinine 2.2 H Glucose 165 H Lactic Acid Calcium 7.2 L Magnesium ALT < 5 L C-Reactive Protein Total Protein Albumin 1.6 L Lipase 12 L Urine Creatinine Urine Total Protein Crossmatch See Detail 04/27/18 04/28/18 04/28/18 22:44 00:22 01:57 WBC 20.2 H RBC 1.21 L Hgb 3.1 L* Hct 10.6 L* MCH 26 L MCHC 30 L RDW 16.0 H Plt Count Lymph % (Auto) [place] # Seg Neutrophils % Seg Neuts % (Manual) 71.0 H Lymphocytes % (Manual) 9.0 L Seg Neutrophils # Seg Neutrophils # Man 14.3 H PT INR APTT Potassium Chloride Carbon Dioxide BUN Creatinine Glucose Lactic Acid 6.50 H* 4.50 H* Calcium Magnesium ALT C-Reactive Protein Total Protein Albumin Lipase Urine Creatinine Urine Total Protein Crossmatch 04/28/18 04/28/18 04/28/18 06:13 06:13 16:07 WBC RBC Hgb 7.0 L D 6.6 L Hct 21.3 L D 20.4 L MCH MCHC RDW Plt Count Lymph % (Auto) [place] # Seg Neutrophils % Seg Neuts % (Manual) Lymphocytes % (Manual) Seg Neutrophils # Seg Neutrophils # Man PT INR APTT Potassium Chloride 112.0 H Carbon Dioxide 19 L BUN 58 H Creatinine 1.9 H Glucose 101 H Lactic Acid Calcium 6.6 L Magnesium ALT C-Reactive Protein Total Protein Albumin Lipase Urine Creatinine Urine Total Protein Crossmatch 04/28/18 04/29/18 04/29/18 18:01 06:57 06:57 WBC 19.0 H RBC 2.59 L Hgb 7.4 L Hct 22.3 L MCH MCHC RDW 16.1 H Plt Count Lymph % (Auto) 11.6 L [place] # 0.9 H Seg Neutrophils % 82.2 H Seg Neuts % (Manual) Lymphocytes % (Manual) Seg Neutrophils # 15.6 H Seg Neutrophils # Man PT INR APTT Potassium Chloride 116.2 H Carbon Dioxide 19 L BUN 43 H Creatinine 2.1 H Glucose 145 H Lactic Acid Calcium 6.9 L Magnesium ALT < 5 L C-Reactive Protein Total Protein 6.0 L Albumin 1.5 L Lipase Urine Creatinine 37.0 H Urine Total Protein 83 H Crossmatch 04/29/18 04/30/18 04/30/18 07:13 04:50 04:50 WBC 17.1 H RBC 2.39 L Hgb 6.8 L Hct 21.0 L MCH MCHC RDW 16.8 H Plt Count Lymph % (Auto) [place] # Seg Neutrophils % Seg Neuts % (Manual) Lymphocytes % (Manual) Seg Neutrophils # Seg Neutrophils # Man PT INR APTT Potassium Chloride 113.7 H Carbon Dioxide 17 L BUN 27 H Creatinine 1.8 H Glucose 137 H Lactic Acid Calcium 6.8 L Magnesium 1.50 L ALT C-Reactive Protein Total Protein Albumin Lipase Urine Creatinine Urine Total Protein Crossmatch 04/30/18 05/01/18 05/01/18 04:50 04:30 04:30 WBC 11.4 H RBC 2.25 L Hgb 6.4 L Hct 19.6 L* MCH MCHC RDW 16.4 H Plt Count 131 L Lymph % (Auto) [place] # Seg Neutrophils % Seg Neuts % (Manual) Lymphocytes % (Manual) Seg Neutrophils # Seg Neutrophils # Man PT INR APTT Potassium 3.1 L Chloride 110.4 H Carbon Dioxide BUN Creatinine 1.6 H Glucose 48 L Lactic Acid Calcium 6.0 L Magnesium 1.40 L ALT C-Reactive Protein 12.30 H Total Protein Albumin Lipase Urine Creatinine Urine Total Protein Crossmatch 05/01/18 05/02/18 05/02/18 09:17 05:00 05:00 WBC RBC 2.35 L Hgb 7.4 L 6.8 L Hct 23.0 L 20.5 L MCH MCHC RDW 16.4 H Plt Count Lymph % (Auto) [place] # Seg Neutrophils % Seg Neuts % (Manual) Lymphocytes % (Manual) Seg Neutrophils # Seg Neutrophils # Man PT INR APTT Potassium Chloride 110.6 H Carbon Dioxide 21 L BUN Creatinine 1.8 H Glucose 54 L Lactic Acid Calcium 6.9 L Magnesium ALT C-Reactive Protein Total Protein Albumin Lipase Urine Creatinine Urine Total Protein Crossmatch 05/02/18 05/03/18 05/03/18 11:00 05:30 05:35 WBC RBC 2.64 L Hgb 7.6 L Hct 22.8 L MCH MCHC RDW 16.5 H Plt Count Lymph % (Auto) [place] # Seg Neutrophils % Seg Neuts % (Manual) Lymphocytes % (Manual) Seg Neutrophils # Seg Neutrophils # Man PT INR APTT Potassium Chloride 111.2 H Carbon Dioxide 21 L BUN Creatinine 1.9 H Glucose 61 L Lactic Acid Calcium 6.9 L Magnesium ALT C-Reactive Protein Total Protein Albumin Lipase Urine Creatinine Urine Total Protein Crossmatch See Detail Allied health notes reviewed: nursing
--- NOTE | 2018-05-03 12:45 | Progress Note ---
Assessment and Plan Acute Kidney Injury possibly multi-factorial secondary to prerenal/ATN, nausea, vomiting, hypotension, possible underlying CKD process: Non-Anion Gap Metabolic Acidosis: - stable kidney function - Review of labs from [id number] showed SCr level between 1.2-1.7 - Renally dose meds - Mercado Catheter: No - Continue to monitor renal function Anemia: GI Bleed: - S/P EGD on 04/28/18 showed- hiatal hernia, gastritis, raised nodular area (8mm) with noted white based ulcer w/o bleeding stigmata. - On Protonix 40 mg po BID - S/p multiple blood transfusions since hospitalized - Transfuse as per GI/primary Leukocytosis: Hypotension: - Urine and Blood cultures- no growth so far - On IV Levaquin Subjective Date of service: 05/03/18 Principal diagnosis: Acute GI Bleed Interval history: denies acute issues Objective - Vital Signs Vital signs: Vital Signs - 12hr 05/03/18 05:04 Temperature 98.3 F Respiratory 16 Rate Blood Pressure 108/57 - General Appearance General appearance: well-developed, well-nourished EENT: ATNC, PERRL Neck: no JVD, no carotid bruit Respiratory: Present: Clear to Ascultation. Absent: Rales, Ronchi Cardiology: regular, S1S2 Gastrointestinal: normoactive bowel sounds, no tenderness, no distended Integumentary: no rash, warm and dry Neurologic: no focal deficit, no asterixis Musculoskeletal: other (trace pitting edema in BLE) Psychiatric: cooperative - Lab 05/03/18 05:35 05/03/18 05:30 Most recent lab results Calcium 6.9 mg/dL (8.4-10.2) L 05/03/18 05:30 Phosphorus 3.00 mg/dL (2.5-4.5) 04/29/18 07:13 Magnesium 1.40 mg/dL (1.7-2.3) L 05/01/18 04:30 Urine Creatinine 37.0 mg/dL (0.1-20.0) H 04/28/18 18:01 Urine Sodium 93 mmol/L 04/28/18 18:01 Urine Total Protein 83 mg/dL (5-11.8) H 04/28/18 18:01 Medications & Allergies - Medications Allergies/Adverse Reactions: Allergies No Known Allergies Allergy (Verified 03/27/17 23:28) Home Medications: Home Medications Medication Instructions Recorded Confirmed Last Taken Type Ciprofloxacin HCl [Ciprofloxacin 500 mg PO Q12H #24 tab 06/22/17 Unknown Rx TAB] Linezolid [Zyvox] 600 mg PO BID #24 tablet 06/22/17 Unknown Rx Oxycodone HCl/Acetaminophen 1 each PO Q6HR PRN #14 tablet 06/22/17 Unknown Rx [Percocet 10/325 mg] Active Medications: Generic Name Dose Route Start Last Admin Trade Name Freq PRN Reason Stop Dose Admin Acetaminophen 650 mg 04/28/18 01:32 Tylenol [place] Q4H PRN Fever >101 Dextrose/Sodium Chloride 1,000 mls @ 42 mls/hr 05/02/18 09:00 05/02/18 10:51 D5/0.45ns IV 42 mls/hr DIRECT NESTOR Administration Ondansetron HCl 4 mg 04/28/18 01:23 Zofran IV Q8H PRN Nausea And Vomiting Oxycodone/Acetaminophen 1 tab 04/28/18 23:00 05/03/18 10:02 Percocet 5/325 PO 1 tab Q4H PRN Administration Pain, Moderate (4-6) Pantoprazole Sodium 40 mg 05/01/18 10:00 05/03/18 09:57 Protonix PO 40 mg BID NESTOR Administration
--- NOTE | 2018-05-03 14:13 | Gastroenterology Progress Note ---
Assessment and Plan GI: stable w/o further signs bleeding - follow h/h - will sign off, call if needed Subjective Date of service: 05/03/18 Principal diagnosis: Acute GI Bleed Interval history: - no signs bleeding overnight Objective - Constitutional Vitals: Temp Pulse Resp BP Pulse Ox 98.3 F 82 18 113/69 97 05/03/18 11:20 05/03/18 11:20 05/03/18 11:20 05/03/18 11:20 05/03/18 11:20 General appearance: no acute distress - EENT Eyes: PERRL - Respiratory Respiratory: bilateral: CTA - Cardiovascular Rhythm: regular Heart Sounds: Present: S1 & S2 - Gastrointestinal General gastrointestinal: Present: soft, non-tender, non-distended - Labs CBC & Chem 7: 05/03/18 05:35 05/03/18 05:30 Labs: Laboratory Results - last 24 hr 05/02/18 05/03/18 05/03/18 11:00 05:30 05:35 WBC 10.9 RBC 2.64 L Hgb 7.6 L Hct 22.8 L MCV 86 MCH 29 MCHC 33 RDW 16.5 H Plt Count 155 Sodium 139 Potassium 4.2 Chloride 111.2 H Carbon Dioxide 21 L Anion Gap 11 BUN 17 Creatinine 1.9 H Estimated GFR 44 BUN/Creatinine Ratio 9 Glucose 61 L Calcium 6.9 L Blood Type O POSITIVE Antibody Screen Negative Crossmatch See Detail
--- NOTE | 2018-05-03 14:34 | Progress Note ---
Assessment and Plan /Acute upper GI bleed - likely due to gastric ulcer, - cont PPI BID, GI following, s/p EGD and colonoscopy - biopsy negative for any malignancy - monitor H/H, GI soft diet started /Severe anemia due to Upper GI bleed - s/p total 7 units of PRBC transfusion - cont to monitor h/H, /DWIGHT, likely from vasomotor nephropathy - cont iv fluid, monitor BMP, renal consulted /Hypotension/shock on pressor due to hypovolumia and sepsis - - cont iv fluid, weaned off pressor, bp now stable off prossor /Sepsis with RLL PNA, tachycardia and leukocytosis - CXR showed RLL infiltrates, cont zosyn /DVT Px, on SCD Disposition: home with outpt follow up. Brief history: 58-year-old male presents to ED with complaint of bloody stools 2 days. Hb on admission was 3.1, s/p 7 units PRBC transfusion. s/p EGD 04/28/17 showed hiatal hernia, mild gastritis, and a raised nodular area w/ white based ulcer w/o bleeding stigmata in very proximal duodenal bulb (not classified appearance for GIST)- bx results negative. s/p colon 04/29/17 revealed a colon polyp (s/p removal with hot snare), and internal hemorrhoids. Physical exam: General appearance: Present: no acute distress, well-nourished - EENT Eyes: PERRL, EOM intact ENT: hearing intact, clear oral mucosa Ears: bilateral: normal - Neck Neck: supple, normal ROM - Respiratory Respiratory effort: normal Respiratory: bilateral: CTA - Cardiovascular Rhythm: regular Heart Sounds: Present: S1 & S2. Absent: gallop, rub Extremities: pulses intact, No edema, normal color, Full ROM - Gastrointestinal General gastrointestinal: Present: soft, non-tender, non-distended, normal bowel sounds - Integumentary Integumentary: clear, warm, dry - Musculoskeletal Musculoskeletal: 1, strength equal bilaterally - Neurologic Neurologic: moves all extremities - Psychiatric Psychiatric: memory intact, appropriate mood/affect, intact judgment & insight Subjective Date of service: 05/03/18 Principal diagnosis: Acute GI Bleed Interval history: Pt seen and examined No further bloody or black stool denies any abdominal pain resting at tele Objective - Constitutional Vitals: Vital Signs - 12hr 05/03/18 05/03/18 05:04 11:20 Temperature 98.3 F 98.3 F Pulse Rate 82 Respiratory 16 18 Rate Blood Pressure 108/57 113/69 O2 Sat by Pulse 97 Oximetry - Labs CBC & Chem 7: 05/04/18 05:20 05/04/18 05:20 Labs: Abnormal lab results 05/02/18 05/03/18 05/03/18 Range/Units 11:00 05:30 05:35 RBC 2.64 L (3.65-5.03) M/mm3 Hgb 7.6 L (11.8-15.2) gm/dl Hct 22.8 L (35.5-45.6) % RDW 16.5 H (13.2-15.2) % Chloride 111.2 H (98-107) mmol/L Carbon Dioxide 21 L (22-30) mmol/L Creatinine 1.9 H (0.8-1.5) mg/dL Glucose 61 L (75-100) mg/dL Calcium 6.9 L (8.4-10.2) mg/dL Crossmatch See Detail
--- NOTE | 2018-05-03 15:43 | XRay Report ---
PA lateral chest: Followup pneumonia. As a pulmonary infiltrate in the right lower lobe which is show no significant change compared to prior exam of April 30. The exam is rotated however the medial aspect of the left hemidiaphragm is obscured which was not the case on the prior exam. No other interval changes are identified. A left PICC line remains in good position. Impression: 1. Persistent right lower lobe infiltrate consistent with pneumonia. 2. Suspicion of new consolidation at medial left lung base.
[2018-05-03] MEDS: D5/0.45NS 1,000 ML IV SCH (23:43)
[2018-05-04 05:49] LABS: Hematocrit 22.7 % (35.5-45.6); Hemoglobin 7.5 gm/dl (11.8-15.2); Mean Corpuscular HGB Conc 33 % (32-34); Mean Corpuscular Volume 87 fl (84-94); Platelet Count 175 K/mm3 (140-440); Red Blood Count 2.61 M/mm3 (3.65-5.03); Red Cell Distribution Width 16.6 % (13.2-15.2)
[2018-05-04 06:05] LABS: Calcium 6.9 mg/dL (8.4-10.2)
[2018-05-04] MEDS: K-DUR PO SCH (07:45)
[2018-05-04] MEDS: PROTONIX PO SCH (09:10)
--- NOTE | 2018-05-04 12:15 | Discharge Summary ---
Providers - Providers Date of Admission: 04/28/18 03:49 Date of discharge: 05/04/18 Attending physician: MARCELA BROWN 04/27/18 23:15 Consult to Physician [CONS] Stat Comment: DR Renetta HUNT NOTIFIED Consulting Provider: JEANNINE HUNT Physician Instructions: Reason For Exam: GI bleed 04/28/18 06:00 Consult to Physician [CONS] Routine Comment: A/S NOTIFIED ДМИТРИЙ [id number] Consulting Provider: GEE AVALOS Physician Instructions: Reason For Exam: ICU ADMISSION FOR G.I BLEEDING WITH HYPOTENSION Consult to Physician [CONS] Routine Comment: DR JACKSON NOTIFIED [id number] Consulting Provider: RAIMUNDO MURPHY Physician Instructions: Reason For Exam: DWIGHT 04/28/18 23:01 Consult to Wound/ET Nurse [CONS] Routine Reason For Exam: wound eval 04/30/18 11:55 PICC Line Insertion [Consult to PICC Line RN] [CONS] Urgent Reason For Exam: vasopressor administration Type Line:: PICC Primary care physician: DANIELLE MAXWELL Hospitalization Reason for admission: bloody stool Condition: Critical Pertinent studies: CXR 2d echo Hospital course: Brief history: 58-year-old male presents to ED with complaint of bloody stools 2 days. Hb on admission was 3.1, s/p 7 units PRBC transfusion. s/p EGD 04/28/17 showed hiatal hernia, mild gastritis, and a raised nodular area w/ white based ulcer w/o bleeding stigmata in very proximal duodenal bulb (not classified appearance for GIST)- bx results negative. s/p colon 04/29/17 revealed a colon polyp (s/p remov al with hot snare), and internal hemorrhoids. Patient was placed on PPI and discharged home with outpt GI followup. Discharge diagnosis and management: /Acute upper GI bleed - due to gastric ulcer, - cont PPI BID, GI consulted, s/p EGD and colonoscopy - biopsy negative for any malignancy - monitored H/H, GI soft diet started and patient was tolerating /Severe anemia due to Upper GI bleed - s/p total 7 units of PRBC transfusion /DWIGHT, likely from vasomotor nephropathy - resolved with iv fluid, monitored BMP, renal consulted /Hypotension/shock on pressor due to hypovolumia and sepsis - required iv fluid, levophed and multiple transfusion, - bp now stable off prossor on discharge - 2d echo showed preserved EF /Sepsis with RLL PNA, tachycardia and leukocytosis - CXR showed RLL infiltrates, treated with zosyn for possible aspiration PNA for total 7 days /DVT Px, on SCD Disposition: home with outpt follow up. Physical exam: General appearance: Present: no acute distress, well-nourished - EENT Eyes: PERRL, EOM intact ENT: hearing intact, clear oral mucosa Ears: bilateral: normal - Neck Neck: supple, normal ROM - Respiratory Respiratory effort: normal Respiratory: bilateral: CTA - Cardiovascular Rhythm: regular Heart Sounds: Present: S1 & S2. Absent: gallop, rub Extremities: pulses intact, No edema, normal color, Full ROM - Gastrointestinal General gastrointestinal: Present: soft, non-tender, non-distended, normal bowel sounds - Integumentary Integumentary: clear, warm, dry - Musculoskeletal Musculoskeletal: 1, strength equal bilaterally - Neurologic Neurologic: moves all extremities - Psychiatric Psychiatric: memory intact, appropriate mood/affect, intact judgment & insight Disposition: DC-01 TO HOME OR SELFCARE Time spent for discharge: 34 minutes Core Measure Documentation - Palliative Care Palliative Care/ Comfort Measures: Not Applicable - Core Measures Any of the following diagnoses?: none Exam - Constitutional Vitals: Temp Pulse Resp BP Pulse Ox 97.7 F 90 16 117/52 100 05/04/18 05:58 05/04/18 06:00 05/04/18 05:58 05/04/18 05:58 05/04/18 05:58 Plan Activity: advance as tolerated Weight Bearing Status: Weight Bear as Tolerated Diet: advance as tolerated Follow up with: DANIELLE MAXWELL MD [Primary Care Provider] - 3-5 Days SAMANTHA JOEL MD [Staff Physician] - 7 Days Forms: Accompanied Note Prescriptions: Pantoprazole [Protonix TAB] 40 mg PO BID #60 tablet
[2018-05-04] MEDS ORDERED: TRIPLE ANTIBIOTIC TP ONE (16:41)
--- NOTE | 2018-05-04 16:48 | Progress Note ---
Assessment and Plan Acute Kidney Injury possibly multi-factorial secondary to prerenal/ATN, nausea, vomiting, hypotension, possible underlying CKD process: Non-Anion Gap Metabolic Acidosis: - stable kidney function - Review of labs from [id number] showed SCr level between 1.2-1.7 - Renally dose meds - Continue to monitor renal function Anemia: GI Bleed: - S/P EGD on 04/28/18 showed- hiatal hernia, gastritis, raised nodular area (8mm) with noted white based ulcer w/o bleeding stigmata. - On Protonix 40 mg po BID - S/p multiple blood transfusions since hospitalized - Transfuse as per GI/primary Leukocytosis: Hypotension: - Follow Cx - On IV Levaquin Subjective Date of service: 05/04/18 Principal diagnosis: Acute GI Bleed Interval history: Making urine. Objective - Exam Narrative Exam: General appearance: well-developed, well-nourished EENT: ATNC, PERRL Neck: no JVD, no carotid bruit Respiratory: Present: Clear to Ascultation. Absent: Rales, Ronchi Cardiology: regular, S1S2 Gastrointestinal: normoactive bowel sounds, no tenderness, no distended Integumentary: no rash, warm and dry Neurologic: no focal deficit, no asterixis Musculoskeletal: other (trace pitting edema in BLE) Psychiatric: cooperative - Vital Signs Vital signs: Vital Signs - 12hr 05/04/18 05/04/18 05/04/18 05:58 06:00 11:54 Temperature 97.7 F 98.1 F Pulse Rate 72 90 66 Respiratory 16 20 Rate Blood Pressure 117/52 114/65 O2 Sat by Pulse 100 100 Oximetry 05/04/18 12:58 Temperature Pulse Rate Respiratory Rate Blood Pressure O2 Sat by Pulse 100 Oximetry - Lab 05/04/18 05:20 05/04/18 05:20 Most recent lab results Calcium 6.9 mg/dL (8.4-10.2) L 05/04/18 05:20 Phosphorus 3.00 mg/dL (2.5-4.5) 04/29/18 07:13 Magnesium 1.40 mg/dL (1.7-2.3) L 05/01/18 04:30 Urine Creatinine 37.0 mg/dL (0.1-20.0) H 04/28/18 18:01 Urine Sodium 93 mmol/L 04/28/18 18:01 Urine Total Protein 83 mg/dL (5-11.8) H 04/28/18 18:01 Medications & Allergies - Medications Allergies/Adverse Reactions: Allergies No Known Allergies Allergy (Verified 03/27/17 23:28) Home Medications: Home Medications Medication Instructions Recorded Confirmed Last Taken Type Pantoprazole [Protonix TAB] 40 mg PO BID #60 tablet 05/04/18 Unknown Rx Active Medications: Generic Name Dose Route Start Last Admin Trade Name Freq PRN Reason Stop Dose Admin Acetaminophen 650 mg 04/28/18 01:32 Tylenol [place] Q4H PRN Fever >101 Dextrose/Sodium Chloride 1,000 mls @ 42 mls/hr 05/02/18 09:00 05/03/18 23:43 D5/0.45ns IV 42 mls/hr DIRECT NESTOR Administration Ondansetron HCl 4 mg 04/28/18 01:23 Zofran IV Q8H PRN Nausea And Vomiting Oxycodone/Acetaminophen 1 tab 04/28/18 23:00 05/03/18 23:11 Percocet 5/325 PO 1 tab Q4H PRN Administration Pain, Moderate (4-6) Pantoprazole Sodium 40 mg 05/01/18 10:00 05/04/18 09:10 Protonix PO 40 mg BID NESTOR Administration
[2018-05-05 11:25] VITALS: BP 114/65
== END 2018-05-04 18:47 | disposition home or self-care (01) | DRG 871 ==
LOC: ED 21:43 → 4A 04-28 03:49 → CC1 04-28 05:35 → 3A 05-01 22:41
PROVIDERS: ADMIT Internal Medicine; ATTEND Internal Medicine
PROC: 06HN33Z Insertion of Infusion Device into Left Femoral Vein, Percutaneous Approach (ICD-10-PCS; principal; 2018-04-27)
PROC: 30233N1 Transfusion of Nonautologous Red Blood Cells into Peripheral Vein, Percutaneous Approach (ICD-10-PCS; 2018-04-28)
PROC: 0DB98ZX Excision of Duodenum, Via Natural or Artificial Opening Endoscopic, Diagnostic (ICD-10-PCS; 2018-04-28)
PROC: 0DBL8ZZ Excision of Transverse Colon, Via Natural or Artificial Opening Endoscopic (ICD-10-PCS; 2018-04-29)
PROC: 02HV33Z Insertion of Infusion Device into Superior Vena Cava, Percutaneous Approach (ICD-10-PCS; 2018-04-30)
DX: A41.9 Sepsis, unspecified organism (principal); N17.0 Acute kidney failure with tubular necrosis; R65.21 Severe sepsis with septic shock; E43 Unspecified severe protein-calorie malnutrition; K26.4 Chronic or unspecified duodenal ulcer with hemorrhage; J18.1 Lobar pneumonia, unspecified organism; E87.2 Acidosis; D62 Acute posthemorrhagic anemia; K29.70 Gastritis, unspecified, without bleeding; K44.9 Diaphragmatic hernia without obstruction or gangrene; L73.2 Hidradenitis suppurativa; K31.89 Other diseases of stomach and duodenum; K62.1 Rectal polyp; F17.210 Nicotine dependence, cigarettes, uncomplicated; K64.8 Other hemorrhoids; Z68.26 Body mass index [BMI] 26.0-26.9, adult; Z79.899 Other long term (current) drug therapy
CPT/HCPCS: 36415; 36430; 71045; 71046; 80048; 80053; 81001; 82043; 82140; 83690; 83735; 83970; 84100; 84156; 84300; 85007; 85014; 85018; 85025; 85027; 85610; 85730; 86140; 86850; 86900; 86901; 86920; 87040; 87086; 88305; 89050; 93005; 93010; 93306; 94760; G0378; A6250; C9113; J0456; J1956; J2250; J2370; J2405; J2543; J2704; J3475; J7030; J7040; J7042; J7050; P9016

== ENCOUNTER 2018-06-15 06:03 | Inpatient (IN) | payer MEDICARE ==
[2018-06-15] MEDS ORDERED: NACL 0.9% 1000 ML 1,000 ML IV ONE ×2 (06:37→07:37)
[2018-06-15 07:11] LABS: Basophils # (Auto) 0.1 K/mm3 (0.0-0.1); Basophils % (Auto) 0.6 % (0.0-1.8); Eosinophils # (Auto) 0.3 K/mm3 (0.0-0.4); Eosinophils % (Auto) 2.1 % (0.0-4.3); Hematocrit 27.7 % (35.5-45.6); Hemoglobin 8.9 gm/dl (11.8-15.2); Lymphocytes # (Auto) 1.6 K/mm3 (1.2-5.4); Lymphocytes % (Auto) 10.9 % (13.4-35.0); Mean Corpuscular HGB Conc 32 % (32-34); Mean Corpuscular Volume 85 fl (84-94); Monocytes # (Auto) 0.6 K/mm3 (0.0-0.8); Platelet Count 298 K/mm3 (140-440); Red Blood Count 3.26 M/mm3 (3.65-5.03); Red Cell Distribution Width 16.4 % (13.2-15.2)
[2018-06-15] MEDS ORDERED: PROTONIX IV ONE (07:37)
--- NOTE | 2018-06-15 07:43 | Emergency Department Report ---
ED General Adult HPI - General Chief complaint: Abdominal Pain Stated complaint: ABDOMINAL PAIN/N/V Time Seen by Provider: 06/15/18 07:21 Source: EMS Mode of arrival: Stretcher Limitations: No Limitations - History of Present Illness Initial comments: This is a 58-year-old male who presents to the emergency department via EMS after a hypoglycemic and hypotensive episode. The patient is a rather poor historian. After much interrogation he finally mentions that he received 6 units of blood in April. He states he had an upper and lower endoscopy for rectal bleeding but nothing was found. In fact, he was found to have upper GI bleeding due to gastric ulcer and internal hemorrhoids per previous discharge summary. Additionally he was treated for sepsis and shock.: 58-year-old male presents to ED with complaint of bloody stools 2 days. Hb on admission was 3.1, s/p 7 units PRBC transfusion. s/p EGD 04/28/17 showed hiatal hernia, mild gastritis, and a raised nodular area w/ white based ulcer w/o bleeding stigmata in very proximal duodenal bulb (not classified appearance for GIST)- bx results negative. s/p colon 04/29/17 revealed a colon polyp (s/p removal with hot snare), and internal hemorrhoids. Patient was placed on PPI and discharged home with outpt GI followup. Discharge diagnosis and management: /Acute upper GI bleed - due to gastric ulcer, - cont PPI BID, GI consulted, s/p EGD and colonoscopy - biopsy negative for any malignancy - monitored H/H, GI soft diet started and patient was tolerating /Severe anemia due to Upper GI bleed - s/p total 7 units of PRBC transfusion /DWIGHT, likely from vasomotor nephropathy - resolved with iv fluid, monitored BMP, renal consulted /Hypotension/shock on pressor due to hypovolumia and sepsis - required iv fluid, levophed and multiple transfusion, - bp now stable off prossor on discharge - 2d echo showed preserved EF /Sepsis with RLL PNA, tachycardia and leukocytosis - CXR showed RLL infiltrates, treated with zosyn for possible aspiration PNA for total 7 days /DVT Px, on SCD Patient tells me he's had abdominal pain and diarrhea for a week. He states he has not seen a doctor up until this date. He denies having a history of any medical problems except for hidradenitis. He states he's had surgery for that in the groin and the axilla. He does not go to wound care clinic. He constantly is applying gauze dressings. He does admit that he has noted a foul odor from the dressings over the last week. He tells me this after I examined him and found him to have very fetid type drainage probably from multiple tracks of the blood tox as well as moist and anaerobic type contaminated gauze on his blood tox and groin area. -: week(s) Location: abdomen Radiation: non-radiation Quality: aching (diffuse) Consistency: intermittent Improves with: none Worsens with: none Associated Symptoms: denies other symptoms (poor historian, states unaware of f ever) - Related Data Previous Rx's Medication Instructions Recorded Last Taken Type Pantoprazole [Protonix TAB] 40 mg PO BID #60 tablet 05/04/18 Unknown Rx Allergies Allergy/AdvReac Type Severity Reaction Status Date / Time No Known Allergies Allergy Verified 03/27/17 23:28 ED Review of Systems ROS: Stated complaint: ABDOMINAL PAIN/N/V Other details as noted in HPI Constitutional: weakness. denies: chills, fever Eyes: denies: eye pain, eye discharge, vision change ENT: denies: ear pain, throat pain Respiratory: denies: cough, shortness of breath, wheezing Cardiovascular: denies: chest pain, palpitations Endocrine: no symptoms reported Gastrointestinal: abdominal pain, nausea, vomiting, diarrhea Genitourinary: denies: urgency, dysuria Musculoskeletal: denies: back pain, joint swelling, arthralgia Skin: other (draining from his hidradenitis). denies: rash, lesions Neurological: denies: headache, weakness, paresthesias Psychiatric: denies: anxiety, depression Hematological/Lymphatic: denies: easy bleeding, easy bruising ED Past Medical Hx - Past Medical History Previous Medical History?: Yes Hx Hypertension: No Hx Congestive Heart Failure: No Hx Diabetes: No Hx Deep Vein Thrombosis: No Hx Renal Disease: No Hx Asthma: No Hx COPD: No Additional medical history: hydrodenitis, Rectal polyps, gastric ulcers, GI bleeding, sepsis, shock, multiple transfusions, hospitalization in April 2018 - Surgical History Past Surgical History?: Yes Hx Pacemaker: No Hx Internal Defibrillator: No Additional Surgical History: multiple skin graft, wound vac to stomach - Social History Smoking Status: Never Smoker - Medications Home Medications: Home Medications Medication Instructions Recorded Confirmed Last Taken Type Pantoprazole [Protonix TAB] 40 mg PO BID #60 tablet 05/04/18 Unknown Rx ED Physical Exam - General Limitations: No Limitations General appearance: alert, in no apparent distress, cachectic - Head Head exam: Present: atraumatic, normocephalic, other (alopecia) - Eye Eye exam: Present: normal appearance. Absent: scleral icterus - ENT ENT exam: Present: mucous membranes dry - Neck Neck exam: Present: normal inspection. Absent: tenderness, meningismus - Respiratory Respiratory exam: Present: normal lung sounds bilaterally. Absent: respiratory distress - Cardiovascular Cardiovascular Exam: Present: regular rate, normal rhythm. Absent: systolic murmur, diastolic murmur, rubs, gallop - GI/Abdominal GI/Abdominal exam: Present: soft, normal bowel sounds, other (moist gauze and groin area). Absent: distended, tenderness, guarding, rebound, rigid - Rectal Rectal exam: Present: other (purulent and anaerobic-type drainage from tracks of the buttocks) - Extremities Exam Extremities exam: Present: normal inspection - Back Exam Back exam: Present: normal inspection - Neurological Exam Neurological exam: Present: alert, oriented X3, CN II-XII intact. Absent: motor sensory deficit - Psychiatric Psychiatric exam: Present: normal mood, flat affect - Skin Skin exam: Present: warm, dry, other (see above draining tract moist and aerobic contaminated gauze). Absent: rash ED Course Vital Signs 06/15/18 06/15/18 06/15/18 06:22 06:28 08:17 Temperature 98.2 F Pulse Rate 95 H 84 Respiratory 20 18 16 Rate Blood Pressure 113/60 Blood Pressure 126/72 [Left] O2 Sat by Pulse 100 96 Oximetry - Reevaluation(s) Reevaluation #1: Additional additional fluids, Antibiotic coverage, CT with oral contrast pending. Creatinine too high for IV contrast . Discussed with hospitalist and admit. 06/15/18 07:52 Protonix ordered. ED Medical Decision Making - Lab Data Result diagrams: 06/15/18 06:52 06/15/18 06:45 Laboratory Results - last 24 hr 06/15/18 06/15/18 06/15/18 06:45 06:52 07:19 WBC 14.2 H RBC 3.26 L Hgb 8.9 L Hct 27.7 L MCV 85 MCH 27 L MCHC 32 RDW 16.4 H Plt Count 298 Lymph % (Auto) 10.9 L [place] % (Auto) 4.0 Eos % (Auto) 2.1 Baso % (Auto) 0.6 Lymph # 1.6 [place] # 0.6 Eos # 0.3 Baso # 0.1 Seg Neutrophils % 82.4 H Seg Neutrophils # 11.7 H Sodium 135 L Potassium 4.2 Chloride 102.4 Carbon Dioxide 20 L Anion Gap 17 BUN 33 H Creatinine 2.7 H Estimated GFR 29 BUN/Creatinine Ratio 12 Glucose 86 POC Glucose 87 Calcium 8.0 L Total Bilirubin 0.60 AST 9 Alkaline Phosphatase 83 Total Protein 8.5 H Albumin 1.7 L Albumin/Globulin Ratio 0.3 Lipase 16 - EKG Data -: EKG Interpreted by Me EKG shows normal: sinus rhythm, axis, intervals, QRS complexes, ST-T waves - EKG Data Interpretation: nonspecific ST-T wave yvrose Critical care attestation.: If time is entered above; I have spent that time in minutes in the direct care of this critically ill patient, excluding procedure time. ED Disposition Clinical Impression: Left buttock abscess, Hidradenitis suppurativa, Hypoglycemia Sepsis Qualifiers: Sepsis type: sepsis due to unspecified organism Qualified Code(s): A41.9 - Sepsis, unspecified organism Acute renal failure Qualifiers: Acute renal failure type: unspecified Qualified Code(s): N17.9 - Acute kidney failure, unspecified Anemia Qualifiers: Anemia type: unspecified type Qualified Code(s): D64.9 - Anemia, unspecified Hypotension Qualifiers: Hypotension type: unspecified hypotension type Qualified Code(s): I95.9 - Hypotension, unspecified Abdominal pain Qualifiers: Abdominal location: generalized Qualified Code(s): R10.84 - Generalized abdominal pain Disposition: OP ADMIT IP TO THIS HOSP Is pt being admited?: Yes Does the pt Need Aspirin: No (GI bleeding suspected that she is chronic would withhold) Condition: Stable Referrals: ESTHER KUHN MD [Primary Care Provider] - 3-5 Days
[2018-06-15 07:46] LABS: Albumin 1.7 g/dL (3.9-5); BUN/Creatinine Ratio 12; Blood Urea Nitrogen 33 mg/dL (9-20); Hemolysis Index 14
[2018-06-15 07:51] LABS: Alanine Aminotransferase < 5 units/L (7-56)
[2018-06-15] MEDS ORDERED: ZOSYN/NS 3.375GM/50ML 3.375 GM/50 ML BAG IV ONE (08:00)
[2018-06-15] MEDS ORDERED: VANCOMYCIN PHARMACY TO DOSE IV SCH ×3 (08:00→15:00)
--- NOTE | 2018-06-15 08:14 | XRay Report ---
PROCEDURE: XR CHEST 1V AP TECHNIQUE: AP portable chest radiograph HISTORY: hypertension COMPARISONS: 04/30/2018, 05/03/2018 FINDINGS: Mild chronic rightward deviation of the mediastinum is unchanged. Heart size is normal. No pneumothor ax, effusion no focal airspace disease. No acute skeletal finding. IMPRESSION: No acute pulmonary findings. This document is electronically signed by Pravin Jones MD., June 15 2018 08:12:11 AM ET
[2018-06-15 08:26] LABS: INR 1.14 (0.87-1.13)
[2018-06-15 08:27] LABS: Partial Thromboplastin Time 31.7 Sec. (24.2-36.6)
[2018-06-15] MEDS ORDERED: VANCOMYCIN 1,250 MG in NACL 0.9% 250ML 250 ML IV ONE (09:00)
--- NOTE | 2018-06-15 10:26 | History and Physical Report ---
History of Present Illness Date of examination: 06/15/18 Date of admission: 06/15/18 Chief complaint: Drainage from buttocks, right axilla fever gen weakness History of present illness: Patient is 58 yo with hidradenities suppurativa. He has had many surgical procedures, skin graft procedures. He presents with fever, nausea, vomiting and diarrhea for 1 week. He states symptoms getting worse. He vomits once or twice a day, mostly after food. He also had fever at home. Currently has foul smelling drainage from buttocks and also from right axilla. He has had many surgical procedures including skin graft X 4. patient presents to Ed for evaluation. currently he is afebrile. Labs show leukocytosis, elevated Creatinine. He was started on Zosyn and Vancomycin by ED Physician. CT abdomen, pelvis ordered. Will admit. He has been following at Wound clinic with Dr. Aguilar. Past History Past Medical History: other (Hidradenitis suppurativa s/p multiple surgeries,skin grafts x 4 ) Past Surgical History: Other (Multiple surgeries for hidradenitis suppurativa) Social history: single, full code, other (Alcohol occasionally). denies: smoking Family history: no significant family history Medications and Allergies Allergies Allergy/AdvReac Type Severity Reaction Status Date / Time No Known Allergies Allergy Verified 03/27/17 23:28 Home Medications Medication Instructions Recorded Confirmed Last Taken Type Pantoprazole [Protonix TAB] 40 mg PO BID #60 tablet 05/04/18 06/15/18 Unknown Rx Active Meds: Active Medications Sodium Chloride (Nacl 0.9% 1000 Ml) 1,000 mls @ 250 mls/hr IV ONCE ONE Stop: 06/15/18 10:36 Last Admin: 06/15/18 07:56 Dose: 250 mls/hr Documented by: Vancomycin HCl 1,250 mg/ (Sodium Chloride) 275 mls @ 183.333 mls/hr IV ONCE.ED ONE Stop: 06/15/18 10:29 Last Admin: 06/15/18 08:45 Dose: 183.333 mls/hr Documented by: Vancomycin HCl 750 mg/ Sodium (Chloride) 265 mls @ 176.667 mls/hr IV Q24H NESTOR Review of Systems All systems: negative (No chest pain, no SOB, nourinary symptoms. All other systems reviewed and are negative) Exam - Physical Exam Narrative exam: GEN: Not in acute distress, lying in bed HEENT: Normocephalic, atraumatic, Neck: supple, No JVD heart: S1 and s2 reg, no murmurs Lungs: Clear to auscultation bilat, no crackles, no wheeze Abd:soft, non tender, non distended, normal bowel sounds Ext: No edema,no clubbing, no cyanosis, ulcer with drainage right axilla Gluteal:Ulcer with drainage Neuro:Awake,alert,oriented X 3, no focal signs Psych: normal mood - Constitutional Vitals: Temp Pulse Resp BP Pulse Ox 98.2 F 84 16 109/62 96 06/15/18 06:22 06/15/18 08:17 06/15/18 08:17 06/15/18 08:17 06/15/18 08:17 Results - Labs CBC & Chem 7: 06/16/18 07:08 06/16/18 07:08 Labs: Abnormal lab results 06/15/18 06/15/18 06/15/18 Range/Units 06:45 06:52 07:54 WBC 14.2 H (4.5-11.0) K/mm3 RBC 3.26 L (3.65-5.03) M/mm3 Hgb 8.9 L (11.8-15.2) gm/dl Hct 27.7 L (35.5-45.6) % MCH 27 L (28-32) pg RDW 16.4 H (13.2-15.2) % Lymph % (Auto) 10.9 L (13.4-35.0) % Seg Neutrophils % 82.4 H (40.0-70.0) % Seg Neutrophils # 11.7 H (1.8-7.7) K/mm3 PT 15.3 H (12.2-14.9) Sec. INR 1.14 H (0.87-1.13) Sodium 135 L (137-145) mmol/L Carbon Dioxide 20 L (22-30) mmol/L BUN 33 H (9-20) mg/dL Creatinine 2.7 H (0.8-1.5) mg/dL Calcium 8.0 L (8.4-10.2) mg/dL ALT < 5 L (7-56) units/L NT-Pro-B Natriuret Pep (0-900) pg/mL Total Protein 8.5 H (6.3-8.2) g/dL Albumin 1.7 L (3.9-5) g/dL 06/15/18 Range/Units 07:54 WBC (4.5-11.0) K/mm3 RBC (3.65-5.03) M/mm3 Hgb (11.8-15.2) gm/dl Hct (35.5-45.6) % MCH (28-32) pg RDW (13.2-15.2) % Lymph % (Auto) (13.4-35.0) % Seg Neutrophils % (40.0-70.0) % Seg Neutrophils # (1.8-7.7) K/mm3 PT (12.2-14.9) Sec. INR (0.87-1.13) Sodium (137-145) mmol/L Carbon Dioxide (22-30) mmol/L BUN (9-20) mg/dL Creatinine (0.8-1.5) mg/dL Calcium (8.4-10.2) mg/dL ALT (7-56) units/L NT-Pro-B Natriuret Pep 1839 H (0-900) pg/mL Total Protein (6.3-8.2) g/dL Albumin (3.9-5) g/dL Assessment and Plan Sepsis , likely Admit blood cultures drawn started on zosyn and vanco in ED, continue Hidradenitis suppurativa Consult surgeon DWIGHT vs acute on chronic start iv fluids consult Nephrology History of GI bleed protonix leukocytosis due to sepsis Full code status
[2018-06-15] MEDS ORDERED: D5NS 1,000 ML IV SCH (11:00)
--- NOTE | 2018-06-15 11:59 | Cat Scan Report ---
PROCEDURE: CT ABDOMEN PELVIS WO CON TECHNIQUE: CT of the abdomen and pelvis was performed. No IV contrast was administered. Oral contrast was administered. Axial images and coronal and sagittal reformatted images were obtained. HISTORY: multiple draining groin/buttock tracts, abd pain COMPARISON: 06/12/2017 FINDINGS: Within the limitations of a noncontrast exam, the visualized liver, spleen, pancreas, adrenal glands and kidneys demonstrate no significant abnormality. There is duodenal wall thickening. This most notably involves the distal duodenum and also involves t he proximal jejunum. There is likely cholelithiasis. There is no evidence for intstinal obstruction. The appendix is normal. There is no abdominal aortic aneurysm. There is no free intraperitoneal air. There is mild generalized edema. Bladder is unremarkable. There is cutaneous/subcutaneous thickening/edema involving the buttocks, left greater than right. Thi s notably involves the medial soft tissues bilaterally and also involves posterior buttocks on the le ft. There is no abscess identified. There is similar abnormal cutaneous/subcutaneous thickening of the scrotal region. There is no acute osseous abnormality seen. IMPRESSION: Cutaneous and subcutaneous thickening/edema involving the buttocks, left greater than right. No absce ss identified. Similar appearance also involves the scrotal wall. Similar appearance was seen on the prior exam. Abscess not seen but evaluation limited due to left of IV contrast. There is also mild generalized subcutaneous edema. Abnormal wall thickening involving the duodenum and proximal jejunum which is nonspecific but could b e duodenitis/jejunitis. Other infiltrative abnormality or mass such as lymphoma not excluded. Probable cholelithiasis. This document is electronically signed by uJli Haley MD., June 15 2018 11:56:12 AM ET
--- NOTE | 2018-06-15 12:54 | Consultation ---
History of Present Illness - Reason for Consult Consult date: 06/15/18 acute renal failure - History of Present Illness This is a 58 y/o male who has been admitted to the [facility] with nausea, vomiting, belly pain and poor appetite. Pt has also had some diarrhea. He denies SHOB, CP, NSAID use, swelling. He has been found to have DWIGHT in the ER. ROS: As in HPI otherwise 12 point reveiw of systems -ve Past History Past Medical History: other (Hidradenitis suppurativa s/p multiple surgeries,skin grafts x 4 ) Past Surgical History: Other (Multiple surgeries for hidradenitis suppurativa) Social history: single, full code, other (Alcohol occasionally). denies: smoking Family history: no significant family history Medications and Allergies Allergies Allergy/AdvReac Type Severity Reaction Status Date / Time No Known Allergies Allergy Verified 03/27/17 23:28 Home Medications Medication Instructions Recorded Confirmed Last Taken Type Pantoprazole [Protonix TAB] 40 mg PO BID #60 tablet 05/04/18 06/15/18 Unknown Rx Active Meds: Active Medications Acetaminophen (Tylenol) 650 mg PO Q4H PRN PRN Reason: Pain MILD(1-3)/Fever >100.5/BARNES Vancomycin HCl 750 mg/ Sodium (Chloride) 265 mls @ 176.667 mls/hr IV Q24H NESTOR Dextrose/Sodium Chloride (D5ns) 1,000 mls @ 75 mls/hr IV DIRECT NESTOR Piperacillin Sod/Tazobactam Sod (Zosyn/Ns 4.5gm/100ml) 4.5 gm in 100 mls @ 200 mls/hr IV Q8HR NESTOR; Protocol Morphine Sulfate (Morphine) 2 mg IV Q4H PRN PRN Reason: Pain, Moderate (4-6) Ondansetron HCl (Zofran) 4 mg IV Q8H PRN PRN Reason: Nausea And Vomiting Pantoprazole Sodium (Protonix) 40 mg IV BID NESTOR Sodium Chloride (Sodium Chloride Flush Syringe 10 Ml) 10 ml IV PRN PRN PRN Reason: LINE FLUSH Exam - Vital Signs Vital signs: Vital Signs Temp Pulse Resp BP Pulse Ox 98.2 F 95 H 20 113/60 100 06/15/18 06:22 06/15/18 06:22 06/15/18 06:22 06/15/18 06:22 06/15/18 06:22 - Physical Exam Narrative exam: GE:AAOX3 HEENT:PERRLA Neck:Supple Chest:Coarse BS BL CVS:RRR Abd:Soft Ext: No cce Results - Lab Results 06/15/18 06:52 06/15/18 06:45 Most recent lab results Calcium 8.0 mg/dL (8.4-10.2) L 06/15/18 06:45 Assessment and Plan Acute Kidney injury likely pre-renal/DWIGHT due to poor appetite, hypotenison on top of CKD: Metabolic acidosis: Sepsis likely due to UTI: Possible Urinary tract infection: Nausea, vomiting and diarrhea: Anemia of chronic disease due to CKD: -Check Urine studies, Renal US -Hydrate with NS at 125 mls/hr -Albumin X 3 to boast up BP -Monitor acidosis -On ABx, follow Cx -Renally dose all meds -Avoid Nephrotoxic meds Michi Cabello MD [phone]
[2018-06-15 13:48] LABS: Bacteria,Urine 1+ /HPF (Negative); Bilirubin,Urine NEG (Negative); Blood,Urine MOD (Negative); Color,Urine Amber (Yellow); Hyaline Casts,Urine 1 /LPF; Mucus,Urine FEW /HPF
[2018-06-15] MEDS ORDERED: ZOSYN/NS 4.5GM/100ML 4.5 GM/100 ML VIAL IV SCH (14:00)
[2018-06-15] MEDS: ZOSYN/NS 2.25 GM/50ML 2.25 GM/50 ML BAG IV SCH ×2 (14:43→22:48)
[2018-06-15] MEDS: D5NS 1,000 ML IV SCH ×2 (14:50→22:48)
[2018-06-15] MEDS ORDERED: D5NS 1,000 ML IV ONE (14:51)
[2018-06-15] MEDS ORDERED: ZOSYN/NS 4.5GM/100ML 0 GM/0 ML VIAL IV ONE (20:13)
[2018-06-15] MEDS: PROTONIX IV SCH (22:48)
[2018-06-15] MEDS: MORPHINE IV PRN (22:49)
[2018-06-15] MEDS: SODIUM CHLORIDE FLUSH SYRINGE 10 ML IV PRN (22:49)
--- NOTE | 2018-06-15 23:25 | Ultrasound Report ---
PROCEDURE: US RENAL BILAT TECHNIQUE: Real-time sonography in multiple planes of the kidneys, ureters and urinary bladder was p erformed with image documentation. HISTORY: felipe COMPARISONS: None . FINDINGS: RIGHT kidney: The size of the kidneys is normal. No hydronephrosis. There is a cyst in the mid right renal cortex, this measures 2.7 cm.. Length: 11.4 cm. LEFT kidney: Normal echotexture. No focal renal mass, calculus, or hydronephrosis. Length: 11.5 cm. Bladder: Normal. No distention or wall thickening. IMPRESSION: Both kidneys have a normal size. No hydronephrosis. There is a 2.7 cm cyst in the mid ri ght renal cortex . This document is electronically signed by Yumiko To DO., June 15 2018 11:23:11 PM ET
[2018-06-16] MEDS: MORPHINE IV PRN ×4 (04:13→22:18)
[2018-06-16] MEDS: ZOSYN/NS 2.25 GM/50ML 2.25 GM/50 ML BAG IV SCH ×3 (04:14→16:47)
[2018-06-16] MEDS: TYLENOL PO PRN ×2 (07:08→20:39)
[2018-06-16 09:00] LABS: Basophils # (Auto) 0.1 K/mm3 (0.0-0.1); Basophils % (Auto) 0.5 % (0.0-1.8); Eosinophils # (Auto) 0.5 K/mm3 (0.0-0.4); Eosinophils % (Auto) 3.9 % (0.0-4.3); Hematocrit 26.9 % (35.5-45.6); Hemoglobin 8.6 gm/dl (11.8-15.2); Lymphocytes # (Auto) 2.1 K/mm3 (1.2-5.4); Lymphocytes % (Auto) 15.8 % (13.4-35.0); Mean Corpuscular HGB Conc 32 % (32-34); Mean Corpuscular Volume 84 fl (84-94); Monocytes # (Auto) 0.5 K/mm3 (0.0-0.8); Monocytes % (Auto) 4.1 % (0.0-7.3); Platelet Count 275 K/mm3 (140-440); Red Cell Distribution Width 16.6 % (13.2-15.2)
[2018-06-16] MEDS ORDERED: VANCOMYCIN 750 MG in NACL 0.9% 250ML 250 ML IV SCH (10:00)
--- NOTE | 2018-06-16 10:13 | Progress Note ---
Assessment and Plan Assessment and plan: Sepsis , likely Admitted to IMCU blood cultures drawn Continue Zosyn and Vanco consult ID Physician Hidradenitis suppurativa Consulted Dr. lora, surgeon DWIGHT vs acute on chronic started iv fluids Cr improving Nephrology following History of GI bleed protonix leukocytosis due to sepsis Full code status History Interval history: Feels better No more fever No more vomiting drainage from abscess, right axilla Hospitalist Physical - Physical exam Narrative exam: GEN: Not in acute distress, lying in bed HEENT: Normocephalic, atraumatic, Neck: supple, No JVD heart: S1 and s2 reg, no murmurs Lungs: Clear to auscultation bilat, no crackles, no wheeze Abd:soft, non tender, non distended, normal bowel sounds Ext: No edema,no clubbing, no cyanosis, ulcer with drainage right axilla Gluteal:Ulcer with drainage Neuro:Awake,alert,oriented X 3, no focal signs Psych: normal mood - Constitutional Vitals: Temp Pulse Resp BP Pulse Ox 98 F 75 16 121/60 99 06/16/18 05:00 06/16/18 05:00 06/16/18 05:00 06/16/18 04:00 06/16/18 05:00 Results - Labs CBC & Chem 7: 06/16/18 07:08 06/16/18 07:08 Labs: Laboratory Last Values WBC 13.3 K/mm3 (4.5-11.0) H 06/16/18 07:08 RBC 3.20 M/mm3 (3.65-5.03) L 06/16/18 07:08 Hgb 8.6 gm/dl (11.8-15.2) L 06/16/18 07:08 Hct 26.9 % (35.5-45.6) L 06/16/18 07:08 MCV 84 fl (84-94) 06/16/18 07:08 MCH 27 pg (28-32) L 06/16/18 07:08 MCHC 32 % (32-34) 06/16/18 07:08 RDW 16.6 % (13.2-15.2) H 06/16/18 07:08 Plt Count 275 K/mm3 (140-440) 06/16/18 07:08 Lymph % (Auto) 15.8 % (13.4-35.0) 06/16/18 07:08 [place] % (Auto) 4.1 % (0.0-7.3) 06/16/18 07:08 Eos % (Auto) 3.9 % (0.0-4.3) 06/16/18 07:08 Baso % (Auto) 0.5 % (0.0-1.8) 06/16/18 07:08 Lymph # 2.1 K/mm3 (1.2-5.4) 06/16/18 07:08 [place] # 0.5 K/mm3 (0.0-0.8) 06/16/18 07:08 Eos # 0.5 K/mm3 (0.0-0.4) H 06/16/18 07:08 Baso # 0.1 K/mm3 (0.0-0.1) 06/16/18 07:08 Seg Neutrophils % 75.7 % (40.0-70.0) H 06/16/18 07:08 Seg Neutrophils # 10.1 K/mm3 (1.8-7.7) H 06/16/18 07:08 PT 15.3 Sec. (12.2-14.9) H 06/15/18 07:54 INR 1.14 (0.87-1.13) H 06/15/18 07:54 APTT 31.7 Sec. (24.2-36.6) 06/15/18 07:54 Sodium 139 mmol/L (137-145) 06/16/18 07:08 Potassium 4.1 mmol/L (3.6-5.0) 06/16/18 07:08 Chloride 107.0 mmol/L (98-107) 06/16/18 07:08 Carbon Dioxide 23 mmol/L (22-30) 06/16/18 07:08 Anion Gap 13 mmol/L 06/16/18 07:08 BUN 26 mg/dL (9-20) H 06/16/18 07:08 Creatinine 2.3 mg/dL (0.8-1.5) H 06/16/18 07:08 Estimated GFR 35 ml/min 06/16/18 07:08 BUN/Creatinine Ratio 11 % 06/16/18 07:08 Glucose 84 mg/dL (75-100) 06/16/18 07:08 POC Glucose 106 (70-105) H 06/16/18 06:15 Lactic Acid 1.60 mmol/L (0.7-2.0) 06/15/18 07:54 Calcium 8.0 mg/dL (8.4-10.2) L 06/16/18 07:08 Total Bilirubin 0.60 mg/dL (0.1-1.2) 06/15/18 06:45 AST 9 units/L (5-40) 06/15/18 06:45 ALT < 5 units/L (7-56) L 06/15/18 06:45 Alkaline Phosphatase 83 units/L (35-129) 06/15/18 06:45 Ammonia 37.0 umol/L (25-60) 06/15/18 07:54 Troponin T < 0.010 ng/mL (0.00-0.029) 06/15/18 07:54 NT-Pro-B Natriuret Pep 1839 pg/mL (0-900) H 06/15/18 07:54 Total Protein 8.5 g/dL (6.3-8.2) H 06/15/18 06:45 Albumin 1.7 g/dL (3.9-5) L 06/15/18 06:45 Albumin/Globulin Ratio 0.3 % 06/15/18 06:45 Lipase 16 units/L (13-60) 06/15/18 06:45 Urine Color Estrella (Yellow) 06/15/18 13:20 Urine Turbidity Slightly-cloudy (Clear) 06/15/18 13:20 Urine pH 5.0 (5.0-7.0) 06/15/18 13:20 Ur Specific Edward 1.019 (1.003-1.030) 06/15/18 13:20 Urine Protein 100 mg/dl mg/dL (Negative) 06/15/18 13:20 Urine Glucose (UA) Neg mg/dL (Negative) 06/15/18 13:20 Urine Ketones Neg mg/dL (Negative) 06/15/18 13:20 Urine Blood Mod (Negative) 06/15/18 13:20 Urine Nitrite Neg (Negative) 06/15/18 13:20 Urine Bilirubin Neg (Negative) 06/15/18 13:20 Urine Urobilinogen 2.0 mg/dL (<2.0) 06/15/18 13:20 Ur Leukocyte Esterase Sm (Negative) 06/15/18 13:20 Urine WBC (Auto) 24.0 /HPF (0.0-6.0) H 06/15/18 13:20 Urine RBC (Auto) 7.0 /HPF (0.0-6.0) 06/15/18 13:20 U Epithel Cells (Auto) < 1.0 /HPF (0-13.0) 06/15/18 13:20 Urine Bacteria (Auto) 1+ /HPF (Negative) 06/15/18 13:20 Hyaline Casts 1 /LPF 06/15/18 13:20 Urine Mucus Few /HPF 06/15/18 13:20 Blood Type O POSITIVE 06/15/18 07:54 Antibody Screen Negative 06/15/18 07:54
[2018-06-16] MEDS: PROTONIX IV SCH ×2 (10:55→22:11)
[2018-06-16] MEDS: HEPARIN SUB-Q SCH ×2 (10:55→22:05)
--- NOTE | 2018-06-16 14:04 | Progress Note ---
Assessment and Plan Acute Kidney injury likely pre-renal/DWIGHT due to poor appetite, hypotenison on top of CKD: Metabolic acidosis: Sepsis likely due to UTI: Possible Urinary tract infection: Nausea, vomiting and diarrhea: Anemia of chronic disease due to CKD: -Cr trending down. -Continue D5NS hydration. -s/p Albumin X 3 to boast up BP -Renal US shows renal cyst. Can discuss with radiology on Sunday if cyst simple vs complex. -Monitor acidosis -On ABx, follow Cx -Renally dose all meds -Avoid Nephrotoxic meds Michi Cabello MD [phone] Subjective Date of service: 06/16/18 Interval history: Making urine. Having diarrhea, says belly pain better. Objective - Exam Narrative Exam: GE:AAOX3 HEENT:PERRLA Neck:Supple Chest:Coarse BS BL CVS:RRR Abd:Soft Ext: No cce - Vital Signs Vital signs: Vital Signs - 12hr 06/16/18 06/16/18 06/16/18 02:10 02:20 02:30 Temperature Pulse Rate 80 75 74 Pulse Rate [ From Monitor] Respiratory 12 13 16 Rate Blood Pressure 129/63 129/63 129/63 O2 Sat by Pulse 100 100 100 Oximetry 06/16/18 06/16/18 06/16/18 02:40 02:50 03:00 Temperature Pulse Rate 74 73 77 Pulse Rate [ From Monitor] Respiratory 15 11 L 11 L Rate Blood Pressure 129/63 129/63 129/63 O2 Sat by Pulse 100 100 100 Oximetry 06/16/18 06/16/18 06/16/18 03:10 03:20 03:30 Temperature Pulse Rate 77 74 73 Pulse Rate [ From Monitor] Respiratory 14 13 17 Rate Blood Pressure 128/61 128/61 128/61 O2 Sat by Pulse 100 100 100 Oximetry 06/16/18 06/16/18 06/16/18 03:40 03:50 04:00 Temperature Pulse Rate 71 72 71 Pulse Rate [ From Monitor] Respiratory 11 L 15 12 Rate Blood Pressure 128/61 128/61 121/60 O2 Sat by Pulse 100 100 100 Oximetry 06/16/18 05:00 Temperature 98 F Pulse Rate Pulse Rate [ 75 From Monitor] Respiratory 16 Rate Blood Pressure O2 Sat by Pulse 99 Oximetry - Lab 06/16/18 07:08 06/16/18 07:08 Most recent lab results Calcium 8.0 mg/dL (8.4-10.2) L 06/16/18 07:08 Medications & Allergies - Medications Allergies/Adverse Reactions: Allergies No Known Allergies Allergy (Verified 03/27/17 23:28) Home Medications: Home Medications Medication Instructions Recorded Confirmed Last Taken Type Pantoprazole [Protonix TAB] 40 mg PO BID #60 tablet 05/04/18 06/15/18 Unknown Rx Active Medications: Generic Name Dose Route Start Last Admin Trade Name Freq PRN Reason Stop Dose Admin Acetaminophen 650 mg 06/15/18 10:26 06/16/18 07:08 Tylenol PO 650 mg Q4H PRN Administration Pain MILD(1-3)/Fever >100.5/BARNES Heparin Sodium (Porcine) 5,000 unit 06/16/18 10:00 Heparin SUB-Q Q12HR NESTOR Vancomycin HCl 750 mg/ Sodium 265 mls @ 176.667 mls/hr 06/16/18 10:00 Chloride IV Q24H NESTOR Piperacillin Sod/Tazobactam Sod 2.25 gm in 50 mls @ 100 mls/hr 06/15/18 14:00 06/16/18 04:14 Zosyn/Ns 2.25 Gm/50ml IV 100 mls/hr Q6H NESTOR Administration Dextrose/Sodium Chloride 1,000 mls @ 125 mls/hr 06/15/18 15:00 06/15/18 22:48 D5ns IV 125 mls/hr DIRECT NESTOR Administration Morphine Sulfate 2 mg 06/15/18 10:26 06/16/18 11:21 Morphine IV 2 mg Q4H PRN Administration Pain, Moderate (4-6) Ondansetron HCl 4 mg 06/15/18 10:26 Zofran IV Q8H PRN Nausea And Vomiting Pantoprazole Sodium 40 mg 06/15/18 22:00 06/15/18 22:48 Protonix IV 40 mg BID NESTOR Administration Sodium Chloride 10 ml 06/15/18 10:26 06/15/18 22:49 Sodium Chloride Flush Syringe 10 Ml IV 10 ml PRN PRN Administration LINE FLUSH
--- NOTE | 2018-06-16 16:11 | Consultation ---
History of Present Illness - Reason for Consult Consult date: 06/16/18 hidradenitis Requesting physician: EMILY ADAIR - History of Present Illness 58 y/o male with history of hidradenitis suppurativa, moved here from [place], known to ID, admitted on Mar 2017 then Apr 2017 due to worsening right axillary pain and purulent drainage, bilateral inguinal pain and purulent drainage and gluteal pain and drainage as well as lower abdominal wall pain and drainage. Alec reza is status post multiple I and D's in the past as well as skin grafting. Patient was taken to the operating room and underwent I and D of abscess, skin and subcutaneous tissue on 03/29/2017. OR wound cultures grew MRSA. He was discharged on zyvox po. Unfortunately, patient was redmitted 04/30-05/30/17 due to worsening bilateral groin, suprapubic and perineal pain with foul-smelling discharge and subjective fever. He was found septic with leukocytosis and hypotension. Source was felt to be extensive bilateral groin, pubic and perineal cellulitis and abscesses from hidradenitis. CT showed marked perineal skin thickening with SQ stranding and edema cellulitiis /forniers. Taken to the OR d ebridement 05/01/2017. ID plan was to continue vancomycin 1.5 g IV q day and levaquin 750 mg Po qday total 4 weeks until 05/28/17. Patient stayed in patient until he finished it. Unfortunately, patient was readmitted on 06/12/17 due to 24 hours history of worsening abdominal pain, scrotal edema and drainage from surgical wound infection-left buttocks abscess. Discharged on linezolid 600 mg po BID, cipro 500 mg PO q12 total 3 weeks until 07/03/2017 and ID clinic f/u to start doxycycline chronic therapy. He was supposed to have buttocks surgical debridement in the future by Dr Aguilar. Patient did not show to ID clinic. Unfortunately, patient was readmitted on 06/15/2018 due to fever, nausea, vomi ting and diarrhea for 1 week. Also noted foul smelling drainage from buttocks and also from right axilla. In the ED, temp 98.2, HR 95, R 20, O2 sat 100%, BP 113/60. WBC 14.2. Hg 8.9, Plat 298. UA 20 wbc, small LE. Blood culture 06/15/2018 no growth today. Wound culture 06/15/[address] pelvis showed cutaneous and subcutaneous thickening/edema involving the buttocks, left greater than right. No abscess identified. Similar appearance also involves the scrotal wall. Similar appearance was seen on the prior exam. Abnormal wall thickening involving the duodenum and proximal jejunum which is nonspecific but could be duodenitis/jejunitis. Review of Systems: General: + fever, chills, nightsweats, unintentional weight change, or change in appetite Cutaneous: no rash, pruritus Head: no headaches or injury Eyes: no changes in vision, eye pain, double vision Ears: no ear pain, ear discharge, ringing or hearing loss Nose: no nose bleeding, stuffiness Mouth & throat: no bleeding gums, no horseness, no dental problems, or swollen glands Neck: no pain, node enlargement/lumps, tyroid enlargement or tenderness Respiratory: no cough, wheezing, sputum, hemoptysis, pleuritic chest pain Cardiovascular: no chest pain, leg edema, cyanosis, PHILLIPS, orthopnea Musculoskeletal: no decreased joint motion, bone or joint pain, joint swelling, muscle aches Gastrointestinal: +nausea, +vomiting, no hematemesis, diarrhea, constipation, melena, bright red blood in stools, fecal incontinence, jaundice Genitourinary/Reproductive: no frequent urination, dysuria, hematuria, incontinence Neurogical: no seizures, no headaches, no weakness, no paresthesias, no loss of speech or vision; no memory loss, no vertigo, no tremors, no numbness Psychiatric: stable mood; no excessive anxiety, sadness or moodiness Past History Past Medical History: other (Hidradenitis suppurativa s/p multiple surgeries,skin grafts x 4 ) Past Surgical History: Other (Multiple surgeries for hidradenitis suppurativa) Social history: single, full code, other (Alcohol occasionally). denies: smoking Family history: no significant family history Medications and Allergies Allergies Allergy/AdvReac Type Severity Reaction Status Date / Time No Known Allergies Allergy Verified 03/27/17 23:28 Home Medications Medication Instructions Recorded Confirmed Last Taken Type Pantoprazole [Protonix TAB] 40 mg PO BID #60 tablet 05/04/18 06/15/18 Unknown Rx Active Meds: Active Medications Acetaminophen (Tylenol) 650 mg PO Q4H PRN PRN Reason: Pain MILD(1-3)/Fever >100.5/BARNES Last Admin: 06/16/18 07:08 Dose: 650 mg Documented by: Heparin Sodium (Porcine) (Heparin) 5,000 unit SUB-Q Q12HR [facility] Last Admin: 06/16/18 10:55 Dose: 5,000 unit Documented by: Vancomycin HCl 750 mg/ Sodium (Chloride) 265 mls @ 176.667 mls/hr IV Q24H NESTOR Piperacillin Sod/Tazobactam Sod (Zosyn/Ns 2.25 Gm/50ml) 2.25 gm in 50 mls @ 100 mls/hr IV Q6H [facility] Last Admin: 06/16/18 15:43 Dose: 100 mls/hr Documented by: Dextrose/Sodium Chloride (D5ns) 1,000 mls @ 125 mls/hr IV DIRECT NESTOR Last Admin: 06/15/18 22:48 Dose: 125 mls/hr Documented by: Morphine Sulfate (Morphine) 2 mg IV Q4H PRN PRN Reason: Pain, Moderate (4-6) Last Admin: 06/16/18 15:47 Dose: 2 mg Documented by: Ondansetron HCl (Zofran) 4 mg IV Q8H PRN PRN Reason: Nausea And Vomiting Pantoprazole Sodium (Protonix) 40 mg IV BID [facility] Last Admin: 06/16/18 10:55 Dose: 40 mg Documented by: Sodium Chloride (Sodium Chloride Flush Syringe 10 Ml) 10 ml IV PRN PRN PRN Reason: LINE FLUSH Last Admin: 06/15/18 22:49 Dose: 10 ml Documented by: Physical Examination - Physical Exam Narrative exam: General appearance: Alert in NAD, conversant Eyes: anicteric sclerae, moist conjunctivae; no lid-lag; PERRLA HENT: Atraumatic; oropharynx clear with moist mucous membranes and no mucosal ulcerations/no oral thrush; normal hard and soft palate. Normal external ears. Neck: Trachea midline; supple, no thyromegaly or lymphadenopathy Lungs: CTA, with normal respiratory effort and no intercostal retractions CV: RRR, no murmurs Abdomen: Soft, non-tender; no masses or hepatosplenomegaly Extremities: No peripheral edema or extremity lymphadenopathy Skin: perineal buttocks not ewxamined Psych: Appropriate affect, alert and oriented to person, place and time. Neuro: alert and oriented x 3. Moving all extermities - Constitutional Vitals: Vital Signs Temp Pulse Resp BP Pulse Ox 98 F 75 16 121/60 99 06/16/18 05:00 06/16/18 05:00 06/16/18 05:00 06/16/18 04:00 06/16/18 05:00 Temperature -Last 24 Hours Temperature 98 F Temperature 97.6 F Temperature 97.6 F Temperature 97.5 F Temperature 97.5 F Temperature 97.8 F Results - Labs CBC & Chem 7: 06/16/18 07:08 06/16/18 07:08 Labs: Abnormal lab results 06/15/18 06/16/18 06/16/18 Range/Units 20:18 00:35 06:15 WBC (4.5-11.0) K/mm3 RBC (3.65-5.03) M/mm3 Hgb (11.8-15.2) gm/dl Hct (35.5-45.6) % MCH (28-32) pg RDW (13.2-15.2) % Eos # (0.0-0.4) K/mm3 Seg Neutrophils % (40.0-70.0) % Seg Neutrophils # (1.8-7.7) K/mm3 BUN (9-20) mg/dL Creatinine (0.8-1.5) mg/dL POC Glucose 159 H 130 H 106 H (70-105) Calcium (8.4-10.2) mg/dL 06/16/18 06/16/18 06/16/18 Range/Units 07:08 07:08 12:17 WBC 13.3 H (4.5-11.0) K/mm3 RBC 3.20 L (3.65-5.03) M/mm3 Hgb 8.6 L (11.8-15.2) gm/dl Hct 26.9 L (35.5-45.6) % MCH 27 L (28-32) pg RDW 16.6 H (13.2-15.2) % Eos # 0.5 H (0.0-0.4) K/mm3 Seg Neutrophils % 75.7 H (40.0-70.0) % Seg Neutrophils # 10.1 H (1.8-7.7) K/mm3 BUN 26 H (9-20) mg/dL Creatinine 2.3 H (0.8-1.5) mg/dL POC Glucose 53 L (70-105) Calcium 8.0 L (8.4-10.2) mg/dL Assessment and Plan Cultures: Blood culture Urine culture Sputum culture Assessment: 58 y/o male with history of hidradenitis suppurativa, moved here from [place], known to ID, admitted on Mar 2017 then Apr 2017 due to worsening right axillary pain and purulent drainage, bilateral inguinal pain and purulent drainage and gluteal pain and drainage as well as lower abdominal wall pain and drainage. Patient is status post multiple I and D's in the past as well as skin grafting. Patient was taken to the operating room and underwent I and D of abscess, skin and subcutaneous tissue on 03/29/2017. OR wound cultures grew MRSA. He was discharged on zyvox po. Unfortunately, patient was redmitted 04/30-05/30/17 due to worsening bilateral groin, suprapubic and perineal pain with foul-smelling discharge and subjective fever. He was found septic with leukocytosis and hypotension. Source was felt to be extensive bilateral groin, pubic and perineal cellulitis and abscesses from hidradenitis. CT showed marked perineal skin thickening with SQ stranding and edema cellulitiis /forniers. Taken to the OR debridement 05/01/2017. ID plan was to continue vancomycin 1.5 g IV q day and levaquin 750 mg Po qday total 4 weeks until 05/28/17. Patient stayed in patient until he finished it. Unfortunately, patient was readmitted on 06/12/17 due to 24 hours history of worsening abdominal pain, scrotal edema and drainage from surgical wound infection-left buttocks abscess. Discharged on linezolid 600 mg po BID, cipro 500 mg PO q12 total 3 weeks until 07/03/2017 and ID clinic f/u to start doxycycline chronic therapy. He was supposed to have buttocks surgical debridement in the future by Dr Aguilar. Patient did not show to ID clinic. 1) Sepsis: Present on admission, manifested by fever at home, tachycardia, leukocytosis. Etiology most likely infected hidradenitis +/- UTI +/- enteritis 2) Extensive hidradenitis suppurative to pubic mons, bilateral groin, bilateral gluteal area, scrotum and bilateral axilla R>L: -Patient is status post multiple I and D's in the past as well as skin grafting. -S/P OR I & D of abscess, skin and subcutaneous tissue on 03/29/2017. OR wound cultures grew MRSA. He was discharged on zyvox po. U -S/P extensive OR debridement 05/01/17. -S/P vancomycin 1.5 g IV q day and levaquin 750 mg Po q day total 4 weeks until 05/28/17. -S/P left buttocks I+D on 06/15/17 usual skin deb - Wound culture 06/15/2018 usual skin deb. - Blood culture 06/15/2018 no growth today. -CT pelvis showed cutaneous and subcutaneous thickening/edema involving the buttocks, left greater than right. No abscess identified. Similar appearance also involves the scrotal wall. 3) UTI: UA 20 wbc, small LE. 4) Enteritis: CT showed Abnormal wall thickening involving the duodenum and proximal jejunum which is nonspecific but could be duodenitis/jejunitis. 5) DWIGHT ? Plan: - wound care consult - Dr Aguilar's consult - stop vancomycin and zosyn as combination increases nephrotoxicity - start cefepime, flagyl and doxycycline for now - renally adjusted - CRP Will follow. Leslee Cotto MD Infectious Diseases [facility] M [phone] O [phone] .
[2018-06-16] MEDS: FLAGYL 500 MG/100 ML 500 MG/100 ML BAG IV SCH (19:30)
[2018-06-16] MEDS: MAXIPIME/NS 2 GM/100 ML 2 GM/100 ML BAG IV SCH (20:37)
[2018-06-16] MEDS: VIBRAMYCIN PO SCH (20:38)
[2018-06-17] MEDS: FLAGYL 500 MG/100 ML 500 MG/100 ML BAG IV SCH ×2 (03:54→09:49)
[2018-06-17 04:36] LABS: Hematocrit 24.1 % (35.5-45.6); Hemoglobin 7.8 gm/dl (11.8-15.2); Mean Corpuscular HGB Conc 32 % (32-34); Mean Corpuscular Volume 85 fl (84-94); Platelet Count 248 K/mm3 (140-440); Red Blood Count 2.83 M/mm3 (3.65-5.03); Red Cell Distribution Width 16.5 % (13.2-15.2)
[2018-06-17 04:51] LABS: Calcium 7.5 mg/dL (8.4-10.2)
[2018-06-17] MEDS ORDERED: NACL 0.9% 500 ML 500 ML IV ONE (04:52)
--- NOTE | 2018-06-17 09:15 | Progress Note ---
Assessment and Plan Assessment and plan: Sepsis , Admitted to I[facility]U blood cultures drawn Continue Zosyn and Vanco ID Physician following Hidradenitis suppurativa s/p multiple I and D and skin grafts Consulted Dr. Aguilar,his surgeon DWIGHT vs acute on chronic started iv fluids Cr improving Nephrology following History of GI bleed protonix iv leukocytosis due to sepsis Full code status History Interval history: Feels better No more fever No more vomiting drainage from buttocks and right axilla Hospitalist Physical - Physical exam Narrative exam: GEN: Not in acute distress, lying in bed HEENT: Normocephalic, atraumatic, Neck: supple, No JVD heart: S1 and S2 reg, no murmurs, rubs or gallop Lungs: Clear to auscultation bilat, no crackles, no wheeze Abd:soft, non tender, non distended, normal bowel sounds Ext: No edema,no clubbing, no cyanosis, ulcer with drainage right axilla Gluteal:Ulcer with drainage Neuro:Awake,alert,oriented X 3, no focal signs Psych: normal mood - Constitutional Vitals: Temp Pulse Resp BP Pulse Ox 98.4 F 80 14 94/51 100 06/17/18 08:00 06/17/18 08:31 06/17/18 08:31 06/17/18 08:31 06/17/18 08:31 Results - Labs CBC & Chem 7: 06/17/18 04:03 06/17/18 04:03 Labs: Laboratory Last Values WBC 10.7 K/mm3 (4.5-11.0) 06/17/18 04:03 RBC 2.83 M/mm3 (3.65-5.03) L 06/17/18 04:03 Hgb 7.8 gm/dl (11.8-15.2) L 06/17/18 04:03 Hct 24.1 % (35.5-45.6) L 06/17/18 04:03 MCV 85 fl (84-94) 06/17/18 04:03 MCH 27 pg (28-32) L 06/17/18 04:03 MCHC 32 % (32-34) 06/17/18 04:03 RDW 16.5 % (13.2-15.2) H 06/17/18 04:03 Plt Count 248 K/mm3 (140-440) 06/17/18 04:03 Lymph % (Auto) 15.8 % (13.4-35.0) 06/16/18 07:08 [place] % (Auto) 4.1 % (0.0-7.3) 06/16/18 07:08 Eos % (Auto) 3.9 % (0.0-4.3) 06/16/18 07:08 Baso % (Auto) 0.5 % (0.0-1.8) 06/16/18 07:08 Lymph # 2.1 K/mm3 (1.2-5.4) 06/16/18 07:08 [place] # 0.5 K/mm3 (0.0-0.8) 06/16/18 07:08 Eos # 0.5 K/mm3 (0.0-0.4) H 06/16/18 07:08 Baso # 0.1 K/mm3 (0.0-0.1) 06/16/18 07:08 Seg Neutrophils % 75.7 % (40.0-70.0) H 06/16/18 07:08 Seg Neutrophils # 10.1 K/mm3 (1.8-7.7) H 06/16/18 07:08 PT 15.3 Sec. (12.2-14.9) H 06/15/18 07:54 INR 1.14 (0.87-1.13) H 06/15/18 07:54 APTT 31.7 Sec. (24.2-36.6) 06/15/18 07:54 Sodium 138 mmol/L (137-145) 06/17/18 04:03 Potassium 4.3 mmol/L (3.6-5.0) 06/17/18 04:03 Chloride 106.1 mmol/L (98-107) 06/17/18 04:03 Carbon Dioxide 23 mmol/L (22-30) 06/17/18 04:03 Anion Gap 13 mmol/L 06/17/18 04:03 BUN 26 mg/dL (9-20) H 06/17/18 04:03 Creatinine 2.1 mg/dL (0.8-1.5) H 06/17/18 04:03 Estimated GFR 39 ml/min 06/17/18 04:03 BUN/Creatinine Ratio 12 % 06/17/18 04:03 Glucose 68 mg/dL (75-100) L 06/17/18 04:03 POC Glucose 71 (70-105) 06/17/18 05:34 Lactic Acid 1.60 mmol/L (0.7-2.0) 06/15/18 07:54 Calcium 7.5 mg/dL (8.4-10.2) L 06/17/18 04:03 Total Bilirubin 0.60 mg/dL (0.1-1.2) 06/15/18 06:45 AST 9 units/L (5-40) 06/15/18 06:45 ALT < 5 units/L (7-56) L 06/15/18 06:45 Alkaline Phosphatase 83 units/L (35-129) 06/15/18 06:45 Ammonia 37.0 umol/L (25-60) 06/15/18 07:54 Troponin T < 0.010 ng/mL (0.00-0.029) 06/15/18 07:54 C-Reactive Protein 13.30 mg/dL (0.00-1.30) H 06/16/18 07:08 NT-Pro-B Natriuret Pep 1839 pg/mL (0-900) H 06/15/18 07:54 Total Protein 8.5 g/dL (6.3-8.2) H 06/15/18 06:45 Albumin 1.7 g/dL (3.9-5) L 06/15/18 06:45 Albumin/Globulin Ratio 0.3 % 06/15/18 06:45 Lipase 16 units/L (13-60) 06/15/18 06:45 Urine Color Estrella (Yellow) 06/15/18 13:20 Urine Turbidity Slightly-cloudy (Clear) 06/15/18 13:20 Urine pH 5.0 (5.0-7.0) 06/15/18 13:20 Ur Specific [place] 1.019 (1.003-1.030) 06/15/18 13:20 Urine Protein 100 mg/dl mg/dL (Negative) 06/15/18 13:20 Urine Glucose (UA) Neg mg/dL (Negative) 06/15/18 13:20 Urine Ketones Neg mg/dL (Negative) 06/15/18 13:20 Urine Blood Mod (Negative) 06/15/18 13:20 Urine Nitrite Neg (Negative) 06/15/18 13:20 Urine Bilirubin Neg (Negative) 06/15/18 13:20 Urine Urobilinogen 2.0 mg/dL (<2.0) 06/15/18 13:20 Ur Leukocyte Esterase Sm (Negative) 06/15/18 13:20 Urine WBC (Auto) 24.0 /HPF (0.0-6.0) H 06/15/18 13:20 Urine RBC (Auto) 7.0 /HPF (0.0-6.0) 06/15/18 13:20 U Epithel Cells (Auto) < 1.0 /HPF (0-13.0) 06/15/18 13:20 Urine Bacteria (Auto) 1+ /HPF (Negative) 06/15/18 13:20 Hyaline Casts 1 /LPF 06/15/18 13:20 Urine Mucus Few /HPF 06/15/18 13:20 Blood Type O POSITIVE 06/15/18 07:54 Antibody Screen Negative 06/15/18 07:54 Active Medications - Current Medications Current Medications: Generic Name Dose Route Start Last Admin Trade Name Freq PRN Reason Stop Dose Admin Acetaminophen 650 mg 06/15/18 10:26 06/16/18 20:39 Tylenol PO 650 mg Q4H PRN Administration Pain MILD(1-3)/Fever >100.5/BARNES Doxycycline Hyclate 100 mg 06/16/18 20:00 06/16/18 20:38 Vibramycin PO 100 mg BID NESTOR Administration Heparin Sodium (Porcine) 5,000 unit 06/16/18 10:00 06/16/18 22:05 Heparin SUB-Q 5,000 unit Q12HR NESTOR Administration Dextrose/Sodium Chloride 1,000 mls @ 125 mls/hr 06/15/18 15:00 06/15/18 22:48 D5ns IV 125 mls/hr DIRECT NESTOR Administration Cefepime HCl 2 gm in 100 mls @ 200 mls/hr 06/16/18 20:00 06/16/18 20:37 Maxipime/Ns 2 Gm/100 Ml IV 200 mls/hr Q12H NESTOR Administration Protocol Metronidazole 500 mg in 100 mls @ 100 mls/hr 06/16/18 18:00 06/17/18 03:54 Flagyl 500 Mg/100 Ml IV 100 mls/hr Q8H NESTOR Administration Protocol Morphine Sulfate 2 mg 06/15/18 10:26 06/16/18 22:18 Morphine IV 2 mg Q4H PRN Administration Pain, Moderate (4-6) Ondansetron HCl 4 mg 06/15/18 10:26 Zofran IV Q8H PRN Nausea And Vomiting Pantoprazole Sodium 40 mg 06/15/18 22:00 06/16/18 22:11 Protonix IV 40 mg BID NESTOR Administration Sodium Chloride 10 ml 06/15/18 10:26 06/15/18 22:49 Sodium Chloride Flush Syringe 10 Ml IV 10 ml PRN PRN Administration LINE FLUSH Nutrition/Malnutrition Assess - Dietary Evaluation Nutrition/Malnutrition Findings: Nutrition Notes Start: 06/16/18 17:13 Freq: Status: Active Protocol: Document 06/16/18 17:13 RM (Rec: 06/16/18 17:25 RM [email or web address]) Nutrition Notes Need for Assessment 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 Mart 14 points. 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 Stated that his appetite is improving now and that he ate half of his lunch. Denied N/V since admission. Noted preferences. Admitted to diarrhea. Stated UBW was 192 lbs 1 month ago. 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 No Is Patient Ambulatory and/or Out of Bed No REE-([place]-confined to bed) [phone] Calculation Used for Recommendations [place] [place] Additional Notes Protein Needs: 73-94g (1-1.3g/ kg) Fluid Needs: 1 ml/kcal Nutrition Intervention Change Diet Order: Continue current Add Supplement/Snack (indicate name/kcal Ensure Enlive BID. Chocolate w /protein ) /breakfast and strawberry w/ lunch. Provides kCal: 700 Provides Protein (gm) 40 Goal #1 Meet at least 75% of calorie and protein needs via PO and ONS intakes Anticipated Discharge Needs: Regular diet Follow-Up By: 06/18/18 Additional Comments Follow for PO and ONS intakes
[2018-06-17] MEDS: MAXIPIME/NS 2 GM/100 ML 2 GM/100 ML BAG IV SCH ×2 (09:47→20:04)
[2018-06-17] MEDS: HEPARIN SUB-Q SCH ×2 (09:48→22:05)
[2018-06-17] MEDS: PROTONIX IV SCH ×2 (09:48→22:05)
[2018-06-17] MEDS: VIBRAMYCIN PO SCH ×2 (09:49→22:06)
[2018-06-17] MEDS ORDERED: NACL 0.9% 500 ML 500 ML ONE (10:02)
--- NOTE | 2018-06-17 10:16 | Progress Note ---
Assessment and Plan Acute Kidney injury likely pre-renal/DWIGHT due to poor appetite, hypotenison on top of CKD: Metabolic acidosis: Sepsis likely due to UTI: Possible Urinary tract infection: Nausea, vomiting and diarrhea: Anemia of chronic disease due to CKD: -kidney function cont to improve -Cont IVF -Renal US shows renal cyst, will need urology evaluation as an outpatient -Monitor acidosis -On ABx, follow Cx -Renally dose all meds -Avoid Nephrotoxic meds Subjective Date of service: 06/17/18 Principal diagnosis: acute renal failure Interval history: weak but comfortable Objective - Vital Signs Vital signs: Vital Signs - 12hr 06/16/18 06/16/18 06/16/18 22:20 22:30 22:40 Temperature Pulse Rate 92 H 83 84 Respiratory 22 12 12 Rate Blood Pressure 106/53 106/53 106/53 O2 Sat by Pulse 100 100 100 Oximetry 06/16/18 06/16/18 06/16/18 22:50 23:00 23:10 Temperature Pulse Rate 84 84 87 Respiratory 11 L 11 L 10 L Rate Blood Pressure 106/53 113/46 113/46 O2 Sat by Pulse 100 100 100 Oximetry 06/16/18 06/16/18 06/16/18 23:20 23:22 23:30 Temperature Pulse Rate 82 82 88 Respiratory 13 13 15 Rate Blood Pressure 113/46 113/46 113/46 O2 Sat by Pulse 100 100 100 Oximetry 06/16/18 06/16/18 06/16/18 23:40 23:50 23:52 Temperature Pulse Rate 81 81 84 Respiratory 13 15 10 L Rate Blood Pressure 113/46 113/46 113/46 O2 Sat by Pulse 100 100 100 Oximetry 06/17/18 06/17/18 06/17/18 00:00 00:10 00:20 Temperature 98.2 F Pulse Rate 88 83 82 Respiratory 12 10 L 14 Rate Blood Pressure 106/53 106/53 106/53 O2 Sat by Pulse 100 100 100 Oximetry 06/17/18 06/17/18 06/17/18 00:30 00:40 00:50 Temperature Pulse Rate 79 81 79 Respiratory 12 10 L 11 L Rate Blood Pressure 106/53 106/53 106/53 O2 Sat by Pulse 100 100 100 Oximetry 06/17/18 06/17/18 06/17/18 01:00 01:10 01:20 Temperature Pulse Rate 81 81 84 Respiratory 11 L 11 L 15 Rate Blood Pressure 109/46 109/46 109/46 O2 Sat by Pulse 100 100 100 Oximetry 06/17/18 06/17/18 06/17/18 01:30 01:40 01:50 Temperature Pulse Rate 84 88 86 Respiratory 14 13 10 L Rate Blood Pressure 109/46 109/46 109/46 O2 Sat by Pulse 100 100 100 Oximetry 06/17/18 06/17/18 06/17/18 02:00 02:10 02:20 Temperature Pulse Rate 79 88 81 Respiratory 12 17 11 L Rate Blood Pressure 109/46 85/41 85/41 O2 Sat by Pulse 100 100 100 Oximetry 06/17/18 06/17/18 06/17/18 02:30 02:40 02:50 Temperature Pulse Rate 82 87 82 Respiratory 14 12 11 L Rate Blood Pressure 85/41 85/41 85/41 O2 Sat by Pulse 100 100 100 Oximetry 06/17/18 06/17/18 06/17/18 03:00 03:10 03:19 Temperature 98.6 F Pulse Rate 80 84 Respiratory 12 16 Rate Blood Pressure 87/42 85/41 O2 Sat by Pulse 100 100 Oximetry 06/17/18 06/17/18 06/17/18 03:20 03:30 03:40 Temperature Pulse Rate 78 76 79 Respiratory 11 L 10 L 10 L Rate Blood Pressure 85/41 85/41 85/41 O2 Sat by Pulse 99 100 100 Oximetry 06/17/18 06/17/18 06/17/18 03:50 04:00 04:10 Temperature Pulse Rate 75 76 78 Respiratory 14 10 L 15 Rate Blood Pressure 85/41 79/44 97/53 O2 Sat by Pulse 100 100 100 Oximetry 06/17/18 06/17/18 06/17/18 04:20 04:30 04:40 Temperature Pulse Rate 76 77 74 Respiratory 12 13 12 Rate Blood Pressure 88/44 88/46 86/44 O2 Sat by Pulse 100 100 100 Oximetry 06/17/18 06/17/18 06/17/18 04:50 05:00 05:10 Temperature Pulse Rate 77 76 76 Respiratory 12 15 12 Rate Blood Pressure 86/44 90/44 86/44 O2 Sat by Pulse 100 100 100 Oximetry 06/17/18 06/17/18 06/17/18 05:20 05:30 05:41 Temperature Pulse Rate 74 80 80 Respiratory 11 L 15 11 L Rate Blood Pressure 86/44 86/45 86/45 O2 Sat by Pulse 100 100 100 Oximetry 06/17/18 06/17/18 06/17/18 05:51 06:00 06:11 Temperature Pulse Rate 78 81 80 Respiratory 11 L 15 11 L Rate Blood Pressure 86/45 87/52 87/52 O2 Sat by Pulse 100 100 100 Oximetry 06/17/18 06/17/18 06/17/18 06:21 06:31 06:41 Temperature Pulse Rate 82 78 80 Respiratory 12 11 L 10 L Rate Blood Pressure 90/50 90/50 90/50 O2 Sat by Pulse 100 100 100 Oximetry 06/17/18 06/17/18 06/17/18 06:51 07:00 07:11 Temperature Pulse Rate 80 77 77 Respiratory 11 L 13 10 L Rate Blood Pressure 90/50 90/46 90/46 O2 Sat by Pulse 100 100 100 Oximetry 06/17/18 06/17/18 06/17/18 07:21 07:31 07:41 Temperature Pulse Rate 74 82 81 Respiratory 12 11 L 10 L Rate Blood Pressure 90/46 90/46 90/46 O2 Sat by Pulse 100 100 100 Oximetry 06/17/18 06/17/18 06/17/18 07:51 08:00 08:11 Temperature 98.4 F Pulse Rate 78 82 79 Respiratory 10 L 12 9 L Rate Blood Pressure 90/46 94/51 94/51 O2 Sat by Pulse 100 100 100 Oximetry 06/17/18 06/17/18 08:21 08:31 Temperature Pulse Rate 84 80 Respiratory 15 14 Rate Blood Pressure 94/51 94/51 O2 Sat by Pulse 100 Oximetry - General Appearance General appearance: well-developed, well-nourished, appears stated age EENT: ATNC, PERRL, mucous membranes moist Neck: no JVD, no carotid bruit Respiratory: Present: Clear to Ascultation. Absent: Rales, Ronchi Cardiology: regular, S1S2 Gastrointestinal: normoactive bowel sounds Integumentary: no rash, warm and dry Neurologic: no focal deficit, no asterixis, alert and oriented x3 Musculoskeletal: other (no edema inBLE) Psychiatric: mood/affect appropriate, cooperative - Lab 06/17/18 04:03 06/17/18 04:03 Most recent lab results Calcium 7.5 mg/dL (8.4-10.2) L 06/17/18 04:03 Medications & Allergies - Medications Allergies/Adverse Reactions: Allergies No Known Allergies Allergy (Verified 03/27/17 23:28) Home Medications: Home Medications Medication Instructions Recorded Confirmed Last Taken Type Pantoprazole [Protonix TAB] 40 mg PO BID #60 tablet 05/04/18 06/15/18 Unknown Rx Active Medications: Generic Name Dose Route Start Last Admin Trade Name Jacki PRN Reason Stop Dose Admin Acetaminophen 650 mg 06/15/18 10:26 06/16/18 20:39 Tylenol PO 650 mg Q4H PRN Administration Pain MILD(1-3)/Fever >100.5/BARNES Doxycycline Hyclate 100 mg 06/16/18 20:00 06/17/18 09:49 Vibramycin PO 100 mg BID NESTOR Administration Heparin Sodium (Porcine) 5,000 unit 06/16/18 10:00 06/17/18 09:48 Heparin SUB-Q 5,000 unit Q12HR NESTOR Administration Dextrose/Sodium Chloride 1,000 mls @ 125 mls/hr 06/15/18 15:00 06/15/18 22:48 D5ns IV 125 mls/hr DIRECT NESTOR Administration Cefepime HCl 2 gm in 100 mls @ 200 mls/hr 06/16/18 20:00 06/17/18 09:47 Maxipime/Ns 2 Gm/100 Ml IV 200 mls/hr Q12H NESTOR Administration Protocol Metronidazole 500 mg in 100 mls @ 100 mls/hr 06/16/18 18:00 06/17/18 09:49 Flagyl 500 Mg/100 Ml IV 100 mls/hr Q8H NESTOR Administration Protocol Morphine Sulfate 2 mg 06/15/18 10:26 06/16/18 22:18 Morphine IV 2 mg Q4H PRN Administration Pain, Moderate (4-6) Ondansetron HCl 4 mg 06/15/18 10:26 Zofran IV Q8H PRN Nausea And Vomiting Pantoprazole Sodium 40 mg 06/15/18 22:00 06/17/18 09:48 Protonix IV 40 mg BID NESTOR Administration Sodium Chloride 10 ml 06/15/18 10:26 06/15/18 22:49 Sodium Chloride Flush Syringe 10 Ml IV 10 ml PRN PRN Administration LINE FLUSH
--- NOTE | 2018-06-17 10:37 | Progress Note ---
Assessment and Plan Assessment and Plan Cultures: 06/15/2018 Blood: no growth to date 06/15/2018 Wound; heavy growth of usual skin deb Assessment: 58 y/o male with history of hidradenitis suppurativa, moved here from [place], known to ID, admitted on Mar 2017 then Apr 2017 due to worsening right axillary pain and purulent drainage, bilateral inguinal pain and purulent drainage and gluteal pain and drainage as well as lower abdominal wall pain and drainage. Patient is status post multiple I and D's in the past as well as skin grafting. Patient was taken to the operating room and underwent I and D of abscess, skin and subcutaneous tissue on 03/29/2017. OR wound cultures grew MRSA. He was d ischarged on zyvox po. Unfortunately, patient was redmitted 04/30-05/30/17 due to worsening bilateral groin, suprapubic and perineal pain with foul-smelling discharge and subjective fever. He was found septic with leukocytosis and hypotension. Source was felt to be extensive bilateral groin, pubic and perineal cellulitis and abscesses from hidradenitis. CT showed marked perineal skin thickening with SQ stranding and edema cellulitiis /forniers. Taken to the OR debridement 05/01/2017. ID plan was to continue vancomycin 1.5 g IV q day and levaquin 750 mg Po qday total 4 weeks until 05/28/17. Patient stayed in patient until he finished it. Unfortunately, patient was readmitted on 06/12/17 due to 24 hours history of worsening abdominal pain, scrotal edema and drainage from surgical wound infection-left buttocks abscess. Discharged on linezolid 600 mg po BID, cipro 500 mg PO q12 total 3 weeks until 07/03/2017 and ID clinic f/u to start doxycycline chronic therapy. He was supposed to have buttocks surgical debridement in the future by Dr Aguilar. Patient did not show to ID clinic. 1) Sepsis: Resolved, Present on admission, manifested by fever at home, tachycardia, leukocytosis. Etiology most likely infected hidradenitis +/- UTI +/- enteritis CRP 13.30 2) Extensive hidradenitis suppurative to pubic mons, bilateral groin, bilateral gluteal area, scrotum and bilateral axilla R>L: -Patient is status post multiple I and D's in the past as well as skin grafting. -S/P OR I & D of abscess, skin and subcutaneous tissue on 03/29/2017. OR wound cultures grew MRSA. He was discharged on zyvox po. U -S/P extensive OR debridement 05/01/17. -S/P vancomycin 1.5 g IV q day and levaquin 750 mg Po q day total 4 weeks until 05/28/17. -S/P left buttocks I+D on 06/15/17 usual skin deb - Wound culture 06/15/2018 usual skin deb. - Blood culture 06/15/2018 no growth today. -CT pelvis showed cutaneous and subcutaneous thickening/edema involving the buttocks, left greater than right. No abscess identified. Similar appearance also involves the scrotal wall. 3) UTI: UA 20 wbc, small LE. 4) Enteritis: CT showed Abnormal wall thickening involving the duodenum and proximal jejunum which is nonspecific but could be duodenitis/jejunitis. 5) DWIGHT ? Plan: - f/u wound care consult - f/u Dr Aguilar's consult - continue cefepime, flagyl and doxycycline for now - renally adjusted [facility] M: [phone] O:[phone] Subjective Date of service: 06/17/18 Interval history: Patient seen and examined. Complained of severe buttock pain. Nurse at bedside. no fevers. Nurses notes, labs and reports reviewed, discussed with patient. Objective - Exam Narrative Exam: General appearance: Alert in NAD, conversant Acute distress, buttock pain Eyes: anicteric sclerae, moist conjunctivae; no lid-lag; PERRLA HENT: Atraumatic; oropharynx clear with moist mucous membranes and no mucosal ulcerations/no oral thrush; normal hard and soft palate. Normal external ears. Neck: Trachea midline; supple, no thyromegaly or lymphadenopathy Lungs: CTA, with normal respiratory effort and no intercostal retractions CV: RRR, no murmurs Abdomen: Soft, non-tender; no masses or hepatosplenomegaly Extremities: No peripheral edema or extremity lymphadenopathy Skin: Per wound care: Right axilla wound is healthy and continues to improve. Buttocks scattered small pockets draining purulent drainage. Psych: Appropriate affect, alert and oriented to person, place and time. Neuro: alert and oriented x 3. Moving all extermities - Constitutional Vitals: Vital Signs Temp Pulse Resp BP Pulse Ox 98.4 F 80 14 94/51 100 06/17/18 08:00 06/17/18 08:31 06/17/18 08:31 06/17/18 08:31 06/17/18 08:31 Temperature -Last 24 Hours Temperature 98.4 F Temperature 98.2 F Temperature 98.6 F Temperature 98.2 F Temperature 98.4 F - Labs CBC & Chem 7: 06/17/18 04:03 06/17/18 04:03 Labs: Abnormal lab results 06/16/18 06/16/18 06/16/18 Range/Units 07:08 12:17 19:30 RBC (3.65-5.03) M/mm3 Hgb (11.8-15.2) gm/dl Hct (35.5-45.6) % MCH (28-32) pg RDW (13.2-15.2) % BUN (9-20) mg/dL Creatinine (0.8-1.5) mg/dL Glucose (75-100) mg/dL POC Glucose 53 L 68 L (70-105) Calcium (8.4-10.2) mg/dL C-Reactive Protein 13.30 H (0.00-1.30) mg/dL 06/16/18 06/16/18 06/17/18 Range/Units 21:30 23:38 04:03 RBC 2.83 L (3.65-5.03) M/mm3 Hgb 7.8 L (11.8-15.2) gm/dl Hct 24.1 L (35.5-45.6) % MCH 27 L (28-32) pg RDW 16.5 H (13.2-15.2) % BUN (9-20) mg/dL Creatinine (0.8-1.5) mg/dL Glucose (75-100) mg/dL POC Glucose 169 H 133 H (70-105) Calcium (8.4-10.2) mg/dL C-Reactive Protein (0.00-1.30) mg/dL 06/17/18 Range/Units 04:03 RBC (3.65-5.03) M/mm3 Hgb (11.8-15.2) gm/dl Hct (35.5-45.6) % MCH (28-32) pg RDW (13.2-15.2) % BUN 26 H (9-20) mg/dL Creatinine 2.1 H (0.8-1.5) mg/dL Glucose 68 L (75-100) mg/dL POC Glucose (70-105) Calcium 7.5 L (8.4-10.2) mg/dL C-Reactive Protein (0.00-1.30) mg/dL
[2018-06-17] MEDS: MORPHINE IV PRN (22:04)
[2018-06-17] MEDS: SODIUM CHLORIDE FLUSH SYRINGE 10 ML IV PRN (22:06)
[2018-06-18] MEDS: FLAGYL 500 MG/100 ML 500 MG/100 ML BAG IV SCH ×4 (02:55→18:08)
[2018-06-18 06:08] LABS: Hematocrit 23.6 % (35.5-45.6); Hemoglobin 7.7 gm/dl (11.8-15.2); Mean Corpuscular HGB Conc 33 % (32-34); Mean Corpuscular Volume 84 fl (84-94); Platelet Count 245 K/mm3 (140-440); Red Blood Count 2.82 M/mm3 (3.65-5.03)
[2018-06-18 06:41] LABS: Calcium 7.3 mg/dL (8.4-10.2)
--- NOTE | 2018-06-18 10:11 | Progress Note ---
Assessment and Plan Acute Kidney injury likely pre-renal/DWIGHT due to poor appetite, hypotenison on top of CKD: Metabolic acidosis: Sepsis likely due to UTI: Possible Urinary tract infection: Nausea, vomiting and diarrhea: Anemia of chronic disease due to CKD: -stable Cr and BUN, will d/c IVF -Renal US shows renal cyst, will need urology evaluation as an outpatient -Monitor acidosis -On ABx, follow Cx -Renally dose all meds -Avoid Nephrotoxic meds Subjective Date of service: 06/18/18 Principal diagnosis: acute renal failure Interval history: denies acute event, weak Objective - Vital Signs Vital signs: Vital Signs - 12hr 06/17/18 06/17/18 06/17/18 22:11 22:21 22:31 Temperature Pulse Rate 98 H 102 H 96 H Pulse Rate [ Left Radial] Respiratory 13 12 12 Rate Blood Pressure 120/72 120/72 120/72 O2 Sat by Pulse 100 100 100 Oximetry 06/17/18 06/17/18 06/17/18 22:41 22:51 23:00 Temperature Pulse Rate 96 H 94 H 92 H Pulse Rate [ Left Radial] Respiratory 12 16 13 Rate Blood Pressure 120/72 120/72 106/58 O2 Sat by Pulse 100 100 100 Oximetry 06/17/18 06/17/18 06/17/18 23:11 23:21 23:31 Temperature Pulse Rate 92 H 94 H 102 H Pulse Rate [ Left Radial] Respiratory 13 14 15 Rate Blood Pressure 106/58 120/72 120/72 O2 Sat by Pulse 100 100 100 Oximetry 06/17/18 06/17/18 06/18/18 23:41 23:51 00:00 Temperature 98.3 F Pulse Rate 94 H 95 H 90 Pulse Rate [ Left Radial] Respiratory 13 13 17 Rate Blood Pressure 120/72 120/72 101/59 O2 Sat by Pulse 100 100 100 Oximetry 06/18/18 06/18/18 06/18/18 00:11 00:21 00:31 Temperature Pulse Rate 91 H 90 92 H Pulse Rate [ Left Radial] Respiratory 12 13 11 L Rate Blood Pressure 101/59 106/58 106/58 O2 Sat by Pulse 100 100 100 Oximetry 06/18/18 06/18/18 06/18/18 00:41 00:51 01:00 Temperature Pulse Rate 94 H 90 94 H Pulse Rate [ 94 H Left Radial] Respiratory 13 12 18 Rate Blood Pressure 106/58 101/59 108/65 O2 Sat by Pulse 100 100 100 Oximetry 06/18/18 06/18/18 06/18/18 01:11 01:21 01:31 Temperature Pulse Rate 93 H 95 H 96 H Pulse Rate [ Left Radial] Respiratory 13 12 11 L Rate Blood Pressure 108/65 108/65 108/65 O2 Sat by Pulse 99 99 99 Oximetry 06/18/18 06/18/18 06/18/18 01:41 01:51 02:01 Temperature Pulse Rate 95 H 94 H 95 H Pulse Rate [ Left Radial] Respiratory 12 15 16 Rate Blood Pressure 108/65 108/65 93/56 O2 Sat by Pulse 98 98 99 Oximetry 06/18/18 06/18/18 06/18/18 02:11 02:21 02:31 Temperature Pulse Rate 95 H 102 H 95 H Pulse Rate [ Left Radial] Respiratory 12 15 12 Rate Blood Pressure 93/56 93/56 93/56 O2 Sat by Pulse 100 100 100 Oximetry 06/18/18 06/18/18 06/18/18 02:41 02:50 03:00 Temperature Pulse Rate 95 H 95 H 94 H Pulse Rate [ Left Radial] Respiratory 12 16 18 Rate Blood Pressure 93/56 93/56 102/54 O2 Sat by Pulse 100 100 100 Oximetry 06/18/18 06/18/18 06/18/18 03:11 03:21 03:31 Temperature Pulse Rate 93 H 92 H 93 H Pulse Rate [ Left Radial] Respiratory 15 12 12 Rate Blood Pressure 102/54 93/56 93/56 O2 Sat by Pulse 100 100 100 Oximetry 06/18/18 06/18/18 06/18/18 03:41 03:51 04:00 Temperature Pulse Rate 95 H 97 H 97 H Pulse Rate [ Left Radial] Respiratory 12 19 18 Rate Blood Pressure 93/56 93/56 106/60 O2 Sat by Pulse 100 100 100 Oximetry 06/18/18 06/18/18 04:11 08:00 Temperature 98.4 F Pulse Rate 89 Pulse Rate [ Left Radial] Respiratory 13 Rate Blood Pressure 106/60 O2 Sat by Pulse 100 Oximetry - General Appearance General appearance: well-developed, well-nourished, appears stated age EENT: ATNC, PERRL, mucous membranes moist Neck: no JVD, no carotid bruit Respiratory: Present: Clear to Ascultation. Absent: Rales, Ronchi Cardiology: regular, S1S2 Gastrointestinal: normoactive bowel sounds, no tenderness, no distended Integumentary: no rash, warm and dry Neurologic: no focal deficit, no asterixis, alert and oriented x3 Musculoskeletal: other (no edema in BLE) Psychiatric: mood/affect appropriate, cooperative - Lab 06/18/18 05:22 06/18/18 05:22 Most recent lab results Calcium 7.3 mg/dL (8.4-10.2) L 06/18/18 05:22 Medications & Allergies - Medications Allergies/Adverse Reactions: Allergies No Known Allergies Allergy (Verified 03/27/17 23:28) Home Medications: Home Medications Medication Instructions Recorded Confirmed Last Taken Type Pantoprazole [Protonix TAB] 40 mg PO BID #60 tablet 05/04/18 06/15/18 Unknown Rx Active Medications: Generic Name Dose Route Start Last Admin Trade Name Freq PRN Reason Stop Dose Admin Acetaminophen 650 mg 06/15/18 10:26 06/16/18 20:39 Tylenol PO 650 mg Q4H PRN Administration Pain MILD(1-3)/Fever >100.5/BARNES Doxycycline Hyclate 100 mg 06/16/18 20:00 06/17/18 22:06 Vibramycin PO 100 mg BID NESTOR Administration Heparin Sodium (Porcine) 5,000 unit 06/16/18 10:00 06/17/18 22:05 Heparin SUB-Q 5,000 unit Q12HR NESTOR Administration Cefepime HCl 2 gm in 100 mls @ 200 mls/hr 06/16/18 20:00 06/17/18 20:04 Maxipime/Ns 2 Gm/100 Ml IV 200 mls/hr Q12H NESTOR Administration Protocol Metronidazole 500 mg in 100 mls @ 100 mls/hr 06/16/18 18:00 06/18/18 03:00 Flagyl 500 Mg/100 Ml IV Not Given Q8H [facility] Protocol Morphine Sulfate 2 mg 06/15/18 10:26 06/17/18 22:04 Morphine IV 2 mg Q4H PRN Administration Pain, Moderate (4-6) Ondansetron HCl 4 mg 06/15/18 10:26 Zofran IV Q8H PRN Nausea And Vomiting Pantoprazole Sodium 40 mg 06/15/18 22:00 06/17/18 22:05 Protonix IV 40 mg BID NESTOR Administration Sodium Chloride 10 ml 06/15/18 10:26 06/17/18 22:06 Sodium Chloride Flush Syringe 10 Ml IV 10 ml PRN PRN Administration LINE FLUSH
--- NOTE | 2018-06-18 11:46 | Progress Note ---
Assessment and Plan Assessment and Plan Cultures: 06/15/2018 Blood: no growth to date 06/15/2018 Wound; heavy growth of usual skin deb Assessment: 58 y/o male with history of hidradenitis suppurativa, moved here from [place], known to ID, admitted on Mar 2017 then Apr 2017 due to worsening right axillary pain and purulent drainage, bilateral inguinal pain and purulent drainage and gluteal pain and drainage as well as lower abdominal wall pain and drainage. Patient is status post multiple I and D's in the past as well as skin grafting. Patient was taken to the operating room and underwent I and D of abscess, skin and subcutaneous tissue on 03/29/2017. OR wound cultures grew MRSA. He was d ischarged on zyvox po. Unfortunately, patient was redmitted 04/30-05/30/17 due to worsening bilateral groin, suprapubic and perineal pain with foul-smelling discharge and subjective fever. He was found septic with leukocytosis and hypotension. Source was felt to be extensive bilateral groin, pubic and perineal cellulitis and abscesses from hidradenitis. CT showed marked perineal skin thickening with SQ stranding and edema cellulitiis /forniers. Taken to the OR debridement 05/01/2017. ID plan was to continue vancomycin 1.5 g IV q day and levaquin 750 mg Po qday total 4 weeks until 05/28/17. Patient stayed in patient until he finished it. Unfortunately, patient was readmitted on 06/12/17 due to 24 hours history of worsening abdominal pain, scrotal edema and drainage from surgical wound infection-left buttocks abscess. Discharged on linezolid 600 mg po BID, cipro 500 mg PO q12 total 3 weeks until 07/03/2017 and ID clinic f/u to start doxycycline chronic therapy. He was supposed to have buttocks surgical debridement in the future by Dr Aguilar. Patient did not show to ID clinic. 1) Sepsis: Resolved, Present on admission, manifested by fever at home, tachycardia, leukocytosis. Etiology most likely infected hidradenitis +/- UTI +/- enteritis CRP 13.30 2) Extensive hidradenitis suppurative to pubic mons, bilateral groin, bilateral gluteal area, scrotum and bilateral axilla R>L: -Patient is status post multiple I and D's in the past as well as skin grafting. -S/P OR I & D of abscess, skin and subcutaneous tissue on 03/29/2017. OR wound cultures grew MRSA. He was discharged on zyvox po. U -S/P extensive OR debridement 05/01/17. -S/P vancomycin 1.5 g IV q day and levaquin 750 mg Po q day total 4 weeks until 05/28/17. -S/P left buttocks I+D on 06/15/17 usual skin deb - Wound culture 06/15/2018 usual skin deb. - Blood culture 06/15/2018 no growth today. -CT pelvis showed cutaneous and subcutaneous thickening/edema involving the buttocks, left greater than right. No abscess identified. Similar appearance also involves the scrotal wall. -No indication for an I & D at this time because of current ARF. Buttock skin excision to be scheduled outpatient - Dr. Aguilar following. 3) UTI: UA 20 wbc, small LE. 4) Enteritis: CT showed Abnormal wall thickening involving the duodenum and proximal jejunum which is nonspecific but could be duodenitis/jejunitis. 5) DWIGHT: Renal US shows renal cyst- antibiotics renally dosed. Nephrology following Plan: - f/u wound care consult - continue cefepime, flagyl and doxycycline for now - renally adjusted -Anticipate discharge on Minocycline 100 mg PO for 10 days. d/w Dr. Pancho Dumas, [facility] M: [phone] O:[phone] Subjective Date of service: 06/18/18 Principal diagnosis: acute renal failure Interval history: Patient seen and examined. Complained of severe buttock pain. Nurse at bedside. no fevers. Nurses notes, labs and reports reviewed, discussed with patient. Objective - Exam Narrative Exam: General appearance: Alert in NAD, conversant Acute distress, buttock pain Eyes: anicteric sclerae, moist conjunctivae; no lid-lag; PERRLA HENT: Atraumatic; oropharynx clear with moist mucous membranes and no mucosal ulcerations/no oral thrush; normal hard and soft palate. Normal external ears. Neck: Trachea midline; supple, no thyromegaly or lymphadenopathy Lungs: CTA, with normal respiratory effort and no intercostal retractions CV: RRR, no murmurs Abdomen: Soft, non-tender; no masses or hepatosplenomegaly Extremities: No peripheral edema or extremity lymphadenopathy Skin: Per wound care: Right axilla wound is healthy and continues to improve. Buttocks scattered small pockets draining purulent drainage. Psych: Appropriate affect, alert and oriented to person, place and time. Neuro: alert and oriented x 3. Moving all extermities - Constitutional Vitals: Vital Signs Temp Pulse Resp BP Pulse Ox 98.4 F 89 13 106/60 100 06/18/18 08:00 06/18/18 04:11 06/18/18 04:11 06/18/18 04:11 06/18/18 04:11 Temperature -Last 24 Hours Temperature 98.4 F Temperature 98.3 F Temperature 98.3 F Temperature 98.6 F Temperature 98.0 F - Labs CBC & Chem 7: 06/18/18 05:22 06/18/18 05:22 Labs: Abnormal lab results 06/18/18 06/18/18 06/18/18 Range/Units 03:53 05:22 05:22 WBC 12.0 H (4.5-11.0) K/mm3 RBC 2.82 L (3.65-5.03) M/mm3 Hgb 7.7 L (11.8-15.2) gm/dl Hct 23.6 L (35.5-45.6) % MCH 27 L (28-32) pg RDW 16.0 H (13.2-15.2) % Chloride 109.0 H (98-107) mmol/L Carbon Dioxide 21 L (22-30) mmol/L BUN 25 H (9-20) mg/dL Creatinine 2.2 H (0.8-1.5) mg/dL Glucose 60 L (75-100) mg/dL POC Glucose 64 L (70-105) Calcium 7.3 L (8.4-10.2) mg/dL
--- NOTE | 2018-06-18 11:48 | Consultation ---
History of Present Illness Consult date: 06/18/18 Reason for consult: other (Bilateral buttock hidradenitis suppurativa) - History of present illness History of present illness: 58 yo male well known to me related to his severe lower abdominal, groin, scrotal, buttock and right axillary hidradenitis suppurativa. He is s/p excision of his lower abdominal and groin skin with good results. He was admitted for infection of his buttocks. Past History Past Medical History: other (Hidradenitis suppurativa s/p multiple surgeries,skin grafts x 4 ) Past Surgical History: Other (Multiple surgeries for hidradenitis suppurativa) Social history: single, full code, other (Alcohol occasionally). denies: smoking Family history: no significant family history Medications and Allergies Allergies Allergy/AdvReac Type Severity Reaction Status Date / Time No Known Allergies Allergy Verified 03/27/17 23:28 Home Medications Medication Instructions Recorded Confirmed Last Taken Type Pantoprazole [Protonix TAB] 40 mg PO BID #60 tablet 05/04/18 06/15/18 Unknown Rx Active Meds: Active Medications Acetaminophen (Tylenol) 650 mg PO Q4H PRN PRN Reason: Pain MILD(1-3)/Fever >100.5/BARNES Last Admin: 06/16/18 20:39 Dose: 650 mg Documented by: Doxycycline Hyclate (Vibramycin) 100 mg PO BID [facility] Last Admin: 06/17/18 22:06 Dose: 100 mg Documented by: Heparin Sodium (Porcine) (Heparin) 5,000 unit SUB-Q Q12HR [facility] Last Admin: 06/17/18 22:05 Dose: 5,000 unit Documented by: Cefepime HCl (Maxipime/Ns 2 Gm/100 Ml) 2 gm in 100 mls @ 200 mls/hr IV Q12H [facility]; Protocol Last Admin: 06/17/18 20:04 Dose: 200 mls/hr Documented by: Metronidazole (Flagyl 500 Mg/100 Ml) 500 mg in 100 mls @ 100 mls/hr IV Q8H [facility]; Protocol Last Admin: 06/18/18 03:00 Dose: Not Given Documented by: Morphine Sulfate (Morphine) 2 mg IV Q4H PRN PRN Reason: Pain, Moderate (4-6) Last Admin: 06/17/18 22:04 Dose: 2 mg Documented by: Ondansetron HCl (Zofran) 4 mg IV Q8H PRN PRN Reason: Nausea And Vomiting Pantoprazole Sodium (Protonix) 40 mg IV BID [facility] Last Admin: 06/17/18 22:05 Dose: 40 mg Documented by: Sodium Chloride (Sodium Chloride Flush Syringe 10 Ml) 10 ml IV PRN PRN PRN Reason: LINE FLUSH Last Admin: 06/17/18 22:06 Dose: 10 ml Documented by: Review of Systems All systems: negative Exam Vital Signs Temp Pulse Resp BP Pulse Ox 98.2 F 95 H 20 113/60 100 06/15/18 06:22 06/15/18 06:22 06/15/18 06:22 06/15/18 06:22 06/15/18 06:22 - General physical appearance Positive: well developed, well nourished, no distress - Eyes Positive: PERRL, normal occular movement - ENT Positive: normal pinna, normal nares, normal mucosa, no hearing loss, no congestion - Neck Positive: no masses, no bruits, trachea midline, no venous distension - Respiratory Positive: normal expansion, normal respiratory effort, clear to auscultation - Cardiovascular Rhythm: regular Heart Sounds: Present: S1 & S2. Absent: rub, click - Extremities Extremities: no ischemia, pulses symmetrical, No edema - Breasts Breasts: deferred - Abdomen Abdomen: Present: soft, bowel sounds normal. Absent: tender, distended Hernia: none - Genitourinary Male Genitourinary: deferred - Integumentary other (Pt has severe hidradenitis suppurativa of his scrotum, bilateral buttocks and right axilla. This is manifested by multiple purulent draining sinuses in these areas with induration of the associated skin. There is no evidence of any abscess in any of these areas.) - Neurologic Neurologic: alert and oriented to time, place and person, motor strength and sensation are grossly intact - Musculoskeletal normal gait, normal posture - Psychiatric Psychiatric: appropriate mood/affect, intact judgment & insight Results - Labs 06/18/18 05:22 06/18/18 05:22 Abnormal lab results 06/18/18 06/18/18 06/18/18 Range/Units 03:53 05:22 05:22 WBC 12.0 H (4.5-11.0) K/mm3 RBC 2.82 L (3.65-5.03) M/mm3 Hgb 7.7 L (11.8-15.2) gm/dl Hct 23.6 L (35.5-45.6) % MCH 27 L (28-32) pg RDW 16.0 H (13.2-15.2) % Chloride 109.0 H (98-107) mmol/L Carbon Dioxide 21 L (22-30) mmol/L BUN 25 H (9-20) mg/dL Creatinine 2.2 H (0.8-1.5) mg/dL Glucose 60 L (75-100) mg/dL POC Glucose 64 L (70-105) Calcium 7.3 L (8.4-10.2) mg/dL Diabetes panel 06/18/18 Range/Units 05:22 Sodium 140 (137-145) mmol/L Potassium 4.8 (3.6-5.0) mmol/L Chloride 109.0 H (98-107) mmol/L Carbon Dioxide 21 L (22-30) mmol/L BUN 25 H (9-20) mg/dL Creatinine 2.2 H (0.8-1.5) mg/dL Glucose 60 L (75-100) mg/dL Calcium 7.3 L (8.4-10.2) mg/dL Calcium panel 06/18/18 Range/Units 05:22 Calcium 7.3 L (8.4-10.2) mg/dL Pituitary panel 06/18/18 Range/Units 05:22 Sodium 140 (137-145) mmol/L Potassium 4.8 (3.6-5.0) mmol/L Chloride 109.0 H (98-107) mmol/L Carbon Dioxide 21 L (22-30) mmol/L BUN 25 H (9-20) mg/dL Creatinine 2.2 H (0.8-1.5) mg/dL Glucose 60 L (75-100) mg/dL Calcium 7.3 L (8.4-10.2) mg/dL Adrenal panel 06/18/18 Range/Units 05:22 Sodium 140 (137-145) mmol/L Potassium 4.8 (3.6-5.0) mmol/L Chloride 109.0 H (98-107) mmol/L Carbon Dioxide 21 L (22-30) mmol/L BUN 25 H (9-20) mg/dL Creatinine 2.2 H (0.8-1.5) mg/dL Glucose 60 L (75-100) mg/dL Calcium 7.3 L (8.4-10.2) mg/dL - Imaging Additional studies: CT scan of abdomen and pelvis on 06/15/18 revealed no abscess in the above noted areas of hidradenitis. Assessment and Plan - Patient Problems (1) Hidradenitis suppurativa Current Visit: Yes Status: Acute Plan to address problem: 1) Pt desires to have his buttock skin excised next. Because of his current ARF, this will be scheduled as an outpt. We will likely place a diverting c olostomy as well to prevent constant fecal contamination of his proposed large buttock wounds. 2) There is no indication for an I&D at this time.
[2018-06-18] MEDS: MAXIPIME/NS 2 GM/100 ML 2 GM/100 ML BAG IV SCH ×2 (12:14→22:00)
[2018-06-18] MEDS: PROTONIX IV SCH ×2 (12:15→22:36)
[2018-06-18] MEDS: HEPARIN SUB-Q SCH ×2 (12:15→22:37)
[2018-06-18] MEDS: SODIUM CHLORIDE FLUSH SYRINGE 10 ML IV PRN ×2 (12:16→22:37)
[2018-06-18] MEDS: VIBRAMYCIN PO SCH ×2 (12:16→22:37)
[2018-06-18] MEDS: MORPHINE IV PRN ×3 (12:18→22:44)
--- NOTE | 2018-06-18 15:11 | Progress Note ---
Assessment and Plan Sepsis Continue Zosyn and Vanco ID Physician following Hidradenitis suppurativa s/p multiple I and D and skin grafts Consulted Dr. Aguilar,his surgeon DWIGHT vs acute on chronic started iv fluids Cr improving Nephrology following History of GI bleed protonix iv leukocytosis due to sepsis Full code status Subjective Date of service: 06/18/18 Principal diagnosis: acute renal failure Interval history: Symptomatically better Objective - Constitutional Vitals: Vital Signs - 12hr 06/18/18 06/18/18 06/18/18 03:11 03:21 03:31 Temperature Pulse Rate 93 H 92 H 93 H Respiratory 15 12 12 Rate Blood Pressure 102/54 93/56 93/56 O2 Sat by Pulse 100 100 100 Oximetry 06/18/18 06/18/18 06/18/18 03:41 03:51 04:00 Temperature Pulse Rate 95 H 97 H 97 H Respiratory 12 19 18 Rate Blood Pressure 93/56 93/56 106/60 O2 Sat by Pulse 100 100 100 Oximetry 06/18/18 06/18/18 06/18/18 04:11 08:00 12:00 Temperature 98.4 F 98.8 F Pulse Rate 89 Respiratory 13 Rate Blood Pressure 106/60 O2 Sat by Pulse 100 Oximetry General appearance: Present: no acute distress, well-nourished - EENT Eyes: PERRL, EOM intact ENT: hearing intact, clear oral mucosa Ears: bilateral: normal - Neck Neck: supple, normal ROM - Respiratory Respiratory effort: normal Respiratory: bilateral: CTA - Breasts Breasts: normal - Cardiovascular Rhythm: regular Heart Sounds: Present: S1 & S2. Absent: gallop, rub Extremities: pulses intact, No edema, normal color, Full ROM - Gastrointestinal General gastrointestinal: Present: soft, non-tender, non-distended, normal bowel sounds - Genitourinary Male genitourinary: normal - Integumentary Integumentary: clear, warm, dry - Musculoskeletal Musculoskeletal: 1, strength equal bilaterally - Neurologic Neurologic: moves all extremities - Psychiatric Psychiatric: memory intact, appropriate mood/affect, intact judgment & insight - Labs CBC & Chem 7: 06/20/18 00:08 06/21/18 05:32 Labs: Abnormal lab results 06/18/18 06/18/18 06/18/18 Range/Units 03:53 05:22 05:22 WBC 12.0 H (4.5-11.0) K/mm3 RBC 2.82 L (3.65-5.03) M/mm3 Hgb 7.7 L (11.8-15.2) gm/dl Hct 23.6 L (35.5-45.6) % MCH 27 L (28-32) pg RDW 16.0 H (13.2-15.2) % Chloride 109.0 H (98-107) mmol/L Carbon Dioxide 21 L (22-30) mmol/L BUN 25 H (9-20) mg/dL Creatinine 2.2 H (0.8-1.5) mg/dL Glucose 60 L (75-100) mg/dL POC Glucose 64 L (70-105) Calcium 7.3 L (8.4-10.2) mg/dL
[2018-06-19] MEDS: FLAGYL 500 MG/100 ML 500 MG/100 ML BAG IV SCH ×3 (03:51→18:13)
[2018-06-19 05:45] LABS: Calcium 7.6 mg/dL (8.4-10.2)
[2018-06-19] MEDS: MAXIPIME/NS 2 GM/100 ML 2 GM/100 ML BAG IV SCH ×2 (09:27→20:15)
[2018-06-19] MEDS: HEPARIN SUB-Q SCH ×2 (09:28→22:13)
[2018-06-19] MEDS: PROTONIX IV SCH (09:28)
[2018-06-19] MEDS: VIBRAMYCIN PO SCH ×2 (09:28→22:15)
--- NOTE | 2018-06-19 11:04 | Progress Note ---
Assessment and Plan Assessment and Plan Cultures: 06/15/2018 Blood: no growth to date 06/15/2018 Wound; heavy growth of usual skin deb Assessment: 58 y/o male with history of hidradenitis suppurativa, moved here from [place], known to ID, admitted on Mar 2017 then Apr 2017 due to worsening right axillary pain and purulent drainage, bilateral inguinal pain and purulent drainage and gluteal pain and drainage as well as lower abdominal wall pain and drainage. Patient is status post multiple I and D's in the past as well as skin grafting. Patient was taken to the operating room and underwent I and D of abscess, skin and subcutaneous tissue on 03/29/2017. OR wound cultures grew MRSA. He was d ischarged on zyvox po. Unfortunately, patient was redmitted 04/30-05/30/17 due to worsening bilateral groin, suprapubic and perineal pain with foul-smelling discharge and subjective fever. He was found septic with leukocytosis and hypotension. Source was felt to be extensive bilateral groin, pubic and perineal cellulitis and abscesses from hidradenitis. CT showed marked perineal skin thickening with SQ stranding and edema cellulitiis /forniers. Taken to the OR debridement 05/01/2017. ID plan was to continue vancomycin 1.5 g IV q day and levaquin 750 mg Po qday total 4 weeks until 05/28/17. Patient stayed in patient until he finished it. Unfortunately, patient was readmitted on 06/12/17 due to 24 hours history of worsening abdominal pain, scrotal edema and drainage from surgical wound infection-left buttocks abscess. Discharged on linezolid 600 mg po BID, cipro 500 mg PO q12 total 3 weeks until 07/03/2017 and ID clinic f/u to start doxycycline chronic therapy. He was supposed to have buttocks surgical debridement in the future by Dr Aguilar. Patient did not show to ID clinic. 1) Sepsis: Resolved, Present on admission, manifested by fever at home, tachycardia, leukocytosis. Etiology most likely infected hidradenitis +/- UTI +/- enteritis CRP 13.30 2) Extensive hidradenitis suppurative to pubic mons, bilateral groin, bilateral gluteal area, scrotum and bilateral axilla R>L: -Patient is status post multiple I and D's in the past as well as skin grafting. -S/P OR I & D of abscess, skin and subcutaneous tissue on 03/29/2017. OR wound cultures grew MRSA. He was discharged on zyvox po. U -S/P extensive OR debridement 05/01/17. -S/P vancomycin 1.5 g IV q day and levaquin 750 mg Po q day total 4 weeks until 05/28/17. -S/P left buttocks I+D on 06/15/17 usual skin deb - Wound culture 06/15/2018 usual skin deb. - Blood culture 06/15/2018 no growth today. -CT pelvis showed cutaneous and subcutaneous thickening/edema involving the buttocks, left greater than right. No abscess identified. Similar appearance also involves the scrotal wall. -No indication for an I & D at this time because of current ARF. Buttock skin excision to be scheduled outpatient - Dr. Aguilar following. 3) UTI: UA 20 wbc, small LE. 4) Enteritis: CT showed Abnormal wall thickening involving the duodenum and proximal jejunum which is nonspecific but could be duodenitis/jejunitis. 5) DWIGHT: Renal US shows renal cyst- antibiotics renally dosed. Nephrology following Plan: - f/u wound care consult - continue cefepime, flagyl and doxycycline for now - renally adjusted -Anticipate discharge on Minocycline 100 mg PO BID and Augmentin 875 mg PO BID for 10 days. [facility] M: [phone] O:[phone] Subjective Date of service: 06/19/18 Principal diagnosis: acute renal failure Interval history: Patient seen and examined. Complained of severe buttock pain. Nurse at bedside. no fevers. Nurses notes, labs and reports reviewed, discussed with patient. Objective - Exam Narrative Exam: General appearance: Alert in NAD, conversant Acute distress, buttock pain Eyes: anicteric sclerae, moist conjunctivae; no lid-lag; PERRLA HENT: Atraumatic; oropharynx clear with moist mucous membranes and no mucosal ulcerations/no oral thrush; normal hard and soft palate. Normal external ears. Neck: Trachea midline; supple, no thyromegaly or lymphadenopathy Lungs: CTA, with normal respiratory effort and no intercostal retractions CV: RRR, no murmurs Abdomen: Soft, non-tender; no masses or hepatosplenomegaly Extremities: No peripheral edema or extremity lymphadenopathy Skin: Per wound care: Right axilla wound is healthy and continues to improve. Buttocks scattered small pockets draining purulent drainage. Psych: Appropriate affect, alert and oriented to person, place and time. Neuro: alert and oriented x 3. Moving all extermities - Constitutional Vitals: Vital Signs Temp Pulse Resp BP Pulse Ox 98.2 F 74 12 99/53 100 06/19/18 08:00 06/19/18 09:00 06/19/18 09:00 06/19/18 09:00 06/19/18 09:00 Temperature -Last 24 Hours Temperature 98.2 F Temperature 98.2 F Temperature 98.3 F Temperature 98.1 F Temperature 98.0 F Temperature 98.3 F Temperature 98.1 F Temperature 98.8 F - Labs CBC & Chem 7: 06/18/18 05:22 06/19/18 05:01 Labs: Abnormal lab results 06/19/18 Range/Units 05:01 Sodium 135 L (137-145) mmol/L Carbon Dioxide 21 L (22-30) mmol/L BUN 26 H (9-20) mg/dL Creatinine 2.2 H (0.8-1.5) mg/dL Glucose 64 L (75-100) mg/dL Calcium 7.6 L (8.4-10.2) mg/dL
--- NOTE | 2018-06-19 11:38 | Progress Note ---
Assessment and Plan - Patient Problems (1) Hidradenitis suppurativa Current Visit: Yes Status: Acute Plan to address problem: 1) Pt to f/u in the Wound Care Clinic after discharge. At that time, we will schedule him for excision of his bilateral buttock hidradenitis. Pt is aware that the buttock wounds may take up to 6 months to heal. He is fine with that. Subjective Date of service: 06/19/18 Patient Reports: Positive: no new complaints Objective Vital Signs - 12hr 06/19/18 06/19/18 06/19/18 00:00 01:00 02:00 Temperature 98.3 F Pulse Rate 77 81 77 Pulse Rate [ 82 Left Radial] Respiratory 12 9 L 9 L Rate Blood Pressure 111/59 102/64 105/58 O2 Sat by Pulse 100 100 100 Oximetry 06/19/18 06/19/18 06/19/18 03:00 04:00 05:00 Temperature 98.2 F Pulse Rate 83 78 82 Pulse Rate [ 74 Left Radial] Respiratory 14 11 L 14 Rate Blood Pressure 106/57 107/60 113/63 O2 Sat by Pulse 100 100 100 Oximetry 06/19/18 06/19/18 06/19/18 06:00 07:00 08:00 Temperature 98.2 F Pulse Rate 75 68 75 Pulse Rate [ Left Radial] Respiratory 12 12 14 Rate Blood Pressure 125/80 108/59 101/67 O2 Sat by Pulse 100 100 100 Oximetry 06/19/18 09:00 Temperature Pulse Rate 73 Pulse Rate [ 74 Left Radial] Respiratory 11 L Rate Blood Pressure 99/53 O2 Sat by Pulse 100 Oximetry - Integumentary other (Bilateral buttock cellulitis is unchanged.) - Labs 06/18/18 05:22 06/19/18 05:01 Diabetes panel 06/19/18 Range/Units 05:01 Sodium 135 L (137-145) mmol/L Potassium 4.8 (3.6-5.0) mmol/L Chloride 106.9 (98-107) mmol/L Carbon Dioxide 21 L (22-30) mmol/L BUN 26 H (9-20) mg/dL Creatinine 2.2 H (0.8-1.5) mg/dL Glucose 64 L (75-100) mg/dL Calcium 7.6 L (8.4-10.2) mg/dL Calcium panel 06/19/18 Range/Units 05:01 Calcium 7.6 L (8.4-10.2) mg/dL Phosphorus 3.00 (2.5-4.5) mg/dL Pituitary panel 06/19/18 Range/Units 05:01 Sodium 135 L (137-145) mmol/L Potassium 4.8 (3.6-5.0) mmol/L Chloride 106.9 (98-107) mmol/L Carbon Dioxide 21 L (22-30) mmol/L BUN 26 H (9-20) mg/dL Creatinine 2.2 H (0.8-1.5) mg/dL Glucose 64 L (75-100) mg/dL Calcium 7.6 L (8.4-10.2) mg/dL Adrenal panel 06/19/18 Range/Units 05:01 Sodium 135 L (137-145) mmol/L Potassium 4.8 (3.6-5.0) mmol/L Chloride 106.9 (98-107) mmol/L Carbon Dioxide 21 L (22-30) mmol/L BUN 26 H (9-20) mg/dL Creatinine 2.2 H (0.8-1.5) mg/dL Glucose 64 L (75-100) mg/dL Calcium 7.6 L (8.4-10.2) mg/dL
--- NOTE | 2018-06-19 15:58 | Progress Note ---
Assessment and Plan Sepsis Continue Zosyn and Vanco ID Physician following Hidradenitis suppurativa s/p multiple I and D and skin grafts Consulted Dr. Aguilar,his surgeon DWIGHT vs acute on chronic started iv fluids Cr improving Nephrology following History of GI bleed protonix iv leukocytosis due to sepsis Full code status Subjective Date of service: 06/19/18 Principal diagnosis: acute renal failure Interval history: Symptomatically better Objective - Constitutional Vitals: Vital Signs - 12hr 06/19/18 06/19/18 06/19/18 04:00 05:00 06:00 Temperature 98.2 F Pulse Rate 78 82 75 Pulse Rate [ 74 Left Radial] Respiratory 11 L 14 12 Rate Blood Pressure 107/60 113/63 125/80 O2 Sat by Pulse 100 100 100 Oximetry 06/19/18 06/19/18 06/19/18 07:00 08:00 09:00 Temperature 98.2 F Pulse Rate 68 75 73 Pulse Rate [ 74 Left Radial] Respiratory 12 14 11 L Rate Blood Pressure 108/59 101/67 99/53 O2 Sat by Pulse 100 100 100 Oximetry General appearance: Present: no acute distress, well-nourished - EENT Eyes: PERRL, EOM intact ENT: hearing intact, clear oral mucosa Ears: bilateral: normal - Neck Neck: supple, normal ROM - Respiratory Respiratory effort: normal Respiratory: bilateral: CTA - Breasts Breasts: normal - Cardiovascular Rhythm: regular Heart Sounds: Present: S1 & S2. Absent: gallop, rub Extremities: pulses intact, No edema, normal color, Full ROM - Gastrointestinal General gastrointestinal: Present: soft, non-tender, non-distended, normal bowel sounds - Genitourinary Male genitourinary: normal - Integumentary Integumentary: clear, warm, dry - Musculoskeletal Musculoskeletal: 1, strength equal bilaterally - Neurologic Neurologic: moves all extremities - Psychiatric Psychiatric: memory intact, appropriate mood/affect, intact judgment & insight - Labs CBC & Chem 7: 06/20/18 00:08 06/21/18 05:32 Labs: Abnormal lab results 06/19/18 Range/Units 05:01 Sodium 135 L (137-145) mmol/L Carbon Dioxide 21 L (22-30) mmol/L BUN 26 H (9-20) mg/dL Creatinine 2.2 H (0.8-1.5) mg/dL Glucose 64 L (75-100) mg/dL Calcium 7.6 L (8.4-10.2) mg/dL
--- NOTE | 2018-06-19 16:27 | Progress Note ---
Assessment and Plan Acute Kidney injury likely pre-renal/DWIGHT due to poor appetite, hypotenison on underlying CKD: Metabolic acidosis, mild: -Renal function reviewed. Serum creatinine remains stable at 2.2, non-oliguric. -Renal US shows renal cyst, will need urology evaluation as an outpatient -Monitor acidosis -Renally dose all medications -Avoid Nephrotoxic agents -Monitor I/O's -Continue to monitor renal function -Patient should follow-up with us outpatiently in 7 days upon discharge Sepsis likely due to UTI: Possible Urinary tract infection: -On IV Flagyl, Doxycycline and Cefepime -As per primary team Hidradenitis suppurativa: -Excision of his bilateral buttock hidradenitis to be done outpatiently per General surgery -Patient to also follow-up with wound care clinic -Possible discharge on Minocycline and Augmentin per ID Nausea, vomiting and diarrhea: - S/P IV hydration - On Flagyl Subjective Date of service: 06/19/18 Principal diagnosis: acute renal failure Interval history: Patient seen lying in bed. Awake and alert. Objective - Vital Signs Vital signs: Vital Signs - 12hr 06/19/18 06/19/18 06/19/18 05:00 06:00 07:00 Temperature Pulse Rate 82 75 68 Pulse Rate [ 74 Left Radial] Respiratory 14 12 12 Rate Blood Pressure 113/63 125/80 108/59 O2 Sat by Pulse 100 100 100 Oximetry 06/19/18 06/19/18 08:00 09:00 Temperature 98.2 F Pulse Rate 75 73 Pulse Rate [ 74 Left Radial] Respiratory 14 11 L Rate Blood Pressure 101/67 99/53 O2 Sat by Pulse 100 100 Oximetry - General Appearance General appearance: well-developed, fatigue EENT: ATNC, PERRL, hearing intact, vision intact Neck: no JVD, supple Respiratory: Present: Decreased Breath Sounds Cardiology: regular, S1S2 Gastrointestinal: normoactive bowel sounds Integumentary: warm and dry Neurologic: alert and oriented x3 Musculoskeletal: other (No edema) Psychiatric: cooperative - Lab 06/18/18 05:22 06/19/18 05:01 Most recent lab results Calcium 7.6 mg/dL (8.4-10.2) L 06/19/18 05:01 Phosphorus 3.00 mg/dL (2.5-4.5) 06/19/18 05:01 Medications & Allergies - Medications Allergies/Adverse Reactions: Allergies No Known Allergies Allergy (Verified 03/27/17 23:28) Home Medications: Home Medications Medication Instructions Recorded Confirmed Last Taken Type Pantoprazole [Protonix TAB] 40 mg PO BID #60 tablet 05/04/18 06/15/18 Unknown Rx Active Medications: Generic Name Dose Route Start Last Admin Trade Name Freq PRN Reason Stop Dose Admin Acetaminophen 650 mg 06/15/18 10:26 06/16/18 20:39 Tylenol PO 650 mg Q4H PRN Administration Pain MILD(1-3)/Fever >100.5/BARNES Doxycycline Hyclate 100 mg 06/16/18 20:00 06/19/18 09:28 Vibramycin PO 100 mg BID [facility] Administration Heparin Sodium (Porcine) 5,000 unit 06/16/18 10:00 06/19/18 09:28 Heparin SUB-Q 5,000 unit Q12HR [facility] Administration Cefepime HCl 2 gm in 100 mls @ 200 mls/hr 06/16/18 20:00 06/19/18 09:27 Maxipime/Ns 2 Gm/100 Ml IV 200 mls/hr Q12H [facility] Administration Protocol Metronidazole 500 mg in 100 mls @ 100 mls/hr 06/16/18 18:00 06/19/18 03:51 Flagyl 500 Mg/100 Ml IV 100 mls/hr Q8H [facility] Administration Protocol Morphine Sulfate 2 mg 06/15/18 10:26 06/18/18 22:44 Morphine IV 2 mg Q4H PRN Administration Pain, Moderate (4-6) Ondansetron HCl 4 mg 06/15/18 10:26 Zofran IV Q8H PRN Nausea And Vomiting Pantoprazole Sodium 40 mg 06/19/18 22:00 Protonix PO BID [facility] Sodium Chloride 10 ml 06/15/18 10:26 06/18/18 22:37 Sodium Chloride Flush Syringe 10 Ml IV 10 ml PRN PRN Administration LINE FLUSH
[2018-06-19] MEDS: PROTONIX PO SCH (22:14)
[2018-06-19] MEDS: MORPHINE IV PRN (22:42)
[2018-06-20 00:54] LABS: Basophils # (Auto) 0.1 K/mm3 (0.0-0.1); Basophils % (Auto) 0.5 % (0.0-1.8); Eosinophils # (Auto) 0.4 K/mm3 (0.0-0.4); Eosinophils % (Auto) 3.9 % (0.0-4.3); Hematocrit 23.2 % (35.5-45.6); Hemoglobin 7.4 gm/dl (11.8-15.2); Lymphocytes # (Auto) 1.9 K/mm3 (1.2-5.4); Lymphocytes % (Auto) 17.6 % (13.4-35.0); Mean Corpuscular HGB Conc 32 % (32-34); Mean Corpuscular Volume 84 fl (84-94); Monocytes # (Auto) 0.5 K/mm3 (0.0-0.8); Monocytes % (Auto) 4.5 % (0.0-7.3); Platelet Count 217 K/mm3 (140-440); Red Blood Count 2.77 M/mm3 (3.65-5.03); Red Cell Distribution Width 16.4 % (13.2-15.2)
[2018-06-20] MEDS: FLAGYL 500 MG/100 ML 500 MG/100 ML BAG IV SCH ×2 (02:15→10:14)
[2018-06-20 06:17] LABS: Calcium 7.8 mg/dL (8.4-10.2)
[2018-06-20] MEDS: MAXIPIME/NS 2 GM/100 ML 2 GM/100 ML BAG IV SCH (08:55)
[2018-06-20] MEDS: HEPARIN SUB-Q SCH ×2 (09:31→22:25)
[2018-06-20] MEDS: PROTONIX PO SCH ×2 (09:32→21:18)
[2018-06-20] MEDS: VIBRAMYCIN PO SCH ×2 (09:32→21:12)
--- NOTE | 2018-06-20 11:01 | Progress Note ---
Assessment and Plan Assessment and Plan Cultures: 06/15/2018 Blood: no growth to date 06/15/2018 Wound; heavy growth of usual skin deb Assessment: 58 y/o male with history of hidradenitis suppurativa, moved here from [place], known to ID, admitted on Mar 2017 then Apr 2017 due to worsening right axillary pain and purulent drainage, bilateral inguinal pain and purulent drainage and gluteal pain and drainage as well as lower abdominal wall pain and drainage. Patient is status post multiple I and D's in the past as well as skin grafting. Patient was taken to the operating room and underwent I and D of abscess, skin and subcutaneous tissue on 03/29/2017. OR wound cultures grew MRSA. He was d ischarged on zyvox po. Unfortunately, patient was redmitted 04/30-05/30/17 due to worsening bilateral groin, suprapubic and perineal pain with foul-smelling discharge and subjective fever. He was found septic with leukocytosis and hypotension. Source was felt to be extensive bilateral groin, pubic and perineal cellulitis and abscesses from hidradenitis. CT showed marked perineal skin thickening with SQ stranding and edema cellulitiis /forniers. Taken to the OR debridement 05/01/2017. ID plan was to continue vancomycin 1.5 g IV q day and levaquin 750 mg Po qday total 4 weeks until 05/28/17. Patient stayed in patient until he finished it. Unfortunately, patient was readmitted on 06/12/17 due to 24 hours history of worsening abdominal pain, scrotal edema and drainage from surgical wound infection-left buttocks abscess. Discharged on linezolid 600 mg po BID, cipro 500 mg PO q12 total 3 weeks until 07/03/2017 and ID clinic f/u to start doxycycline chronic therapy. He was supposed to have buttocks surgical debridement in the future by Dr Aguilar. Patient did not show to ID clinic. 1) Sepsis: Resolved, Present on admission, manifested by fever at home, tachycardia, leukocytosis. Etiology most likely infected hidradenitis +/- UTI +/- enteritis CRP 13.30 2) Extensive hidradenitis suppurative to pubic mons, bilateral groin, bilateral gluteal area, scrotum and bilateral axilla R>L: -Patient is status post multiple I and D's in the past as well as skin grafting. -S/P OR I & D of abscess, skin and subcutaneous tissue on 03/29/2017. OR wound cultures grew MRSA. He was discharged on zyvox po. U -S/P extensive OR debridement 05/01/17. -S/P vancomycin 1.5 g IV q day and levaquin 750 mg Po q day total 4 weeks until 05/28/17. -S/P left buttocks I+D on 06/15/17 usual skin deb - Wound culture 06/15/2018 usual skin deb. - Blood culture 06/15/2018 no growth today. -CT pelvis showed cutaneous and subcutaneous thickening/edema involving the buttocks, left greater than right. No abscess identified. Similar appearance also involves the scrotal wall. -No indication for an I & D at this time because of current ARF. Buttock skin excision to be scheduled outpatient - Dr. Aguilar following. 3) UTI: UA 20 wbc, small LE. 4) Enteritis: CT showed Abnormal wall thickening involving the duodenum and proximal jejunum which is nonspecific but could be duodenitis/jejunitis. 5) DWIGHT: Renal US shows renal cyst- antibiotics renally dosed. Nephrology following Plan: - continue wound care -discontinue cefepime and flagyl -continue doxycycline 100 mg PO BID -start Augmentin 875mg PO BID -Anticipate discharge on Minocycline 100 mg PO BID and Augmentin 875 mg PO BID for total 10 days. [facility] M: [phone] O:[phone] Subjective Date of service: 06/20/18 Principal diagnosis: acute renal failure Interval history: Patient seen and examined. Complained of severe buttock pain. Nurse at bedside. no fevers. Nurses notes, labs and reports reviewed, discussed with patient. Objective - Exam Narrative Exam: General appearance: Alert in NAD, conversant Acute distress, buttock pain Eyes: anicteric sclerae, moist conjunctivae; no lid-lag; PERRLA HENT: Atraumatic; oropharynx clear with moist mucous membranes and no mucosal ulcerations/no oral thrush; normal hard and soft palate. Normal external ears. Neck: Trachea midline; supple, no thyromegaly or lymphadenopathy Lungs: CTA, with normal respiratory effort and no intercostal retractions CV: RRR, no murmurs Abdomen: Soft, non-tender; no masses or hepatosplenomegaly Extremities: No peripheral edema or extremity lymphadenopathy Skin: Per wound care: Right axilla wound is healthy and continues to improve. Buttocks scattered small pockets draining purulent drainage. Psych: Appropriate affect, alert and oriented to person, place and time. Neuro: alert and oriented x 3. Moving all extermities - Constitutional Vitals: Vital Signs Temp Pulse Resp BP Pulse Ox 98.3 F 76 16 109/67 100 06/20/18 08:00 06/20/18 08:00 06/20/18 08:00 06/20/18 06:00 06/20/18 08:00 Temperature -Last 24 Hours Temperature 98.3 F Temperature 98.2 F Temperature 98.2 F Temperature 98.6 F Temperature 98.4 F Temperature 98.2 F - Labs CBC & Chem 7: 06/20/18 00:08 06/20/18 05:02 Labs: Abnormal lab results 06/19/18 06/19/18 06/20/18 Range/Units 17:23 23:41 00:08 WBC 11.1 H (4.5-11.0) K/mm3 RBC 2.77 L (3.65-5.03) M/mm3 Hgb 7.4 L (11.8-15.2) gm/dl Hct 23.2 L (35.5-45.6) % MCH 27 L (28-32) pg RDW 16.4 H (13.2-15.2) % Seg Neutrophils % 73.5 H (40.0-70.0) % Seg Neutrophils # 8.1 H (1.8-7.7) K/mm3 Sodium (137-145) mmol/L Carbon Dioxide (22-30) mmol/L BUN (9-20) mg/dL Creatinine (0.8-1.5) mg/dL Glucose (75-100) mg/dL POC Glucose 138 H 112 H (70-105) Calcium (8.4-10.2) mg/dL 06/20/18 06/20/18 Range/Units 04:58 05:02 WBC (4.5-11.0) K/mm3 RBC (3.65-5.03) M/mm3 Hgb (11.8-15.2) gm/dl Hct (35.5-45.6) % MCH (28-32) pg RDW (13.2-15.2) % Seg Neutrophils % (40.0-70.0) % Seg Neutrophils # (1.8-7.7) K/mm3 Sodium 134 L (137-145) mmol/L Carbon Dioxide 21 L (22-30) mmol/L BUN 23 H (9-20) mg/dL Creatinine 2.1 H (0.8-1.5) mg/dL Glucose 57 L (75-100) mg/dL POC Glucose 62 L (70-105) Calcium 7.8 L (8.4-10.2) mg/dL
--- NOTE | 2018-06-20 12:44 | Progress Note ---
Assessment and Plan Acute Kidney injury likely pre-renal/DWIGHT due to poor appetite, hypotenison on top of CKD: Metabolic acidosis: Sepsis likely due to UTI: Possible Urinary tract infection: Nausea, vomiting and diarrhea: Anemia of chronic disease due to CKD: -stable Cr and BUN -Renal US shows renal cyst, will need urology evaluation as an outpatient -Monitor acidosis -Renally dose all meds -Avoid Nephrotoxic meds will sign off, please reconsult if needed Subjective Date of service: 06/20/18 Principal diagnosis: acute renal failure Interval history: denies acute issues Objective - Vital Signs Vital signs: Vital Signs - 12hr 06/20/18 06/20/18 06/20/18 01:01 02:00 03:00 Temperature Pulse Rate 68 72 76 Pulse Rate [ Left Radial] Respiratory 10 L 13 17 Rate Blood Pressure 78/35 115/63 115/63 O2 Sat by Pulse 100 100 100 Oximetry 06/20/18 06/20/18 06/20/18 04:00 05:00 06:00 Temperature 98.2 F Pulse Rate 80 80 78 Pulse Rate [ Left Radial] Respiratory 10 L 12 16 Rate Blood Pressure 117/70 123/71 109/67 O2 Sat by Pulse 98 99 99 Oximetry 06/20/18 06/20/18 06/20/18 07:00 08:00 09:00 Temperature 98.3 F Pulse Rate 70 76 82 Pulse Rate [ 76 Left Radial] Respiratory 15 9 L 14 Rate Blood Pressure 111/71 110/68 130/75 O2 Sat by Pulse 100 99 99 Oximetry 06/20/18 06/20/18 06/20/18 10:00 11:00 12:00 Temperature 97.9 F Pulse Rate 82 76 75 Pulse Rate [ Left Radial] Respiratory 12 10 L Rate Blood Pressure 111/69 111/69 O2 Sat by Pulse 100 99 Oximetry - General Appearance General appearance: well-developed, well-nourished, appears stated age EENT: ATNC Neck: no JVD, no carotid bruit Respiratory: Present: Clear to Ascultation. Absent: Rales, Ronchi Cardiology: regular, S1S2 Gastrointestinal: normoactive bowel sounds, no tenderness, no distended Integumentary: no rash, warm and dry Neurologic: no focal deficit, no asterixis, alert and oriented x3 Musculoskeletal: other (no edema in BLE) Psychiatric: mood/affect appropriate, cooperative - Lab 06/20/18 00:08 06/20/18 05:02 Most recent lab results Calcium 7.8 mg/dL (8.4-10.2) L 06/20/18 05:02 Phosphorus 3.20 mg/dL (2.5-4.5) 06/20/18 05:02 Medications & Allergies - Medications Allergies/Adverse Reactions: Allergies No Known Allergies Allergy (Verified 03/27/17 23:28) Home Medications: Home Medications Medication Instructions Recorded Confirmed Last Taken Type Pantoprazole [Protonix TAB] 40 mg PO BID #60 tablet 05/04/18 06/15/18 Unknown Rx Active Medications: Generic Name Dose Route Start Last Admin Trade Name Freq PRN Reason Stop Dose Admin Acetaminophen 650 mg 06/15/18 10:26 06/16/18 20:39 Tylenol PO 650 mg Q4H PRN Administration Pain MILD(1-3)/Fever >100.5/BARNES Doxycycline Hyclate 100 mg 06/16/18 20:00 06/20/18 09:32 Vibramycin PO 100 mg BID NESTOR Administration Heparin Sodium (Porcine) 5,000 unit 06/16/18 10:00 06/20/18 09:31 Heparin SUB-Q 5,000 unit Q12HR NESTOR Administration Cefepime HCl 2 gm in 100 mls @ 200 mls/hr 06/16/18 20:00 06/20/18 08:55 Maxipime/Ns 2 Gm/100 Ml IV 200 mls/hr Q12H NESTOR Administration Protocol Metronidazole 500 mg in 100 mls @ 100 mls/hr 06/16/18 18:00 06/20/18 10:14 Flagyl 500 Mg/100 Ml IV 100 mls/hr Q8H NESTOR Administration Protocol Morphine Sulfate 2 mg 06/15/18 10:26 06/19/18 22:42 Morphine IV 2 mg Q4H PRN Administration Pain, Moderate (4-6) Ondansetron HCl 4 mg 06/15/18 10:26 Zofran IV Q8H PRN Nausea And Vomiting Pantoprazole Sodium 40 mg 06/19/18 22:00 06/20/18 09:32 Protonix PO 40 mg BID NESTOR Administration Sodium Chloride 10 ml 06/15/18 10:26 06/18/18 22:37 Sodium Chloride Flush Syringe 10 Ml IV 10 ml PRN PRN Administration LINE FLUSH
[2018-06-20] MEDS: ZOFRAN IV PRN ×2 (12:59→21:12)
[2018-06-20] MEDS: AUGMENTIN 875 MG PO SCH ×2 (17:34→21:12)
[2018-06-21] MEDS: MORPHINE IV PRN (05:40)
[2018-06-21 06:24] LABS: Calcium 7.7 mg/dL (8.4-10.2)
--- NOTE | 2018-06-21 07:03 | Progress Note ---
Assessment and Plan Sepsis Improved Hidradenitis suppurativa started Augmentin 875mg PO BID -Anticipate discharge on Minocycline 100 mg PO BID and Augmentin 875 mg PO BID for total 10 days tomorrow DWIGHT vs acute on chronic started iv fluids Cr improving Nephrology following History of GI bleed protonix iv leukocytosis due to sepsis Full code status Discharge in AM Subjective Date of service: 06/20/18 Principal diagnosis: acute renal failure Interval history: Symptomatically better Objective - Constitutional Vitals: Vital Signs - 12hr 06/20/18 06/20/18 06/20/18 20:00 21:00 21:45 Temperature 98.3 F Pulse Rate 71 70 70 Pulse Rate [ 73 Left Radial] Respiratory 14 16 Rate Blood Pressure 108/61 107/61 O2 Sat by Pulse 100 100 Oximetry 06/20/18 06/20/18 06/21/18 22:01 23:00 00:00 Temperature 99.4 F Pulse Rate 72 73 70 Pulse Rate [ Left Radial] Respiratory 15 15 16 Rate Blood Pressure 116/65 105/66 105/66 O2 Sat by Pulse 100 99 100 Oximetry 06/21/18 06/21/18 06/21/18 01:00 02:00 03:00 Temperature Pulse Rate 69 72 71 Pulse Rate [ 71 Left Radial] Respiratory 16 11 L 12 Rate Blood Pressure 115/57 97/40 108/58 O2 Sat by Pulse 100 99 100 Oximetry 06/21/18 06/21/18 06/21/18 04:00 05:00 05:45 Temperature 98.5 F Pulse Rate 74 63 66 Pulse Rate [ 68 Left Radial] Respiratory 8 L 9 L Rate Blood Pressure 94/58 94/58 O2 Sat by Pulse 100 100 Oximetry 06/21/18 06:00 Temperature Pulse Rate 72 Pulse Rate [ Left Radial] Respiratory 15 Rate Blood Pressure 104/63 O2 Sat by Pulse 100 Oximetry General appearance: Present: no acute distress, well-nourished - EENT Eyes: PERRL, EOM intact ENT: hearing intact, clear oral mucosa Ears: bilateral: normal - Neck Neck: supple, normal ROM - Respiratory Respiratory effort: normal Respiratory: bilateral: CTA - Breasts Breasts: normal - Cardiovascular Rhythm: regular Heart Sounds: Present: S1 & S2. Absent: gallop, rub Extremities: pulses intact, No edema, normal color, Full ROM - Gastrointestinal General gastrointestinal: Present: soft, non-tender, non-distended, normal bowel sounds - Genitourinary Male genitourinary: normal - Integumentary Integumentary: clear, warm, dry - Musculoskeletal Musculoskeletal: 1, strength equal bilaterally - Neurologic Neurologic: moves all extremities - Psychiatric Psychiatric: memory intact, appropriate mood/affect, intact judgment & insight - Labs CBC & Chem 7: 06/20/18 00:08 06/21/18 05:32 Labs: Abnormal lab results 06/20/18 06/21/18 Range/Units 11:45 05:32 Carbon Dioxide 21 L (22-30) mmol/L BUN 23 H (9-20) mg/dL Creatinine 2.2 H (0.8-1.5) mg/dL Glucose 55 L (75-100) mg/dL POC Glucose 112 H (70-105) Calcium 7.7 L (8.4-10.2) mg/dL
--- NOTE | 2018-06-21 10:53 | Discharge Summary ---
Providers - Providers Date of Admission: 06/15/18 07:59 Date of discharge: 06/21/18 Attending physician: SYDNEY WHITTAKER 06/15/18 10:15 Consult to Physician [CONS] Routine Comment: Consulting Provider: RADHA JACKSON Physician Instructions: Reason For Exam: DWIGHT vs acute on CKD 06/15/18 11:06 Consult to Physician [CONS] Routine Comment: Consulting Provider: BECKY HERNANDEZ Physician Instructions: Reason For Exam: Hidradenitis suppurativa 06/16/18 09:24 Consult to Physician [CONS] Routine Comment: Consulting Provider: DEVON COOK Physician Instructions: Reason For Exam: Sepsis, hidradenitis suppurativa 06/16/18 17:51 Consult to Wound/ET Nurse [CONS] Routine Reason For Exam: wound eval [facility] Condition: Stable Hospital course: Sepsis Improved Hidradenitis suppurativa started Augmentin 875mg PO BID -Discharge on Minocycline 100 mg PO BID and Augmentin 875 mg PO BID for total 10 days tomorrow DWIGHT ---Vasomotor Nephroparhy-Improved History of GI bleed protonix po qd leukocytosis --Improved Full code status Discharge home Disposition: DC-01 TO HOME OR SELFCARE Core Measure Documentation - Palliative Care Palliative Care/ Comfort Measures: Not Applicable - Core Measures Any of the following diagnoses?: none Exam - Constitutional Vitals: Temp Pulse Resp BP Pulse Ox 98.5 F 72 15 104/63 100 06/21/18 04:00 06/21/18 06:00 06/21/18 06:00 06/21/18 06:00 06/21/18 06:00 General appearance: Present: no acute distress, well-nourished - EENT Eyes: Present: PERRL ENT: hearing intact, clear oral mucosa - Neck Neck: Present: supple, normal ROM - Respiratory Respiratory effort: normal Respiratory: bilateral: CTA - Cardiovascular Heart rate: 78 Rhythm: regular Heart Sounds: Present: S1 & S2. Absent: rub, click - Extremities Extremities: no ischemia, pulses intact, pulses symmetrical, No edema Peripheral Pulses: within normal limits - Abdominal General gastrointestinal: Present: soft, non-tender, non-distended, normal bowel sounds Male genitourinary: Present: normal - Integumentary Integumentary: Present: clear, warm, dry - Musculoskeletal Musculoskeletal: gait normal, strength equal bilaterally - Psychiatric Psychiatric: appropriate mood/affect, intact judgment & insight - Neurologic Neurologic: CNII-XII intact, moves all extremities - Allied Health Allied health notes reviewed: nursing Plan Activity: no restrictions Diet: low fat, low cholesterol, low salt Wound: open to air, keep clean and dry, per your surgeon's advice, per wound nurse instructions Follow up with: ESTHER KUHN MD [Primary Care Provider] - 3-5 Days BECKY HERNANDEZ MD [Staff Physician] - 7 Days
--- NOTE | 2018-06-21 10:59 | Progress Note ---
Assessment and Plan Assessment and Plan Cultures: 06/15/2018 Blood: no growth to date 06/15/2018 Wound; heavy growth of usual skin deb Assessment: 58 y/o male with history of hidradenitis suppurativa, moved here from [place], known to ID, admitted on Mar 2017 then Apr 2017 due to worsening right axillary pain and purulent drainage, bilateral inguinal pain and purulent drainage and gluteal pain and drainage as well as lower abdominal wall pain and drainage. Patient is status post multiple I and D's in the past as well as skin grafting. Patient was taken to the operating room and underwent I and D of abscess, skin and subcutaneous tissue on 03/29/2017. OR wound cultures grew MRSA. He was d ischarged on zyvox po. Unfortunately, patient was redmitted 04/30-05/30/17 due to worsening bilateral groin, suprapubic and perineal pain with foul-smelling discharge and subjective fever. He was found septic with leukocytosis and hypotension. Source was felt to be extensive bilateral groin, pubic and perineal cellulitis and abscesses from hidradenitis. CT showed marked perineal skin thickening with SQ stranding and edema cellulitiis /forniers. Taken to the OR debridement 05/01/2017. ID plan was to continue vancomycin 1.5 g IV q day and levaquin 750 mg Po qday total 4 weeks until 05/28/17. Patient stayed in patient until he finished it. Unfortunately, patient was readmitted on 06/12/17 due to 24 hours history of worsening abdominal pain, scrotal edema and drainage from surgical wound infection-left buttocks abscess. Discharged on linezolid 600 mg po BID, cipro 500 mg PO q12 total 3 weeks until 07/03/2017 and ID clinic f/u to start doxycycline chronic therapy. He was supposed to have buttocks surgical debridement in the future by Dr Aguilar. Patient did not show to ID clinic. 1) Sepsis: Resolved, Present on admission, manifested by fever at home, tachycardia, leukocytosis. Etiology most likely infected hidradenitis +/- UTI +/- enteritis CRP 13.30 2) Extensive hidradenitis suppurative to pubic mons, bilateral groin, bilateral gluteal area, scrotum and bilateral axilla R>L: -Patient is status post multiple I and D's in the past as well as skin grafting. -S/P OR I & D of abscess, skin and subcutaneous tissue on 03/29/2017. OR wound cultures grew MRSA. He was discharged on zyvox po. U -S/P extensive OR debridement 05/01/17. -S/P vancomycin 1.5 g IV q day and levaquin 750 mg Po q day total 4 weeks until 05/28/17. -S/P left buttocks I+D on 06/15/17 usual skin deb - Wound culture 06/15/2018 usual skin deb. - Blood culture 06/15/2018 no growth today. -CT pelvis showed cutaneous and subcutaneous thickening/edema involving the buttocks, left greater than right. No abscess identified. Similar appearance also involves the scrotal wall. -No indication for an I & D at this time because of current ARF. Buttock skin excision to be scheduled outpatient - Dr. Aguilar following. 3) UTI: UA 20 wbc, small LE. 4) Enteritis: CT showed Abnormal wall thickening involving the duodenum and proximal jejunum which is nonspecific but could be duodenitis/jejunitis. 5) DWIGHT: Renal US shows renal cyst- antibiotics renally dosed. Nephrology following Plan: - continue wound care -continue Augmentin 875mg PO BID, D2 -continue Doxycycline 100mg PO BID, D5 -Anticipate discharge on Minocycline 100 mg PO BID and Augmentin 875 mg PO BID for total [address] Deleon will be orientation & mobility specialist this weekend, , please call for questions. Janine Dumas NP [facility] M: [phone] O:[phone] Subjective Date of service: 06/21/18 Principal diagnosis: acute renal failure Interval history: Patient seen and examined. No generalized pain, SOB. No fevers. Nurses notes, labs and reports reviewed, discussed with patient. Objective - Exam Narrative Exam: General appearance: Alert in NAD, conversant, No acute distress Eyes: anicteric sclerae, moist conjunctivae; no lid-lag; PERRLA HENT: Atraumatic; oropharynx clear with moist mucous membranes and no mucosal ulcerations/no oral thrush; normal hard and soft palate. Normal external ears. Neck: Trachea midline; supple, no thyromegaly or lymphadenopathy Lungs: CTA, with normal respiratory effort and no intercostal retractions CV: RRR, no murmurs Abdomen: Soft, non-tender; no masses or hepatosplenomegaly Extremities: No peripheral edema or extremity lymphadenopathy Skin: Per wound care: Right axilla wound is healthy and continues to improve. Buttocks scattered small pockets draining purulent drainage. Psych: Appropriate affect, alert and oriented to person, place and time. Neuro: alert and oriented x 3. Moving all extermities - Constitutional Vitals: Vital Signs Temp Pulse Resp BP Pulse Ox 98.5 F 72 15 104/63 100 06/21/18 04:00 06/21/18 06:00 06/21/18 06:00 06/21/18 06:00 06/21/18 06:00 Temperature -Last 24 Hours Temperature 98.5 F Temperature 99.4 F Temperature 98.3 F Temperature 98.5 F Temperature 97.9 F - Labs CBC & Chem 7: 06/20/18 00:08 06/21/18 05:32 Labs: Abnormal lab results 06/20/18 06/21/18 Range/Units 11:45 05:32 Carbon Dioxide 21 L (22-30) mmol/L BUN 23 H (9-20) mg/dL Creatinine 2.2 H (0.8-1.5) mg/dL Glucose 55 L (75-100) mg/dL POC Glucose 112 H (70-105) Calcium 7.7 L (8.4-10.2) mg/dL
[2018-06-21 21:56] LABS: Hematocrit 23.5 % (35.5-45.6); Hemoglobin 7.6 gm/dl (11.8-15.2)
[2018-06-21] MEDS: AUGMENTIN 875 MG PO SCH (22:24)
[2018-06-21] MEDS: HEPARIN SUB-Q SCH (22:25)
[2018-06-21] MEDS: PROTONIX PO SCH (22:25)
[2018-06-21] MEDS: VIBRAMYCIN PO SCH (22:25)
[2018-06-21] MEDS: SODIUM CHLORIDE FLUSH SYRINGE 10 ML IV PRN (22:26)
[2018-06-22] MEDS ORDERED: D50W (25GM) Syringe IV PRN (06:10)
[2018-06-22 08:02] LABS: Calcium 7.6 mg/dL (8.4-10.2)
[2018-06-22] MEDS: PROTONIX PO SCH (09:45)
[2018-06-22] MEDS: HEPARIN SUB-Q SCH (09:45)
[2018-06-22] MEDS: VIBRAMYCIN PO SCH (09:45)
[2018-06-22] MEDS: AUGMENTIN 875 MG PO SCH (09:47)
[2018-06-22 10:46] VITALS: BP 99/76
--- NOTE | 2018-06-22 11:44 | Progress Note ---
Hospitalist Physical - Constitutional Vitals: Temp Pulse Resp BP Pulse Ox 98.3 F 78 12 99/76 100 06/22/18 04:00 06/22/18 09:00 06/22/18 09:00 06/22/18 09:00 06/22/18 09:00 General appearance: Present: no acute distress, well-nourished Results - Labs CBC & Chem 7: 06/21/18 21:26 06/22/18 06:12 Labs: Laboratory Last Values WBC 11.1 K/mm3 (4.5-11.0) H 06/20/18 00:08 RBC 2.77 M/mm3 (3.65-5.03) L 06/20/18 00:08 Hgb 7.6 gm/dl (11.8-15.2) L 06/21/18 21:26 Hct 23.5 % (35.5-45.6) L 06/21/18 21:26 MCV 84 fl (84-94) 06/20/18 00:08 MCH 27 pg (28-32) L 06/20/18 00:08 MCHC 32 % (32-34) 06/20/18 00:08 RDW 16.4 % (13.2-15.2) H 06/20/18 00:08 Plt Count 217 K/mm3 (140-440) 06/20/18 00:08 Lymph % (Auto) 17.6 % (13.4-35.0) 06/20/18 00:08 [place]ahan % (Auto) 4.5 % (0.0-7.3) 06/20/18 00:08 Eos % (Auto) 3.9 % (0.0-4.3) 06/20/18 00:08 Baso % (Auto) 0.5 % (0.0-1.8) 06/20/18 00:08 Lymph # 1.9 K/mm3 (1.2-5.4) 06/20/18 00:08 [place]ahan # 0.5 K/mm3 (0.0-0.8) 06/20/18 00:08 Eos # 0.4 K/mm3 (0.0-0.4) 06/20/18 00:08 Baso # 0.1 K/mm3 (0.0-0.1) 06/20/18 00:08 Seg Neutrophils % 73.5 % (40.0-70.0) H 06/20/18 00:08 Seg Neutrophils # 8.1 K/mm3 (1.8-7.7) H 06/20/18 00:08 PT 15.3 Sec. (12.2-14.9) H 06/15/18 07:54 INR 1.14 (0.87-1.13) H 06/15/18 07:54 APTT 31.7 Sec. (24.2-36.6) 06/15/18 07:54 Sodium 135 mmol/L (137-145) L 06/22/18 06:12 Potassium 4.8 mmol/L (3.6-5.0) 06/22/18 06:12 Chloride 103.8 mmol/L (98-107) 06/22/18 06:12 Carbon Dioxide 21 mmol/L (22-30) L 06/22/18 06:12 Anion Gap 15 mmol/L 06/22/18 06:12 BUN 23 mg/dL (9-20) H 06/22/18 06:12 Creatinine 2.4 mg/dL (0.8-1.5) H 06/22/18 06:12 Estimated GFR 34 ml/min 06/22/18 06:12 BUN/Creatinine Ratio 10 % 06/22/18 06:12 Glucose 71 mg/dL (75-100) L 06/22/18 06:12 POC Glucose 144 (70-105) H 06/22/18 07:03 Lactic Acid 1.60 mmol/L (0.7-2.0) 06/15/18 07:54 Calcium 7.6 mg/dL (8.4-10.2) L 06/22/18 06:12 Phosphorus 3.20 mg/dL (2.5-4.5) 06/22/18 06:12 Total Bilirubin 0.60 mg/dL (0.1-1.2) 06/15/18 06:45 AST 9 units/L (5-40) 06/15/18 06:45 ALT < 5 units/L (7-56) L 06/15/18 06:45 Alkaline Phosphatase 83 units/L (35-129) 06/15/18 06:45 Ammonia 37.0 umol/L (25-60) 06/15/18 07:54 Troponin T < 0.010 ng/mL (0.00-0.029) 06/15/18 07:54 C-Reactive Protein 13.30 mg/dL (0.00-1.30) H 06/16/18 07:08 NT-Pro-B Natriuret Pep 1839 pg/mL (0-900) H 06/15/18 07:54 Total Protein 8.5 g/dL (6.3-8.2) H 06/15/18 06:45 Albumin 1.7 g/dL (3.9-5) L 06/15/18 06:45 Albumin/Globulin Ratio 0.3 % 06/15/18 06:45 Lipase 16 units/L (13-60) 06/15/18 06:45 Urine Color Estrella (Yellow) 06/15/18 13:20 Urine Turbidity Slightly-cloudy (Clear) 06/15/18 13:20 Urine pH 5.0 (5.0-7.0) 06/15/18 13:20 Ur Specific [place] 1.019 (1.003-1.030) 06/15/18 13:20 Urine Protein 100 mg/dl mg/dL (Negative) 06/15/18 13:20 Urine Glucose (UA) Neg mg/dL (Negative) 06/15/18 13:20 Urine Ketones Neg mg/dL (Negative) 06/15/18 13:20 Urine Blood Mod (Negative) 06/15/18 13:20 Urine Nitrite Neg (Negative) 06/15/18 13:20 Urine Bilirubin Neg (Negative) 06/15/18 13:20 Urine Urobilinogen 2.0 mg/dL (<2.0) 06/15/18 13:20 Ur Leukocyte Esterase Sm (Negative) 06/15/18 13:20 Urine WBC (Auto) 24.0 /HPF (0.0-6.0) H 06/15/18 13:20 Urine RBC (Auto) 7.0 /HPF (0.0-6.0) 06/15/18 13:20 U Epithel Cells (Auto) < 1.0 /HPF (0-13.0) 06/15/18 13:20 Urine Bacteria (Auto) 1+ /HPF (Negative) 06/15/18 13:20 Hyaline Casts 1 /LPF 06/15/18 13:20 Urine Mucus Few /HPF 06/15/18 13:20 Blood Type O POSITIVE 06/15/18 07:54 Antibody Screen Negative 06/15/18 07:54 Nutrition/Malnutrition Assess - Dietary Evaluation Nutrition/Malnutrition Findings: Nutrition Notes Start: 06/16/18 17:13 Freq: Status: Discharge Protocol: Document 06/21/18 10:38 RD (Rec: 06/21/18 11:18 RD [id number]) Co-Sign 06/21/18 10:38 LP Nutrition Notes Initial or Follow up Reassessment Current Diagnosis Acute Kidney Injury,CKD(stage I-IV),Sepsis Other Pertinent Diagnosis Wound on buttocks, Leukocytosis, acute renal failure, anemia, renal cyst Current Diet Regular Labs/Tests BUN 23 Creat 2.2 BG 55 Pertinent Medications Reviewed Height 5 ft 10 in Weight 72.5 kg Usual Body Weight 87.27 kg [place] Body Weight (kg) 75.45 BMI 22.9 Weight change and time frame 17% wt loss X 1 month Subjective/Other Information Pt reports appetite fluctuates . States sometimes he can eat all of meals and sometimes only eats a little. States he tries to eat the foods that will be easy on stomach. Reports having a poor appetite for past 2 weeks. Makes self eat protein and vegetables. Appetite gets worse with waves of nausea. Pt does not like Ensure, requests it to be stopped. Pt wants to try Rickey for wound healing. Percent of energy/protein needs met: 63%/48% Burn Absent Trauma Absent #2 Nutrition Diagnosis Increased nutrient needs ( specify in comment below) Comments: Protein Etiology Wound healing As Evidenced by Signs and Symptoms Buttocks wound #1 Nutrition Diagnosis Malnutrition Diagnosis Progress(for reassessment Continues documentation) Is patient on ventilator? No Is Patient Ambulatory and/or Out of Bed No REE-([place]-confined to bed) [phone] [facility]culation [facility] Additional Notes Protein Needs: 91-109g (1.25-1 .5g/kg) Fluid Needs: 1 ml/kcal Nutrition Intervention Change Diet Order: Continue current Add Supplement/Snack (indicate name/kcal Rickey BID /protein ) Provides kCal: 190 Provides Protein (gm) 5 Goal #1 Meet at least 75% of calorie and protein needs via PO intake Anticipated Discharge Needs: Regular diet Follow-Up By: 06/24/18 Additional Comments f/u: PO and Rickey intakes
--- NOTE | 2018-06-22 18:59 | Event Note ---
Date: 06/22/18 Patient is medically stable to discharge Prescriptions given, follow-up instructions explained Refer to the dischargesummary dictated before. Discharge today
== END 2018-06-22 10:56 | disposition home health service (06) | DRG 871 ==
LOC: ED 06:03 → IMCU 07:59
PROVIDERS: ADMIT Internal Medicine; ATTEND Internal Medicine
DX: A41.9 Sepsis, unspecified organism (principal); N17.0 Acute kidney failure with tubular necrosis; L02.31 Cutaneous abscess of buttock; N39.0 Urinary tract infection, site not specified; L98.499 Non-pressure chronic ulcer of skin of other sites with unspecified severity; L73.2 Hidradenitis suppurativa; K52.9 Noninfective gastroenteritis and colitis, unspecified; N28.1 Cyst of kidney, acquired; N18.9 Chronic kidney disease, unspecified; D63.1 Anemia in chronic kidney disease; E16.2 Hypoglycemia, unspecified; Z79.899 Other long term (current) drug therapy; L98.419 Non-pressure chronic ulcer of buttock with unspecified severity
CPT/HCPCS: 36415; 71045; 74176; 76770; 80048; 80053; 81001; 82140; 82962; 83690; 83880; 84100; 84484; 85014; 85018; 85025; 85027; 85610; 85730; 86140; 86850; 86900; 86901; 87040; 87116; 93005; 93010; G0378; C9113; J0692; J1644; J2270; J2405; J2543; J3370; J7030; J7040; J7042; J7050

== ENCOUNTER 2018-07-15 12:50 | Inpatient (IN) | payer MEDICARE ==
[2018-07-15] MEDS ORDERED: SUBLIMAZE ONE (12:54)
[2018-07-15] MEDS ORDERED: DIPRIVAN 10 MG/ML IV ONE (12:54)
[2018-07-15] MEDS ORDERED: SUBLIMAZE IV PRN (14:01)
[2018-07-15] MEDS ORDERED: DILAUDID IV PRN (14:01)
--- NOTE | 2018-07-15 14:04 | Anesthesia Consultation ---
Anesthesia Consult and Med Hx Date of service: 07/15/18 - Airway Anesthetic Teeth Evaluation: Good ROM Head & Neck: Adequate Mental/Hyoid Distance: Adequate Mallampati Class: Class IV Intubation Access Assessment: Possibly Difficult (hx difficult intubation. Intubation acheived with glide scope w/ introducer assistance.) - Pulmonary Exam CTA: Yes - Cardiac Exam Cardiac Exam: RRR - Pre-Operative Health Status ASA Pre-Surgery Classification: ASA3 Proposed Anesthetic Plan: General - Pulmonary Hx Smoking: Yes (former smoker quit 2016) Hx Respiratory Symptoms: No Hx Pneumonia: Yes (APR 2018; resolved) - Cardiovascular System Hx Hypertension: No Hx Heart Attack/AMI: No - Central Nervous System CVA: No - Gastrointestinal Hx Ulcer: Yes Hx Gastroesophageal Reflux Disease: No - Endocrine Hx Renal Disease: No Hx Liver Disease: No Hx Insulin Dependent Diabetes: No Hx Non-Insulin Dependent Diabetes: No Hx Thyroid Disease: No - Hematic Hx Anemia: Yes (LAST HGB 7.6 (06/21/18)) - Other Systems Hx Alcohol Use: Yes (rare) Hx Substance Use: No Hx Cancer: No Hx Obesity: No - Additional Comments Anesthesia Medical History Comments: No hx anesthetic complications.
--- NOTE | 2018-07-15 14:04 | Anesthesia Day of Surgery ---
Anesthesia Day of Surgery - Day of Surgery Patient Examined: Yes Patient H&P Reviewed: Yes Patient is NPO: Yes
[2018-07-15 14:21] LABS: Hematocrit 22.8 % (35.5-45.6); Hemoglobin 7.3 gm/dl (11.8-15.2)
[2018-07-15] MEDS ORDERED: XYLOCAINE 1%/ EPI 1:100,000 INFILTRATI ONE (14:23)
[2018-07-15] MEDS ORDERED: MARCAINE 0.5% INFILTRATI ONE (14:23)
[2018-07-15] MEDS ORDERED: D50W (25GM) Syringe IV ONE (14:43)
[2018-07-15] MEDS ORDERED: VERSED IV NR (15:00)
[2018-07-15] MEDS ORDERED: LACTATED RINGERS 1,000 ML IV SCH (15:00)
[2018-07-15] MEDS ORDERED: ANCEF/STERILE WATER 2 GM/20 ML IV NR (15:12)
[2018-07-15] MEDS ORDERED: HEPARIN SUB-Q NR (15:13)
[2018-07-15] MEDS ORDERED: ZOFRAN IV PRN (17:59)
[2018-07-15] MEDS ORDERED: TYLENOL PO PRN (17:59)
[2018-07-15] MEDS ORDERED: SODIUM CHLORIDE FLUSH SYRINGE 10 ML IV PRN (17:59)
[2018-07-15] MEDS ORDERED: D5NS 1,000 ML IV SCH (18:00)
[2018-07-15] MEDS ORDERED: IBUPROFEN PO PRN (18:00)
--- NOTE | 2018-07-15 18:08 | History and Physical Report ---
History of Present Illness Date of examination: 07/15/18 Date of admission: 07/15/18 15:46 Chief complaint: Severe Hydradenitis on Gluteal region--due for surgery History of present illness: Patient admitted directly from preop area for Anemia and Hydradenitis.Patient was supposed to be taken to [facility] for I/D of Abscesses on GLuteal region.Surgery was postponed becuse of Low H/h.Admitted for transfusion and post op abx and wound care.Bhumika fever or chills.Has severe pain in Gluteal region 10 Past History Past Medical History: anemia, other (Hydradenitis) Past Surgical History: Other (Multiple surgery for Hydradenitis on Groin and abdomen) Social history: smoking (CIgars one or 2 per day) Family history: hypertension Medications and Allergies Allergies Allergy/AdvReac Type Severity Reaction Status Date / Time No Known Allergies Allergy Verified 07/12/18 11:41 Home Medications Medication Instructions Recorded Confirmed Last Taken Type No Known Home Medications [No 07/12/18 07/12/18 Unknown History Reported Home Medications] Active Meds: Active Medications Acetaminophen (Tylenol) 650 mg PO Q4H PRN PRN Reason: Pain MILD(1-3)/Fever >100.5/BARNES Famotidine (Pepcid) 20 mg PO BID NESTOR Hydromorphone HCl (Dilaudid) 1 mg IV Q3H PRN PRN Reason: Pain , Severe (7-10) Lactated Ringer's (Lactated Ringers) 1,000 mls @ 100 mls/hr IV DIRECT NESTOR Dextrose/Sodium Chloride (D5ns) 1,000 mls @ 75 mls/hr IV DIRECT NESTOR Stop: 07/16/18 11:00 Ampicillin Sodium/Sulbactam Sodium (Unasyn/Ns 3 Gm/100 Ml) 3 gm in 100 mls @ 100 mls/hr IV Q6HR NESTOR; Protocol Ibuprofen (Motrin) 600 mg PO Q6H PRN PRN Reason: Pain, Mild (1-3) Ondansetron HCl (Zofran) 4 mg IV Q8H PRN PRN Reason: Nausea And Vomiting Sodium Chloride (Sodium Chloride Flush Syringe 10 Ml) 10 ml IV BID NESTOR Sodium Chloride (Sodium Chloride Flush Syringe 10 Ml) 10 ml IV PRN PRN PRN Reason: LINE FLUSH Review of Systems All systems: negative Integumentary: other (3 site of infection and drainage-both gluteal areas and sacrum--very tender to touch.alexander Lt glutealarea and Fluctuant abscess) Exam - Constitutional Vitals: Temp Pulse Resp BP Pulse Ox 98.5 F 106 H 22 90/58 100 07/15/18 13:10 07/15/18 13:10 07/15/18 13:10 07/15/18 13:10 07/15/18 13:10 General appearance: Present: no acute distress, mild distress, well-nourished - EENT Eyes: Present: PERRL ENT: hearing intact, clear oral mucosa - Neck Neck: Present: supple, normal ROM - Respiratory Respiratory effort: normal Respiratory: bilateral: CTA - Cardiovascular Heart rate: 78 Rhythm: regular Heart Sounds: Present: S1 & S2. Absent: rub, click - Extremities Extremities: no ischemia, pulses symmetrical, No edema Extremity abnormal: tenderness, other (Abscess Lt Gluteal region,Rt Gluteal re gion Hydradenits with drainage) Peripheral Pulses: within normal limits - Abdominal General gastrointestinal: Present: soft, non-tender, non-distended, normal bowel sounds Male genitourinary: Present: normal - Integumentary Integumentary: Present: clear, warm, dry - Musculoskeletal Musculoskeletal: gait normal, strength equal bilaterally - Psychiatric Psychiatric: appropriate mood/affect, intact judgment & insight - Neurologic Neurologic: CNII-XII intact, moves all extremities Results - Labs CBC & Chem 7: 07/15/18 20:25 07/15/18 20:25 Labs: Laboratory Last Values Hgb 7.3 gm/dl (11.8-15.2) L 07/15/18 13:30 Hct 22.8 % (35.5-45.6) L 07/15/18 13:30 POC Glucose 71 (70-105) 07/15/18 15:20 Blood Type O POSITIVE 07/15/18 13:30 Antibody Screen Negative 07/15/18 13:30 Short CBC 07/15/18 07/15/18 Range/Units 13:30 20:25 WBC 13.2 H (4.5-11.0) K/mm3 Hgb 7.3 L 7.3 L (11.8-15.2) gm/dl Hct 22.8 L 22.7 L (35.5-45.6) % Plt Count 306 (140-440) K/mm3 BMP 07/15/18 20:25 Sodium 137 Potassium 3.9 Chloride 102.9 Carbon Dioxide 25 BUN 20 Creatinine 1.7 H Glucose 136 H Calcium 7.6 L Liver Function 07/15/18 Range/Units 20:25 Total Bilirubin 0.50 (0.1-1.2) mg/dL AST 9 (5-40) units/L ALT 5 L (7-56) units/L Alkaline Phosphatase 106 (35-129) units/L Albumin 1.9 L (3.9-5) g/dL Assessment and Plan Advance Directives: Yes (Full code) VTE prophylaxis?: Chemical Plan of care discussed with patient/family: Yes - Patient Problems (1) Hidradenitis suppurativa Current Visit: Yes Status: Acute Plan to address problem: With Lt Glutealabscess and 2 other draing sites on Rt Gluteal region and Sacrum For I/D and surgery by Dr Jeff perez medically optimized IV Unasyn and IV Vanconmycin for now (2) Symptomatic anemia Current Visit: Yes Status: Acute Plan to address problem: 2 units of PRBC to be transfused Anemia work up (3) DWIGHT (acute kidney injury) Current Visit: Yes Status: Acute Plan to address problem: IV Fluids for now (4) Hypocalcemia Current Visit: Yes Status: Acute Plan to address problem: Supplemented IV Calcium Gluconate and Caltrate po bid (5) Malnutrition Current Visit: Yes Status: Acute Qualifiers: Malnutrition type: protein-calorie malnutrition Protein-calorie malnutrition severity: severe Qualified Code(s): E43 - Unspecified severe protein-calorie malnutrition Plan to address problem: Dietitian consult requested (6) DVT prophylaxis Current Visit: No Status: Acute
[2018-07-15] MEDS: DILAUDID IV PRN ×2 (18:47→23:27)
[2018-07-15] MEDS ORDERED: VANCOMYCIN 1,750 MG in NACL 0.9% 500 ML 500 ML IV ONE (19:00)
[2018-07-15] MEDS ORDERED: VANCOMYCIN PHARMACY TO DOSE IV SCH (19:00)
[2018-07-15 20:38] LABS: Basophils # (Auto) 0.1 K/mm3 (0.0-0.1); Basophils % (Auto) 0.6 % (0.0-1.8); Eosinophils # (Auto) 0.2 K/mm3 (0.0-0.4); Eosinophils % (Auto) 1.6 % (0.0-4.3); Hematocrit 22.7 % (35.5-45.6); Hemoglobin 7.3 gm/dl (11.8-15.2); Lymphocytes # (Auto) 1.6 K/mm3 (1.2-5.4); Lymphocytes % (Auto) 12.1 % (13.4-35.0); Mean Corpuscular HGB Conc 32 % (32-34); Mean Corpuscular Volume 87 fl (84-94); Monocytes # (Auto) 0.7 K/mm3 (0.0-0.8); Platelet Count 306 K/mm3 (140-440); Red Blood Count 2.61 M/mm3 (3.65-5.03); Red Cell Distribution Width 17.2 % (13.2-15.2)
[2018-07-15 21:05] LABS: Albumin 1.9 g/dL (3.9-5); Calcium 7.6 mg/dL (8.4-10.2)
[2018-07-15] MEDS: PEPCID PO SCH (21:07)
[2018-07-15] MEDS: UNASYN/NS 3 GM/100 ML 3 GM/100 ML BAG IV SCH ×2 (21:07→23:27)
[2018-07-15] MEDS: SODIUM CHLORIDE FLUSH SYRINGE 10 ML IV SCH (21:08)
[2018-07-16] MEDS ORDERED: NACL 0.9% 500 ML 500 ML IV ONE (00:30)
[2018-07-16] MEDS: NACL 0.9% 500 ML 500 ML IV ONE ×2 (00:48→23:52)
[2018-07-16] MEDS: UNASYN/NS 3 GM/100 ML 3 GM/100 ML BAG IV SCH ×4 (05:05→23:55)
[2018-07-16 07:47] LABS: Basophils # (Auto) 0.1 K/mm3 (0.0-0.1); Basophils % (Auto) 0.5 % (0.0-1.8); Eosinophils # (Auto) 0.3 K/mm3 (0.0-0.4); Eosinophils % (Auto) 2.5 % (0.0-4.3); Hematocrit 25.9 % (35.5-45.6); Hemoglobin 8.3 gm/dl (11.8-15.2); Lymphocytes # (Auto) 1.7 K/mm3 (1.2-5.4); Lymphocytes % (Auto) 12.9 % (13.4-35.0); Mean Corpuscular HGB Conc 32 % (32-34); Mean Corpuscular Volume 87 fl (84-94); Monocytes # (Auto) 0.7 K/mm3 (0.0-0.8); Monocytes % (Auto) 5.1 % (0.0-7.3); Platelet Count 273 K/mm3 (140-440); Red Blood Count 2.97 M/mm3 (3.65-5.03); Red Cell Distribution Width 16.6 % (13.2-15.2)
[2018-07-16 08:06] LABS: Albumin 1.7 g/dL (3.9-5); BUN/Creatinine Ratio 11; Blood Urea Nitrogen 18 mg/dL (9-20); Calcium 7.3 mg/dL (8.4-10.2); Hemolysis Index 2
[2018-07-16 08:24] LABS: Alanine Aminotransferase < 5 units/L (7-56)
[2018-07-16] MEDS ORDERED: CALCIUM GLUCONATE 2,000 MG in NACL 0.9% 250ML 250 ML IV ONE (09:00)
[2018-07-16 09:57] LABS: % Iron Saturation 55.17 %
[2018-07-16] MEDS ORDERED: AFLURIA QUAD 2018-2019 SYRINGE IM ONE (12:00)
--- NOTE | 2018-07-16 13:18 | Progress Note ---
Assessment and Plan Assessment and plan: Acute exacerbation of Hidradenitis suppurativa -Patient is scheduled for I&D today or tomorrow. -On IV Unasyn and Vanconmycin -ID and surgery consulted Symptomatic acute on chronic anemia -s/p 2 units of PRBC -H/H improved, will monitor DWIGHT (acute kidney injury) -Probably prerenal azotemia -On IV Fluid, will monitor creatinine level Hypocalcemia -s/p IV Calcium Gluconate -Continue supplementation Hypomagnesemia -We will replete and monitor level Hypotension -IVF bolus, will monitor BP Severe protein calorie Malnutrition -Dietitian consulted DVT prophylaxis with Lovenox Disposition: For discharge when medically stable History Interval history: Patient has no new complaints. His pain is controlled. Hospitalist Physical - Constitutional Vitals: Temp Pulse Resp BP Pulse Ox 98.6 F 81 16 96/49 100 07/16/18 11:47 07/16/18 11:47 07/16/18 11:47 07/16/18 11:47 07/16/18 11:47 General appearance: Present: no acute distress, well-nourished - EENT Eyes: Present: PERRL, EOM intact ENT: hearing intact, clear oral mucosa - Neck Neck: Present: supple - Respiratory Respiratory effort: normal Respiratory: bilateral: CTA - Cardiovascular Rhythm: regular Heart Sounds: Present: S1 & S2 - Extremities Extremities: No edema - Abdominal General gastrointestinal: soft, non-tender, non-distended, normal bowel sounds - Integumentary Integumentary: Present: erythema (draining ulcers in the glutea, sacrum and RT axilla) - Neurologic Neurologic: CNII-XII intact Results - Labs CBC & Chem 7: 07/16/18 07:21 07/16/18 07:21 Labs: Laboratory Last Values WBC 12.9 K/mm3 (4.5-11.0) H 07/16/18 07:21 RBC 2.97 M/mm3 (3.65-5.03) L 07/16/18 07:21 Hgb 8.3 gm/dl (11.8-15.2) L 07/16/18 07:21 Hct 25.9 % (35.5-45.6) L 07/16/18 07:21 MCV 87 fl (84-94) 07/16/18 07:21 MCH 28 pg (28-32) 07/16/18 07:21 MCHC 32 % (32-34) 07/16/18 07:21 RDW 16.6 % (13.2-15.2) H 07/16/18 07:21 Plt Count 273 K/mm3 (140-440) 07/16/18 07:21 Lymph % (Auto) 12.9 % (13.4-35.0) L 07/16/18 07:21 [place] % (Auto) 5.1 % (0.0-7.3) 07/16/18 07:21 Eos % (Auto) 2.5 % (0.0-4.3) 07/16/18 07:21 Baso % (Auto) 0.5 % (0.0-1.8) 07/16/18 07:21 Lymph # 1.7 K/mm3 (1.2-5.4) 07/16/18 07:21 [place] # 0.7 K/mm3 (0.0-0.8) 07/16/18 07:21 Eos # 0.3 K/mm3 (0.0-0.4) 07/16/18 07:21 Baso # 0.1 K/mm3 (0.0-0.1) 07/16/18 07:21 Seg Neutrophils % 79.0 % (40.0-70.0) H 07/16/18 07:21 Seg Neutrophils # 10.2 K/mm3 (1.8-7.7) H 07/16/18 07:21 Sodium 138 mmol/L (137-145) 07/16/18 07:21 Potassium 3.9 mmol/L (3.6-5.0) 07/16/18 07:21 Chloride 104.6 mmol/L (98-107) 07/16/18 07:21 Carbon Dioxide 24 mmol/L (22-30) 07/16/18 07:21 Anion Gap 13 mmol/L 07/16/18 07:21 BUN 18 mg/dL (9-20) 07/16/18 07:21 Creatinine 1.6 mg/dL (0.8-1.5) H 07/16/18 07:21 Estimated GFR 54 ml/min 07/16/18 07:21 BUN/Creatinine Ratio 11 % 07/16/18 07:21 Glucose 71 mg/dL (75-100) L 07/16/18 07:21 POC Glucose 71 (70-105) 07/15/18 15:20 Hemoglobin A1c < 4.2 % (4-6) 07/15/18 13:30 Calcium 7.3 mg/dL (8.4-10.2) L 07/16/18 07:21 Magnesium 1.50 mg/dL (1.7-2.3) L 07/16/18 07:21 Iron 48 ug/dL (49-181) L 07/16/18 07:21 TIBC 87 mcg/dL (250-450) L 07/16/18 07:21 % Saturation 55.17 % 07/16/18 07:21 Transferrin 80 mg/dl (180-329) L 07/16/18 07:21 Total Bilirubin 0.80 mg/dL (0.1-1.2) 07/16/18 07:21 AST 9 units/L (5-40) 07/16/18 07:21 ALT < 5 units/L (7-56) L 07/16/18 07:21 Alkaline Phosphatase 96 units/L (35-129) 07/16/18 07:21 Total Protein 7.3 g/dL (6.3-8.2) 07/16/18 07:21 Albumin 1.7 g/dL (3.9-5) L 07/16/18 07:21 Albumin/Globulin Ratio 0.3 % 07/16/18 07:21 Vitamin B12 839.1 pg/mL (211-911) 07/16/18 09:56 Blood Type O POSITIVE 07/15/18 13:30 Antibody Screen Negative 07/15/18 13:30 Crossmatch See Detail 07/15/18 13:30 Active Medications - Current Medications Current Medications: Generic Name Dose Route Start Last Admin Trade Name Freq PRN Reason Stop Dose Admin Acetaminophen 650 mg 07/15/18 17:59 Tylenol PO Q4H PRN Pain MILD(1-3)/Fever >100.5/BARNES Enoxaparin Sodium 40 mg 07/16/18 22:00 Lovenox SUB-Q QDAY@2200 NESTOR Famotidine 20 mg 07/15/18 22:00 07/15/18 21:07 Pepcid PO 20 mg BID NESTOR Administration Hydromorphone HCl 1 mg 07/15/18 18:00 07/15/18 23:27 Dilaudid IV 1 mg Q3H PRN Administration Pain , Severe (7-10) Lactated Ringer's 1,000 mls @ 100 mls/hr 07/15/18 15:00 Lactated Ringers IV DIRECT NESTOR Ampicillin Sodium/Sulbactam Sodium 3 gm in 100 mls @ 100 mls/hr 07/15/18 19:00 07/16/18 05:05 Unasyn/Ns 3 Gm/100 Ml IV 100 mls/hr Q6HR NESTOR Administration Protocol Vancomycin HCl 1,250 mg/ 275 mls @ 166.667 mls/hr 07/16/18 20:00 Sodium Chloride IV Q24H NESTOR Ibuprofen 600 mg 07/15/18 18:00 Motrin PO Q6H PRN Pain, Mild (1-3) Multivitamins/Minerals 1 each 07/16/18 10:00 Caltrate Plus PO BID NESTOR Ondansetron HCl 4 mg 07/15/18 17:59 Zofran IV Q8H PRN Nausea And Vomiting Sodium Chloride 10 ml 07/15/18 22:00 07/15/18 21:08 Sodium Chloride Flush Syringe 10 Ml IV 07/18/18 21:59 10 ml BID NESTOR Administration Sodium Chloride 10 ml 07/15/18 17:59 Sodium Chloride Flush Syringe 10 Ml IV PRN PRN LINE FLUSH Nutrition/Malnutrition Assess - Dietary Evaluation Nutrition/Malnutrition Findings: Nutrition Notes Start: 07/16/18 08:26 Freq: Status: Active Protocol: Document 07/16/18 09:26 CP (Rec: 07/16/18 09:43 CP [id number]) Co-Sign 07/16/18 09:26 LP Nutrition Notes Need for Assessment generated from: MD Order Initial or Follow up Assessment Current Diagnosis Acute Kidney Injury Other Pertinent Diagnosis Hydradenitis, anemia, hypocalcemia, DVT prophylaxis Current Diet NPO Labs/Tests Glu: 71 Pertinent Medications Reviewed Height 5 ft 11 in Weight 87 kg Usual Body Weight 85 kg [place] Body Weight (kg) 78.18 BMI 26.7 Intake Prior to Admission Poor Weight change and time frame Pt lost 12 pounds but did not know the time frame. Weight Status Overweight Subjective/Other Information MD consult for ONS and low and screened for at risk MST score. Pt reports having a low appetite prior to admission but currently has a large appetite. There was no sign of malnutrition during time of visit and the pt denies any N/ V/D/C. Awaiting surgery to ID abscesses. Percent of energy/protein needs met: 0%/0% Burn Absent Trauma Absent #1 Nutrition Diagnosis Inadequate oral intake Etiology Upcoming surgery As Evidenced by Signs and Symptoms NPO Status Is patient on ventilator? No Is Patient Ambulatory and/or Out of Bed No REE-([facility]-confined to bed) [phone] Calculation Used for Recommendations [facility] Additional Notes Pro: 1.2-1.5 g/kg (104-130g) Fluid: 1mL/kcal Nutrition Intervention Change Diet Order: Advance per MD request Goal #1 Pt to meet at least 80% of energy and protein needs once diet is advanced Anticipated Discharge Needs: Unable to determine at this time Follow-Up By: 07/18/18 Additional Comments F/U: po intakes
[2018-07-16] MEDS: CALTRATE PLUS PO SCH ×2 (13:37→21:00)
[2018-07-16] MEDS: PEPCID PO SCH ×2 (13:37→21:00)
[2018-07-16] MEDS: SODIUM CHLORIDE FLUSH SYRINGE 10 ML IV SCH ×2 (13:50→21:00)
[2018-07-16] MEDS ORDERED: ZEMURON IV ONE (14:08)
[2018-07-16] MEDS ORDERED: SUBLIMAZE ONE (14:08)
[2018-07-16] MEDS ORDERED: DIPRIVAN 10 MG/ML IV ONE (14:09)
[2018-07-16] MEDS ORDERED: NACL 0.9% 1000 ML 1,000 ML IV ONE (14:30)
[2018-07-16] MEDS ORDERED: NACL 0.9% IR ONE (14:50)
[2018-07-16] MEDS ORDERED: HEPARIN 10,000 UNITS/10 ML ONE (14:50)
[2018-07-16] MEDS ORDERED: HEPARIN ONE (14:53)
[2018-07-16] MEDS ORDERED: HEPARIN SUB-Q ONE (14:57)
[2018-07-16] MEDS ORDERED: MAGNESIUM SULFATE 2GM/50ML 2 GM/50 ML BAG IV ONE (15:00)
[2018-07-16] MEDS ORDERED: NACL 0.9% 500 ML 500 ML IV SCH (15:32)
[2018-07-16] MEDS ORDERED: D50W (25GM) Syringe IV ONE (16:22)
[2018-07-16] MEDS ORDERED: ROBINUL ONE (16:42)
[2018-07-16] MEDS ORDERED: ZOFRAN ONE (17:48)
[2018-07-16] MEDS ORDERED: BLOXIVERZ ONE (18:35)
--- NOTE | 2018-07-16 18:44 | Post Operative Note ---
Pre-op diagnosis: Severe bilateral buttock hidradenitis Post-op diagnosis: same Findings: Final wound measurements: 20 X 25 X 1.5 cm Procedure: Excision of bilateral buttock hidradenitis Anesthesia: CHAITANYA Surgeon: BECKY HERNANDEZ Estimated blood loss: other Pathology: list (Skin and SQ tissue, right buttock; also, C&S of right buttock abscess) Specimen disposition: to lab Condition: stable Disposition: PACU (600 ml)
[2018-07-16] MEDS ORDERED: DILAUDID IV PRN (19:06)
--- NOTE | 2018-07-16 19:07 | Anesthesia Day of Surgery ---
Anesthesia Day of Surgery - Day of Surgery Patient Examined: Yes Patient H&P Reviewed: Yes Patient is NPO: Yes
[2018-07-16] MEDS: VANCOMYCIN 1,250 MG in NACL 0.9% 250ML 250 ML IV SCH (20:15)
[2018-07-16] MEDS: DILAUDID IV PRN ×2 (20:49→23:55)
--- NOTE | 2018-07-16 21:55 | Post Anesthesia Evaluation ---
- Post Anesthesia Evaluation Patient Participated: Yes Airway Patent: Yes Stable Respiratory Function: Yes Nausea/Vomiting: No Temp > 96.8F: Yes Pain Manageable: Yes Adequeate Hydration: Yes Anesthesia Complications: No
[2018-07-16] MEDS ORDERED: LOVENOX SUB-Q SCH (22:00)
[2018-07-17] MEDS: DILAUDID IV PRN ×6 (02:46→23:25)
[2018-07-17] MEDS: UNASYN/NS 3 GM/100 ML 3 GM/100 ML BAG IV SCH ×4 (05:38→23:24)
[2018-07-17 08:04] LABS: Basophils # (Auto) 0.1 K/mm3 (0.0-0.1); Basophils % (Auto) 0.4 % (0.0-1.8); Eosinophils # (Auto) 0.3 K/mm3 (0.0-0.4); Hematocrit 34.4 % (35.5-45.6); Hemoglobin 11.3 gm/dl (11.8-15.2); Lymphocytes # (Auto) 1.5 K/mm3 (1.2-5.4); Lymphocytes % (Auto) 9.7 % (13.4-35.0); Mean Corpuscular HGB Conc 33 % (32-34); Mean Corpuscular Volume 90 fl (84-94); Monocytes # (Auto) 0.5 K/mm3 (0.0-0.8); Red Blood Count 3.84 M/mm3 (3.65-5.03); Red Cell Distribution Width 16.9 % (13.2-15.2)
[2018-07-17 08:15] LABS: Calcium 7.6 mg/dL (8.4-10.2)
[2018-07-17 08:55] LABS: Platelet Count 239 K/mm3 (140-440)
[2018-07-17] MEDS: CALTRATE PLUS PO SCH ×2 (13:09→23:25)
[2018-07-17] MEDS: PEPCID PO SCH ×2 (13:09→23:25)
[2018-07-17] MEDS: SODIUM CHLORIDE FLUSH SYRINGE 10 ML IV SCH ×2 (13:10→23:25)
--- NOTE | 2018-07-17 14:02 | Progress Note ---
Assessment and Plan Assessment and plan: Acute exacerbation of Hidradenitis suppurativa -s/p I&D of draining ulcers on the buttocks -On IV Unasyn and Vanconmycin -Surgical culture pending -surgery following -ID consulted. Symptomatic acute on chronic anemia -s/p 2 units of PRBC -H/H stable, will monitor DWIGHT (acute kidney injury) -Probably prerenal azotemia -On IV Fluid, will monitor creatinine level -will do renal US Hypocalcemia -s/p IV Calcium Gluconate -Continue oral supplementation Hypomagnesemia -Resolved s/p repletion Hypotension -BP stable on IVF, will monitor Severe protein calorie Malnutrition -Dietitian consulted DVT prophylaxis with Lovenox Disposition: For discharge when medically stable History Interval history: Patient complained of buttock pain s/p I & D. Hospitalist Physical - Constitutional Vitals: Temp Pulse Resp BP Pulse Ox 98.9 F 90 18 94/53 98 07/17/18 11:35 07/17/18 11:35 07/17/18 11:35 07/17/18 11:35 07/17/18 11:35 General appearance: Present: no acute distress, well-nourished - EENT Eyes: Present: PERRL, EOM intact ENT: hearing intact, clear oral mucosa - Neck Neck: Present: supple - Respiratory Respiratory effort: normal Respiratory: bilateral: CTA - Cardiovascular Rhythm: regular Heart Sounds: Present: S1 & S2 - Extremities Extremities: No edema - Abdominal General gastrointestinal: soft, non-tender, normal bowel sounds - Integumentary Integumentary: Present: erythema (dressing over buttocks noted) - Neurologic Neurologic: CNII-XII intact Results - Labs CBC & Chem 7: 07/17/18 07:20 07/17/18 07:20 Labs: Laboratory Last Values WBC 15.7 K/mm3 (4.5-11.0) H 07/17/18 07:20 RBC 3.84 M/mm3 (3.65-5.03) 07/17/18 07:20 Hgb 11.3 gm/dl (11.8-15.2) L D 07/17/18 07:20 Hct 34.4 % (35.5-45.6) L D 07/17/18 07:20 MCV 90 fl (84-94) 07/17/18 07:20 MCH 29 pg (28-32) 07/17/18 07:20 MCHC 33 % (32-34) 07/17/18 07:20 RDW 16.9 % (13.2-15.2) H 07/17/18 07:20 Plt Count 239 K/mm3 (140-440) 07/17/18 07:20 Lymph % (Auto) 9.7 % (13.4-35.0) L 07/17/18 07:20 Gaines % (Auto) 3.0 % (0.0-7.3) 07/17/18 07:20 Eos % (Auto) 2.0 % (0.0-4.3) 07/17/18 07:20 Baso % (Auto) 0.4 % (0.0-1.8) 07/17/18 07:20 Lymph # 1.5 K/mm3 (1.2-5.4) 07/17/18 07:20 Gaines # 0.5 K/mm3 (0.0-0.8) 07/17/18 07:20 Eos # 0.3 K/mm3 (0.0-0.4) 07/17/18 07:20 Baso # 0.1 K/mm3 (0.0-0.1) 07/17/18 07:20 Seg Neutrophils % 84.9 % (40.0-70.0) H 07/17/18 07:20 Seg Neutrophils # 13.3 K/mm3 (1.8-7.7) H 07/17/18 07:20 Sodium 139 mmol/L (137-145) 07/17/18 07:20 Potassium 4.2 mmol/L (3.6-5.0) 07/17/18 07:20 Chloride 106.5 mmol/L (98-107) 07/17/18 07:20 Carbon Dioxide 23 mmol/L (22-30) 07/17/18 07:20 Anion Gap 14 mmol/L 07/17/18 07:20 BUN 16 mg/dL (9-20) 07/17/18 07:20 Creatinine 1.6 mg/dL (0.8-1.5) H 07/17/18 07:20 Estimated GFR 54 ml/min 07/17/18 07:20 BUN/Creatinine Ratio 10 % 07/17/18 07:20 Glucose 66 mg/dL (75-100) L 07/17/18 07:20 POC Glucose 68 (70-105) L 07/17/18 11:43 Hemoglobin A1c < 4.2 % (4-6) 07/15/18 13:30 Calcium 7.6 mg/dL (8.4-10.2) L 07/17/18 07:20 Magnesium 1.90 mg/dL (1.7-2.3) 07/17/18 07:20 Iron 48 ug/dL (49-181) L 07/16/18 07:21 TIBC 87 mcg/dL (250-450) L 07/16/18 07:21 % Saturation 55.17 % 07/16/18 07:21 Transferrin 80 mg/dl (180-329) L 07/16/18 07:21 Total Bilirubin 0.80 mg/dL (0.1-1.2) 07/16/18 07:21 AST 9 units/L (5-40) 07/16/18 07:21 ALT < 5 units/L (7-56) L 07/16/18 07:21 Alkaline Phosphatase 96 units/L (35-129) 07/16/18 07:21 Total Protein 7.3 g/dL (6.3-8.2) 07/16/18 07:21 Albumin 1.7 g/dL (3.9-5) L 07/16/18 07:21 Albumin/Globulin Ratio 0.3 % 07/16/18 07:21 Vitamin B12 839.1 pg/mL (211-911) 07/16/18 09:56 Blood Type O POSITIVE 07/15/18 13:30 Antibody Screen Negative 07/15/18 13:30 Crossmatch See Detail 07/15/18 13:30 Active Medications - Current Medications Current Medications: Generic Name Dose Route Start Last Admin Trade Name Freq PRN Reason Stop Dose Admin Acetaminophen 650 mg 07/15/18 17:59 Tylenol PO Q4H PRN Pain MILD(1-3)/Fever >100.5/BARNES Famotidine 20 mg 07/15/18 22:00 07/17/18 13:09 Pepcid PO 20 mg BID NESTOR Administration Hydromorphone HCl 1 mg 07/15/18 18:00 07/17/18 13:19 Dilaudid IV 1 mg Q3H PRN Administration Pain , Severe (7-10) Hydromorphone HCl 0.5 mg 07/16/18 19:06 Dilaudid IV 07/17/18 19:05 Q10MIN PRN Pain , Severe (7-10) Ampicillin Sodium/Sulbactam Sodium 3 gm in 100 mls @ 100 mls/hr 07/15/18 19:00 07/17/18 13:18 Unasyn/Ns 3 Gm/100 Ml IV 100 mls/hr Q6HR NESTOR Administration Protocol Vancomycin HCl 1,250 mg/ 275 mls @ 166.667 mls/hr 07/16/18 20:00 07/16/18 20:15 Sodium Chloride IV 166.667 mls/hr Q24H NESTOR Administration Sodium Chloride 1,000 mls @ 100 mls/hr 07/17/18 10:00 Nacl 0.9% 1000 Ml IV DIRECT NESTOR Ibuprofen 600 mg 07/15/18 18:00 Motrin PO Q6H PRN Pain, Mild (1-3) Multivitamins/Minerals 1 each 07/16/18 10:00 07/17/18 13:09 Caltrate Plus PO 1 each BID NESTOR Administration Ondansetron HCl 4 mg 07/15/18 17:59 Zofran IV Q8H PRN Nausea And Vomiting Sodium Chloride 10 ml 07/15/18 22:00 07/17/18 13:10 Sodium Chloride Flush Syringe 10 Ml IV 07/18/18 21:59 10 ml BID NESTOR Administration Sodium Chloride 10 ml 07/15/18 17:59 Sodium Chloride Flush Syringe 10 Ml IV PRN PRN LINE FLUSH Nutrition/Malnutrition Assess - Dietary Evaluation Nutrition/Malnutrition Findings: Nutrition Notes Start: 07/16/18 08 :26 Freq: Status: Active Protocol: Document 07/16/18 09:26 CP (Rec: 07/16/18 09:43 CP [id number]) Co-Sign 07/16/18 09:26 LP Nutrition Notes Need for Assessment generated from: MD Order Initial or Follow up Assessment Current Diagnosis Acute Kidney Injury Other Pertinent Diagnosis Hydradenitis, anemia, hypocalcemia, DVT prophylaxis Current Diet NPO Labs/Tests Glu: 71 Pertinent Medications Reviewed Height 5 ft 11 in Weight 87 kg Usual Body Weight 85 kg [place] Body Weight (kg) 78.18 BMI 26.7 Intake Prior to Admission Poor Weight change and time frame Pt lost 12 pounds but did not know the time frame. Weight Status Overweight Subjective/Other Information MD consult for ONS and low and screened for at risk MST score. Pt reports having a low appetite prior to admission but currently has a large appetite. There was no sign of malnutrition during time of visit and the pt denies any N/ V/D/C. Awaiting surgery to ID abscesses. Percent of energy/protein needs met: 0%/0% Burn Absent Trauma Absent #1 Nutrition Diagnosis Inadequate oral intake Etiology Upcoming surgery As Evidenced by Signs and Symptoms NPO Status Is patient on ventilator? No Is Patient Ambulatory and/or Out of Bed No REE-([facility]-confined to bed) 2052.176 Calculation Used for Recommendations [facility] Additional Notes Pro: 1.2-1.5 g/kg (104-130g) Fluid: 1mL/kcal Nutrition Intervention Change Diet Order: Advance per MD request Goal #1 Pt to meet at least 80% of energy and protein needs once diet is advanced Anticipated Discharge Needs: Unable to determine at this time Follow-Up By: 07/18/18 Additional Comments F/U: po intakes
--- NOTE | 2018-07-17 14:20 | Consultation ---
History of Present Illness - Reason for Consult Consult date: 07/17/18 Hidradenitis suppurativa Requesting physician: CARI TUCKER - History of Present Illness The patient is a 58-year-old male with history of hidradenitis suppurativa, moved here originally from [place], [place] and well-known to us due to his previous multiple I&D's, skin grafting and antibiotic courses. Outpatient, he follows up with Dr. Aguilar in the wound care center. Most recently, patient was hospitalized in May 2018, treated with IV antibiotics and discharged on Augmentin, minocycline which he tolerated well. Now admitted on 07/15/2018 for elective surgery. On 07/16/2018, he underwent excision of bilateral buttock hidradenitis by Dr. Aguilar. He has been afebrile since admission. Currently, complains of pain that is reasonably controlled with meds. He has been on empiric Unasyn and vancomycin. Still has draining areas from R axilla and groin region. Complains of pain there too. Review of Systems: General: no fevers,chills or rigors HEENT: no new visual disturbance Respiratory: No cough, sputum, hemoptysis or shortness of breath Cardiovascular: No chest pain, syncope Gastrointestinal: No nausea, vomiting or diarrhea Genitourinary: No dysuria or hematuria Musculoskeletal: No new or worsening neck pain or back pain Neurologic: No headaches, seizures Hematologic: No easy bruising or bleeding Endocrine: No night sweats or acute weight loss Skin: negative for rash, jaundice Psychiatric: No suicidal or homicidal ideation Past History Past Medical History: anemia, other (Hydradenitis) Past Surgical History: Other (Multiple surgery for Hydradenitis on Groin and abdomen) Social history: smoking (CIgars one or 2 per day) Family history: hypertension Medications and Allergies Allergies Allergy/AdvReac Type Severity Reaction Status Date / Time No Known Allergies Allergy Verified 07/12/18 11:41 Home Medications Medication Instructions Recorded Confirmed Last Taken Type RX: No Known Home Medications [No 07/12/18 07/12/18 Unknown History Reported Home Medications] Active Meds: Active Medications Acetaminophen (Tylenol) 650 mg PO Q4H PRN PRN Reason: Pain MILD(1-3)/Fever >100.5/BARNES Famotidine (Pepcid) 20 mg PO BID NESTOR Last Admin: 07/17/18 13:09 Dose: 20 mg Documented by: Hydromorphone HCl (Dilaudid) 1 mg IV Q3H PRN PRN Reason: Pain , Severe (7-10) Last Admin: 07/17/18 13:19 Dose: 1 mg Documented by: Hydromorphone HCl (Dilaudid) 0.5 mg IV Q10MIN PRN PRN Reason: Pain , Severe (7-10) Stop: 07/17/18 19:05 Ampicillin Sodium/Sulbactam Sodium (Unasyn/Ns 3 Gm/100 Ml) 3 gm in 100 mls @ 100 mls/hr IV Q6HR [facility]; Protocol Last Admin: 07/17/18 13:18 Dose: 100 mls/hr Documented by: Vancomycin HCl 1,250 mg/ (Sodium Chloride) 275 mls @ 166.667 mls/hr IV Q24H [facility] Last Admin: 07/16/18 20:15 Dose: 166.667 mls/hr Documented by: Sodium Chloride (Nacl 0.9% 1000 Ml) 1,000 mls @ 100 mls/hr IV DIRECT [facility] Ibuprofen (Motrin) 600 mg PO Q6H PRN PRN Reason: Pain, Mild (1-3) Multivitamins/Minerals (Caltrate Plus) 1 each PO BID [facility] Last Admin: 07/17/18 13:09 Dose: 1 each Documented by: Ondansetron HCl (Zofran) 4 mg IV Q8H PRN PRN Reason: Nausea And Vomiting Sodium Chloride (Sodium Chloride Flush Syringe 10 Ml) 10 ml IV BID [facility] Stop: 07/18/18 21:59 Last Admin: 07/17/18 13:10 Dose: 10 ml Documented by: Sodium Chloride (Sodium Chloride Flush Syringe 10 Ml) 10 ml IV PRN PRN PRN Reason: LINE FLUSH Physical Examination - Physical Exam Narrative exam: Physical Exam: Constitutional: Alert, cooperative. No acute distress Head, Ears, Nose: Normocephalic, atraumatic. External ears, nose normal Eyes: Conjunctivae/corneas clear. No icterus. No ptosis. Neck: Supple, no meningeal signs Oral: no thrush, no ulcers Cardiovascular: S1, S2 normal. Respiratory: Good air entry, clear to auscultation bilaterally GI: Soft, non-tender; bowel sounds normal. No peritoneal signs Musculoskeletal: No pedal edema, no cyanosis. Skin: Left axilla well healed. right axilla, groin with hidradenitis with tenderness and drainage +. Buttocks with WoundVAC Hem/Lymphatic: No palpable cervical or supraclavicular nodes. No lymphangitis Psych: Mood ok. Affect normal Neurological: Awake, alert, oriented. No gross abnormality - Constitutional Vitals: Vital Signs Temp Pulse Resp BP Pulse Ox 98.9 F 90 18 94/53 98 07/17/18 11:35 07/17/18 11:35 07/17/18 11:35 07/17/18 11:35 07/17/18 11:35 Temperature -Last 24 Hours Temperature 98.9 F Temperature 97.3 F Temperature 97.2 F Results - Labs CBC & Chem 7: 07/17/18 07:20 07/17/18 07:20 Labs: Abnormal lab results 07/15/18 07/16/18 07/16/18 Range/Units 13:30 16:21 16:23 WBC (4.5-11.0) K/mm3 Hgb (11.8-15.2) gm/dl Hct (35.5-45.6) % RDW (13.2-15.2) % Lymph % (Auto) (13.4-35.0) % Seg Neutrophils % (40.0-70.0) % Seg Neutrophils # (1.8-7.7) K/mm3 Creatinine (0.8-1.5) mg/dL Glucose (75-100) mg/dL POC Glucose 63 L 61 L (70-105) Calcium (8.4-10.2) mg/dL Crossmatch See Detail 07/17/18 07/17/18 07/17/18 Range/Units 07:20 07:20 11:43 WBC 15.7 H (4.5-11.0) K/mm3 Hgb 11.3 L D (11.8-15.2) gm/dl Hct 34.4 L D (35.5-45.6) % RDW 16.9 H (13.2-15.2) % Lymph % (Auto) 9.7 L (13.4-35.0) % Seg Neutrophils % 84.9 H (40.0-70.0) % Seg Neutrophils # 13.3 H (1.8-7.7) K/mm3 Creatinine 1.6 H (0.8-1.5) mg/dL Glucose 66 L (75-100) mg/dL POC Glucose 68 L (70-105) Calcium 7.6 L (8.4-10.2) mg/dL Crossmatch Assessment and Plan Cultures: 06/15/2018 buttock wound culture: Normal skin deb 07/16/2018 surgical culture: No growth in 24 hours A/P: 58-year-old male with history of hidradenitis suppurativa, moved here originally from [place], [place] and well-known to us due to his previous multiple I&D's, skin grafting and antibiotic courses admitted for elective surgery. 1) Extensive hidradenitis suppurativa: involving R axilla, groin and buttock region. Now s/p excision of bilateral buttock hidradenitis by Dr. Aguilar on 07/16/2018 and woundVAC placement. Afebrile. Has chronic leucocytosis. 2) CKD: renally dose abx. Creatinine 1.6. Recs: - continue Unasyn and Vancomycin for now - follow up surgical culture, if no growth in 48 hours, would discharge on PO minocycline 100 mg BID x 7 days - continue wound care, WoundVAC and close follow up with wound care clinic/MD [facility] C: [phone] O: [phone] F: [phone]
--- NOTE | 2018-07-17 14:23 | Progress Note ---
Assessment and Plan - Patient Problems (1) Hidradenitis suppurativa Current Visit: Yes Status: Acute Plan to address problem: 1) Continue wound vac 2) Pt can be discharged home when pain control is adequate on oral narcotics. 3) F/u in Wound Clinic in one week Subjective Date of service: 07/17/18 Patient Reports: Positive: no new complaints Objective Vital Signs - 12hr 07/17/18 11:35 Temperature 98.9 F Pulse Rate 90 Respiratory 18 Rate Blood Pressure 94/53 O2 Sat by Pulse 98 Oximetry - Integumentary other (Wound vac is now in place.) - Labs 07/17/18 07:20 07/17/18 07:20 Diabetes panel 07/17/18 Range/Units 07:20 Sodium 139 (137-145) mmol/L Potassium 4.2 (3.6-5.0) mmol/L Chloride 106.5 (98-107) mmol/L Carbon Dioxide 23 (22-30) mmol/L BUN 16 (9-20) mg/dL Creatinine 1.6 H (0.8-1.5) mg/dL Glucose 66 L (75-100) mg/dL Calcium 7.6 L (8.4-10.2) mg/dL Calcium panel 07/17/18 Range/Units 07:20 Calcium 7.6 L (8.4-10.2) mg/dL Pituitary panel 07/17/18 Range/Units 07:20 Sodium 139 (137-145) mmol/L Potassium 4.2 (3.6-5.0) mmol/L Chloride 106.5 (98-107) mmol/L Carbon Dioxide 23 (22-30) mmol/L BUN 16 (9-20) mg/dL Creatinine 1.6 H (0.8-1.5) mg/dL Glucose 66 L (75-100) mg/dL Calcium 7.6 L (8.4-10.2) mg/dL Adrenal panel 07/17/18 Range/Units 07:20 Sodium 139 (137-145) mmol/L Potassium 4.2 (3.6-5.0) mmol/L Chloride 106.5 (98-107) mmol/L Carbon Dioxide 23 (22-30) mmol/L BUN 16 (9-20) mg/dL Creatinine 1.6 H (0.8-1.5) mg/dL Glucose 66 L (75-100) mg/dL Calcium 7.6 L (8.4-10.2) mg/dL
[2018-07-17] MEDS: VANCOMYCIN 1,250 MG in NACL 0.9% 250ML 250 ML IV SCH (20:27)
[2018-07-18] MEDS: DILAUDID IV PRN (02:40)
[2018-07-18] MEDS: NACL 0.9% 1000 ML 1,000 ML IV SCH ×3 (05:10→22:15)
[2018-07-18] MEDS: UNASYN/NS 3 GM/100 ML 3 GM/100 ML BAG IV SCH (05:11)
[2018-07-18 05:30] LABS: Basophils # (Auto) 0.1 K/mm3 (0.0-0.1); Basophils % (Auto) 0.6 % (0.0-1.8); Eosinophils # (Auto) 0.3 K/mm3 (0.0-0.4); Eosinophils % (Auto) 3.3 % (0.0-4.3); Hematocrit 26.2 % (35.5-45.6); Hemoglobin 8.6 gm/dl (11.8-15.2); Lymphocytes # (Auto) 1.6 K/mm3 (1.2-5.4); Lymphocytes % (Auto) 19.8 % (13.4-35.0); Mean Corpuscular HGB Conc 33 % (32-34); Mean Corpuscular Volume 89 fl (84-94); Monocytes # (Auto) 0.5 K/mm3 (0.0-0.8); Monocytes % (Auto) 5.6 % (0.0-7.3); Platelet Count 235 K/mm3 (140-440); Red Blood Count 2.95 M/mm3 (3.65-5.03); Red Cell Distribution Width 16.3 % (13.2-15.2)
[2018-07-18] MEDS: CALTRATE PLUS PO SCH ×2 (09:54→21:52)
[2018-07-18] MEDS: PEPCID PO SCH ×2 (09:54→21:52)
[2018-07-18] MEDS: SODIUM CHLORIDE FLUSH SYRINGE 10 ML IV SCH (09:58)
--- NOTE | 2018-07-18 10:23 | Progress Note ---
Assessment and Plan Cultures: 06/15/2018 buttock wound culture: Normal skin deb 07/16/2018 surgical culture: No growth in 48 hours 07/16/2018 Anerobic culture: no growth in 48 hours A/P: 58-year-old male with history of hidradenitis suppurativa, moved here originally from [place], [place] and well-known to us due to his previous multiple I&D's, skin grafting and antibiotic courses admitted for elective surgery. 1) Extensive hidradenitis suppurativa: involving R axilla, groin and buttock region. Now s/p excision of bilateral buttock hidradenitis by Dr. Aguilar on 07/16/2018 and woundVAC placement. Afebrile. Has chronic leucocytosis. 2) CKD: renally dose abx. Creatinine 1.6. Recs: - Discontinue Vancomycin and Unasyn -Start Doxycycline 100mg PO BID - No growth in 48 hours, anticipate discharge on PO minocycline 100 mg BID x 7 days - continue wound care, WoundVAC and close follow up with wound care clinic/Dr. Jeff Dumas NP [facility] M: [phone] O:[phone] Subjective Date of service: 07/18/18 Interval history: Patient seen and examined. Complained of generalized pain. No fevers or SOB. Objective - Exam Narrative Exam: Constitutional: Alert, cooperative. No acute distress Head, Ears, Nose: Normocephalic, atraumatic. External ears, nose normal Eyes: Conjunctivae/corneas clear. No icterus. No ptosis. Neck: Supple, no meningeal signs Oral: no thrush, no ulcers Cardiovascular: S1, S2 normal. Respiratory: Good air entry, clear to auscultation bilaterally GI: Soft, non-tender; bowel sounds normal. No peritoneal signs Musculoskeletal: No pedal edema, no cyanosis. Skin: Left axilla well healed. right axilla, groin with hidradenitis with ten derness and drainage +. Buttocks with WoundVAC Hem/Lymphatic: No palpable cervical or supraclavicular nodes. No lymphangitis Psych: Mood ok. Affect normal Neurological: Awake, alert, oriented. No gross abnormality - Constitutional Vitals: Vital Signs Temp Pulse Resp BP Pulse Ox 98.2 F 82 20 90/49 98 04/18/19 07:14 07/18/18 07:14 07/18/18 07:14 07/18/18 07:14 07/18/18 07:14 Temperature -Last 24 Hours Temperature 98.2 F Temperature 98.8 F Temperature 100.4 F Temperature 98.9 F - Labs CBC & Chem 7: 07/18/18 05:04 07/18/18 05:04 Labs: Abnormal lab results 07/15/18 07/17/18 07/18/18 Range/Units 13:30 11:43 05:04 RBC 2.95 L (3.65-5.03) M/mm3 Hgb 8.6 L (11.8-15.2) gm/dl Hct 26.2 L D (35.5-45.6) % RDW 16.3 H (13.2-15.2) % Seg Neutrophils % 70.7 H (40.0-70.0) % Chloride (98-107) mmol/L Carbon Dioxide (22-30) mmol/L Creatinine (0.8-1.5) mg/dL POC Glucose 68 L (70-105) Calcium (8.4-10.2) mg/dL Crossmatch See Detail 07/18/18 Range/Units 05:04 RBC (3.65-5.03) M/mm3 Hgb (11.8-15.2) gm/dl Hct (35.5-45.6) % RDW (13.2-15.2) % Seg Neutrophils % (40.0-70.0) % Chloride 109.3 H (98-107) mmol/L Carbon Dioxide 21 L (22-30) mmol/L Creatinine 2.0 H (0.8-1.5) mg/dL POC Glucose (70-105) Calcium 7.0 L (8.4-10.2) mg/dL Crossmatch
--- NOTE | 2018-07-18 11:52 | Progress Note ---
Assessment and Plan Assessment and plan: Acute exacerbation of Hidradenitis suppurativa -s/p I&D of draining ulcers on the buttocks -Antibiotics changed to by mouth per ID -surgery following -OK to discharge from ID standpoint on PO Minocycline x 7 days. -Transition off IV Dilaudid and start by mouth oxycodone. Symptomatic acute on chronic anemia -s/p 2 units of PRBC -H/H stable, will monitor DWIGHT (acute kidney injury) -Probably prerenal azotemia -On IV Fluid, will monitor creatinine level -will do renal US Hypocalcemia -s/p IV Calcium Gluconate -Continue oral supplementation Hypomagnesemia -Resolved s/p repletion Hypotension -BP stable on IVF, will monitor Severe protein calorie Malnutrition -Dietitian consulted DVT prophylaxis with Lovenox Disposition: Case management to arrange for wound VAC at home and home health. History Interval history: No new issues overnight. Hospitalist Physical - Constitutional Vitals: Temp Pulse Resp BP Pulse Ox 98.2 F 82 20 90/49 98 07/18/18 07:14 07/18/18 07:14 07/18/18 07:14 07/18/18 07:14 07/18/18 07:14 General appearance: Present: no acute distress, well-nourished - EENT Eyes: Present: PERRL, EOM intact ENT: hearing intact, clear oral mucosa, dentition normal - Neck Neck: Present: supple, normal ROM - Respiratory Respiratory effort: normal Respiratory: bilateral: CTA - Cardiovascular Rhythm: regular Heart Sounds: Present: S1 & S2. Absent: gallop, rub - Extremities Extremities: no ischemia, No edema, Full ROM - Abdominal General gastrointestinal: soft, non-tender, non-distended, normal bowel sounds - Integumentary Integumentary: Present: clear, warm, dry - Neurologic Neurologic: CNII-XII intact, moves all extremities Results - Labs CBC & Chem 7: 07/18/18 05:04 07/18/18 05:04 Labs: Laboratory Last Values WBC 8.3 K/mm3 (4.5-11.0) 07/18/18 05:04 RBC 2.95 M/mm3 (3.65-5.03) L 07/18/18 05:04 Hgb 8.6 gm/dl (11.8-15.2) L 07/18/18 05:04 Hct 26.2 % (35.5-45.6) L D 07/18/18 05:04 MCV 89 fl (84-94) 07/18/18 05:04 MCH 29 pg (28-32) 07/18/18 05:04 MCHC 33 % (32-34) 07/18/18 05:04 RDW 16.3 % (13.2-15.2) H 07/18/18 05:04 Plt Count 235 K/mm3 (140-440) 07/18/18 05:04 Lymph % (Auto) 19.8 % (13.4-35.0) 07/18/18 05:04 [place] % (Auto) 5.6 % (0.0-7.3) 07/18/18 05:04 Eos % (Auto) 3.3 % (0.0-4.3) 07/18/18 05:04 Baso % (Auto) 0.6 % (0.0-1.8) 07/18/18 05:04 Lymph # 1.6 K/mm3 (1.2-5.4) 07/18/18 05:04 [place] # 0.5 K/mm3 (0.0-0.8) 07/18/18 05:04 Eos # 0.3 K/mm3 (0.0-0.4) 07/18/18 05:04 Baso # 0.1 K/mm3 (0.0-0.1) 07/18/18 05:04 Seg Neutrophils % 70.7 % (40.0-70.0) H 07/18/18 05:04 Seg Neutrophils # 5.9 K/mm3 (1.8-7.7) 07/18/18 05:04 Sodium 140 mmol/L (137-145) 07/18/18 05:04 Potassium 4.4 mmol/L (3.6-5.0) 07/18/18 05:04 Chloride 109.3 mmol/L (98-107) H 07/18/18 05:04 Carbon Dioxide 21 mmol/L (22-30) L 07/18/18 05:04 Anion Gap 14 mmol/L 07/18/18 05:04 BUN 18 mg/dL (9-20) 07/18/18 05:04 Creatinine 2.0 mg/dL (0.8-1.5) H 07/18/18 05:04 Estimated GFR 42 ml/min 07/18/18 05:04 BUN/Creatinine Ratio 9 % 07/18/18 05:04 Glucose 87 mg/dL (75-100) 07/18/18 05:04 POC Glucose 91 (70-105) 07/18/18 11:28 Hemoglobin A1c < 4.2 % (4-6) 07/15/18 13:30 Calcium 7.0 mg/dL (8.4-10.2) L 07/18/18 05:04 Magnesium 1.90 mg/dL (1.7-2.3) 07/17/18 07:20 Iron 48 ug/dL (49-181) L 07/16/18 07:21 TIBC 87 mcg/dL (250-450) L 07/16/18 07:21 % Saturation 55.17 % 07/16/18 07:21 Transferrin 80 mg/dl (180-329) L 07/16/18 07:21 Total Bilirubin 0.80 mg/dL (0.1-1.2) 07/16/18 07:21 AST 9 units/L (5-40) 07/16/18 07:21 ALT < 5 units/L (7-56) L 07/16/18 07:21 Alkaline Phosphatase 96 units/L (35-129) 07/16/18 07:21 Total Protein 7.3 g/dL (6.3-8.2) 07/16/18 07:21 Albumin 1.7 g/dL (3.9-5) L 07/16/18 07:21 Albumin/Globulin Ratio 0.3 % 07/16/18 07:21 Vitamin B12 839.1 pg/mL (211-911) 07/16/18 09:56 Blood Type O POSITIVE 07/15/18 13:30 Antibody Screen Negative 07/15/18 13:30 Crossmatch See Detail 07/15/18 13:30 Active Medications - Current Medications Current Medications: Generic Name Dose Route Start Last Admin Trade Name Freq PRN Reason Stop Dose Admin Acetaminophen 650 mg 07/15/18 17:59 07/17/18 19:05 Tylenol PO 650 mg Q4H PRN Administration Pain MILD(1-3)/Fever >100.5/BARNES Doxycycline Hyclate 100 mg 04/18/19 12:00 Vibramycin PO BID NESTOR Famotidine 20 mg 07/15/18 22:00 07/18/18 09:54 Pepcid PO 20 mg BID NESTOR Administration Hydromorphone HCl 1 mg 07/15/18 18:00 07/18/18 02:40 Dilaudid IV 1 mg Q3H PRN Administration Pain , Severe (7-10) Sodium Chloride 1,000 mls @ 100 mls/hr 07/17/18 10:00 07/18/18 05:10 Nacl 0.9% 1000 Ml IV 100 mls/hr DIRECT NESTOR Administration Ibuprofen 600 mg 07/15/18 18:00 07/18/18 09:57 Motrin PO 600 mg Q6H PRN Administration Pain, Mild (1-3) Multivitamins/Minerals 1 each 07/16/18 10:00 07/18/18 09:54 Caltrate Plus PO 1 each BID NESTOR Administration Ondansetron HCl 4 mg 07/15/18 17:59 Zofran IV Q8H PRN Nausea And Vomiting Sodium Chloride 10 ml 07/15/18 22:00 07/18/18 09:58 Sodium Chloride Flush Syringe 10 Ml IV 07/18/18 21:59 10 ml BID NESTOR Administration Sodium Chloride 10 ml 07/15/18 17:59 Sodium Chloride Flush Syringe 10 Ml IV PRN PRN LINE FLUSH Nutrition/Malnutrition Assess - Dietary Evaluation Nutrition/Malnutrition Findings: Nutrition Notes Start: 07/16/18 08:26 Freq: Status: Active Protocol: Document 07/18/18 10:35 CP (Rec: 07/18/18 10:38 CP [id number]) Co-Sign 07/18/18 10:35 LP Nutrition Notes Initial or Follow up Reassessment Current Diagnosis Acute Kidney Injury Other Pertinent Diagnosis Hydradenitis, anemia, hypocalcemia, DVT prophylaxis Current Diet Regular Diet Labs/Tests Reviewed Pertinent Medications Reviewed Height 5 ft 11 in Weight 84.5 kg [place] Body Weight (kg) 78.18 BMI 25.9 Weight change and time frame Pt lost 12 pounds but did not know the time frame. Weight Status Overweight Subjective/Other Information Pt reported having a good appetite and eating 100% of meals. Percent of energy/protein needs met: 100%/100% Burn Absent Trauma Absent #1 Nutrition Diagnosis Inadequate oral intake As Evidenced by Signs and Symptoms Pt reported having a good appetite and eating 100% of meals. Diagnosis Progress(for reassessment Resolved documentation) Is patient on ventilator? No Is Patient Ambulatory and/or Out of Bed No REE-([facility]-confined to bed) 2022.200 Calculation Used for Recommendations [facility] Additional Notes Pro: 1.2-1.5 g/kg (101-127g) Fluid: 1mL/kcal Nutrition Intervention Change Diet Order: Continue current or per MD request Goal #1 Pt to continue to meet at least 80% of energy and protein needs Revisit per MD consult or patient Sign Off request:
--- NOTE | 2018-07-18 12:03 | Progress Note ---
Assessment and Plan - Patient Problems (1) Hidradenitis suppurativa Current Visit: Yes Status: Acute Plan to address problem: 1) Continue wound vac 2) Wound vac dressing change tomorrow 3) Discharge home when pt has adequate analgesia with oral narcotics (? 48 hours) 4) F/u biweekly in the Wound Clinic Subjective Date of service: 07/18/18 Patient Reports: Positive: no new complaints Objective Vital Signs - 12hr 07/18/18 07:14 Temperature 98.2 F Pulse Rate 82 Respiratory 20 Rate Blood Pressure 90/49 [Left] O2 Sat by Pulse 98 Oximetry - Integumentary other (Wound vac is in place with a good seal.) - Labs 07/18/18 05:04 07/18/18 05:04 Diabetes panel 07/18/18 Range/Units 05:04 Sodium 140 (137-145) mmol/L Potassium 4.4 (3.6-5.0) mmol/L Chloride 109.3 H (98-107) mmol/L Carbon Dioxide 21 L (22-30) mmol/L BUN 18 (9-20) mg/dL Creatinine 2.0 H (0.8-1.5) mg/dL Glucose 87 (75-100) mg/dL Calcium 7.0 L (8.4-10.2) mg/dL Calcium panel 07/18/18 Range/Units 05:04 Calcium 7.0 L (8.4-10.2) mg/dL Pituitary panel 07/18/18 Range/Units 05:04 Sodium 140 (137-145) mmol/L Potassium 4.4 (3.6-5.0) mmol/L Chloride 109.3 H (98-107) mmol/L Carbon Dioxide 21 L (22-30) mmol/L BUN 18 (9-20) mg/dL Creatinine 2.0 H (0.8-1.5) mg/dL Glucose 87 (75-100) mg/dL Calcium 7.0 L (8.4-10.2) mg/dL Adrenal panel 07/18/18 Range/Units 05:04 Sodium 140 (137-145) mmol/L Potassium 4.4 (3.6-5.0) mmol/L Chloride 109.3 H (98-107) mmol/L Carbon Dioxide 21 L (22-30) mmol/L BUN 18 (9-20) mg/dL Creatinine 2.0 H (0.8-1.5) mg/dL Glucose 87 (75-100) mg/dL Calcium 7.0 L (8.4-10.2) mg/dL
[2018-07-18] MEDS ORDERED: DILAUDID IV PRN (12:30)
[2018-07-18] MEDS: ROXICODONE PO PRN ×2 (13:25→21:52)
[2018-07-18] MEDS: VIBRAMYCIN PO SCH ×2 (13:25→21:52)
--- NOTE | 2018-07-18 14:07 | Ultrasound Report ---
ULTRASOUND RENAL BILATERAL HISTORY: Acute renal failure. TECHNIQUE: transabdominal ultrasound with color Doppler interrogation. COMPARISON: 06/15/18. FINDINGS: The right kidney measures 10.1 x 4.6 x 4.6cm. Right renal cortex: 1.4cm. The left kidney measures 10.6 x 6.2 x 4.4cm. Left renal cortex: 2.1cm. The kidneys are normal size, contour and position. There is increased renal cortical echotexture bilaterally consistent with nonspecific renal parenchymal disease. Corticomedullary differentiation is preserved. A 2.7 cm cyst is identified in the mid right kidney. No evidence for mass, nephrolithiasis, hydronephrosis or perinephric fluid. The views of the bladder and the region of the ureters appear normal. IMPRESSION: Echogenic kidneys consistent with nonspecific renal parenchymal disease. Right renal cyst. No significant change since 06/15/18.
[2018-07-19 06:19] LABS: Basophils # (Auto) 0.1 K/mm3 (0.0-0.1); Basophils % (Auto) 0.6 % (0.0-1.8); Eosinophils # (Auto) 0.4 K/mm3 (0.0-0.4); Eosinophils % (Auto) 3.9 % (0.0-4.3); Hematocrit 26.3 % (35.5-45.6); Hemoglobin 8.6 gm/dl (11.8-15.2); Lymphocytes # (Auto) 1.5 K/mm3 (1.2-5.4); Lymphocytes % (Auto) 15.4 % (13.4-35.0); Mean Corpuscular HGB Conc 33 % (32-34); Mean Corpuscular Volume 89 fl (84-94); Monocytes # (Auto) 0.4 K/mm3 (0.0-0.8); Monocytes % (Auto) 4.2 % (0.0-7.3); Platelet Count 246 K/mm3 (140-440); Red Blood Count 2.97 M/mm3 (3.65-5.03); Red Cell Distribution Width 16.8 % (13.2-15.2)
[2018-07-19 06:37] LABS: Calcium 7.4 mg/dL (8.4-10.2)
[2018-07-19] MEDS: CALTRATE PLUS PO SCH ×2 (09:37→22:06)
[2018-07-19] MEDS: VIBRAMYCIN PO SCH ×2 (09:37→22:06)
[2018-07-19] MEDS: PEPCID PO SCH ×2 (09:39→22:06)
--- NOTE | 2018-07-19 10:38 | Progress Note ---
Assessment and Plan Assessment and plan: Acute exacerbation of Hidradenitis suppurativa -s/p I&D of draining ulcers on the buttocks -Antibiotics changed to by mouth per ID -surgery following -OK to discharge from ID standpoint on PO Minocycline x 7 days. -Transition off IV Dilaudid and start by mouth oxycodone. Symptomatic acute on chronic anemia -s/p 2 units of PRBC -H/H stable, will monitor CKD -Patient appears to have underlying chronic kidney disease with baseline creatinine ranging from 1.5-2.0 since March 2017 -Renal ultrasound reveals echogenic kidneys consistent with nonspecific renal parenchymal disease. No significant change since 06/15/18 Hypocalcemia -s/p IV Calcium Gluconate -Continue oral supplementation Hypomagnesemia -Resolved s/p repletion Hypotension -BP stable on IVF, will monitor Severe protein calorie Malnutrition -Dietitian consulted DVT prophylaxis with Lovenox Disposition: Case management to arrange for wound VAC at home and home health. Anticipate discharge in a.m. History Interval history: No new issues overnight. Patient still complains of severe pain with dressing changes. Hospitalist Physical - Constitutional Vitals: Temp Pulse Resp BP Pulse Ox 97.9 F 83 18 105/59 99 07/19/18 08:05 07/19/18 08:05 07/19/18 08:05 07/19/18 08:05 07/19/18 08:05 General appearance: Present: no acute distress, well-nourished - EENT Eyes: Present: PERRL, EOM intact ENT: hearing intact, clear oral mucosa, dentition normal - Neck Neck: Present: supple, normal ROM - Respiratory Respiratory effort: normal Respiratory: bilateral: CTA - Cardiovascular Rhythm: regular Heart Sounds: Present: S1 & S2. Absent: gallop, rub - Extremities Extremities: no ischemia, No edema, Full ROM - Abdominal General gastrointestinal: soft, non-tender, non-distended, normal bowel sounds - Integumentary Integumentary: Present: clear, warm, dry - Neurologic Neurologic: CNII-XII intact, moves all extremities Results - Labs CBC & Chem 7: 07/19/18 05:53 07/19/18 05:53 Labs: Laboratory Last Values WBC 9.9 K/mm3 (4.5-11.0) 07/19/18 05:53 RBC 2.97 M/mm3 (3.65-5.03) L 07/19/18 05:53 Hgb 8.6 gm/dl (11.8-15.2) L 07/19/18 05:53 Hct 26.3 % (35.5-45.6) L 07/19/18 05:53 MCV 89 fl (84-94) 07/19/18 05:53 MCH 29 pg (28-32) 07/19/18 05:53 MCHC 33 % (32-34) 07/19/18 05:53 RDW 16.8 % (13.2-15.2) H 07/19/18 05:53 Plt Count 246 K/mm3 (140-440) 07/19/18 05:53 Lymph % (Auto) 15.4 % (13.4-35.0) 07/19/18 05:53 [place] % (Auto) 4.2 % (0.0-7.3) 07/19/18 05:53 Eos % (Auto) 3.9 % (0.0-4.3) 07/19/18 05:53 Baso % (Auto) 0.6 % (0.0-1.8) 07/19/18 05:53 Lymph # 1.5 K/mm3 (1.2-5.4) 07/19/18 05:53 [place] # 0.4 K/mm3 (0.0-0.8) 07/19/18 05:53 Eos # 0.4 K/mm3 (0.0-0.4) 07/19/18 05:53 Baso # 0.1 K/mm3 (0.0-0.1) 07/19/18 05:53 Seg Neutrophils % 75.9 % (40.0-70.0) H 07/19/18 05:53 Seg Neutrophils # 7.5 K/mm3 (1.8-7.7) 07/19/18 05:53 Sodium 139 mmol/L (137-145) 07/19/18 05:53 Potassium 5.0 mmol/L (3.6-5.0) 07/19/18 05:53 Chloride 108.7 mmol/L (98-107) H 07/19/18 05:53 Carbon Dioxide 22 mmol/L (22-30) 07/19/18 05:53 Anion Gap 13 mmol/L 07/19/18 05:53 BUN 18 mg/dL (9-20) 07/19/18 05:53 Creatinine 2.0 mg/dL (0.8-1.5) H 07/19/18 05:53 Estimated GFR 42 ml/min 07/19/18 05:53 BUN/Creatinine Ratio 9 % 07/19/18 05:53 Glucose 68 mg/dL (75-100) L 07/19/18 05:53 POC Glucose 62 (70-105) L 07/19/18 08:11 Hemoglobin A1c < 4.2 % (4-6) 07/15/18 13:30 Calcium 7.4 mg/dL (8.4-10.2) L 07/19/18 05:53 Magnesium 1.90 mg/dL (1.7-2.3) 07/17/18 07:20 Iron 48 ug/dL (49-181) L 07/16/18 07:21 TIBC 87 mcg/dL (250-450) L 07/16/18 07:21 % Saturation 55.17 % 07/16/18 07:21 Transferrin 80 mg/dl (180-329) L 07/16/18 07:21 Total Bilirubin 0.80 mg/dL (0.1-1.2) 07/16/18 07:21 AST 9 units/L (5-40) 07/16/18 07:21 ALT < 5 units/L (7-56) L 07/16/18 07:21 Alkaline Phosphatase 96 units/L (35-129) 07/16/18 07:21 Total Protein 7.3 g/dL (6.3-8.2) 07/16/18 07:21 Albumin 1.7 g/dL (3.9-5) L 07/16/18 07:21 Albumin/Globulin Ratio 0.3 % 07/16/18 07:21 Vitamin B12 839.1 pg/mL (211-911) 07/16/18 09:56 Blood Type O POSITIVE 07/15/18 13:30 Antibody Screen Negative 07/15/18 13:30 Crossmatch See Detail 07/15/18 13:30 Active Medications - Current Medications Current Medications: Generic Name Dose Route Start Last Admin Trade Name Freq PRN Reason Stop Dose Admin Acetaminophen 650 mg 07/15/18 17:59 04/17/19 19:05 Tylenol PO 650 mg Q4H PRN Administration Pain MILD(1-3)/Fever >100.5/BARNES Doxycycline Hyclate 100 mg 07/18/18 13:00 07/19/18 09:37 Vibramycin PO 100 mg BID NESTOR Administration Famotidine 20 mg 07/15/18 22:00 07/19/18 09:39 Pepcid PO 20 mg BID NESTOR Administration Hydromorphone HCl 1 mg 07/18/18 12:30 Dilaudid IV Q6H PRN Pain , Severe (7-10) Sodium Chloride 1,000 mls @ 100 mls/hr 07/17/18 10:00 07/18/18 22:15 Nacl 0.9% 1000 Ml IV 100 mls/hr DIRECT NESTOR Administration Ibuprofen 600 mg 07/15/18 18:00 07/18/18 09:57 Motrin PO 600 mg Q6H PRN Administration Pain, Mild (1-3) Multivitamins/Minerals 1 each 07/16/18 10:00 07/19/18 09:37 Caltrate Plus PO 1 each BID NESTOR Administration Ondansetron HCl 4 mg 07/15/18 17:59 Zofran IV Q8H PRN Nausea And Vomiting Oxycodone HCl 10 mg 07/18/18 12:30 07/18/18 21:52 Roxicodone PO 10 mg Q4H PRN Administration Pain, Moderate (4-6) Sodium Chloride 10 ml 07/15/18 17:59 Sodium Chloride Flush Syringe 10 Ml IV PRN PRN LINE FLUSH Nutrition/Malnutrition Assess - Dietary Evaluation Nutrition/Malnutrition Findings: Nutrition Notes Start: 07/16/18 08:26 Freq: Status: Active Protocol: Document 07/18/18 10:35 CP (Rec: 07/18/18 10:38 CP [id number]) Co-Sign 07/18/18 10:35 LP Nutrition Notes Initial or Follow up Reassessment Current Diagnosis Acute Kidney Injury Other Pertinent Diagnosis Hydradenitis, anemia, hypocalcemia, DVT prophylaxis Current Diet Regular Diet Labs/Tests Reviewed Pertinent Medications Reviewed Height 5 ft 11 in Weight 84.5 kg [place] Body Weight (kg) 78.18 BMI 25.9 Weight change and time frame Pt lost 12 pounds but did not know the time frame. Weight Status Overweight Subjective/Other Information Pt reported having a good appetite and eating 100% of meals. Percent of energy/protein needs met: 100%/100% Burn Absent Trauma Absent #1 Nutrition Diagnosis Inadequate oral intake As Evidenced by Signs and Symptoms Pt reported having a good appetite and eating 100% of meals. Diagnosis Progress(for reassessment Resolved documentation) Is patient on ventilator? No Is Patient Ambulatory and/or Out of Bed No REE-([facility]-confined to bed) 200 Calculation Used for Recommendations [facility] Additional Notes Pro: 1.2-1.5 g/kg (101-127g) Fluid: 1mL/kcal Nutrition Intervention Change Diet Order: Continue current or per MD request Goal #1 Pt to continue to meet at least 80% of energy and protein needs Revisit per MD consult or patient Sign Off request:
[2018-07-19] MEDS: DILAUDID IV PRN (11:50)
[2018-07-19] MEDS ORDERED: DAKIN'S HALF STRENGTH TP PRN (12:06)
[2018-07-19] MEDS: NACL 0.9% 1000 ML 1,000 ML IV SCH (19:24)
[2018-07-19] MEDS ORDERED: VANCOMYCIN 1,250 MG in NACL 0.9% 250ML 250 ML IV SCH (20:00)
[2018-07-19] MEDS: ROXICODONE PO PRN (22:12)
[2018-07-20] MEDS: NACL 0.9% 1000 ML 1,000 ML IV SCH ×2 (05:58→22:22)
[2018-07-20] MEDS: DILAUDID IV PRN ×2 (08:50→22:17)
--- NOTE | 2018-07-20 09:08 | Discharge Summary ---
Providers - Providers Date of Admission: 07/15/18 15:46 Date of discharge: 07/20/18 Attending physician: ISMAEL WRIGHT 07/15/18 Consult to Case Management [CONS] Routine Services Needed at Discharge: Home Health Services Notified:: [email or web address] 07/15/18 16:43 Consult to Physician [CONS] Routine Comment: Consulting Provider: BECKY AGUILAR Physician Instructions: Reason For Exam: Hidradenitis of buttocks 07/16/18 07:21 Consult to Dietitian/Nutrition [CONS] Routine Physician Instructions: Reason For Exam: malnutrition Reason for Consult: Pt needs oral supplement 07/16/18 15:52 Physical Therapy Evaluation and Treat [CONS] Routine Comment: Reason For Exam: To assist pt with gait and generalized weakness 07/17/18 14:04 Consult to Physician [CONS] Routine Comment: Consulting Provider: DEVON COOK Physician Instructions: Reason For Exam: hidradenitis suppurativa [facility] Reason for admission: Hidradenitis suppurativa Hospital course: The patient is a 58-year-old male with history of hidradenitis suppurativa, moved here originally from [place], [place] and well-known to ID service due to his previous multiple I&D's, skin grafting and antibiotic courses. Outpatient, he follows up with Dr. Aguilar in the wound care center. Most recently, patient was hospitalized in May 2018, treated with IV antibiotics and discharged on Augmentin, minocycline which he tolerated well. Now admitted on 07/15/2018 for elective surgery. On 07/16/2018, he underwent excision of bilateral buttock hidradenitis by Dr. Aguilar. He has been afebrile since admission. Patient was treated empirically with Unasyn and vancomycin. ID and surgery saw the patient in consultation. Patient had surgical cultures and anaerobic cultures that were no growth. ID later switch antibiotics to doxycycline 100 mg by mouth twice a day. ID recommended discharge with minoc ycline 100 mg twice a day 7 days, continued wound care, wound VAC and close follow up with wound care clinic/Dr. Aguilar. Home health to resume wound care instructions until follow-up in the wound care clinic. Case management arranged home health. Dedicated discharge time 34 minutes. Disposition: [id number] HOME UNDER HOME HL Time spent for discharge: 34 - Discharge Diagnoses (1) Hidradenitis suppurativa Status: Acute (2) Renal insufficiency Status: Resolved Core Measure Documentation - Palliative Care Palliative Care/ Comfort Measures: Not Applicable - Core Measures Any of the following diagnoses?: none Exam - Constitutional Vitals: Temp Pulse Resp BP Pulse Ox 99.2 F 85 18 101/56 100 07/20/18 05:44 07/20/18 05:44 07/20/18 05:44 07/20/18 05:44 07/20/18 05:44 General appearance: Present: no acute distress, well-nourished - EENT Eyes: Present: PERRL ENT: hearing intact, clear oral mucosa - Neck Neck: Present: supple, normal ROM - Respiratory Respiratory effort: normal Respiratory: bilateral: CTA - Cardiovascular Heart Sounds: Present: S1 & S2. Absent: rub, click - Extremities Extremities: pulses symmetrical, No edema Peripheral Pulses: within normal limits - Abdominal General gastrointestinal: Present: soft, non-tender, non-distended, normal bowel sounds Male genitourinary: Present: normal - Integumentary Integumentary: Present: clear, warm, dry - Musculoskeletal Musculoskeletal: gait normal, strength equal bilaterally - Psychiatric Psychiatric: appropriate mood/affect, intact judgment & insight - Neurologic Neurologic: CNII-XII intact, moves all extremities Plan Activity: advance as tolerated Weight Bearing Status: Weight Bear as Tolerated Diet: regular [facility] [Primary Care Provider[facility] - 7 Days BECKY AGUILAR MD [Staff Physician] - 7 Days DEVON COOK MD [Staff Physician] - 7 Days Prescriptions: Minocycline HCl 100 mg PO BID #14 capsule oxyCODONE [Roxicodone TAB] 10 mg PO Q4H PRN #20 tablet PRN Reason: Pain, Moderate (4-6)
[2018-07-20] MEDS: CALTRATE PLUS PO SCH ×2 (09:51→22:18)
[2018-07-20] MEDS: VIBRAMYCIN PO SCH ×2 (09:51→22:18)
[2018-07-20] MEDS: PEPCID PO SCH ×2 (09:52→22:18)
[2018-07-20] MEDS: ROXICODONE PO PRN ×2 (13:15→17:27)
[2018-07-21] MEDS: ROXICODONE PO PRN ×3 (05:30→17:23)
--- NOTE | 2018-07-21 08:31 | Progress Note ---
Assessment and Plan Assessment and plan: Acute exacerbation of Hidradenitis suppurativa -s/p I&D of draining ulcers on the buttocks -Antibiotics changed to by mouth per ID -surgery following -OK to discharge from ID standpoint on PO Minocycline x 7 days. -Transition off IV Dilaudid and start by mouth oxycodone. Symptomatic acute on chronic anemia -s/p 2 units of PRBC -H/H stable, will monitor CKD -Patient appears to have underlying chronic kidney disease with baseline creatinine ranging from 1.5-2.0 since March 2017 -Renal ultrasound reveals echogenic kidneys consistent with nonspecific renal parenchymal disease. No significant change since 06/15/18 Hypocalcemia -s/p IV Calcium Gluconate -Continue oral supplementation Hypomagnesemia -Resolved s/p repletion Hypotension -BP stable on IVF, will monitor Severe protein calorie Malnutrition -Dietitian consulted DVT prophylaxis with Lovenox Disposition: Case management to arrange for wound VAC at home and home health. Anticipate discharge in a.m. - Patient Problems (1) Hidradenitis suppurativa Current Visit: Yes Status: Acute (2) Renal insufficiency Current Visit: No Status: Resolved History Interval history: No new issues overnight. Patient still complains of severe pain with dressing changes. Hospitalist Physical - Constitutional Vitals: Temp Pulse Resp BP Pulse Ox 98.9 F 86 16 106/58 96 07/21/18 06:01 07/21/18 06:01 07/21/18 06:01 07/21/18 06:01 07/21/18 06:01 General appearance: Present: no acute distress, well-nourished - EENT Eyes: Present: PERRL, EOM intact ENT: hearing intact, clear oral mucosa, dentition normal - Neck Neck: Present: supple, normal ROM - Respiratory Respiratory effort: normal Respiratory: bilateral: CTA - Cardiovascular Rhythm: regular Heart Sounds: Present: S1 & S2. Absent: gallop, rub - Extremities Extremities: no ischemia, No edema, Full ROM - Abdominal General gastrointestinal: soft, non-tender, non-distended, normal bowel sounds - Integumentary Integumentary: Present: clear, warm, dry - Neurologic Neurologic: CNII-XII intact, moves all extremities Results - Labs CBC & Chem 7: 07/19/18 05:53 07/19/18 05:53 Labs: Laboratory Last Values WBC 9.9 K/mm3 (4.5-11.0) 07/19/18 05:53 RBC 2.97 M/mm3 (3.65-5.03) L 07/19/18 05:53 Hgb 8.6 gm/dl (11.8-15.2) L 07/19/18 05:53 Hct 26.3 % (35.5-45.6) L 07/19/18 05:53 MCV 89 fl (84-94) 07/19/18 05:53 MCH 29 pg (28-32) 07/19/18 05:53 MCHC 33 % (32-34) 07/19/18 05:53 RDW 16.8 % (13.2-15.2) H 07/19/18 05:53 Plt Count 246 K/mm3 (140-440) 07/19/18 05:53 Lymph % (Auto) 15.4 % (13.4-35.0) 07/19/18 05:53 [place] % (Auto) 4.2 % (0.0-7.3) 07/19/18 05:53 Eos % (Auto) 3.9 % (0.0-4.3) 07/19/18 05:53 Baso % (Auto) 0.6 % (0.0-1.8) 07/19/18 05:53 Lymph # 1.5 K/mm3 (1.2-5.4) 07/19/18 05:53 [place] # 0.4 K/mm3 (0.0-0.8) 07/19/18 05:53 Eos # 0.4 K/mm3 (0.0-0.4) 07/19/18 05:53 Baso # 0.1 K/mm3 (0.0-0.1) 07/19/18 05:53 Seg Neutrophils % 75.9 % (40.0-70.0) H 07/19/18 05:53 Seg Neutrophils # 7.5 K/mm3 (1.8-7.7) 07/19/18 05:53 Sodium 139 mmol/L (137-145) 07/19/18 05:53 Potassium 5.0 mmol/L (3.6-5.0) 07/19/18 05:53 Chloride 108.7 mmol/L (98-107) H 07/19/18 05:53 Carbon Dioxide 22 mmol/L (22-30) 07/19/18 05:53 Anion Gap 13 mmol/L 07/19/18 05:53 BUN 18 mg/dL (9-20) 07/19/18 05:53 Creatinine 2.0 mg/dL (0.8-1.5) H 07/19/18 05:53 Estimated GFR 42 ml/min 07/19/18 05:53 BUN/Creatinine Ratio 9 % 07/19/18 05:53 Glucose 68 mg/dL (75-100) L 07/19/18 05:53 POC Glucose 86 (70-105) 07/20/18 22:07 Hemoglobin A1c < 4.2 % (4-6) 07/15/18 13:30 Calcium 7.4 mg/dL (8.4-10.2) L 07/19/18 05:53 Magnesium 1.90 mg/dL (1.7-2.3) 07/17/18 07:20 Iron 48 ug/dL (49-181) L 07/16/18 07:21 TIBC 87 mcg/dL (250-450) L 07/16/18 07:21 % Saturation 55.17 % 07/16/18 07:21 Transferrin 80 mg/dl (180-329) L 07/16/18 07:21 Total Bilirubin 0.80 mg/dL (0.1-1.2) 07/16/18 07:21 AST 9 units/L (5-40) 07/16/18 07:21 ALT < 5 units/L (7-56) L 07/16/18 07:21 Alkaline Phosphatase 96 units/L (35-129) 07/16/18 07:21 Total Protein 7.3 g/dL (6.3-8.2) 07/16/18 07:21 Albumin 1.7 g/dL (3.9-5) L 07/16/18 07:21 Albumin/Globulin Ratio 0.3 % 07/16/18 07:21 Vitamin B12 839.1 pg/mL (211-911) 07/16/18 09:56 RBC Folic Acid 994 ng/mL (>280) 07/16/18 07:21 Blood Type O POSITIVE 07/15/18 13:30 Antibody Screen Negative 07/15/18 13:30 Crossmatch See Detail 07/15/18 13:30 Active Medications - Current Medications Current Medications: Generic Name Dose Route Start Last Admin Trade Name Freq PRN Reason Stop Dose Admin Acetaminophen 650 mg 07/15/18 17:59 07/17/18 19:05 Tylenol PO 650 mg Q4H PRN Administration Pain MILD(1-3)/Fever >100.5/BARNES Doxycycline Hyclate 100 mg 07/18/18 13:00 07/20/18 22:18 Vibramycin PO 100 mg BID NESTOR Administration Famotidine 20 mg 07/15/18 22:00 07/20/18 22:18 Pepcid PO 20 mg BID NESTOR Administration Hydromorphone HCl 1 mg 07/19/18 10:36 07/20/18 22:17 Dilaudid IV 1 mg Q12H PRN Administration Pain , Severe (7-10) Sodium Chloride 1,000 mls @ 100 mls/hr 07/17/18 10:00 07/20/18 22:22 Nacl 0.9% 1000 Ml IV 100 mls/hr DIRECT NESTOR Administration Ibuprofen 600 mg 07/15/18 18:00 07/18/18 09:57 Motrin PO 600 mg Q6H PRN Administration Pain, Mild (1-3) Multivitamins/Minerals 1 each 07/16/18 10:00 07/20/18 22:18 Caltrate Plus PO 1 each BID NESTOR Administration Ondansetron HCl 4 mg 07/15/18 17:59 Zofran IV Q8H PRN Nausea And Vomiting Oxycodone HCl 10 mg 07/18/18 12:30 07/21/18 05:30 Roxicodone PO 10 mg Q4H PRN Administration Pain, Moderate (4-6) Sodium Chloride 10 ml 07/15/18 17:59 07/20/18 17:28 Sodium Chloride Flush Syringe 10 Ml IV 10 ml PRN PRN Administration LINE FLUSH Sodium Hypochlorite 1 applic 07/19/18 12:06 Dakin's Half Strength TP Q12H PRN Wound Care Nutrition/Malnutrition Assess - Dietary Evaluation Nutrition/Malnutrition Findings: Nutrition Notes Start: 07/16/18 08:26 Freq: Status: Active Protocol: Document 07/18/18 10:35 CP (Rec: 07/18/18 10:38 CP [id number]) Co-Sign 07/18/18 10:35 LP Nutrition Notes Initial or Follow up Reassessment Current Diagnosis Acute Kidney Injury Other Pertinent Diagnosis Hydradenitis, anemia, hypocalcemia, DVT prophylaxis Current Diet Regular Diet Labs/Tests Reviewed Pertinent Medications Reviewed Height 5 ft 11 in Weight 84.5 kg [place] Body Weight (kg) 78.18 BMI 25.9 Weight change and time frame Pt lost 12 pounds but did not know the time frame. Weight Status Overweight Subjective/Other Information Pt reported having a good appetite and eating 100% of meals. Percent of energy/protein needs met: 100%/100% Burn Absent Trauma Absent #1 Nutrition Diagnosis Inadequate oral intake As Evidenced by Signs and Symptoms Pt reported having a good appetite and eating 100% of meals. Diagnosis Progress(for reassessment Resolved documentation) Is patient on ventilator? No Is Patient Ambulatory and/or Out of Bed No REE-(Mcnary-St. Jeor-confined to bed) 2022.200 Calculation Used for Recommendations Mcnary-St Jeor Additional Notes Pro: 1.2-1.5 g/kg (101-127g) Fluid: 1mL/kcal Nutrition Intervention Change Diet Order: Continue current or per MD request Goal #1 Pt to continue to meet at least 80% of energy and protein needs Revisit per MD consult or patient Sign Off request:
[2018-07-21] MEDS: CALTRATE PLUS PO SCH (09:07)
[2018-07-21] MEDS: PEPCID PO SCH (09:07)
[2018-07-21] MEDS: NACL 0.9% 1000 ML 1,000 ML IV SCH (09:08)
[2018-07-21] MEDS: VIBRAMYCIN PO SCH (09:08)
[2018-07-21] MEDS: DILAUDID IV PRN (13:32)
[2018-07-21 17:25] VITALS: BP 103/54
--- NOTE | 2018-07-23 10:11 | Procedure Note ---
Date of procedure: 07/16/18 Pre-op diagnosis: Severe hidradenitis of bilateral buttocks Post-op diagnosis: same Procedure: Debridement of involved skin and SQ, bilateral buttocks Description of procedure: Pt was intubated while supine on his stretcher. He was then repositioned prone on the OR table. Buttocks were taped apart. Buttocks and upper thighs were prepped and draped. An excisional surgical debridement of all the involved skin and SQ tissue of the bilateral buttocks was performed with the Bovie. Several abscesses were encountered and one of the abscesses was sent for C&S. Bleeding was moderate and was controlled with the Bovie. All identified SQ tracts were excised leaving an approximately 5 cm rim of remaining, normal skin about his anus. The wound was packed open with several Kerlix rolls moistened in a dilute Betadine solution. This was followed by ABD's and Medipore tape. Final wound measurements were: 20 X 25 X 1.5 cm Pt tolerated the procedure well. He was extubated in the OR and was taken to PACU in stable condition. Anesthesia: ALMA DELIAA Surgeon: BECKY HERNANDEZ Estimated blood loss: other (600 ml) Pathology: list (1) Segment of involved skin and SQ 2) C&S of drained pus) Specimen disposition: to lab Condition: stable Disposition: PACU
== END 2018-07-21 17:50 | disposition home health service (06) | DRG 853 ==
LOC: OR 12:50 → 3A 15:46
PROVIDERS: ADMIT Internal Medicine; ATTEND Hospitalist
PROC: 0JB90ZZ Excision of Buttock Subcutaneous Tissue and Fascia, Open Approach (ICD-10-PCS; principal; 2018-07-16)
PROC: 30233N1 Transfusion of Nonautologous Red Blood Cells into Peripheral Vein, Percutaneous Approach (ICD-10-PCS; 2018-07-16)
DX: A41.9 Sepsis, unspecified organism (principal); E43 Unspecified severe protein-calorie malnutrition; N17.9 Acute kidney failure, unspecified; L73.2 Hidradenitis suppurativa; D64.9 Anemia, unspecified; F17.290 Nicotine dependence, other tobacco product, uncomplicated; E83.51 Hypocalcemia; N18.9 Chronic kidney disease, unspecified; I95.9 Hypotension, unspecified; E83.42 Hypomagnesemia; Z68.26 Body mass index [BMI] 26.0-26.9, adult; Z82.49 Family history of ischemic heart disease and other diseases of the circulatory system
CPT/HCPCS: 36415; 76770; 80048; 80053; 82607; 82747; 82962; 83036; 83550; 83735; 85014; 85018; 85025; 86850; 86900; 86901; 86920; 87075; 87116; 88305; 90686; G0378; A6260; J0295; J0610; J1170; J1644; J2250; J2405; J2704; J2710; J3010; J3370; J3475; J7030; J7040; J7042; J7050; J7120; P9016

== ENCOUNTER 2018-07-25 10:58 | Outpatient (CLI) | payer MEDICARE ==
[~2018-07-25 10:58] MED LIST changes: +DIPRIVAN 10 MG/ML IV ONE; -SILVER NITRATE TP ONE; -XYLOCAINE TOPICAL 4% TP ONE
== END 2018-07-25 10:59 | disposition home or self-care (01) ==
LOC: WOUND 10:58
PROVIDERS: ATTEND Surgery
DX: T81.89XD Other complications of procedures, not elsewhere classified, subsequent encounter (principal); L73.2 Hidradenitis suppurativa; K62.1 Rectal polyp; F17.200 Nicotine dependence, unspecified, uncomplicated; Y83.8 Other surgical procedures as the cause of abnormal reaction of the patient, or of later complication, without mention of misadventure at the time of the procedure
CPT/HCPCS: 97606; J2704

== ENCOUNTER 2018-09-17 10:39 | Outpatient (CLI) | payer MEDICARE ==
[2018-09-17] MEDS ORDERED: SILVER NITRATE TP ONE (11:13)
[2018-09-17] MEDS ORDERED: XYLOCAINE TOPICAL 4% TP ONE (12:13)
== END 2018-09-17 10:40 | disposition home or self-care (01) ==
LOC: WOUND 10:39
PROVIDERS: ATTEND Surgery
DX: T81.89XD Other complications of procedures, not elsewhere classified, subsequent encounter (principal); L73.2 Hidradenitis suppurativa; K62.1 Rectal polyp; F17.200 Nicotine dependence, unspecified, uncomplicated; Y83.8 Other surgical procedures as the cause of abnormal reaction of the patient, or of later complication, without mention of misadventure at the time of the procedure
CPT/HCPCS: 17250

== ENCOUNTER 2018-10-15 10:54 | Outpatient (CLI) | payer MEDICARE ==
[2018-10-15] MEDS ORDERED: SILVER NITRATE TP ONE ×3 (11:08→12:41)
[2018-10-15] MEDS ORDERED: XYLOCAINE TOPICAL 4% TP ONE (11:10)
== END 2018-10-15 10:55 | disposition home or self-care (01) ==
LOC: WOUND 10:54
PROVIDERS: ATTEND Surgery
DX: L73.2 Hidradenitis suppurativa (principal); K62.1 Rectal polyp; F17.200 Nicotine dependence, unspecified, uncomplicated; Y83.8 Other surgical procedures as the cause of abnormal reaction of the patient, or of later complication, without mention of misadventure at the time of the procedure
CPT/HCPCS: 17250

== ENCOUNTER 2018-11-19 10:59 | Outpatient (CLI) | payer MEDICARE ==
[2018-11-19] MEDS ORDERED: XYLOCAINE TOPICAL 4% TP ONE (12:00)
[2018-11-19] MEDS ORDERED: SILVER NITRATE TP ONE (12:00)
== END 2018-11-19 11:00 | disposition home or self-care (01) ==
LOC: WOUND 10:59
PROVIDERS: ATTEND Surgery
DX: L73.2 Hidradenitis suppurativa (principal); K62.1 Rectal polyp; F17.200 Nicotine dependence, unspecified, uncomplicated
CPT/HCPCS: 17250

== ENCOUNTER 2018-12-17 10:54 | Outpatient (CLI) | payer MEDICARE ==
[2018-12-17] MEDS ORDERED: XYLOCAINE TOPICAL 4% TP ONE (12:18)
[2018-12-17] MEDS ORDERED: SILVER NITRATE TP ONE (12:18)
== END 2018-12-17 10:55 | disposition home or self-care (01) ==
LOC: WOUND 10:54
PROVIDERS: ATTEND Surgery
DX: L73.2 Hidradenitis suppurativa (principal); K62.1 Rectal polyp; F17.200 Nicotine dependence, unspecified, uncomplicated; F17.210 Nicotine dependence, cigarettes, uncomplicated
CPT/HCPCS: 17250

== ENCOUNTER 2019-01-14 10:40 | Outpatient (CLI) | payer MEDICARE ==
[2019-01-14] MEDS ORDERED: XYLOCAINE TOPICAL 4% TP ONE (10:56)
[2019-01-14] MEDS ORDERED: SILVER NITRATE TP ONE (11:01)
== END 2019-01-14 10:41 | disposition home or self-care (01) ==
LOC: WOUND 10:40
PROVIDERS: ATTEND Surgery
DX: L73.2 Hidradenitis suppurativa (principal); K62.1 Rectal polyp; F17.200 Nicotine dependence, unspecified, uncomplicated

== ENCOUNTER 2019-01-23 11:10 | Inpatient (IN) | payer MEDICARE ==
[2019-01-22 12:13] LABS: Albumin 2.8 g/dL (3.9-5); Calcium 8.2 mg/dL (8.4-10.2)
[2019-01-22 13:23] LABS: Basophils # (Auto) 0.1 K/mm3 (0.0-0.1); Basophils % (Auto) 0.5 % (0.0-1.8); Eosinophils # (Auto) 0.3 K/mm3 (0.0-0.4); Eosinophils % (Auto) 3.4 % (0.0-4.3); Hematocrit 26.9 % (35.5-45.6); Hemoglobin 8.7 gm/dl (11.8-15.2); Lymphocytes # (Auto) 2.1 K/mm3 (1.2-5.4); Lymphocytes % (Auto) 21.9 % (13.4-35.0); Mean Corpuscular HGB Conc 32 % (32-34); Mean Corpuscular Volume 90 fl (84-94); Monocytes # (Auto) 0.6 K/mm3 (0.0-0.8); Monocytes % (Auto) 5.9 % (0.0-7.3); Platelet Count 245 K/mm3 (140-440); Red Blood Count 2.99 M/mm3 (3.65-5.03); Red Cell Distribution Width 14.2 % (13.2-15.2)
--- NOTE | 2019-01-22 16:13 | Anesthesia Consultation ---
Anesthesia Consult and Med Hx Date of service: 01/23/19 - Airway Anesthetic Teeth Evaluation: Good ROM Head & Neck: Adequate Mental/Hyoid Distance: Adequate Mallampati Class: Class III Intubation Access Assessment: Possibly Difficult (previously intubated with gladescope, grade 1 view.) - Pulmonary Exam CTA: Yes - Cardiac Exam Cardiac Exam: RRR - Pre-Operative Health Status ASA Pre-Surgery Classification: ASA2 Proposed Anesthetic Plan: General - Pulmonary Hx Smoking: Yes (CIGARS, QUIT JAN 2017) Hx Respiratory Symptoms: No - Cardiovascular System Hx Hypertension: No Hx Heart Attack/AMI: No - Central Nervous System Hx Neuromuscular Disorder: No CVA: No Hx Psychiatric Problems: No - Gastrointestinal Hx Ulcer: Yes Hx Gastroesophageal Reflux Disease: No - Endocrine Hx Renal Disease: No (CKD) Hx Liver Disease: No Hx Insulin Dependent Diabetes: No Hx Non-Insulin Dependent Diabetes: No Hx Thyroid Disease: No - Hematic Hx Anemia: Yes - Other Systems Hx Alcohol Use: Yes (rare) Hx Obesity: No
[~2019-01-23 11:10] MED LIST changes: +CELECOXIB 200 MG CAP PO NR; -DIPRIVAN 10 MG/ML IV ONE; +GABAPENTIN 300 MG CAP PO NR; +LACTATED RINGERS 1,000 ML IV SCH; +MIDAZOLAM 2 MG/2 ML INJ IV NR
[2019-01-23] MEDS ORDERED: HYDROmorphone 1 MG/1 ML INJ IV PRN (12:00)
--- NOTE | 2019-01-23 12:01 | Anesthesia Day of Surgery ---
Anesthesia Day of Surgery - Day of Surgery Patient Examined: Yes Patient H&P Reviewed: Yes Patient is NPO: Yes
[2019-01-23] MEDS ORDERED: LIDOCAINE MPF (2%) 20 MG/1 ML VIAL 5 ML ONE (12:27)
[2019-01-23] MEDS ORDERED: fentaNYL 100 MCG/2 ML INJ ONE (12:28)
[2019-01-23] MEDS ORDERED: PROPOFOL 200 MG/20 ML VIAL IV ONE (12:28)
[2019-01-23] MEDS: SODIUM CHLORIDE 0.9% 1000 ML 1,000 ML IV SCH ×2 (12:30→20:37)
[2019-01-23] MEDS ORDERED: ceFAZolin/Water 2 GM/20 ML 2 GM/20 ML SYRINGE IV NR (13:00)
[2019-01-23] MEDS ORDERED: SODIUM CHLORIDE 0.9% IRR 1,500 ML BOTTLE IR ONE (13:31)
--- NOTE | 2019-01-23 14:26 | Post Operative Note ---
Pre-op diagnosis: Right axillary hidradenitis Post-op diagnosis: same Procedure: Excision of right axillary hidradenitis Final wound measured: 23 X 19 X 3 cm Anesthesia: other (LMA) Surgeon: BECKY HERNANDEZ Estimated blood loss: other (200 ml) Pathology: list (Right axillary skin and SQ tissue) Specimen disposition: to lab Condition: stable Disposition: PACU
[2019-01-23] MEDS ORDERED: ACETAMINOPHEN 325 MG TAB PO PRN (17:39)
--- NOTE | 2019-01-23 17:39 | History and Physical Report ---
History of Present Illness Date of examination: 01/23/19 Date of admission: 01/23/19 15:29 Medications and Allergies Allergies Allergy/AdvReac Type Severity Reaction Status Date / Time No Known Allergies Allergy Verified 01/20/19 15:49 Home Medications Medication Instructions Recorded Confirmed Last Taken Type No Known Home Medications [No 01/20/19 01/20/19 Unknown History Reported Home Medications] Active Meds: Active Medications Celecoxib (Celebrex) 200 mg PO PREOP NR Stop: 01/23/19 23:59 Last Admin: 01/23/19 12:20 Dose: 200 mg Documented by: Gabapentin (Gabapentin) 300 mg PO PREOP NR Stop: 01/23/19 23:59 Last Admin: 01/23/19 12:20 Dose: 300 mg Documented by: Hydromorphone HCl (Dilaudid) 0.5 mg IV Q10MIN PRN PRN Reason: Pain , Severe (7-10) Stop: 01/23/19 23:59 Last Admin: 01/23/19 14:49 Dose: 0.5 mg Documented by: Sodium Chloride (Nacl 0.9% 1000 Ml) 1,000 mls @ 42 mls/hr IV DIRECT NESTOR Last Admin: 01/23/19 12:30 Dose: 42 mls/hr Documented by: Cefazolin Sodium (Ancef/Sterile Water 2 Gm/20 Ml) 2 gm in 20 mls @ 80 mls/hr IV PREOP NR Stop: 01/23/19 23:59 Midazolam HCl (Versed) 2 mg IV PREOP NR Stop: 01/23/19 23:59 Last Admin: 01/23/19 12:35 Dose: 2 mg Documented by: Exam - Constitutional Vitals: Temp Pulse Resp BP Pulse Ox 96.9 F L 64 18 123/57 100 01/23/19 14:32 01/23/19 16:03 01/23/19 16:03 01/23/19 16:03 01/23/19 16:03 Results - Labs CBC & Chem 7: 01/22/19 11:35 01/22/19 11:35 Labs: Laboratory Last Values WBC 9.5 K/mm3 (4.5-11.0) 01/22/19 11:35 RBC 2.99 M/mm3 (3.65-5.03) L 01/22/19 11:35 Hgb 8.7 gm/dl (11.8-15.2) L 01/22/19 11:35 Hct 26.9 % (35.5-45.6) L 01/22/19 11:35 MCV 90 fl (84-94) 01/22/19 11:35 MCH 29 pg (28-32) 01/22/19 11:35 MCHC 32 % (32-34) 01/22/19 11:35 RDW 14.2 % (13.2-15.2) 01/22/19 11:35 Plt Count 245 K/mm3 (140-440) 01/22/19 11:35 Lymph % (Auto) 21.9 % (13.4-35.0) 01/22/19 11:35 [place] % (Auto) 5.9 % (0.0-7.3) 01/22/19 11:35 Eos % (Auto) 3.4 % (0.0-4.3) 01/22/19 11:35 Baso % (Auto) 0.5 % (0.0-1.8) 01/22/19 11:35 Lymph # 2.1 K/mm3 (1.2-5.4) 01/22/19 11:35 [place] # 0.6 K/mm3 (0.0-0.8) 01/22/19 11:35 Eos # 0.3 K/mm3 (0.0-0.4) 01/22/19 11:35 Baso # 0.1 K/mm3 (0.0-0.1) 01/22/19 11:35 Seg Neutrophils % 68.3 % (40.0-70.0) 01/22/19 11:35 Seg Neutrophils # 6.5 K/mm3 (1.8-7.7) 01/22/19 11:35 Sodium 138 mmol/L (137-145) 01/22/19 11:35 Potassium 4.6 mmol/L (3.6-5.0) 01/22/19 11:35 Chloride 108.2 mmol/L (98-107) H 01/22/19 11:35 Carbon Dioxide 17 mmol/L (22-30) L 01/22/19 11:35 Anion Gap 17 mmol/L 01/22/19 11:35 BUN 46 mg/dL (9-20) H 01/22/19 11:35 Creatinine 2.2 mg/dL (0.8-1.5) H 01/22/19 11:35 Estimated GFR 37 ml/min 01/22/19 11:35 BUN/Creatinine Ratio 21 % 01/22/19 11:35 Glucose 84 mg/dL (75-100) 01/22/19 11:35 Calcium 8.2 mg/dL (8.4-10.2) L 01/22/19 11:35 Total Bilirubin 0.40 mg/dL (0.1-1.2) 01/22/19 11:35 AST 43 units/L (5-40) H 01/22/19 11:35 ALT 34 units/L (7-56) 01/22/19 11:35 Alkaline Phosphatase 137 units/L (35-129) H 01/22/19 11:35 Total Protein 8.5 g/dL (6.3-8.2) H 01/22/19 11:35 Albumin 2.8 g/dL (3.9-5) L 01/22/19 11:35 Albumin/Globulin Ratio 0.5 % 01/22/19 11:35 Blood Type O POSITIVE 01/23/19 12:30 Antibody Screen Negative 01/23/19 12:30
[2019-01-23] MEDS: FAMOTIDINE 20 MG/2 ML INJ IV SCH (21:18)
[2019-01-23] MEDS: ceFAZolin/NS 1 GM/50 ML 1 GM/50 ML BAG IV SCH (21:18)
[2019-01-23] MEDS: HYDROmorphone 1 MG/1 ML INJ IV PRN (21:24)
[2019-01-23 21:28] LABS: Albumin 2.4 g/dL (3.9-5); Calcium 8.1 mg/dL (8.4-10.2)
[2019-01-23 21:34] LABS: Basophils # (Auto) 0.1 K/mm3 (0.0-0.1); Basophils % (Auto) 0.6 % (0.0-1.8); Eosinophils # (Auto) 0.3 K/mm3 (0.0-0.4); Eosinophils % (Auto) 3.6 % (0.0-4.3); Hematocrit 25.5 % (35.5-45.6); Hemoglobin 8.1 gm/dl (11.8-15.2); Lymphocytes # (Auto) 2.1 K/mm3 (1.2-5.4); Lymphocytes % (Auto) 22.8 % (13.4-35.0); Mean Corpuscular HGB Conc 32 % (32-34); Mean Corpuscular Volume 90 fl (84-94); Monocytes # (Auto) 0.5 K/mm3 (0.0-0.8); Monocytes % (Auto) 5.3 % (0.0-7.3); Platelet Count 222 K/mm3 (140-440); Red Blood Count 2.82 M/mm3 (3.65-5.03); Red Cell Distribution Width 14.6 % (13.2-15.2)
[2019-01-23] MEDS: ONDANSETRON 4 MG/2 ML INJ IV PRN (21:37)
[2019-01-24] MEDS: HYDROmorphone 1 MG/1 ML INJ IV PRN ×2 (03:11→11:37)
[2019-01-24] MEDS: ONDANSETRON 4 MG/2 ML INJ IV PRN (03:13)
--- NOTE | 2019-01-24 03:38 | Event Note ---
Date: 01/23/19 Please see h/p in reports S/p resection ofHidradenitis Suppurativa in Rt axilla Admitted post op for pain control. To discharge once pain is controlled with oral analgesics
--- NOTE | 2019-01-24 03:56 | History and Physical Report ---
CHIEF COMPLAINT: 1. Right axillary excision of hidradenitis. 2. Pain control. HISTORY OF PRESENT ILLNESS: A 58-year-old -Indian male with multiple sites of hidradenitis and multiple surgeries for excision of hidradenitis including excision of hidradenitis from left groin, left axilla, being admitted directly from PACU for pain control. The patient had right axillary hidradenitis excision. The patient's pain is 10/10 on a scale of 1-10. Requested by surgeon, Dr. Jeff Guillermo to admit the patient for pain control. No shortness of breath. No fever, no chills. PAST MEDICAL HISTORY: Recurrent hidradenitis in multiple bases. PAST SURGICAL HISTORY: Multiple excisions for hidradenitis in different sites including left groin, left axilla and right groin. FAMILY HISTORY: Hypertension. SOCIAL HISTORY: Does not smoke. No alcohol, no recreational drugs. REVIEW OF SYSTEMS: Significant for severe pain in the right axilla where the surgery was done. Pain is 10/10. No signs of infection. Otherwise, review of systems negative. PHYSICAL EXAMINATION: GENERAL: Young elderly male, cooperative during examination. VITAL SIGNS: Blood pressure is 119/57, temperature is 97.7, pulse is 64, respirations 12. HEENT: Unremarkable. Pupils equal and reactive. NECK: Supple, no lymphadenopathy, no thyromegaly. LUNGS: Clear to auscultation and percussion. Good air entry. CARDIOVASCULAR: S1, S2 heard. No gallop, no murmur, no rub. Apical impulse in left fifth intercostal space and midclavicular line. ABDOMEN: Soft and benign. No hepatosplenomegaly. No guarding, no rigidity. Hernial orifices are normal. EXTREMITIES: Good pedal pulses. Right axilla in dressing. CENTRAL NERVOUS SYSTEM: Alert and oriented x 4, nonfocal exam. LABORATORY DATA: Significant for hemoglobin of 8.7 and hematocrit of 26.9. BUN and creatinine of 46 and 2.2, total protein is 8.5, albumin is 2.8. Calcium is 8.2. AST is 43. ASSESSMENT AND PLAN: 1. Status post right axillary hidradenitis excision. Admitted for pain control. Surgery consulted for followup on the right axillary excision of hidradenitis. 2. Pain control. The patient is on Dilaudid 1 mg q. 1 hour. The patient to be transitioned to oral Percocet 7.5/325 q.4 hours. 3. Anemia. Anemia workup. 4. Acute kidney injury. IV fluids for now. 5. Severe malnutrition. Dietitian consult. 6. Deep venous thrombosis prophylaxis, Lovenox 40 mg subcutaneous daily. JOB# [id number] VSM/NTS MTDD
[2019-01-24 04:59] LABS: Basophils % (Auto) 0.6 % (0.0-1.8); Eosinophils # (Auto) 0.3 K/mm3 (0.0-0.4); Eosinophils % (Auto) 3.9 % (0.0-4.3); Hematocrit 25.4 % (35.5-45.6); Lymphocytes # (Auto) 1.6 K/mm3 (1.2-5.4); Lymphocytes % (Auto) 20.6 % (13.4-35.0); Mean Corpuscular HGB Conc 31 % (32-34); Mean Corpuscular Volume 90 fl (84-94); Monocytes # (Auto) 0.4 K/mm3 (0.0-0.8); Monocytes % (Auto) 5.2 % (0.0-7.3); Platelet Count 209 K/mm3 (140-440); Red Blood Count 2.81 M/mm3 (3.65-5.03); Red Cell Distribution Width 14.7 % (13.2-15.2)
[2019-01-24] MEDS: ceFAZolin/NS 1 GM/50 ML 1 GM/50 ML BAG IV SCH ×3 (05:35→21:37)
[2019-01-24 06:22] LABS: % Iron Saturation 13.37 %
[2019-01-24] MEDS: FAMOTIDINE 20 MG/2 ML INJ IV SCH ×2 (09:32→21:37)
[2019-01-24] MEDS: oxyCODONE /ACETAMINOPHEN 5-325MG TAB PO PRN ×2 (14:02→21:36)
[2019-01-24] MEDS: SODIUM CHLORIDE 0.9% 1000 ML 1,000 ML IV SCH (14:20)
--- NOTE | 2019-01-24 14:22 | Progress Note ---
Assessment and Plan - Patient Problems (1) Hidradenitis suppurativa Current Visit: No Status: Acute Plan to address problem: 1) Doing well. 2) Discharge home when pain control is adequate on oral narcotics. 3) F[facility]u in [facility] 4) Will need a wound vac on discharge. 5) I will see pt prn during this hospitalization. Subjective Date of service: 01/24/19 Patient Reports: Positive: no new complaints Objective Vital Signs - 12hr 01/24/19 01/24/19 01/24/19 04:32 07:53 12:00 Temperature 97.7 F 98.3 F 98 F Pulse Rate 75 70 67 Respiratory 17 16 18 Rate Blood Pressure 100/48 Blood Pressure 96/43 99/52 [Left] O2 Sat by Pulse 100 100 97 Oximetry - Integumentary other (Wound vac is in place.) - Labs 01/24/19 04:08 01/24/19 04:08 Diabetes panel 01/23/19 01/23/19 01/24/19 Range/Units 20:41 20:41 04:08 Sodium 139 140 (137-145) mmol/L Potassium 5.3 H 5.3 H (3.6-5.0) mmol/L Chloride 110.7 H 112.4 H (98-107) mmol/L Carbon Dioxide 17 L 17 L (22-30) mmol/L BUN 40 H 40 H (9-20) mg/dL Creatinine 1.9 H 2.0 H (0.8-1.5) mg/dL Glucose 92 81 (75-100) mg/dL Hemoglobin A1c 5.3 (4-6) % Calcium 8.1 L 8.0 L (8.4-10.2) mg/dL AST 27 (5-40) units/L ALT 27 (7-56) units/L Alkaline Phosphatase 125 (35-129) units/L Total Protein 8.0 (6.3-8.2) g/dL Albumin 2.4 L (3.9-5) g/dL Calcium panel 01/23/19 01/24/19 Range/Units 20:41 04:08 Calcium 8.1 L 8.0 L (8.4-10.2) mg/dL Albumin 2.4 L (3.9-5) g/dL Pituitary panel 01/23/19 01/24/19 Range/Units 20:41 04:08 Sodium 139 140 (137-145) mmol/L Potassium 5.3 H 5.3 H (3.6-5.0) mmol/L Chloride 110.7 H 112.4 H (98-107) mmol/L Carbon Dioxide 17 L 17 L (22-30) mmol/L BUN 40 H 40 H (9-20) mg/dL Creatinine 1.9 H 2.0 H (0.8-1.5) mg/dL Glucose 92 81 (75-100) mg/dL Calcium 8.1 L 8.0 L (8.4-10.2) mg/dL Adrenal panel 01/23/19 01/24/19 Range/Units 20:41 04:08 Sodium 139 140 (137-145) mmol/L Potassium 5.3 H 5.3 H (3.6-5.0) mmol/L Chloride 110.7 H 112.4 H (98-107) mmol/L Carbon Dioxide 17 L 17 L (22-30) mmol/L BUN 40 H 40 H (9-20) mg/dL Creatinine 1.9 H 2.0 H (0.8-1.5) mg/dL Glucose 92 81 (75-100) mg/dL Calcium 8.1 L 8.0 L (8.4-10.2) mg/dL Total Bilirubin 0.40 (0.1-1.2) mg/dL AST 27 (5-40) units/L ALT 27 (7-56) units/L Alkaline Phosphatase 125 (35-129) units/L Total Protein 8.0 (6.3-8.2) g/dL Albumin 2.4 L (3.9-5) g/dL
[2019-01-24] MEDS ORDERED: SODIUM POLYSTYRENE 15 GM/60 ML ORAL LIQD PO ONE ×2 (18:23→22:00)
--- NOTE | 2019-01-24 18:23 | Progress Note ---
Assessment and Plan Assessment and plan: Patient is a 58 yo man with history of recurrent Hidradenitis suppurativa requiring many surgeries throughout the years who present to [facility] ED surgery floor as a direct admit by request of GS, Dr. Aguilar after right axillary Hidradenitis suppurativa excision. Hidradenitis suppurativa s/p excisional debridement 01/23/19: pain control is adequate on oral narcotics. 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 Follow-up on current diagnosis Hidradenitis suppurativa. No overnight events reported to me. Patient denies any chest pain, shortness breath, nausea/vomiting or severe headaches. Imaging, nursing note, chart, labs and old chart reviewed. Discussed with patient. Hospitalist Physical - Physical exam Narrative exam: Gen: WDWN, NAD, Awake, Alert, Orientated HEENT: NCAT, EOMI, PERRL, OP Clear Neck: supple, no adenopathy, no thyromegaly, no JVD CVS/Heart: RRR, normal S1S2, pulses present bilaterally Chest/Lungs: CTA B, Symmetrical chest expansion, good air entry bilaterally GI/Abdomen: soft, NTND, good bowel sounds, no guarding or rebound /Bladder: no suprapubic tenderness, no CVA or paraspinal tenderness Extermity/Skin: right axillary dsg intact MSK: FROM x 4 Neuro: CN 2-12 grossly intact, no new focal deficits Psych: calm - Constitutional Vitals: Temp Pulse Resp BP Pulse Ox 97.1 F L 78 16 121/52 95 01/24/19 15:00 01/24/19 15:00 01/24/19 15:00 01/24/19 15:00 01/24/19 15:00 Results - Labs CBC & Chem 7: 01/24/19 04:08 01/24/19 04:08 Labs: Laboratory Last Values WBC 7.7 K/mm3 (4.5-11.0) 10/25/19 04:08 RBC 2.81 M/mm3 (3.65-5.03) L 01/24/19 04:08 Hgb 8.0 gm/dl (11.8-15.2) L 01/24/19 04:08 Hct 25.4 % (35.5-45.6) L 01/24/19 04:08 MCV 90 fl (84-94) 01/24/19 04:08 MCH 28 pg (28-32) 01/24/19 04:08 MCHC 31 % (32-34) L 01/24/19 04:08 RDW 14.7 % (13.2-15.2) 01/24/19 04:08 Plt Count 209 K/mm3 (140-440) 01/24/19 04:08 Lymph % (Auto) 20.6 % (13.4-35.0) 01/24/19 04:08 [place] % (Auto) 5.2 % (0.0-7.3) 01/24/19 04:08 Eos % (Auto) 3.9 % (0.0-4.3) 01/24/19 04:08 Baso % (Auto) 0.6 % (0.0-1.8) 01/24/19 04:08 Lymph # 1.6 K/mm3 (1.2-5.4) 01/24/19 04:08 [place] # 0.4 K/mm3 (0.0-0.8) 01/24/19 04:08 Eos # 0.3 K/mm3 (0.0-0.4) 01/24/19 04:08 Baso # 0.0 K/mm3 (0.0-0.1) 01/24/19 04:08 Seg Neutrophils % 69.7 % (40.0-70.0) 01/24/19 04:08 Seg Neutrophils # 5.4 K/mm3 (1.8-7.7) 01/24/19 04:08 Sodium 140 mmol/L (137-145) 01/24/19 04:08 Potassium 5.3 mmol/L (3.6-5.0) H 01/24/19 04:08 Chloride 112.4 mmol/L (98-107) H 01/24/19 04:08 Carbon Dioxide 17 mmol/L (22-30) L 01/24/19 04:08 Anion Gap 16 mmol/L 01/24/19 04:08 BUN 40 mg/dL (9-20) H 01/24/19 04:08 Creatinine 2.0 mg/dL (0.8-1.5) H 01/24/19 04:08 Estimated GFR 42 ml/min 01/24/19 04:08 BUN/Creatinine Ratio 20 % 01/24/19 04:08 Glucose 81 mg/dL (75-100) 01/24/19 04:08 Hemoglobin A1c 5.3 % (4-6) 01/23/19 20:41 Calcium 8.0 mg/dL (8.4-10.2) L 01/24/19 04:08 Iron 23 ug/dL (49-181) L 01/24/19 04:08 TIBC 172 mcg/dL (250-450) L 01/24/19 04:08 % Saturation 13.37 % 01/24/19 04:08 Transferrin 133 mg/dl (180-329) L 01/24/19 04:08 Total Bilirubin 0.40 mg/dL (0.1-1.2) 01/23/19 20:41 AST 27 units/L (5-40) 01/23/19 20:41 ALT 27 units/L (7-56) 01/23/19 20:41 Alkaline Phosphatase 125 units/L (35-129) 01/23/19 20:41 Total Protein 8.0 g/dL (6.3-8.2) 01/23/19 20:41 Albumin 2.4 g/dL (3.9-5) L 01/23/19 20:41 Albumin/Globulin Ratio 0.4 % 01/23/19 20:41 Vitamin B12 555.7 pg/mL (211-911) 01/24/19 04:08 Blood Type O POSITIVE 01/23/19 12:30 Antibody Screen Negative 01/23/19 12:30 Active Medications - Current Medications Current Medications: Generic Name Dose Route Start Last Admin Trade Name Freq PRN Reason Stop Dose Admin Acetaminophen 650 mg 01/23/19 17:39 Tylenol PO Q4H PRN Pain MILD(1-3)/Fever >100.5/BARNES Famotidine 20 mg 01/23/19 22:00 01/24/19 09:32 Pepcid IV 20 mg BID NESTOR Administration Hydromorphone HCl 1 mg 01/23/19 17:39 01/24/19 11:37 Dilaudid IV 1 mg Q2H PRN Administration Pain , Severe (7-10) Cefazolin Sodium 1 gm in 50 mls @ 100 mls/hr 01/23/19 22:00 01/24/19 14:03 Ancef/Ns 1 Gm/50 Ml IV 100 mls/hr Q8HR NESTOR Administration Protocol Sodium Chloride 1,000 mls @ 100 mls/hr 01/24/19 04:00 01/24/19 14:20 Nacl 0.9% 1000 Ml IV 100 mls/hr DIRECT NESTOR Administration Ondansetron HCl 4 mg 01/23/19 17:39 01/24/19 03:13 Zofran IV 4 mg Q3H PRN Administration Nausea And Vomiting Oxycodone/Acetaminophen 1 tab 01/23/19 17:39 01/24/19 14:02 Percocet 5/325 PO 1 tab Q6H PRN Administration Pain, Moderate (4-6) Sodium Chloride 10 ml 01/23/19 22:00 01/24/19 09:33 Sodium Chloride Flush Syringe 10 Ml IV 10 ml BID NESTOR Administration Sodium Chloride 10 ml 01/23/19 17:39 Sodium Chloride Flush Syringe 10 Ml IV PRN PRN LINE FLUSH Nutrition/Malnutrition Assess - Dietary Evaluation Nutrition/Malnutrition Findings: Nutrition Notes Start: 01/24/19 10:49 Freq: Status: Active Protocol: Document 01/24/19 10:49 CC (Rec: 01/24/19 11:14 CC [id number]) Co-Sign 01/24/19 10:49 LP Nutrition Notes Need for Assessment generated from: MD Order,MST Initial or Follow up Assessment Current Diagnosis Acute Kidney Injury, Hypertension Other Pertinent Diagnosis s/p R axillary Hidradenitis, amenia Current Diet regular Labs/Tests K 5.3, BUN 40, Creat 2.0, Fe 23 Pertinent Medications Reviewed Height 5 ft 11 in Weight 86.183 kg Usual Body Weight 86.183 kg [place] Body Weight (kg) 78.18 BMI 26.4 Intake Prior to Admission Good Weight change and time frame 40%/20 months Weight Status Overweight Subjective/Other Information Assesment for malnutrition. 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 Pt reported he has had unitentional wt loss beggining in 2016 with a UBW 320lbs. 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 Pt was just able to eat again after being NPO and reported he was still hungry. Pt said he would like to try Ensure chocolate. Pt's potassium is high and has an DWIGHT so pt was asked if he would like to try Ensure high protein vanilla d/t the lower K values. Noted mild muscle wasting at clavicle Percent of energy/protein needs met: 100%/100% Burn Absent Trauma Absent GI Symptoms None Food Allergy No Current % PO Good (75-100%) Minimum of two criteria Yes Interpretation of Weight Loss (severe) > 20% in 1 year Muscle Mass Mild Depletion (non-severe) #1 Nutrition Diagnosis Malnutrition Etiology unknown As Evidenced by Signs and Symptoms 40% wt loss in 20 months, mild muscle wasting Is patient on ventilator? No Is Patient Ambulatory and/or Out of Bed Yes REE-([facility]-ambulatory/OOB) [ 2208.648 NUTR.MSJOOB] Calculation Used for Recommendations [facility] Additional Notes PRO: 69-103 (0.8-1.2g/kg DWIGHT and malnutrition) Fluid: per md Nutrition Intervention Change Diet Order: renal Add Supplement/Snack (indicate name/kcal Ensure High Protein Vanilla, /protein ) daily Provides kCal: 160 Provides Protein (gm) 16 Goal #1 Meet at least 80% energy and protein needs Anticipated Discharge Needs: renal diet Follow-Up By: 01/27/19 Additional Comments F/U for po and ONS intakes, K levels if normal pt would like chocolate Ensure high protein
[2019-01-25] MEDS: SODIUM CHLORIDE 0.9% 1000 ML 1,000 ML IV SCH (02:22)
[2019-01-25] MEDS: ceFAZolin/NS 1 GM/50 ML 1 GM/50 ML BAG IV SCH (05:26)
[2019-01-25] MEDS: HYDROmorphone 1 MG/1 ML INJ IV PRN ×3 (05:27→17:54)
[2019-01-25 07:02] LABS: Hemoglobin 7.4 gm/dl (11.8-15.2); Mean Corpuscular HGB Conc 32 % (32-34); Mean Corpuscular Volume 90 fl (84-94); Platelet Count 190 K/mm3 (140-440); Red Blood Count 2.56 M/mm3 (3.65-5.03); Red Cell Distribution Width 14.3 % (13.2-15.2)
[2019-01-25 07:23] LABS: Calcium 7.6 mg/dL (8.4-10.2)
--- NOTE | 2019-01-25 08:56 | Ultrasound Report ---
ULTRASOUND RENAL INDICATION / CLINICAL INFORMATION: Federico. COMPARISON: Renal ultrasound from 07/18/2018 FINDINGS: RIGHT KIDNEY: Length = 10.7 cm. [normal > 9 cm] - Parenchymal Thickness = 1.5 cm. [normal > 1.5 cm] - Echogenicity: Increased - Hydronephrosis: None. - Cyst or mass: Simple cyst in the midpole measuring 2.5 cm - Stones: None seen. LEFT KIDNEY: Length = 11.2 cm. [normal > 9 cm] - Parenchymal Thickness = 1.9 cm. [normal > 1.5 cm] - Echogenicity: Increased - Hydronephrosis: None. - Cyst or mass: No significant abnormality. - Stones: None seen. URINARY BLADDER: Collapsed but there is circumferential wall thickening. The prostate was not imaged on this exam. FREE FLUID: None. ADDITIONAL FINDINGS: None. IMPRESSION: 1. Mildly echogenic kidneys bilaterally, nonspecific but often seen with medical renal disease. 2. Simple right renal cyst. Otherwise unremarkable appearance of the kidneys. 3. Mild circumferential bladder wall thickening, most often seen with urinary outlet obstruction. The prostate was not imaged on this exam. Signer Name: Masood Davenport MD Signed: 01/25/2019 8:51 AM Workstation Name: [id number]
[2019-01-25] MEDS: FAMOTIDINE 20 MG/2 ML INJ IV SCH ×2 (09:33→21:42)
[2019-01-25] MEDS: oxyCODONE /ACETAMINOPHEN 5-325MG TAB PO PRN ×2 (10:51→21:41)
--- NOTE | 2019-01-25 11:50 | Progress Note ---
Assessment and Plan Assessment and plan: Patient is a 58 yo man with history of recurrent Hidradenitis suppurativa requiring many surgeries throughout the years who present to [facility] ED surgery floor as a direct admit by request of Dr. Jeff VERGARA after right axillary Hidradenitis suppurativa excision. Hidradenitis suppurativa s/p excisional debridement 01/23/19: pain control is adequate on oral narcotics. 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 Aguilar to operate on it but Dr. Aguilar has not indicated any surgery History Interval history: Patient was seen and examined. Follow-up on current diagnosis Hidradenitis suppurativa. No overnight events reported to me. Patient denies any chest pain, shortness breath, nausea/vomiting or severe headaches. Imaging, nursing note, chart, labs and old chart reviewed. Discussed with patient. Hospitalist Physical - Physical exam Narrative exam: Gen: WDWN, NAD, Awake, Alert, Orientated HEENT: NCAT, EOMI, PERRL, OP Clear Neck: supple, no adenopathy, no thyromegaly, no JVD CVS/Heart: RRR, normal S1S2, pulses present bilaterally Chest/Lungs: CTA B, Symmetrical chest expansion, good air entry bilaterally GI/Abdomen: soft, NTND, good bowel sounds, no guarding or rebound /Bladder: significant hidrenitis groin area/scrotum with drainage Extermity/Skin: right axillary wound vac intact MSK: FROM x 4 Neuro: CN 2-12 grossly intact, no new focal deficits Psych: calm - Constitutional Vitals: Temp Pulse Resp BP Pulse Ox 98.6 F 79 17 98/44 99 01/25/19 05:12 01/25/19 05:12 01/25/19 05:12 01/25/19 05:12 01/25/19 05:12 Results - Labs CBC & Chem 7: 01/25/19 06:17 01/25/19 06:17 Labs: Laboratory Last Values WBC 8.1 K/mm3 (4.5-11.0) 01/25/19 06:17 RBC 2.56 M/mm3 (3.65-5.03) L 01/25/19 06:17 Hgb 7.4 gm/dl (11.8-15.2) L 01/25/19 06:17 Hct 23.0 % (35.5-45.6) L 01/25/19 06:17 MCV 90 fl (84-94) 01/25/19 06:17 MCH 29 pg (28-32) 01/25/19 06:17 MCHC 32 % (32-34) 01/25/19 06:17 RDW 14.3 % (13.2-15.2) 01/25/19 06:17 Plt Count 190 K/mm3 (140-440) 01/25/19 06:17 Lymph % (Auto) 20.6 % (13.4-35.0) 01/24/19 04:08 [place] % (Auto) 5.2 % (0.0-7.3) 01/24/19 04:08 Eos % (Auto) 3.9 % (0.0-4.3) 01/24/19 04:08 Baso % (Auto) 0.6 % (0.0-1.8) 01/24/19 04:08 Lymph # 1.6 K/mm3 (1.2-5.4) 01/24/19 04:08 [place] # 0.4 K/mm3 (0.0-0.8) 01/24/19 04:08 Eos # 0.3 K/mm3 (0.0-0.4) 01/24/19 04:08 Baso # 0.0 K/mm3 (0.0-0.1) 01/24/19 04:08 Seg Neutrophils % 69.7 % (40.0-70.0) 01/24/19 04:08 Seg Neutrophils # 5.4 K/mm3 (1.8-7.7) 01/24/19 04:08 Sodium 139 mmol/L (137-145) 01/25/19 06:17 Potassium 5.7 mmol/L (3.6-5.0) H 01/25/19 06:17 Chloride 112.6 mmol/L (98-107) H 01/25/19 06:17 Carbon Dioxide 17 mmol/L (22-30) L 01/25/19 06:17 Anion Gap 15 mmol/L 01/25/19 06:17 BUN 36 mg/dL (9-20) H 01/25/19 06:17 Creatinine 2.2 mg/dL (0.8-1.5) H 01/25/19 06:17 Estimated GFR 37 ml/min 01/25/19 06:17 BUN/Creatinine Ratio 16 % 01/25/19 06:17 Glucose 68 mg/dL (75-100) L 01/25/19 06:17 Hemoglobin A1c 5.3 % (4-6) 01/23/19 20:41 Calcium 7.6 mg/dL (8.4-10.2) L 01/25/19 06:17 Magnesium 1.70 mg/dL (1.7-2.3) 01/25/19 06:17 Iron 23 ug/dL (49-181) L 01/24/19 04:08 TIBC 172 mcg/dL (250-450) L 01/24/19 04:08 % Saturation 13.37 % 01/24/19 04:08 Transferrin 133 mg/dl (180-329) L 01/24/19 04:08 Total Bilirubin 0.40 mg/dL (0.1-1.2) 01/23/19 20:41 AST 27 units/L (5-40) 01/23/19 20:41 ALT 27 units/L (7-56) 01/23/19 20:41 Alkaline Phosphatase 125 units/L (35-129) 01/23/19 20:41 Total Protein 8.0 g/dL (6.3-8.2) 01/23/19 20:41 Albumin 2.4 g/dL (3.9-5) L 01/23/19 20:41 Albumin/Globulin Ratio 0.4 % 01/23/19 20:41 Vitamin B12 555.7 pg/mL (211-911) 01/24/19 04:08 Blood Type O POSITIVE 01/23/19 12:30 Antibody Screen Negative 01/23/19 12:30 Active Medications - Current Medications Current Medications: Generic Name Dose Route Start Last Admin Trade Name Freq PRN Reason Stop Dose Admin Acetaminophen 650 mg 01/23/19 17:39 Tylenol PO Q4H PRN Pain MILD(1-3)/Fever >100.5/BARNES Famotidine 20 mg 01/23/19 22:00 01/25/19 09:33 Pepcid IV 20 mg BID NESTOR Administration Hydromorphone HCl 1 mg 01/23/19 17:39 01/25/19 05:27 Dilaudid IV 1 mg Q2H PRN Administration Pain , Severe (7-10) Sodium Chloride 1,000 mls @ 100 mls/hr 01/24/19 04:00 01/25/19 02:22 Nacl 0.9% 1000 Ml IV 100 mls/hr DIRECT NESTOR Administration Cefazolin Sodium 2 gm/ Sodium 100 mls @ 200 mls/hr 01/25/19 14:00 Chloride IV Q8HR NESTOR Ondansetron HCl 4 mg 01/23/19 17:39 01/24/19 03:13 Zofran IV 4 mg Q3H PRN Administration Nausea And Vomiting Oxycodone/Acetaminophen 1 tab 01/23/19 17:39 01/25/19 10:51 Percocet 5/325 PO 1 tab Q6H PRN Administration Pain, Moderate (4-6) Sodium Chloride 10 ml 01/23/19 22:00 01/25/19 09:32 Sodium Chloride Flush Syringe 10 Ml IV 10 ml BID NESTOR Administration Sodium Chloride 10 ml 01/23/19 17:39 Sodium Chloride Flush Syringe 10 Ml IV PRN PRN LINE FLUSH Nutrition/Malnutrition Assess - Dietary Evaluation Nutrition/Malnutrition Findings: Nutrition Notes Start: 01/24/19 10:49 Freq: Status: Active Protocol: Document 01/24/19 10:49 CC (Rec: 01/24/19 11:14 CC [id number]) Co-Sign 01/24/19 10:49 LP Nutrition Notes Need for Assessment generated from: Order,MST Initial or Follow up Assessment Current Diagnosis Acute Kidney Injury, Hypertension Other Pertinent Diagnosis s/p R axillary Hidradenitis, amenia Current Diet regular Labs/Tests K 5.3, BUN 40, Creat 2.0, Fe 23 Pertinent Medications Reviewed Height 5 ft 11 in Weight 86.183 kg Usual Body Weight 86.183 kg [place] Body Weight (kg) 78.18 BMI 26.4 Intake Prior to Admission Good Weight change and time frame 40%/20 months Weight Status Overweight Subjective/Other Information Assesment for malnutrition. 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 Pt reported he has had unitentional wt loss beggining in 2016 with a UBW 320lbs. 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 Pt was just able to eat again after being NPO and reported he was still hungry. Pt said he would like to try Ensure chocolate. Pt's potassium is high and has an DWIGHT so pt was asked if he would like to try Ensure high protein vanilla d/t the lower K values. Noted mild muscle wasting at clavicle Percent of energy/protein needs met: 100%/100% Burn Absent Trauma Absent GI Symptoms None Food Allergy No Current % PO Good (75-100%) Minimum of two criteria Yes Interpretation of Weight Loss (severe) > 20% in 1 year Muscle Mass Mild Depletion (non-severe) #1 Nutrition Diagnosis Malnutrition Etiology unknown As Evidenced by Signs and Symptoms 40% wt loss in 20 months, mild muscle wasting Is patient on ventilator? No Is Patient Ambulatory and/or Out of Bed Yes REE-([facility]-ambulatory/OOB) [ 2208.648 NUTR.MSJOOB] Calculation Used for Recommendations [facility] Additional Notes PRO: 69-103 (0.8-1.2g/kg DWIGHT and malnutrition) Fluid: per md Nutrition Intervention Change Diet Order: renal Add Supplement/Snack (indicate name/kcal Ensure High Protein Vanilla, /protein ) daily Provides kCal: 160 Provides Protein (gm) 16 Goal #1 Meet at least 80% energy and protein needs Anticipated Discharge Needs: renal diet Follow-Up By: 01/27/19 Additional Comments F/U for po and ONS intakes, K levels if normal pt would like chocolate Ensure high protein
[2019-01-25] MEDS ORDERED: SODIUM POLYSTYRENE 15 GM/60 ML ORAL LIQD PO ONE (12:00)
[2019-01-25] MEDS: ONDANSETRON 4 MG/2 ML INJ IV PRN (17:54)
[2019-01-26] MEDS: SODIUM CHLORIDE 0.9% 1000 ML 1,000 ML IV SCH (04:10)
[2019-01-26 05:42] LABS: Calcium 7.7 mg/dL (8.4-10.2)
[2019-01-26 05:53] LABS: Hematocrit 22.9 % (35.5-45.6); Hemoglobin 7.4 gm/dl (11.8-15.2); Mean Corpuscular HGB Conc 33 % (32-34); Mean Corpuscular Volume 89 fl (84-94); Platelet Count 190 K/mm3 (140-440); Red Blood Count 2.57 M/mm3 (3.65-5.03)
[2019-01-26] MEDS: HYDROmorphone 1 MG/1 ML INJ IV PRN ×2 (06:30→09:35)
--- NOTE | 2019-01-26 06:36 | Progress Note ---
Assessment and Plan Assessment and plan: Patient is a 58 yo man with history of recurrent Hidradenitis suppurativa requiring many surgeries throughout the years who present to [facility] ED surgery floor as a direct admit by request of Dr. Jeff VERGARA after right axillary Hidradenitis suppurativa excision. Hidradenitis suppurativa s/p excisional debridement 01/23/19: pain control is adequate on oral narcotics. 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 Aguilar to operate on it but Dr. Aguilar has not indicated any surgery History Interval history: Patient was seen and examined. Follow-up on current diagnosis Hidradenitis suppurativa. No overnight events reported to me. Patient denies any chest pain, shortness breath, nausea/vomiting or severe headaches. Imaging, nursing note, chart, labs and old chart reviewed. Discussed with patient. Hospitalist Physical - Physical exam Narrative exam: Gen: WDWN, NAD, Awake, Alert, Orientated HEENT: NCAT, EOMI, PERRL, OP Clear Neck: supple, no adenopathy, no thyromegaly, no JVD CVS/Heart: RRR, normal S1S2, pulses present bilaterally Chest/Lungs: CTA B, Symmetrical chest expansion, good air entry bilaterally GI/Abdomen: soft, NTND, good bowel sounds, no guarding or rebound /Bladder: significant hidrenitis groin area/scrotum with drainage Extermity/Skin: right axillary wound vac intact MSK: FROM x 4 Neuro: CN 2-12 grossly intact, no new focal deficits Psych: calm - Constitutional Vitals: Temp Pulse Resp BP Pulse Ox 98.9 F 83 16 112/59 99 01/26/19 05:48 01/26/19 05:48 01/26/19 05:48 01/26/19 05:48 01/26/19 05:48 Results - Labs CBC & Chem 7: 01/26/19 05:15 01/26/19 05:15 Labs: Laboratory Last Values WBC 10.9 K/mm3 (4.5-11.0) 01/26/19 05:15 RBC 2.57 M/mm3 (3.65-5.03) L 01/26/19 05:15 Hgb 7.4 gm/dl (11.8-15.2) L 01/26/19 05:15 Hct 22.9 % (35.5-45.6) L 01/26/19 05:15 MCV 89 fl (84-94) 01/26/19 05:15 MCH 29 pg (28-32) 01/26/19 05:15 MCHC 33 % (32-34) 01/26/19 05:15 RDW 14.0 % (13.2-15.2) 01/26/19 05:15 Plt Count 190 K/mm3 (140-440) 01/26/19 05:15 Lymph % (Auto) 20.6 % (13.4-35.0) 01/24/19 04:08 [place] % (Auto) 5.2 % (0.0-7.3) 01/24/19 04:08 Eos % (Auto) 3.9 % (0.0-4.3) 01/24/19 04:08 Baso % (Auto) 0.6 % (0.0-1.8) 01/24/19 04:08 Lymph # 1.6 K/mm3 (1.2-5.4) 01/24/19 04:08 [place] # 0.4 K/mm3 (0.0-0.8) 01/24/19 04:08 Eos # 0.3 K/mm3 (0.0-0.4) 01/24/19 04:08 Baso # 0.0 K/mm3 (0.0-0.1) 01/24/19 04:08 Seg Neutrophils % 69.7 % (40.0-70.0) 01/24/19 04:08 Seg Neutrophils # 5.4 K/mm3 (1.8-7.7) 01/24/19 04:08 Sodium 139 mmol/L (137-145) 01/26/19 05:15 Potassium 5.5 mmol/L (3.6-5.0) H 01/26/19 05:15 Chloride 111.2 mmol/L (98-107) H 01/26/19 05:15 Carbon Dioxide 19 mmol/L (22-30) L 01/26/19 05:15 Anion Gap 14 mmol/L 01/26/19 05:15 BUN 35 mg/dL (9-20) H 01/26/19 05:15 Creatinine 2.4 mg/dL (0.8-1.5) H 01/26/19 05:15 Estimated GFR 34 ml/min 01/26/19 05:15 BUN/Creatinine Ratio 15 % 01/26/19 05:15 Glucose 69 mg/dL (75-100) L 01/26/19 05:15 Hemoglobin A1c 5.3 % (4-6) 01/23/19 20:41 Calcium 7.7 mg/dL (8.4-10.2) L 01/26/19 05:15 Magnesium 1.70 mg/dL (1.7-2.3) 01/25/19 06:17 Iron 23 ug/dL (49-181) L 01/24/19 04:08 TIBC 172 mcg/dL (250-450) L 01/24/19 04:08 % Saturation 13.37 % 01/24/19 04:08 Transferrin 133 mg/dl (180-329) L 01/24/19 04:08 Total Bilirubin 0.40 mg/dL (0.1-1.2) 01/23/19 20:41 AST 27 units/L (5-40) 01/23/19 20:41 ALT 27 units/L (7-56) 01/23/19 20:41 Alkaline Phosphatase 125 units/L (35-129) 01/23/19 20:41 Total Protein 8.0 g/dL (6.3-8.2) 01/23/19 20:41 Albumin 2.4 g/dL (3.9-5) L 01/23/19 20:41 Albumin/Globulin Ratio 0.4 % 01/23/19 20:41 Vitamin B12 555.7 pg/mL (211-911) 01/24/19 04:08 Blood Type O POSITIVE 01/23/19 12:30 Antibody Screen Negative 01/23/19 12:30 Active Medications - Current Medications Current Medications: Generic Name Dose Route Start Last Admin Trade Name Freq PRN Reason Stop Dose Admin Acetaminophen 650 mg 01/23/19 17:39 Tylenol PO Q4H PRN Pain MILD(1-3)/Fever >100.5/BARNES Famotidine 20 mg 01/23/19 22:00 01/25/19 21:42 Pepcid IV 20 mg BID NESTOR Administration Hydromorphone HCl 1 mg 01/23/19 17:39 01/26/19 06:30 Dilaudid IV 1 mg Q2H PRN Administration Pain , Severe (7-10) Sodium Chloride 1,000 mls @ 100 mls/hr 01/24/19 04:00 01/26/19 04:10 Nacl 0.9% 1000 Ml IV 100 mls/hr DIRECT NESTOR Administration Cefazolin Sodium 2 gm/ Sodium 100 mls @ 200 mls/hr 01/25/19 14:00 01/26/19 05:59 Chloride IV 200 mls/hr Q8HR NESTOR Administration Ondansetron HCl 4 mg 01/23/19 17:39 01/25/19 17:54 Zofran IV 4 mg Q3H PRN Administration Nausea And Vomiting Oxycodone/Acetaminophen 1 tab 01/23/19 17:39 01/25/19 21:41 Percocet 5/325 PO 1 tab Q6H PRN Administration Pain, Moderate (4-6) Sodium Chloride 10 ml 01/23/19 22:00 01/25/19 23:16 Sodium Chloride Flush Syringe 10 Ml IV 10 ml BID NESTOR Administration Sodium Chloride 10 ml 01/23/19 17:39 Sodium Chloride Flush Syringe 10 Ml IV PRN PRN LINE FLUSH Nutrition/Malnutrition Assess - Dietary Evaluation Nutrition/Malnutrition Findings: Nutrition Notes Start: 01/24/19 10:49 Freq: Status: Active Protocol: Document 01/24/19 10:49 CC (Rec: 01/24/19 11:14 CC [id number]) Co-Sign 01/24/19 10:49 LP Nutrition Notes Need for Assessment generated from: Order,MST Initial or Follow up Assessment Current Diagnosis Acute Kidney Injury, Hypertension Other Pertinent Diagnosis s/p R axillary Hidradenitis, amenia Current Diet regular Labs/Tests K 5.3, BUN 40, Creat 2.0, Fe 23 Pertinent Medications Reviewed Height 5 ft 11 in Weight 86.183 kg Usual Body Weight 86.183 kg [place] Body Weight (kg) 78.18 BMI 26.4 Intake Prior to Admission Good Weight change and time frame 40%/20 months Weight Status Overweight Subjective/Other Information Assesment for malnutrition. 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 Pt reported he has had unitentional wt loss beggining in 2016 with a UBW 320lbs. 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 Pt was just able to eat again after being NPO and reported he was still hungry. Pt said he would like to try Ensure chocolate. Pt's potassium is high and has an DWIGHT so pt was asked if he would like to try Ensure high protein vanilla d/t the lower K values. Noted mild muscle wasting at clavicle Percent of energy/protein needs met: 100%/100% Burn Absent Trauma Absent GI Symptoms None Food Allergy No Current % PO Good (75-100%) Minimum of two criteria Yes Interpretation of Weight Loss (severe) > 20% in 1 year Muscle Mass Mild Depletion (non-severe) #1 Nutrition Diagnosis Malnutrition Etiology unknown As Evidenced by Signs and Symptoms 40% wt loss in 20 months, mild muscle wasting Is patient on ventilator? No Is Patient Ambulatory and/or Out of Bed Yes REE-([facility]-ambulatory/OOB) [ 2208.648 NUTR.MSJOOB] Calculation Used for Recommendations [facility] Additional Notes PRO: 69-103 (0.8-1.2g/kg DWIGHT and malnutrition) Fluid: per md Nutrition Intervention Change Diet Order: renal Add Supplement/Snack (indicate name/kcal Ensure High Protein Vanilla, /protein ) daily Provides kCal: 160 Provides Protein (gm) 16 Goal #1 Meet at least 80% energy and protein needs Anticipated Discharge Needs: renal diet Follow-Up By: 01/27/19 Additional Comments F/U for po and ONS intakes, K levels if normal pt would like chocolate Ensure high protein
--- NOTE | 2019-01-26 08:41 | Consultation ---
History of Present Illness - Reason for Consult Consult date: 01/26/19 acute renal failure, chronic renal failure - History of Present Illness Patient is a 58 yo man with history of recurrent Hidradenitis suppurativa requiring many surgeries throughout the years who present to [facility] ED surgery f reese as a direct admit by request of Dr. Jeff VERGARA after right axillary Hidradenitis suppurativa excision after excisional debridement 01/23/19, he was noted to have rising creatinine with hyperkalemia and renal consult was requested Past History Past Medical History: other (skin infection) Medications and Allergies Allergies Allergy/AdvReac Type Severity Reaction Status Date / Time No Known Allergies Allergy Verified 01/20/19 15:49 Home Medications Medication Instructions Recorded Confirmed Last Taken Type No Known Home Medications [No 01/20/19 01/20/19 Unknown History Reported Home Medications] Active Meds: Active Medications Acetaminophen (Tylenol) 650 mg PO Q4H PRN PRN Reason: Pain MILD(1-3)/Fever >100.5/BARNES Famotidine (Pepcid) 20 mg IV BID [facility] Last Admin: 01/25/19 21:42 Dose: 20 mg Documented by: Hydromorphone HCl (Dilaudid) 1 mg IV Q2H PRN PRN Reason: Pain , Severe (7-10) Last Admin: 01/26/19 06:30 Dose: 1 mg Documented by: Sodium Chloride (Nacl 0.9% 1000 Ml) 1,000 mls @ 100 mls/hr IV DIRECT [facility] Last Admin: 01/26/19 04:10 Dose: 100 mls/hr Documented by: Cefazolin Sodium 2 gm/ Sodium (Chloride) 100 mls @ 200 mls/hr IV Q8HR [facility] Last Admin: 01/26/19 05:59 Dose: 200 mls/hr Documented by: Ondansetron HCl (Zofran) 4 mg IV Q3H PRN PRN Reason: Nausea And Vomiting Last Admin: 01/25/19 17:54 Dose: 4 mg Documented by: Oxycodone/Acetaminophen (Percocet 5/325) 1 tab PO Q6H PRN PRN Reason: Pain, Moderate (4-6) Last Admin: 01/25/19 21:41 Dose: 1 tab Documented by: Sodium Chloride (Sodium Chloride Flush Syringe 10 Ml) 10 ml IV BID [facility] Last Admin: 10/26/19 23:16 Dose: 10 ml Documented by: Sodium Chloride (Sodium Chloride Flush Syringe 10 Ml) 10 ml IV PRN PRN PRN Reason: LINE FLUSH Review of Systems All systems: negative (pain at surgical site) Exam - Vital Signs Vital signs: Vital Signs Temp Pulse Resp BP Pulse Ox 97.7 F 82 18 120/56 100 01/22/19 11:30 01/22/19 11:30 01/22/19 11:30 01/22/19 11:30 01/22/19 11:30 - General Appearance General appearance: well-developed, well-nourished, appears stated age EENT: ATNC, PERRL, mucous membranes moist Neck: Present: neck supple Respiratory: Clear to Ascultation Heart: regular, S1S2 Gastrointestinal: Present: normoactive bowel sounds Integumentary: rash Neurologic: no focal deficit, no asterixis, alert and oriented x3 Musculoskeletal: Present: other (no edema in BLE) Psychiatric: mood/affect appropriate, cooperative Results - Lab Results 01/26/19 05:15 01/26/19 05:15 Most recent lab results Calcium 7.7 mg/dL (8.4-10.2) L 01/26/19 05:15 Magnesium 1.70 mg/dL (1.7-2.3) 01/25/19 06:17 Assessment and Plan acute on chronic renal failure, possible ATN from sepssi vs.AIN from abx Hyperkalemia metabolic acidosis Hidradenitis suppurativa s/p excisional debridement 01/23/19 Anemia - baseline Cr~2, good UOP - will change IVF to 1/2 NS with sodium bicarb 100 cc/h - urine lytes and eos ordered - cont low K diet - avoid nephrotoxins - renally dose meds - strict I&O - daily weight Gilbert Perla MD [phone]
[2019-01-26] MEDS: SODIUM CHLORIDE 0.45% 1000 ML 1,000 ML with SODIUM BICARBONATE 75 MEQ IV SCH (09:22)
[2019-01-26] MEDS: FAMOTIDINE 20 MG/2 ML INJ IV SCH ×2 (09:23→21:04)
[2019-01-26 14:21] LABS: Bacteria,Urine 1+ /HPF (Negative); Bilirubin,Urine NEG (Negative); Blood,Urine MOD (Negative); Color,Urine Yellow (Yellow); Mucus,Urine FEW /HPF; Urobilinogen,Urine < 2.0 mg/dL (<2.0)
[2019-01-26 14:24] LABS: Creatinine,Urine 79.6 mg/dL (0.1-20.0)
[2019-01-26 14:31] LABS: Creatinine,Urine 81.6 mg/dL (0.1-20.0)
[2019-01-26 14:42] LABS: Protein/Creatinine Ratio,Urine 2.23
[2019-01-26] MEDS: oxyCODONE /ACETAMINOPHEN 5-325MG TAB PO PRN (21:16)
[2019-01-27] MEDS: SODIUM CHLORIDE 0.45% 1000 ML 1,000 ML with SODIUM BICARBONATE 75 MEQ IV SCH (03:31)
[2019-01-27] MEDS: oxyCODONE /ACETAMINOPHEN 5-325MG TAB PO PRN ×2 (05:49→22:57)
[2019-01-27 06:58] LABS: Calcium 7.8 mg/dL (8.4-10.2)
[2019-01-27 07:07] LABS: Red Blood Count 2.42 M/mm3 (3.65-5.03)
[2019-01-27 07:08] LABS: Basophils % (Auto) 0.4 % (0.0-1.8); Eosinophils # (Auto) 0.3 K/mm3 (0.0-0.4); Hematocrit 21.3 % (35.5-45.6); Hemoglobin 6.9 gm/dl (11.8-15.2); Lymphocytes # (Auto) 1.7 K/mm3 (1.2-5.4); Mean Corpuscular HGB Conc 32 % (32-34); Mean Corpuscular Volume 88 fl (84-94); Mean Platelet Volume 8.2 fl (6-12); Monocytes # (Auto) 0.7 K/mm3 (0.0-0.8); Monocytes % (Auto) 6.1 % (0.0-7.3); Platelet Count 178 K/mm3 (140-440)
[2019-01-27] MEDS: FAMOTIDINE 20 MG/2 ML INJ IV SCH ×2 (10:11→22:58)
[2019-01-27] MEDS: HYDROmorphone 1 MG/1 ML INJ IV PRN ×3 (10:11→20:04)
--- NOTE | 2019-01-27 12:02 | Progress Note ---
Assessment and Plan Assessment and plan: Patient is a 58 yo man with history of recurrent Hidradenitis suppurativa requiring many surgeries throughout the years who present to [facility] ED surgery floor as a direct admit by request of URSULA, Dr. Aguilar after right axillary Hidradenitis suppurativa excision. Hidradenitis suppurativa s/p excisional debridement 01/23/19: pain control is adequate on oral narcotics. f/u in Wound Clinic, Will need a wound vac on discharge., abx Anemia acute on chronic with a drop in HCT due to slow drainage from wound site appears AOCD: monitor cbc ARF, vasomotor nephropahty: treat with IVF, monitor bmp closely, Renal ultrasound reviewed, consulted Nephrology, input noted, CR now steady Severe malnutrition: consult Direct Support Staff Hyperkalemia: kayexalate and monitor bmp closely, resolved today Metabolic acidosis: treat the above DVT ppx sq lovenox full code Disposition: continue inpatient care, his home wound vac is at bedside needs to be applied prior to discharge, d/c once potassium level normal, also patient has groin/scrotal Hidradentitis and wants Dr. Aguilar to operate on it but I d/w Dr. Aguilar and he will not do that surgery on this admission, he had a slight drop in h/h will repeat and if hemoglobin above 7 then will discharge History Interval history: Patient was seen and examined. Follow-up on current diagnosis Hidradenitis suppurativa. No overnight events reported to me. Patient denies any chest pain, shortness breath, nausea/vomiting or severe headaches. Imaging, nursing note, chart, labs and old chart reviewed. Discussed with patient. Hospitalist Physical - Physical exam Narrative exam: Gen: WDWN, NAD, Awake, Alert, Orientated HEENT: NCAT, EOMI, PERRL, OP Clear Neck: supple, no adenopathy, no thyromegaly, no JVD CVS/Heart: RRR, normal S1S2, pulses present bilaterally Chest/Lungs: CTA B, Symmetrical chest expansion, good air entry bilaterally GI/Abdomen: soft, NTND, good bowel sounds, no guarding or rebound /Bladder: significant hidrenitis groin area/scrotum with drainage Extermity/Skin: right axillary wound vac intact MSK: FROM x 4 Neuro: CN 2-12 grossly intact, no new focal deficits Psych: calm - Constitutional Vitals: Temp Pulse Resp BP Pulse Ox 98.6 F 81 20 105/53 100 01/27/19 07:42 01/27/19 07:42 01/27/19 07:42 01/27/19 07:42 01/27/19 07:42 Results - Labs CBC & Chem 7: 01/27/19 06:14 01/27/19 06:14 Labs: Laboratory Last Values WBC 10.7 K/mm3 (4.5-11.0) 01/27/19 06:14 RBC 2.42 M/mm3 (3.65-5.03) L 01/27/19 06:14 Hgb 6.9 gm/dl (11.8-15.2) L 01/27/19 06:14 Hct 21.3 % (35.5-45.6) L 01/27/19 06:14 MCV 88 fl (84-94) 01/27/19 06:14 MCH 29 pg (28-32) 01/27/19 06:14 MCHC 32 % (32-34) 01/27/19 06:14 RDW 14.0 % (13.2-15.2) 01/27/19 06:14 Plt Count 178 K/mm3 (140-440) 01/27/19 06:14 Lymph % (Auto) 16.0 % (13.4-35.0) 01/27/19 06:14 [place] % (Auto) 6.1 % (0.0-7.3) 01/27/19 06:14 Eos % (Auto) 3.0 % (0.0-4.3) 01/27/19 06:14 Baso % (Auto) 0.4 % (0.0-1.8) 01/27/19 06:14 Lymph # 1.7 K/mm3 (1.2-5.4) 01/27/19 06:14 [place] # 0.7 K/mm3 (0.0-0.8) 01/27/19 06:14 Eos # 0.3 K/mm3 (0.0-0.4) 01/27/19 06:14 Baso # 0.0 K/mm3 (0.0-0.1) 01/27/19 06:14 Add Manual Diff Complete 01/27/19 06:14 Seg Neutrophils % 74.5 % (40.0-70.0) H 01/27/19 06:14 Seg Neutrophils # 8.0 K/mm3 (1.8-7.7) H 01/27/19 06:14 Sodium 138 mmol/L (137-145) 01/27/19 06:14 Potassium 4.6 mmol/L (3.6-5.0) 01/27/19 06:14 Chloride 109.0 mmol/L (98-107) H 01/27/19 06:14 Carbon Dioxide 19 mmol/L (22-30) L 01/27/19 06:14 Anion Gap 15 mmol/L 01/27/19 06:14 BUN 34 mg/dL (9-20) H 01/27/19 06:14 Creatinine 2.4 mg/dL (0.8-1.5) H 01/27/19 06:14 Estimated GFR 34 ml/min 01/27/19 06:14 BUN/Creatinine Ratio 14 % 01/27/19 06:14 Glucose 72 mg/dL (75-100) L 01/27/19 06:14 Hemoglobin A1c 5.3 % (4-6) 01/23/19 20:41 Calcium 7.8 mg/dL (8.4-10.2) L 01/27/19 06:14 Phosphorus 4.10 mg/dL (2.5-4.5) 01/27/19 06:14 Magnesium 1.70 mg/dL (1.7-2.3) 01/25/19 06:17 Iron 23 ug/dL (49-181) L 01/24/19 04:08 TIBC 172 mcg/dL (250-450) L 01/24/19 04:08 % Saturation 13.37 % 01/24/19 04:08 Transferrin 133 mg/dl (180-329) L 01/24/19 04:08 Total Bilirubin 0.40 mg/dL (0.1-1.2) 01/23/19 20:41 AST 27 units/L (5-40) 01/23/19 20:41 ALT 27 units/L (7-56) 01/23/19 20:41 Alkaline Phosphatase 125 units/L (35-129) 01/23/19 20:41 Total Protein 8.0 g/dL (6.3-8.2) 01/23/19 20:41 Albumin 2.4 g/dL (3.9-5) L 01/23/19 20:41 Albumin/Globulin Ratio 0.4 % 01/23/19 20:41 Vitamin B12 555.7 pg/mL (211-911) 01/24/19 04:08 Urine Color Yellow (Yellow) 01/26/19 13:40 Urine Turbidity Clear (Clear) 01/26/19 13:40 Urine pH 5.0 (5.0-7.0) 01/26/19 13:40 Ur Specific [place] 1.013 (1.003-1.030) 01/26/19 13:40 Urine Protein 100 mg/dl mg/dL (Negative) 01/26/19 13:40 Urine Glucose (UA) Neg mg/dL (Negative) 01/26/19 13:40 Urine Ketones Neg mg/dL (Negative) 01/26/19 13:40 Urine Blood Mod (Negative) 01/26/19 13:40 Urine Nitrite Neg (Negative) 01/26/19 13:40 Urine Bilirubin Neg (Negative) 01/26/19 13:40 Urine Urobilinogen < 2.0 mg/dL (<2.0) 01/26/19 13:40 Ur Leukocyte Esterase Neg (Negative) 01/26/19 13:40 Urine WBC (Auto) 2.0 /HPF (0.0-6.0) 01/26/19 13:40 Urine RBC (Auto) 8.0 /HPF (0.0-6.0) 01/26/19 13:40 U Epithel Cells (Auto) < 1.0 /HPF (0-13.0) 01/26/19 13:40 Urine Bacteria (Auto) 1+ /HPF (Negative) 01/26/19 13:40 Urine Mucus Few /HPF 01/26/19 13:40 Urine Eosinophils None seen (None Seen) 01/26/19 13:40 Urine Creatinine 79.6 mg/dL (0.1-20.0) H 01/26/19 13:40 Urine Creatinine 81.6 mg/dL (0.1-20.0) H 01/26/19 13:40 Protein/Creatinin Ratio 2.23 01/26/19 13:40 Urine Sodium 95 mmol/L 01/26/19 13:40 Urine Total Protein 182 mg/dL (5-11.8) H 01/26/19 13:40 Blood Type O POSITIVE 01/23/19 12:30 Antibody Screen Negative 01/23/19 12:30 Active Medications - Current Medications Current Medications: Generic Name Dose Route Start Last Admin Trade Name Freq PRN Reason Stop Dose Admin Acetaminophen 650 mg 01/23/19 17:39 Tylenol PO Q4H PRN Pain MILD(1-3)/Fever >100.5/BARNES Famotidine 20 mg 01/23/19 22:00 01/27/19 10:11 Pepcid IV 20 mg BID NESTOR Administration Hydromorphone HCl 1 mg 01/23/19 17:39 01/27/19 10:11 Dilaudid IV 1 mg Q2H PRN Administration Pain , Severe (7-10) Cefazolin Sodium 2 gm/ Sodium 100 mls @ 200 mls/hr 01/25/19 14:00 01/27/19 05:44 Chloride IV 200 mls/hr Q8HR NESTOR Administration Sodium Bicarbonate 75 meq/ 1,075 mls @ 100 mls/hr 01/26/19 09:00 01/27/19 03:31 Sodium Chloride IV 100 mls/hr DIRECT NESTOR Administration Ondansetron HCl 4 mg 01/23/19 17:39 01/25/19 17:54 Zofran IV 4 mg Q3H PRN Administration Nausea And Vomiting Oxycodone/Acetaminophen 1 tab 01/23/19 17:39 01/27/19 05:49 Percocet 5/325 PO 1 tab Q6H PRN Administration Pain, Moderate (4-6) Sodium Chloride 10 ml 01/23/19 22:00 01/27/19 10:11 Sodium Chloride Flush Syringe 10 Ml IV 10 ml BID NESTOR Administration Sodium Chloride 10 ml 01/23/19 17:39 Sodium Chloride Flush Syringe 10 Ml IV PRN PRN LINE FLUSH Nutrition/Malnutrition Assess - Dietary Evaluation Nutrition/Malnutrition Findings: Nutrition Notes Start: 01/24/19 10:49 Freq: Status: Active Protocol: Document 01/24/19 10:49 CC (Rec: 01/24/19 11:14 CC [id number]) Co-Sign 01/24/19 10:49 LP Nutrition Notes Need for Assessment generated from: MD Order,MST Initial or Follow up Assessment Current Diagnosis Acute Kidney Injury, Hypertension Other Pertinent Diagnosis s/p R axillary Hidradenitis, amenia Current Diet regular Labs/Tests K 5.3, BUN 40, Creat 2.0, Fe 23 Pertinent Medications Reviewed Height 5 ft 11 in Weight 86.183 kg Usual Body Weight 86.183 kg [place] Body Weight (kg) 78.18 BMI 26.4 Intake Prior to Admission Good Weight change and time frame 40%/20 months Weight Status Overweight Subjective/Other Information Assesment for malnutrition. 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 Pt reported he has had unitentional wt loss beggining in 2016 with a UBW 320lbs. 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 Pt was just able to eat again after being NPO and reported he was still hungry. Pt said he would like to try Ensure chocolate. Pt's potassium is high and has an DWIGHT so pt was asked if he would like to try Ensure high protein vanilla d/t the lower K values. Noted mild muscle wasting at clavicle Percent of energy/protein needs met: 100%/100% Burn Absent Trauma Absent GI Symptoms None Food Allergy No Current % PO Good (75-100%) Minimum of two criteria Yes Interpretation of Weight Loss (severe) > 20% in 1 year Muscle Mass Mild Depletion (non-severe) #1 Nutrition Diagnosis Malnutrition Etiology unknown As Evidenced by Signs and Symptoms 40% wt loss in 20 months, mild muscle wasting Is patient on ventilator? No Is Patient Ambulatory and/or Out of Bed Yes REE-([facility]-ambulatory/OOB) [ 2208.648 NUTR.MSJOOB] Calculation Used for Recommendations [facility] Additional Notes PRO: 69-103 (0.8-1.2g/kg DWIGHT and malnutrition) Fluid: per Nutrition Intervention Change Diet Order: renal Add Supplement/Snack (indicate name/kcal Ensure High Protein Vanilla, /protein ) daily Provides kCal: 160 Provides Protein (gm) 16 Goal #1 Meet at least 80% energy and protein needs Anticipated Discharge Needs: renal diet Follow-Up By: 01/27/19 Additional Comments F/U for po and ONS intakes, K levels if normal pt would like chocolate Ensure high protein
--- NOTE | 2019-01-27 12:14 | Discharge Summary ---
Providers - Providers Date of Admission: 01/24/19 16:30 Date of discharge: 01/27/19 Attending physician: HOME LUNSFORD 01/23/19 17:39 Consult to Physician [CONS] Routine Comment: Consulting Provider: BECKY AGUILAR Physician Instructions: Reason For Exam: status post hidradenitis resection surgery 01/24/19 03:45 Consult to Dietitian/Nutrition [CONS] Routine Physician Instructions: Reason For Exam: Reason for Consult: Malnutrition 01/25/19 11:55 Consult to Physician [CONS] Routine Comment: Consulting Provider: RADHA JACKSON Physician Instructions: Reason For Exam: ARF hyperkalemia, your patient before [facility] Hospital[facility] Condition: Stable Hospital course: Patient is a 58 yo man with history of recurrent Hidradenitis suppurativa requiring many surgeries throughout the years who present to [facility] ED surgery floor as a direct admit by request of Dr. Jeff VERGARA after right axillary Hidradenitis suppurativa excision. Hidradenitis suppurativa s/p excisional debridement 01/23/19: pain control is adequate on oral narcotics. 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 Aguilar to operate on it but I d/w Dr. Aguilar and he will not do that surgery on this admission, he had a slight drop in h/h will repeat and if hemoglobin above 7 then will discharge Disposition: DC-01 TO HOME OR SELFCARE Time spent for discharge: 36 minutes Core Measure Documentation - Palliative Care Palliative Care/ Comfort Measures: Not Applicable - Core Measures Any of the following diagnoses?: none - VTE Discharge Requirements Deep Vein Thrombosis/Pulmonary Embolism Present on Admission: No Has pt received <5 days of overlap therapy or INR<2.0: No Anticoagulant overlap therapy prescribed at discharge: No Contraindication No Overlap Therapy order at DC: Not Indicated Exam - Physical Exam Narrative exam: Gen: WDWN, NAD, Awake, Alert, Orientated HEENT: NCAT, EOMI, PERRL, OP Clear Neck: supple, no adenopathy, no thyromegaly, no JVD CVS/Heart: RRR, normal S1S2, pulses present bilaterally Chest/Lungs: CTA B, Symmetrical chest expansion, good air entry bilaterally GI/Abdomen: soft, NTND, good bowel sounds, no guarding or rebound /Bladder: significant hidrenitis groin area/scrotum with drainage Extermity/Skin: right axillary wound vac intact MSK: FROM x 4 Neuro: CN 2-12 grossly intact, no new focal deficits Psych: calm - Constitutional Vitals: Temp Pulse Resp BP Pulse Ox 98.7 F 80 20 103/42 98 01/27/19 10:53 01/27/19 10:53 01/27/19 10:53 01/27/19 10:53 01/27/19 10:53 Plan Activity: other (no strenous activity unless cleared by Dr. Aguilar) Diet: low salt Follow up with: ESTHER KUHN MD [Primary Care Provider] - 7 Days BECKY AGUILAR MD [Staff Physician] - 7 Days RADHA JACKSON MD [Staff Physician] - 7 Days Prescriptions: cefUROXime [Ceftin] 2 tab PO BID #28 tablet oxyCODONE /ACETAMINOPHEN [Percocet 5/325 mg] 1 tab PO Q6H PRN #20 tablet PRN Reason: Pain , Severe (7-10)
[2019-01-27 12:37] LABS: Hematocrit 22.1 % (35.5-45.6)
[2019-01-27] MEDS ORDERED: SODIUM CHLORIDE 0.9% 500 ML 500 ML IV NR (13:19)
[2019-01-28] MEDS: oxyCODONE /ACETAMINOPHEN 5-325MG TAB PO PRN (08:45)
[2019-01-28] MEDS: FAMOTIDINE 20 MG/2 ML INJ IV SCH ×2 (08:46→10:31)
[2019-01-28 09:10] LABS: Basophils # (Auto) 0.1 K/mm3 (0.0-0.1); Basophils % (Auto) 1.3 % (0.0-1.8); Eosinophils # (Auto) 0.4 K/mm3 (0.0-0.4); Eosinophils % (Auto) 4.2 % (0.0-4.3); Hemoglobin 8.2 gm/dl (11.8-15.2); Lymphocytes # (Auto) 1.7 K/mm3 (1.2-5.4); Lymphocytes % (Auto) 16.5 % (13.4-35.0); Mean Corpuscular HGB Conc 33 % (32-34); Mean Corpuscular Volume 88 fl (84-94); Monocytes # (Auto) 0.4 K/mm3 (0.0-0.8); Monocytes % (Auto) 4.2 % (0.0-7.3); Platelet Count 202 K/mm3 (140-440); Red Blood Count 2.83 M/mm3 (3.65-5.03); Red Cell Distribution Width 13.9 % (13.2-15.2)
[2019-01-28 09:15] LABS: Calcium 7.9 mg/dL (8.4-10.2)
--- NOTE | 2019-01-28 09:18 | Progress Note ---
Assessment and Plan acute on chronic renal failure, possible ATN from sepssi vs.AIN from abx Hyperkalemia metabolic acidosis Hidradenitis suppurativa s/p excisional debridement 01/23/19 Anemia - baseline Cr~2, cont to have good UOP - Ok to be discharged from renal standpoint, to be followed in my office upon discharge - cont low K diet - avoid nephrotoxins - renally dose meds - strict I&O - daily weight Gilbert Perla MD [phone] Subjective Date of service: 01/28/19 Principal diagnosis: DWIGHT on CKD Interval history: denies acute issues, ready to be discharged Objective - Vital Signs Vital signs: Vital Signs - 12hr 01/27/19 01/27/19 01/27/19 21:25 21:55 22:00 Temperature 99.0 F 99.1 F Pulse Rate 77 76 Respiratory 16 17 17 Rate Respiratory 17 Rate [wounds] Blood Pressure 110/54 110/55 Blood Pressure [Left] O2 Sat by Pulse 96 98 Oximetry 01/27/19 01/27/19 01/27/19 22:25 22:57 23:57 Temperature 99.1 F Pulse Rate 80 Respiratory 17 17 17 Rate Respiratory Rate [wounds] Blood Pressure 106/54 Blood Pressure [Left] O2 Sat by Pulse 99 Oximetry 01/28/19 01/28/19 01/28/19 00:15 01:08 01:49 Temperature 99.1 F 99.3 F Pulse Rate 78 82 75 Respiratory 16 16 Rate Respiratory Rate [wounds] Blood Pressure 105/49 Blood Pressure 106/57 [Left] O2 Sat by Pulse 98 98 95 Oximetry 01/28/19 01/28/19 01/28/19 02:05 02:30 02:55 Temperature 93.2 F L 99.1 F 99.2 F Pulse Rate 77 79 76 Respiratory 16 17 18 Rate Respiratory Rate [wounds] Blood Pressure 106/53 105/52 105/58 Blood Pressure [Left] O2 Sat by Pulse 96 95 96 Oximetry 01/28/19 01/28/19 01/28/19 03:20 03:45 04:15 Temperature 98.9 F 98.6 F 98.2 F Pulse Rate 78 76 75 Respiratory 17 16 17 Rate Respiratory Rate [wounds] Blood Pressure 107/57 107/56 109/54 Blood Pressure [Left] O2 Sat by Pulse 96 97 99 Oximetry 01/28/19 01/28/19 05:10 07:31 Temperature 98.2 F 98.6 F Pulse Rate 72 75 Respiratory 17 20 Rate Respiratory Rate [wounds] Blood Pressure 105/52 100/38 Blood Pressure [Left] O2 Sat by Pulse 98 97 Oximetry - General Appearance General appearance: well-developed, well-nourished, appears stated age EENT: ATNC, PERRL Neck: no JVD, no carotid bruit Respiratory: Present: Clear to Ascultation. Absent: Rales, Ronchi Cardiology: regular, S1S2 Gastrointestinal: normoactive bowel sounds Integumentary: no rash, warm and dry Neurologic: no focal deficit, no asterixis, alert and oriented x3 Musculoskeletal: other (no edema in BLE) Psychiatric: mood/affect appropriate, cooperative - Lab 01/28/19 08:42 01/28/19 08:42 Most recent lab results Calcium 7.9 mg/dL (8.4-10.2) L 01/28/19 08:42 Phosphorus 4.10 mg/dL (2.5-4.5) 01/28/19 08:42 Magnesium 1.70 mg/dL (1.7-2.3) 01/28/19 08:42 Urine Creatinine 79.6 mg/dL (0.1-20.0) H 01/26/19 13:40 Urine Creatinine 81.6 mg/dL (0.1-20.0) H 01/26/19 13:40 Urine Sodium 95 mmol/L 01/26/19 13:40 Urine Total Protein 182 mg/dL (5-11.8) H 01/26/19 13:40 Medications & Allergies - Medications Allergies/Adverse Reactions: Allergies No Known Allergies Allergy (Verified 01/20/19 15:49) Home Medications: Home Medications Medication Instructions Recorded Confirmed Last Taken Type Acetaminophen [Acetaminophen TAB] 1 tab PO Q4H PRN #15 tablet 01/27/19 Unknown Rx cefUROXime [Ceftin] 2 tab PO BID #28 tablet 01/27/19 Unknown Rx oxyCODONE /ACETAMINOPHEN [Percocet 1 tab PO Q6H PRN #20 tablet 01/27/19 Unknown Rx 5/325 mg] Active Medications: Generic Name Dose Route Start Last Admin Trade Name Freq PRN Reason Stop Dose Admin Acetaminophen 650 mg 01/23/19 17:39 Tylenol PO Q4H PRN Pain MILD(1-3)/Fever >100.5/BARNES Famotidine 20 mg 01/23/19 22:00 01/28/19 08:46 Pepcid IV 20 mg BID NESTOR Administration Hydromorphone HCl 1 mg 01/23/19 17:39 01/27/19 20:04 Dilaudid IV 1 mg Q2H PRN Administration Pain , Severe (7-10) Cefazolin Sodium 2 gm/ Sodium 100 mls @ 200 mls/hr 01/25/19 14:00 01/28/19 07:43 Chloride IV 200 mls/hr Q8HR NESTOR Administration Sodium Bicarbonate 75 meq/ 1,075 mls @ 100 mls/hr 01/26/19 09:00 01/27/19 03:31 Sodium Chloride IV 100 mls/hr DIRECT NESTOR Administration Ondansetron HCl 4 mg 01/23/19 17:39 01/25/19 17:54 Zofran IV 4 mg Q3H PRN Administration Nausea And Vomiting Oxycodone/Acetaminophen 1 tab 01/23/19 17:39 01/28/19 08:45 Percocet 5/325 PO 1 tab Q6H PRN Administration Pain, Moderate (4-6) Sodium Chloride 10 ml 01/23/19 22:00 01/27/19 23:00 Sodium Chloride Flush Syringe 10 Ml IV 10 ml BID NESTOR Administration Sodium Chloride 10 ml 01/23/19 17:39 Sodium Chloride Flush Syringe 10 Ml IV PRN PRN LINE FLUSH
[2019-01-28] MEDS: HYDROmorphone 1 MG/1 ML INJ IV PRN ×2 (12:08→14:44)
--- NOTE | 2019-01-28 13:13 | Discharge Summary ---
Providers - Providers Date of Admission: 01/24/19 16:30 Attending physician: RUKHSANA CASH MD 01/23/19 17:39 Consult to Physician [CONS] Routine Comment: Consulting Provider: BECKY AGUILAR Physician Instructions: Reason For Exam: status post hidradenitis resection surgery 01/24/19 03:45 Consult to Dietitian/Nutrition [CONS] Routine Physician Instructions: Reason For Exam: Reason for Consult: Malnutrition 01/25/19 11:55 Consult to Physician [CONS] Routine Comment: Consulting Provider: RADHA JACKSON Physician Instructions: Reason For Exam: ARF hyperkalemia, your patient before [facility] Condition: Stable Hospital course: serosangious bloody discharge in wound vac, will transfuse 2 units of PRBC d/w patient. d/c once h/h stable Original Note: Assessment and Plan Assessment and plan: Patient is a 58 yo man with history of recurrent Hidradenitis suppurativa requiring many surgeries throughout the years who present to [facility] ED surgery floor as a direct admit by request of Dr. Aguilar after right axillary Hidradenitis suppurativa excision. Hidradenitis suppurativa s/p excisional debridement 01/23/19: pain control is adequate on oral narcotics. 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 Aguilar to operate on it but I d/w Dr. Aguilar and he will not do that surgery on this admission, he had a slight drop in h/h will repeat and if hemoglobin above 7 then will discharge Excision of right axillary/chest wall hidradenitis suppurativa Description of procedure: Pt was placed supine on the OR table. General anesthesia by LMA was administered. Pt was repositioned, left side down and the right axilla, chest wall, shoulder and arm prepped and draped. The involved hidradenitis tissue was then excised with the Bovie. Hemostasis was obtained with the Bovie. Specimen was passed off the table. The wound was packed open with a dilute Betadine moistened Kerlix roll followed by dry 4 X 4's, ABD's and Medipore tape. Pt tolerated the procedure well. Final wound measurements were as follows: 23 X 19 X 3 cm Anesthesia: other (LMA) Surgeon: BECKY AGUILAR Estimated blood loss: 50-100ml Pathology: list (Right axillary/chest wall skin and SQ tissue) Specimen disposition: to lab Condition: stable Disposition: PACU Disposition: DC/TX-06 HOME UNDER HOME [facility] Time spent for discharge: 35 MINS Core Measure Documentation - Palliative Care Palliative Care/ Comfort Measures: Not Applicable Exam - Constitutional Vitals: Temp Pulse Resp BP Pulse Ox 98.6 F 75 18 105/46 97 01/28/19 07:31 01/28/19 07:31 01/28/19 12:08 01/28/19 08:53 01/28/19 07:31 Plan Activity: advance as tolerated, fall precautions Diet: renal Special Instructions: record daily BP diary, record blood sugar diary Follow up with: RADHA JACKSON MD [Staff Physician] - 7 Days BECKY AGUILAR MD [Staff Physician] - 7 Days [facility] MD SARAH [Primary Care Provider] - 7 Days [facility] [Outside] - 7 Days Prescriptions: cefUROXime [Ceftin] 2 tab PO BID #28 tablet oxyCODONE /ACETAMINOPHEN [Percocet 5/325 mg] 1 tab PO Q6H PRN #20 tablet PRN Reason: Pain , Severe (7-10)
--- NOTE | 2019-01-28 14:49 | Procedure Note ---
Date of procedure: 01/23/19 Pre-op diagnosis: Right axillary hidradenitis suppurativa Post-op diagnosis: same Procedure: Excision of right axillary/chest wall hidradenitis suppurativa Description of procedure: Pt was placed supine on the OR table. General anesthesia by LMA was administered. Pt was repositioned, left side down and the right axilla, chest wall, shoulder and arm prepped and draped. The involved hidradenitis tissue was then excised with the Bovie. Hemostasis was obtained with the Bovie. Specimen was passed off the table. The wound was packed open with a dilute Betadine moistened Kerlix roll followed by dry 4 X 4's, ABD's and Medipore tape. Pt tolerated the procedure well. Final wound measurements were as follows: 23 X 19 X 3 cm Anesthesia: other (LMA) Surgeon: BECKY HERNANDEZ Estimated blood loss: 50-100ml Pathology: list (Right axillary/chest wall skin and SQ tissue) Specimen disposition: to lab Condition: stable Disposition: PACU
[2019-01-28 16:42] VITALS: BP 97/45
== END 2019-01-28 18:00 | disposition home health service (06) | DRG 570 ==
LOC: OR 11:10 → 3A 15:29 → 3B-SURG 15:32 → 3A 16:30 → OBSVTOIN 01-24 16:30
PROVIDERS: ADMIT Internal Medicine; ATTEND Internal Medicine
PROC: 0JB60ZZ Excision of Chest Subcutaneous Tissue and Fascia, Open Approach (ICD-10-PCS; principal; 2019-01-23)
PROC: 30233N1 Transfusion of Nonautologous Red Blood Cells into Peripheral Vein, Percutaneous Approach (ICD-10-PCS; 2019-01-27)
DX: L73.2 Hidradenitis suppurativa (principal); N17.0 Acute kidney failure with tubular necrosis; E43 Unspecified severe protein-calorie malnutrition; E87.2 Acidosis; D63.8 Anemia in other chronic diseases classified elsewhere; N18.9 Chronic kidney disease, unspecified; D64.9 Anemia, unspecified; E87.5 Hyperkalemia; Z87.891 Personal history of nicotine dependence; Z72.89 Other problems related to lifestyle; Z68.26 Body mass index [BMI] 26.0-26.9, adult; Z82.49 Family history of ischemic heart disease and other diseases of the circulatory system
CPT/HCPCS: 36415; 76770; 80048; 80053; 81001; 82570; 82607; 82747; 83036; 83550; 83735; 84100; 84156; 84300; 85014; 85018; 85025; 85027; 86850; 86900; 86901; 86920; 88304; 88305; 89050; G0378; J0690; J1170; J2250; J2405; J2704; J3010; J7030; J7040; J7120; P9016

== ENCOUNTER 2019-02-04 10:19 | Outpatient (CLI) | payer MEDICARE ==
[2019-02-04] MEDS ORDERED: LIDOCAINE (4%) 40 MG/ML TOPICAL SOLN 50 ML BOTTLE TP ONE (10:34)
[2019-02-04] MEDS ORDERED: SILVER NITRATE APPLICATOR 1 EA TP ONE (11:06)
== END 2019-02-04 10:20 | disposition home or self-care (01) ==
LOC: WOUND 10:19
PROVIDERS: ATTEND Surgery
DX: L73.2 Hidradenitis suppurativa (principal); K62.1 Rectal polyp; F17.200 Nicotine dependence, unspecified, uncomplicated

== ENCOUNTER 2019-02-18 10:38 | Outpatient (CLI) | payer MEDICARE ==
[2019-02-18] MEDS ORDERED: LIDOCAINE (4%) 40 MG/ML TOPICAL SOLN 50 ML BOTTLE TP ONE (10:47)
== END 2019-02-18 10:39 | disposition home or self-care (01) ==
LOC: WOUND 10:38
PROVIDERS: ATTEND Surgery
DX: L73.2 Hidradenitis suppurativa (principal); K62.1 Rectal polyp; F17.200 Nicotine dependence, unspecified, uncomplicated
CPT/HCPCS: 17250

== ENCOUNTER 2019-03-04 10:28 | Outpatient (CLI) | payer MEDICARE ==
[2019-03-04] MEDS ORDERED: SILVER NITRATE APPLICATOR 1 EA TP ONE (11:00)
[2019-03-04] MEDS ORDERED: LIDOCAINE (4%) 40 MG/ML TOPICAL SOLN 50 ML BOTTLE TP ONE (11:00)
== END 2019-03-04 10:29 | disposition home or self-care (01) ==
LOC: WOUND 10:28
PROVIDERS: ATTEND Surgery
DX: L73.2 Hidradenitis suppurativa (principal); K62.1 Rectal polyp; F17.200 Nicotine dependence, unspecified, uncomplicated
CPT/HCPCS: 17250

== ENCOUNTER 2019-03-25 10:21 | Outpatient (CLI) | payer MEDICARE | END 2019-03-25 10:22 | disposition home or self-care (01) | LOC: WOUND 10:21 | PROVIDERS: ATTEND Surgery | DX: L73.2 Hidradenitis suppurativa (principal); K62.1 Rectal polyp; F17.200 Nicotine dependence, unspecified, uncomplicated | CPT/HCPCS: 17250 ==

== ENCOUNTER 2019-04-15 10:37 | Outpatient (CLI) | payer MEDICARE ==
[2019-04-15] MEDS ORDERED: LIDOCAINE (4%) 40 MG/ML TOPICAL SOLN 50 ML BOTTLE TP ONE (11:00)
[2019-04-15] MEDS ORDERED: SILVER NITRATE APPLICATOR 1 EA TP ONE (11:00)
== END 2019-04-15 10:38 | disposition home or self-care (01) ==
LOC: WOUND 10:37
PROVIDERS: ATTEND Surgery
DX: L73.2 Hidradenitis suppurativa (principal); K62.1 Rectal polyp; F17.200 Nicotine dependence, unspecified, uncomplicated

== ENCOUNTER 2019-04-29 10:21 | Outpatient (CLI) | payer MEDICARE ==
[2019-04-29] MEDS ORDERED: LIDOCAINE (4%) 40 MG/ML TOPICAL SOLN 50 ML BOTTLE TP ONE (10:29)
[2019-04-29] MEDS ORDERED: SILVER NITRATE APPLICATOR 1 EA TP ONE (10:29)
== END 2019-04-29 10:22 | disposition home or self-care (01) ==
LOC: WOUND 10:21
PROVIDERS: ATTEND Surgery
DX: S21.201D Unspecified open wound of right back wall of thorax without penetration into thoracic cavity, subsequent encounter (principal); L73.2 Hidradenitis suppurativa; K62.1 Rectal polyp; F17.200 Nicotine dependence, unspecified, uncomplicated; X58.XXXD Exposure to other specified factors, subsequent encounter

== ENCOUNTER 2019-05-20 09:21 | Outpatient (CLI) | payer MEDICARE ==
[2019-05-20] MEDS ORDERED: SILVER NITRATE APPLICATOR 1 EA TP ONE (10:00)
[2019-05-20] MEDS ORDERED: LIDOCAINE (4%) 40 MG/ML TOPICAL SOLN 50 ML BOTTLE TP ONE (10:00)
== END 2019-05-20 09:22 | disposition home or self-care (01) ==
LOC: WOUND 09:21
PROVIDERS: ATTEND Surgery
DX: S21.201D Unspecified open wound of right back wall of thorax without penetration into thoracic cavity, subsequent encounter (principal); L73.2 Hidradenitis suppurativa; K62.1 Rectal polyp; F17.200 Nicotine dependence, unspecified, uncomplicated; X58.XXXD Exposure to other specified factors, subsequent encounter

== ENCOUNTER 2019-06-17 10:33 | Outpatient (CLI) | payer MEDICARE ==
[2019-06-17] MEDS ORDERED: SILVER NITRATE APPLICATOR 1 EA TP ONE (11:38)
[2019-06-17] MEDS ORDERED: LIDOCAINE (4%) 40 MG/ML TOPICAL SOLN 50 ML BOTTLE TP ONE (11:38)
== END 2019-06-17 10:34 | disposition home or self-care (01) ==
LOC: WOUND 10:33
PROVIDERS: ATTEND Surgery
DX: S21.201D Unspecified open wound of right back wall of thorax without penetration into thoracic cavity, subsequent encounter (principal); L73.2 Hidradenitis suppurativa; K62.1 Rectal polyp; F17.200 Nicotine dependence, unspecified, uncomplicated; X58.XXXD Exposure to other specified factors, subsequent encounter

== ENCOUNTER 2019-07-01 10:26 | Outpatient (CLI) | payer MEDICARE ==
[2019-07-01] MEDS ORDERED: SILVER NITRATE APPLICATOR 1 EA TP ONE (11:00)
[2019-07-01] MEDS ORDERED: LIDOCAINE (4%) 40 MG/ML TOPICAL SOLN 50 ML BOTTLE TP ONE (11:00)
== END 2019-07-01 10:27 | disposition home or self-care (01) ==
LOC: WOUND 10:26
PROVIDERS: ATTEND Surgery
DX: S21.201D Unspecified open wound of right back wall of thorax without penetration into thoracic cavity, subsequent encounter (principal); L73.2 Hidradenitis suppurativa; K62.1 Rectal polyp; F17.200 Nicotine dependence, unspecified, uncomplicated; X58.XXXD Exposure to other specified factors, subsequent encounter

== ENCOUNTER 2019-07-17 10:27 | Outpatient (CLI) | payer MEDICARE ==
[2019-07-17] MEDS ORDERED: LIDOCAINE (4%) 40 MG/ML TOPICAL SOLN 50 ML BOTTLE TP ONE (11:00)
[2019-07-17] MEDS ORDERED: SILVER NITRATE APPLICATOR 1 EA TP ONE (11:00)
== END 2019-07-17 10:28 | disposition home or self-care (01) ==
LOC: WOUND 10:27
PROVIDERS: ATTEND Surgery
DX: L73.2 Hidradenitis suppurativa (principal); S21.201D Unspecified open wound of right back wall of thorax without penetration into thoracic cavity, subsequent encounter; K62.1 Rectal polyp; F17.200 Nicotine dependence, unspecified, uncomplicated; X58.XXXD Exposure to other specified factors, subsequent encounter

== ENCOUNTER 2019-07-31 10:20 | Outpatient (CLI) | payer MEDICARE ==
[2019-07-31] MEDS ORDERED: LIDOCAINE (4%) 40 MG/ML TOPICAL SOLN 50 ML BOTTLE TP NR (11:00)
== END 2019-07-31 10:21 | disposition home or self-care (01) ==
LOC: WOUND 10:20
PROVIDERS: ATTEND Surgery
DX: L73.2 Hidradenitis suppurativa (principal); S21.201D Unspecified open wound of right back wall of thorax without penetration into thoracic cavity, subsequent encounter; K62.1 Rectal polyp; F17.200 Nicotine dependence, unspecified, uncomplicated; X58.XXXD Exposure to other specified factors, subsequent encounter

== ENCOUNTER 2019-08-28 10:33 | Outpatient (CLI) | payer MEDICARE ==
[2019-08-28] MEDS ORDERED: LIDOCAINE (4%) 40 MG/ML TOPICAL SOLN 50 ML BOTTLE TP ONE (10:35)
[2019-08-28] MEDS ORDERED: SILVER NITRATE APPLICATOR 1 EA TP ONE (10:42)
== END 2019-08-28 10:34 | disposition home or self-care (01) ==
LOC: WOUND 10:33
PROVIDERS: ATTEND Surgery
DX: L73.2 Hidradenitis suppurativa (principal); S21.201D Unspecified open wound of right back wall of thorax without penetration into thoracic cavity, subsequent encounter; K62.1 Rectal polyp; F17.200 Nicotine dependence, unspecified, uncomplicated; X58.XXXD Exposure to other specified factors, subsequent encounter

== ENCOUNTER 2019-09-18 10:16 | Outpatient (CLI) | payer MEDICARE ==
[2019-09-18] MEDS ORDERED: SILVER NITRATE APPLICATOR 1 EA TP ONE (10:41)
[2019-09-18] MEDS ORDERED: LIDOCAINE (4%) 40 MG/ML TOPICAL SOLN 50 ML BOTTLE TP ONE (11:00)
[2019-09-18] MEDS ORDERED: SODIUM HYPOCHLORITE, DAKIN'S FULL STRENGTH (0.5%) 473 ML TOPICAL SOLN TP ONE (11:08)
== END 2019-09-18 10:17 | disposition home or self-care (01) ==
LOC: WOUND 10:16
PROVIDERS: ATTEND Surgery
DX: L73.2 Hidradenitis suppurativa (principal); S21.201D Unspecified open wound of right back wall of thorax without penetration into thoracic cavity, subsequent encounter; K62.1 Rectal polyp; F17.200 Nicotine dependence, unspecified, uncomplicated; X58.XXXD Exposure to other specified factors, subsequent encounter

== ENCOUNTER 2019-10-16 10:40 | Outpatient (CLI) | payer MEDICARE ==
[2019-10-16] MEDS ORDERED: SILVER NITRATE APPLICATOR 1 EA TP ONE (10:45)
[2019-10-16] MEDS ORDERED: LIDOCAINE (4%) 40 MG/ML TOPICAL SOLN 50 ML BOTTLE TP ONE (10:45)
== END 2019-10-16 10:41 | disposition home or self-care (01) ==
LOC: WOUND 10:40
PROVIDERS: ATTEND Surgery
DX: L73.2 Hidradenitis suppurativa (principal); S21.201D Unspecified open wound of right back wall of thorax without penetration into thoracic cavity, subsequent encounter; K62.1 Rectal polyp; F17.210 Nicotine dependence, cigarettes, uncomplicated; X58.XXXD Exposure to other specified factors, subsequent encounter

== ENCOUNTER 2019-11-19 10:05 | Outpatient (CLI) | payer MEDICARE ==
[2019-11-19] MEDS ORDERED: LIDOCAINE (4%) 40 MG/ML TOPICAL SOLN 50 ML BOTTLE TP ONE (10:30)
== END 2019-11-19 10:06 | disposition home or self-care (01) ==
LOC: WOUND 10:05
PROVIDERS: ATTEND Surgery
DX: L73.2 Hidradenitis suppurativa (principal); S21.201D Unspecified open wound of right back wall of thorax without penetration into thoracic cavity, subsequent encounter; K62.1 Rectal polyp; F17.210 Nicotine dependence, cigarettes, uncomplicated; X58.XXXD Exposure to other specified factors, subsequent encounter

== ENCOUNTER 2019-12-04 10:22 | Outpatient (CLI) | payer MEDICARE ==
[2019-12-04] MEDS ORDERED: LIDOCAINE (4%) 40 MG/ML TOPICAL SOLN 50 ML BOTTLE TP ONE (10:32)
[2019-12-04] MEDS ORDERED: SILVER NITRATE APPLICATOR 1 EA TP ONE (10:33)
== END 2019-12-04 10:23 | disposition home or self-care (01) ==
LOC: WOUND 10:22
PROVIDERS: ATTEND Surgery
DX: L73.2 Hidradenitis suppurativa (principal); S21.201D Unspecified open wound of right back wall of thorax without penetration into thoracic cavity, subsequent encounter; K62.1 Rectal polyp; F17.210 Nicotine dependence, cigarettes, uncomplicated; X58.XXXD Exposure to other specified factors, subsequent encounter

== ENCOUNTER 2019-12-18 10:49 | Outpatient (CLI) | payer MEDICARE ==
[2019-12-18] MEDS ORDERED: LIDOCAINE (4%) 40 MG/ML TOPICAL SOLN 50 ML BOTTLE TP ONE (11:30)
== END 2019-12-18 10:50 | disposition home or self-care (01) ==
LOC: WOUND 10:49
PROVIDERS: ATTEND Surgery
DX: L73.2 Hidradenitis suppurativa (principal); S21.201D Unspecified open wound of right back wall of thorax without penetration into thoracic cavity, subsequent encounter; K62.1 Rectal polyp; F17.200 Nicotine dependence, unspecified, uncomplicated; X58.XXXD Exposure to other specified factors, subsequent encounter

== ENCOUNTER 2020-01-01 10:14 | Outpatient (CLI) | payer MEDICARE ==
[2020-01-01] MEDS ORDERED: SILVER NITRATE APPLICATOR 1 EA TP ONE (11:00)
[2020-01-01] MEDS ORDERED: LIDOCAINE (4%) 40 MG/ML TOPICAL SOLN 50 ML BOTTLE TP ONE (11:00)
== END 2020-01-01 10:15 | disposition home or self-care (01) ==
LOC: WOUND 10:14
PROVIDERS: ATTEND Surgery
DX: L73.2 Hidradenitis suppurativa (principal); S21.201D Unspecified open wound of right back wall of thorax without penetration into thoracic cavity, subsequent encounter; K62.1 Rectal polyp; F17.200 Nicotine dependence, unspecified, uncomplicated; X58.XXXD Exposure to other specified factors, subsequent encounter

== ENCOUNTER 2020-01-22 10:18 | Outpatient (CLI) | payer MEDICARE ==
[2020-01-22] MEDS ORDERED: LIDOCAINE (4%) 40 MG/ML TOPICAL SOLN 50 ML BOTTLE TP SCH (10:35)
== END 2020-01-22 10:19 | disposition home or self-care (01) ==
LOC: WOUND 10:18
PROVIDERS: ATTEND Surgery
DX: L73.2 Hidradenitis suppurativa (principal); S21.201D Unspecified open wound of right back wall of thorax without penetration into thoracic cavity, subsequent encounter; K62.1 Rectal polyp; F17.200 Nicotine dependence, unspecified, uncomplicated; X58.XXXD Exposure to other specified factors, subsequent encounter

== ENCOUNTER 2020-02-05 12:04 | Emergency (ER) | payer MEDICARE ==
[2020-02-05] MEDS ORDERED: SODIUM CHLORIDE 0.9% 1000 ML 1,000 ML IV ONE ×2 (12:24→15:40)
[2020-02-05] MEDS ORDERED: ONDANSETRON 4 MG/2 ML INJ IV ONE (12:24)
[2020-02-05] MEDS ORDERED: LOPERAMIDE 2 MG CAP PO ONE (12:24)
[2020-02-05 12:55] LABS: Basophils # (Auto) 0.1 K/mm3 (0.0-0.1); Basophils % (Auto) 0.4 % (0.0-1.8); Eosinophils # (Auto) 0.2 K/mm3 (0.0-0.4); Eosinophils % (Auto) 1.7 % (0.0-4.3); Hematocrit 32.7 % (35.5-45.6); Hemoglobin 10.2 gm/dl (11.8-15.2); Lymphocytes # (Auto) 1.7 K/mm3 (1.2-5.4); Mean Corpuscular HGB Conc 31 % (32-34); Mean Corpuscular Volume 90 fl (84-94); Monocytes # (Auto) 0.5 K/mm3 (0.0-0.8); Monocytes % (Auto) 3.2 % (0.0-7.3); Platelet Count 300 K/mm3 (140-440); Red Blood Count 3.66 M/mm3 (3.65-5.03); Red Cell Distribution Width 14.8 % (13.2-15.2)
--- NOTE | 2020-02-05 13:01 | Emergency Department Report ---
ED N/V/D HPI - General Chief complaint: Nausea/Vomiting/Diarrhea Stated complaint: N/V/D Time Seen by Provider: 02/05/20 12:18 Source: patient Mode of arrival: Stretcher Limitations: No Limitations - History of Present Illness Initial comments: 59-year-old male, history of hidradenitis, presents to the ED with vomiting and diarrhea x 1 week. Patient states he has not been eating any medication. Only attempted to stay hydrated with Gatorade. Patient states he is scheduled to have surgery next week on a current groin wound from his hidradenitis. Patient states he is not on any antibiotics at this time. He denies any fever or abdominal pain. He also denies any body aches, loss of smell or taste, or known exposure to anyone who has tested positive for COVID-19. MD complaint: nausea, vomiting, diarrhea -: week(s) (1) Associated Abdominal Pain: No Severity: moderate Consistency: constant Improves with: none Worsens with: none Associated Symptoms: nausea/vomiting. denies: cough, fever/chills, shortness of breath - Related Data Previous Rx's Medication Instructions Recorded Last Taken Type Acetaminophen [Acetaminophen TAB] 1 tab PO Q4H PRN #15 tablet 01/27/19 Unknown Rx cefUROXime [Ceftin] 2 tab PO BID #28 tablet 01/27/19 Unknown Rx oxyCODONE /ACETAMINOPHEN [Percocet 1 tab PO Q6H PRN #20 tablet 01/27/19 Unknown Rx 5/325 mg] Dicyclomine [Bentyl] 20 mg PO QID PRN #20 tablet 02/05/20 Unknown Rx Ondansetron [Zofran Odt] 4 mg PO Q8HR PRN #20 tab.rapdis 02/05/20 Unknown Rx Allergies Allergy/AdvReac Type Severity Reaction Status Date / Time No Known Allergies Allergy Verified 01/20/19 15:49 ED Review of Systems ROS: Stated complaint: N/V/D Other details as noted in HPI Comment: All other systems reviewed and negative Constitutional: denies: chills, fever Respiratory: denies: cough Gastrointestinal: nausea, vomiting, diarrhea. denies: abdominal pain Skin: as per HPI ED Past Medical Hx - Past Medical History Hx Hypertension: Yes Hx Heart Attack/AMI: No Hx Diabetes: No Hx Deep Vein Thrombosis: No Hx Liver Disease: No Hx Renal Disease: No (CKD) Hx Arthritis: Yes (GENERALIZED) Hx Tuberculosis: Yes (AGE 8, TREATED) Hx HIV: No Additional medical history: hydrodenitis, Rectal polyps, gastric ulcers, GI bleeding, sepsis, shock, multiple transfusions, hospitalization in April 2018 - Surgical History Additional Surgical History: multiple skin graft, wound vac to stomach - Social History Smoking Status: Never Smoker - Medications Home Medications: Home Medications Medication Instructions Recorded Confirmed Last Taken Type Acetaminophen [Acetaminophen TAB] 1 tab PO Q4H PRN #15 tablet 01/27/19 Unknown Rx cefUROXime [Ceftin] 2 tab PO BID #28 tablet 01/27/19 Unknown Rx oxyCODONE /ACETAMINOPHEN [Percocet 1 tab PO Q6H PRN #20 tablet 01/27/19 Unknown Rx 5/325 mg] Dicyclomine [Bentyl] 20 mg PO QID PRN #20 tablet 02/05/20 Unknown Rx Ondansetron [Zofran Odt] 4 mg PO Q8HR PRN #20 tab.rapdis 02/05/20 Unknown Rx ED Physical Exam - General Limitations: No Limitations General appearance: alert, in no apparent distress - Head Head exam: Present: atraumatic, normocephalic - Eye Eye exam: Present: normal appearance, EOMI - ENT ENT exam: Present: mucous membranes moist - Neck Neck exam: Present: normal inspection - Respiratory Respiratory exam: Present: normal lung sounds bilaterally. Absent: respiratory distress - Cardiovascular Cardiovascular Exam: Present: regular rate, normal rhythm - GI/Abdominal GI/Abdominal exam: Present: soft. Absent: distended, tenderness - Extremities Exam Extremities exam: Present: normal inspection - Neurological Exam Neurological exam: Present: alert, oriented X3 - Psychiatric Psychiatric exam: Present: normal affect, normal mood - Skin Skin exam: Present: warm, dry ED Course Vital Signs 02/05/20 02/05/20 02/05/20 12:16 12:38 13:00 Temperature 98.2 F Pulse Rate 68 67 Respiratory 14 16 Rate Blood Pressure 132/73 Blood Pressure 121/64 [Left] O2 Sat by Pulse 100 100 99 Oximetry 02/05/20 02/05/20 15:00 16:45 Temperature Pulse Rate 69 74 Respiratory 12 14 Rate Blood Pressure 135/67 135/68 Blood Pressure [Left] O2 Sat by Pulse 100 100 Oximetry ED Medical Decision Making - Lab Data Result diagrams: 02/05/20 12:39 02/05/20 12:23 - Radiology Data Radiology results: report reviewed, image reviewed - Medical Decision Making 59-year-old male with vomiting and diarrhea x1 week. Patient denies any abdominal pain. He is afebrile, vital signs are stable. WBCs slightly elevated at 14. Patient has some baseline chronic kidney disease. Slight worsening likely due to dehydration secondary to vomiting and diarrhea. He has been given 2 L bolus of IV fluids. CT shows some thickening of the antrum and duodenum. Vitals are stable. Patient is feeling much better at this time. Prescriptions will be given. Outpatient follow-up advised. Return precautions given. - Differential Diagnosis Gastroenteritis, dehydration, diverticulitis Critical care attestation.: If time is entered above; I have spent that time in minutes in the direct care of this critically ill patient, excluding procedure time. ED Disposition Clinical Impression: Gastroenteritis, Dehydration Disposition: - TO HOME OR SELFCARE Is pt being admited?: No Condition: Stable Instructions: Viral Gastroenteritis, Adult, Food Choices to Help Relieve Diarrhea, Adult, Dehydration, Adult, Nmmf-[id number]-[id number] Prescriptions: Dicyclomine [Bentyl] 20 mg PO QID PRN #20 tablet PRN Reason: abdominal pain Ondansetron [Zofran Odt] 4 mg PO Q8HR PRN #20 tab.rapdis PRN Reason: Vomiting Referrals: JON LOCKE MD, PHD [Primary Care Provider] - 3-5 Days Time of Disposition: 15:51
[2020-02-05 13:12] LABS: Alanine Aminotransferase 5 units/L (7-56); Albumin 3.2 g/dL (3.9-5); BUN/Creatinine Ratio 13; Blood Urea Nitrogen 37 mg/dL (9-20); Calcium 8.8 mg/dL (8.4-10.2); Hemolysis Index 0
[2020-02-05 13:13] LABS: Bilirubin,Direct < 0.2 mg/dL (0-0.2)
--- NOTE | 2020-02-05 15:38 | Cat Scan Report ---
CT ABDOMEN PELVIS WITHOUT CONTRAST INDICATION / CLINICAL INFORMATION: vomiting, diarrhea. TECHNIQUE: Axial CT images were obtained through the abdomen and pelvis without IV contrast. All CT scans at [facility] location are performed using CT dose reduction for ALARA by means of automated exposure control. COMPARISON: 06/15/2018 FINDINGS: LOWER CHEST: No significant abnormality. LIVER: No significant abnormality. GALLBLADDER: No definite evidence of cholelithiasis BILE DUCTS: No significant abnormality. PANCREAS: No significant abnormality. SPLEEN: No significant abnormality. ADRENALS: No significant abnormality. RIGHT KIDNEY and URETER: No significant abnormality. LEFT KIDNEY and URETER: No significant abnormality. STOMACH and SMALL BOWEL: Thickening of the antrum and duodenum is noted COLON: No significant abnormality. APPENDIX: No significant abnormality. PERITONEUM: No free fluid. No free air. No fluid collection. LYMPH NODES: No significant adenopathy. AORTA and ARTERIES: No significant abnormality. IVC and VEINS: No significant abnormality. URINARY BLADDER: No significant abnormality. REPRODUCTIVE ORGANS: No significant abnormality ADDITIONAL FINDINGS: Persistent but much less reticulation of subcutaneous fat. Again noted thickenin g of the subcutaneous tissue involving the buttocks SKELETAL SYSTEM: No significant abnormality. IMPRESSION: 1. Persistent abnormal appearance of the subcutaneous tissues as noted 2. Persistent thickening of the antrum -duodenum, inflammatory changes are a concern Signer Name: Ender Bhardwaj MD Signed: 02/05/2020 3:33 PM Workstation Name: [id number]
[2020-02-05 15:39] LABS: Bilirubin,Urine NEG (Negative); Blood,Urine MOD (Negative); Color,Urine Yellow (Yellow); Mucus,Urine FEW /HPF
[2020-02-05 15:47] LABS: Protein,Urine >500 mg/dL (Negative)
[2020-02-05 17:43] VITALS: BP 135/68
== END 2020-02-05 17:43 | disposition home or self-care (01) ==
LOC: ED 12:04
DX: K52.9 Noninfective gastroenteritis and colitis, unspecified (principal); E86.0 Dehydration; I10 Essential (primary) hypertension; M19.91 Primary osteoarthritis, unspecified site; Z86.11 Personal history of tuberculosis; Z98.890 Other specified postprocedural states; Z79.899 Other long term (current) drug therapy
CPT/HCPCS: 36415; 74176; 80048; 80076; 81001; 83690; 85025; 87086; 96361; 96374; 99284; J2405; J7030

== ENCOUNTER 2020-02-19 10:57 | Observation (INO) | payer MEDICARE ==
[2020-02-19] MEDS ORDERED: LACTATED RINGERS 1,000 ML IV SCH (11:29)
[2020-02-19] MEDS ORDERED: HEPARIN 5,000 UNIT/1 ML VIAL SUB-Q NR (12:00)
[2020-02-19] MEDS ORDERED: ceFAZolin/STERILE WATER 2 GM/20 ML SYRINGE IV NR (12:00)
[2020-02-19] MEDS ORDERED: HYDROmorphone 1 MG/1 ML INJ IV PRN ×2 (12:22→15:49)
[2020-02-19] MEDS ORDERED: ONDANSETRON 4 MG/2 ML INJ IV PRN ×2 (12:22→15:49)
--- NOTE | 2020-02-19 12:28 | Anesthesia Day of Surgery ---
Anesthesia Day of Surgery - Day of Surgery Patient Examined: Yes Patient H&P Reviewed: Yes Patient is NPO: Yes
--- NOTE | 2020-02-19 12:29 | Anesthesia Consultation ---
Anesthesia Consult and Med Hx Date of service: 02/19/20 - Airway Anesthetic Teeth Evaluation: Chipped ROM Head & Neck: Adequate Mental/Hyoid Distance: Adequate Mallampati Class: Class III Intubation Access Assessment: Probably Good - Pre-Operative Health Status ASA Pre-Surgery Classification: ASA2 Proposed Anesthetic Plan: General - Pulmonary Hx Smoking: Yes (CIGARS, QUIT JAN 2017) Hx Respiratory Symptoms: No (+2FS) Hx Pneumonia: Yes (APR 2018; resolved) Hx Sleep Apnea: No (RAJEEV PRE SCREEN LOW RISK) - Cardiovascular System Hx Hypertension: No Hx Heart Attack/AMI: No - Central Nervous System Hx Neuromuscular Disorder: No CVA: No Hx Psychiatric Problems: No - Gastrointestinal Hx Ulcer: Yes Hx Gastroesophageal Reflux Disease: No - Endocrine Hx Renal Disease: No (CKD) Hx End Stage Renal Disease: (Hx of CRF) Hx Liver Disease: No Hx Insulin Dependent Diabetes: No Hx Non-Insulin Dependent Diabetes: No Hx Thyroid Disease: No - Hematic Hx Anemia: Yes - Other Systems Hx Alcohol Use: Yes (rare) Hx Substance Use: No Hx Cancer: No Hx Obesity: No
[2020-02-19] MEDS ORDERED: MIDAZOLAM 2 MG/2 ML INJ IV NR (13:00)
[2020-02-19] MEDS ORDERED: ONDANSETRON 4 MG/2 ML INJ ONE (13:15)
[2020-02-19] MEDS ORDERED: propofoL 200 MG/20 ML VIAL IV ONE (13:15)
[2020-02-19] MEDS ORDERED: HYDROmorphone 1 MG/1 ML INJ ONE (13:15)
[2020-02-19] MEDS ORDERED: LIDOCAINE MPF (2%) 20 MG/1 ML VIAL 5 ML ONE (13:15)
[2020-02-19] MEDS ORDERED: dexAMETHasone 20 MG/5 ML VIAL ONE (13:15)
[2020-02-19] MEDS ORDERED: SODIUM CHLORIDE 0.9% IRR 1,500 ML BOTTLE IR ONE (14:24)
[2020-02-19] MEDS: HYDROmorphone 1 MG/1 ML INJ IV PRN ×4 (15:13→16:34)
--- NOTE | 2020-02-19 15:26 | Procedure Note ---
Date of procedure: 02/19/20 Pre-op diagnosis: Severe scrotal hidradenitis Post-op diagnosis: same Procedure: Excision of scrotal hidradenitis Description of procedure: Pt was placed supine on the OR table. GETA was administered. Lower abdomen, genitalia and upper thighs were prepped and draped. Involved skin and SQ tissue of the scrotum, lower right abdomen and right proximal thigh were excised with the Bovie. Bleeding was controlled with the Bovie. Wounds were then packed open with a dilute, Betadine moistened Kerlix roll followed by dry 4 X 4's, Medipore tape and mesh panties. Pt tolerated the procedure well. Pt was extubated in the OR. Pt was taken to PACU in stable condition. Anesthesia: GETA Surgeon: BECKY HERNANDEZ Estimated blood loss: 50-100ml Pathology: list (1) Scrotal skin and SQ tissue 2) C&S of scrotal pus) Specimen disposition: to lab Condition: stable Disposition: PACU
[2020-02-19] MEDS ORDERED: ePHEDrine SULFATE 50 MG/1 ML INJ ONE (15:31)
--- NOTE | 2020-02-19 15:46 | History and Physical Report ---
History of Present Illness Date of examination: 02/19/20 Date of admission: 02/19/2020 Chief complaint: Extensive excision of hidradenitis lesion from the groin and scrotum History of present illness: Patient being admitted directly from PACU after extensive excision of hidradenitis tissue from groin and scrotum. Most of the scrotal wall is nearly excised as per Dr. Aguilar. Patient being admitted for pain management and wound care and possible discharge in 24 to 48 hours. Surgical procedure Description of procedure: Pt was placed supine on the OR table. GETA was administered. Lower abdomen, genitalia and upper thighs were prepped and draped. Involved skin and SQ tissue of the scrotum, lower right abdomen and right proximal thigh were excised with the Bovie. Bleeding was controlled with the Bovie. Wounds were then packed open with a dilute, Betadine moistened Kerlix roll followed by dry 4 X 4's, Medipore tape and mesh panties. Pt tolerated the procedure well. Pt was extubated in the OR. Pt was taken to PACU in stable condition. Past History Past Medical History: other (Severe hidradenitis) Past Surgical History: Other (Excision of hidradenitis lesions) Social history: lives with family, full code Family history: hypertension Medications and Allergies Allergies Allergy/AdvReac Type Severity Reaction Status Date / Time No Known Allergies Allergy Verified 01/20/19 15:49 Active Meds: Active Medications Cefazolin Sodium (Ancef/Sterile Water 2 Gm/20 Ml) 2 gm IV PREOP NR Stop: 02/19/20 20:00 Heparin Sodium (Porcine) (Heparin) 5,000 unit SUB-Q PREOP NR Stop: 02/19/20 20:00 Last Admin: 02/19/20 12:40 Dose: 5,000 unit Documented by: Hydromorphone HCl (Dilaudid) 0.25 mg IV Q10MIN PRN PRN Reason: Pain, Moderate (4-6) Stop: 02/19/20 23:59 Hydromorphone HCl (Dilaudid) 0.5 mg IV Q10MIN PRN PRN Reason: Pain , Severe (7-10) Stop: 02/19/20 23:59 Last Admin: 02/19/20 15:24 Dose: 0.5 mg Documented by: Lactated Ringer's (Lactated Ringers) 1,000 mls @ 100 mls/hr IV DIRECT NESTOR Last Admin: 02/19/20 12:10 Dose: 100 mls/hr Documented by: Midazolam HCl (Versed) 2 mg IV PREOP NR Stop: 02/19/20 23:59 Last Admin: 02/19/20 12:42 Dose: 2 mg Documented by: Ondansetron HCl (Zofran) 4 mg IV ONCE PRN PRN Reason: Nausea And Vomiting Review of Systems All systems: negative Exam - Constitutional Vitals: Temp Pulse Resp BP Pulse Ox 97.5 F L 78 13 102/60 100 02/19/20 11:40 02/19/20 11:40 02/19/20 15:24 02/19/20 11:40 02/19/20 11:40 General appearance: Present: no acute distress, mild distress, well-nourished - EENT Eyes: Present: PERRL ENT: hearing intact, clear oral mucosa - Neck Neck: Present: supple, normal ROM - Respiratory Respiratory effort: normal Respiratory: bilateral: CTA - Cardiovascular Heart rate: 78 Rhythm: regular Heart Sounds: Present: S1 & S2. Absent: rub, click - Extremities Extremities: pulses symmetrical, No edema, abnormal (Surgical excision of groin and scrotal hidradenitis lesions) Peripheral Pulses: within normal limits - Abdominal General gastrointestinal: Present: soft, non-tender, non-distended, normal bowel sounds Male genitourinary: Present: normal - Integumentary Integumentary: Present: clear, warm, dry - Musculoskeletal Musculoskeletal: gait normal, strength equal bilaterally - Psychiatric Psychiatric: appropriate mood/affect, intact judgment & insight - Neurologic Neurologic: CNII-XII intact, moves all extremities Results - Labs CBC & Chem 7: 02/20/20 06:24 02/20/20 06:24 Mercado/IV: Voiding Method Toilet Assessment and Plan Advance Directives: Yes (Full code) VTE prophylaxis?: Chemical Plan of care discussed with patient/family: Yes - Patient Problems (1) DWIGTH (acute kidney injury) Current Visit: No Status: Acute Plan to address problem: IV fluids for now Possible ATN/vasomotor nephropathy (2) Hidradenitis suppurativa Current Visit: No Status: Acute Plan to address problem: Patient had extensive excision of the groin lower abdomen and scrotal wall. As per Dr. Aguilar the surgeon no need for antibiotics. As per surgery to admit for wound care and pain management. Once pain is manageable patient to be discharged. Patient initiated on Dilaudid 0.5 every 3. Patient also to be started on Percocet and if he can manage on Percocet patient to be discharged. Wound care consult requested. (3) Anemia Current Visit: Yes Status: Chronic Qualifiers: Anemia type: unspecified type Qualified Code(s): D64.9 - Anemia, unspecified Plan to address problem: Secondary to coronary stents Iron levels ordered (4) DVT prophylaxis Current Visit: No Status: Acute
[2020-02-19] MEDS ORDERED: ePHEDrine SULFATE 50 MG/1 ML INJ IV PRN (15:47)
[2020-02-19] MEDS ORDERED: METOCLOPRAMIDE 10 MG/2 ML INJ IV PRN (15:49)
[2020-02-19] MEDS ORDERED: ACETAMINOPHEN 325 MG TAB PO PRN (15:49)
--- NOTE | 2020-02-19 16:10 | Post Anesthesia Evaluation ---
- Post Anesthesia Evaluation Patient Participated: Yes Airway Patent: Yes Stable Respiratory Function: Yes Nausea/Vomiting: No Temp > 96.8F: Yes Pain Manageable: Yes Adequeate Hydration: Yes Anesthesia Complications: No Block Receding Appropriately: Not Applicable Patient on Ventilator: No
[2020-02-19] MEDS: HEPARIN 5,000 UNIT/1 ML VIAL SUB-Q SCH (22:40)
[2020-02-19] MEDS: SODIUM CHLORIDE 0.9% 1000 ML 1,000 ML IV SCH (22:40)
[2020-02-19] MEDS: oxyCODONE /ACETAMINOPHEN 5-325MG TAB PO PRN (22:41)
[2020-02-20 06:35] LABS: Basophils # (Auto) 0.1 K/mm3 (0.0-0.1); Basophils % (Auto) 0.5 % (0.0-1.8); Eosinophils # (Auto) 0.2 K/mm3 (0.0-0.4); Eosinophils % (Auto) 2.1 % (0.0-4.3); Hematocrit 25.1 % (35.5-45.6); Hemoglobin 7.7 gm/dl (11.8-15.2); Lymphocytes # (Auto) 1.2 K/mm3 (1.2-5.4); Lymphocytes % (Auto) 13.3 % (13.4-35.0); Mean Corpuscular HGB Conc 31 % (32-34); Mean Corpuscular Volume 91 fl (84-94); Monocytes # (Auto) 0.5 K/mm3 (0.0-0.8); Monocytes % (Auto) 5.1 % (0.0-7.3); Platelet Count 216 K/mm3 (140-440); Red Blood Count 2.75 M/mm3 (3.65-5.03); Red Cell Distribution Width 15.7 % (13.2-15.2)
[2020-02-20 07:10] LABS: Albumin 1.9 g/dL (3.9-5); Calcium 7.4 mg/dL (8.4-10.2)
[2020-02-20] MEDS: HEPARIN 5,000 UNIT/1 ML VIAL SUB-Q SCH ×3 (09:56→22:28)
[2020-02-20] MEDS: HYDROmorphone 1 MG/1 ML INJ IV PRN ×2 (10:00→14:58)
[2020-02-20] MEDS ORDERED: METOCLOPRAMIDE 10 MG/2 ML INJ IV PRN (12:00)
[2020-02-20] MEDS: SODIUM CHLORIDE 0.9% 1000 ML 1,000 ML IV SCH (14:59)
--- NOTE | 2020-02-20 16:05 | Progress Note ---
<TERRY BRAVO - Last Filed: 02/20/20 16:23> Assessment and Plan - Patient Problems (1) Hidradenitis suppurativa Current Visit: No Status: Acute Plan to address problem: Patient has a history of recurrent hydradenitis who has been followed by Dr. Aguilar since relocating to [place] from [place] and underwent several surg eries 02/18 s/p extensive excision of the groin lower abdomen and scrotal wall. As per Dr. Aguilar the surgeon no need for antibiotics and he is being admitted for wound care and pain management, once pain is manageable patient can be discharged As needed analgesia: Dilaudid 0.5 mg every 3 hours with Percocet patient initiated on Dilaudid 0.5 every 3. Wound care consulted 02/18 surgical wound cultures Shows few gram-positive cocci in pairs, sensitivity and specificity to follow (2) Acute renal failure Current Visit: No Status: Acute Qualifiers: Acute renal failure type: unspecified Qualified Code(s): N17.9 - Acute kidney failure, unspecified Plan to address problem: Upon review of prior admissions baseline creatinine seems to be steadily increasing from 1.7 to admit creatinine of 2.4 on IV fluid for now Consider further renal studies if no improvement with possible consult to nephrology Trend BMP Avoid nephrotoxic medications Strict intake and output (3) Anemia Current Visit: No Status: Chronic Qualifiers: Anemia type: unspecified type Qualified Code(s): D64.9 - Anemia, unspecified Plan to address problem: Patient admitted with an H/H of 8.2/25 Upon reviewing prior admissions seems the patient H&H varies from 7.3/22.8 through 11.3/34.4 Iron studies ordered Trend CBC Transfuse for hemoglobin less than 7 Likely related to chronic wounds (4) DVT prophylaxis Current Visit: No Status: Acute Plan to address problem: SCDs to bilateral swelling bed History Interval history: This is a 58-year-old male with recurrent history of hydradenitis suppurativa who has been followed by the wound clinic and Dr. Aguilar since 2019 and has had several surgeries and rounds of antibiotics prior to moving to [place] from [place]. Patient presented on 01/18 as a direct admit from the wound care clinic to surgery when he had a excision of scrotal, lower right abdomen and right proximal thigh hydradenitis lesions. This morning wound care is at bedside for evaluation of his wound. Postop his wounds were packed with dilute Betadine moistened Kerlix followed by dry 4 x 4's and Medipore tape with mesh panties. This morning patient states his pain is not controlled and states that it takes several days for his pain to be controlled from experience with prior surgeries. Patient still remains n.p.o. Hospitalist Physical - Constitutional Vitals: Temp Pulse Resp BP Pulse Ox 99.3 F 74 18 109/57 100 02/20/20 05:50 02/20/20 05:50 02/20/20 05:50 02/20/20 05:50 02/20/20 05:50 General appearance: Present: no acute distress, mild distress, well-nourished - EENT Eyes: Present: PERRL, EOM intact ENT: hearing intact, clear oral mucosa, dentition normal - Neck Neck: Present: supple, normal ROM - Respiratory Respiratory effort: normal Respiratory: bilateral: CTA - Cardiovascular Rhythm: regular Heart Sounds: Present: S1 & S2. Absent: systolic murmur, diastolic murmur - Extremities Extremities: no ischemia, pulses intact, pulses symmetrical, No edema, normal temperature, normal color, Full ROM Peripheral Pulses: within normal limits - Abdominal General gastrointestinal: soft, non-tender, non-distended, normal bowel sounds - Integumentary Integumentary: Present: warm, dry - Additional findings Additional findings: Scrotal area with gauze with drainage and mesh panties. - Allied Health Allied health notes reviewed: nursing Results - Labs CBC & Chem 7: 02/20/20 06:24 02/20/20 06:24 Labs: Laboratory Last Values WBC 9.4 K/mm3 (4.5-11.0) 02/20/20 06:24 RBC 2.75 M/mm3 (3.65-5.03) L 02/20/20 06:24 Hgb 7.7 gm/dl (11.8-15.2) L 02/20/20 06:24 Hct 25.1 % (35.5-45.6) L 02/20/20 06:24 MCV 91 fl (84-94) 02/20/20 06:24 MCH 28 pg (28-32) 02/20/20 06:24 MCHC 31 % (32-34) L 02/20/20 06:24 RDW 15.7 % (13.2-15.2) H 02/20/20 06:24 Plt Count 216 K/mm3 (140-440) 02/20/20 06:24 Lymph % (Auto) 13.3 % (13.4-35.0) L 02/20/20 06:24 [place] % (Auto) 5.1 % (0.0-7.3) 02/20/20 06:24 Eos % (Auto) 2.1 % (0.0-4.3) 02/20/20 06:24 Baso % (Auto) 0.5 % (0.0-1.8) 02/20/20 06:24 Lymph # (Auto) 1.2 K/mm3 (1.2-5.4) 02/20/20 06:24 [place] # (Auto) 0.5 K/mm3 (0.0-0.8) 02/20/20 06:24 Eos # (Auto) 0.2 K/mm3 (0.0-0.4) 02/20/20 06:24 Baso # (Auto) 0.1 K/mm3 (0.0-0.1) 02/20/20 06:24 Seg Neutrophils % 79.0 % (40.0-70.0) H 02/20/20 06:24 Seg Neutrophils # 7.4 K/mm3 (1.8-7.7) 02/20/20 06:24 Sodium 137 mmol/L (137-145) 02/20/20 06:24 Potassium 4.8 mmol/L (3.6-5.0) 02/20/20 06:24 Chloride 107.5 mmol/L (98-107) H 02/20/20 06:24 Carbon Dioxide 21 mmol/L (22-30) L 02/20/20 06:24 Anion Gap 13 mmol/L 02/20/20 06:24 BUN 30 mg/dL (9-20) H 02/20/20 06:24 Creatinine 2.4 mg/dL (0.8-1.3) H 02/20/20 06:24 Estimated GFR 33 ml/min 02/20/20 06:24 BUN/Creatinine Ratio 13 % 02/20/20 06:24 Glucose 75 mg/dL (75-100) 02/20/20 06:24 POC Glucose 95 mg/dL (70-105) 02/19/20 21:21 Hemoglobin A1c 4.3 % (4-6) 02/19/20 20:13 Calcium 7.4 mg/dL (8.4-10.2) L 02/20/20 06:24 Total Bilirubin 0.30 mg/dL (0.1-1.2) 02/20/20 06:24 AST 8 units/L (5-40) 02/20/20 06:24 ALT 5 units/L (7-56) L 02/20/20 06:24 Alkaline Phosphatase 127 units/L (35-129) 02/20/20 06:24 Total Protein 7.0 g/dL (6.3-8.2) 02/20/20 06:24 Albumin 1.9 g/dL (3.9-5) L 02/20/20 06:24 Albumin/Globulin Ratio 0.4 % 02/20/20 06:24 Mercado/IV: Voiding Method Urinal IV Catheter Type [Right INT / Saline Lock Forearm] Active Medications - Current Medications Current Medications: Generic Name Dose Route Start Last Admin Trade Name Freq PRN Reason Stop Dose Admin Acetaminophen 650 mg 02/19/20 15:49 Tylenol PO Q4H PRN Pain MILD(1-3)/Fever >100.5/BARNES Heparin Sodium (Porcine) 5,000 unit 02/19/20 16:00 02/20/20 11:36 Heparin SUB-Q Not Given Q12HR NESTOR Hydromorphone HCl 1 mg 02/20/20 07:44 02/20/20 14:58 Dilaudid IV 1 mg Q3H PRN Administration Pain , Severe (7-10) Lactated Ringer's 1,000 mls @ 100 mls/hr 02/19/20 11:29 02/19/20 12:10 Lactated Ringers IV 100 mls/hr DIRECT NESTOR Administration Sodium Chloride 1,000 mls @ 75 mls/hr 02/19/20 17:00 02/20/20 14:59 Nacl 0.9% 1000 Ml IV 75 mls/hr DIRECT NESTOR Administration Metoclopramide HCl 5 mg 02/20/20 12:00 Reglan IV Q6H PRN Nausea And Vomiting Ondansetron HCl 4 mg 02/19/20 15:49 Zofran IV Q8H PRN Nausea And Vomiting Oxycodone/Acetaminophen 1 tab 02/19/20 15:49 02/19/20 22:41 Percocet 5/325 PO 1 tab Q6H PRN Administration Pain, Moderate (4-6) Sodium Chloride 10 ml 02/19/20 22:00 02/20/20 14:59 Sodium Chloride Flush Syringe 10 Ml IV 10 ml BID NESTOR Administration Sodium Chloride 10 ml 02/19/20 15:49 Sodium Chloride Flush Syringe 10 Ml IV PRN PRN LINE FLUSH <STEPHANI VELEZ M - Last Filed: 02/21/20 12:40> Assessment and Plan - Patient Problems (1) Hidradenitis suppurativa Current Visit: No Status: Acute Hospitalist Physical - Constitutional Vitals: Temp Pulse Resp BP Pulse Ox 97.9 F 76 16 105/53 100 02/21/20 05:50 02/21/20 05:50 02/21/20 05:50 02/21/20 05:50 02/21/20 05:50 Results - Labs CBC & Chem 7: 02/20/20 06:24 02/21/20 05:07 Labs: Laboratory Last Values WBC 9.4 K/mm3 (4.5-11.0) 02/20/20 06:24 RBC 2.75 M/mm3 (3.65-5.03) L 02/20/20 06:24 Hgb 7.7 gm/dl (11.8-15.2) L 02/20/20 06:24 Hct 25.1 % (35.5-45.6) L 02/20/20 06:24 MCV 91 fl (84-94) 02/20/20 06:24 MCH 28 pg (28-32) 02/20/20 06:24 MCHC 31 % (32-34) L 02/20/20 06:24 RDW 15.7 % (13.2-15.2) H 02/20/20 06:24 Plt Count 216 K/mm3 (140-440) 02/20/20 06:24 Lymph % (Auto) 13.3 % (13.4-35.0) L 02/20/20 06:24 [place] % (Auto) 5.1 % (0.0-7.3) 02/20/20 06:24 Eos % (Auto) 2.1 % (0.0-4.3) 02/20/20 06:24 Baso % (Auto) 0.5 % (0.0-1.8) 02/20/20 06:24 Lymph # (Auto) 1.2 K/mm3 (1.2-5.4) 02/20/20 06:24 [place] # (Auto) 0.5 K/mm3 (0.0-0.8) 02/20/20 06:24 Eos # (Auto) 0.2 K/mm3 (0.0-0.4) 02/20/20 06:24 Baso # (Auto) 0.1 K/mm3 (0.0-0.1) 02/20/20 06:24 Seg Neutrophils % 79.0 % (40.0-70.0) H 02/20/20 06:24 Seg Neutrophils # 7.4 K/mm3 (1.8-7.7) 02/20/20 06:24 Sodium 137 mmol/L (137-145) 02/21/20 05:07 Potassium 5.1 mmol/L (3.6-5.0) H 02/21/20 05:07 Chloride 110.3 mmol/L (98-107) H 02/21/20 05:07 Carbon Dioxide 20 mmol/L (22-30) L 02/21/20 05:07 Anion Gap 12 mmol/L 02/21/20 05:07 BUN 29 mg/dL (9-20) H 02/21/20 05:07 Creatinine 2.6 mg/dL (0.8-1.3) H 02/21/20 05:07 Estimated GFR 31 ml/min 02/21/20 05:07 BUN/Creatinine Ratio 11 % 02/21/20 05:07 Glucose 74 mg/dL (75-100) L 02/21/20 05:07 POC Glucose 95 mg/dL (70-105) 02/19/20 21:21 Hemoglobin A1c 4.3 % (4-6) 02/19/20 20:13 Calcium 7.1 mg/dL (8.4-10.2) L 02/21/20 05:07 Iron 21 ug/dL (49-181) L 02/20/20 18:21 TIBC 143 mcg/dL (250-450) L 02/20/20 18:21 Total Bilirubin 0.30 mg/dL (0.1-1.2) 02/20/20 06:24 AST 8 units/L (5-40) 02/20/20 06:24 ALT 5 units/L (7-56) L 02/20/20 06:24 Alkaline Phosphatase 127 units/L (35-129) 02/20/20 06:24 Total Protein 7.0 g/dL (6.3-8.2) 02/20/20 06:24 Albumin 1.9 g/dL (3.9-5) L 02/20/20 06:24 Albumin/Globulin Ratio 0.4 % 02/20/20 06:24 Microbiology: Microbiology 02/19/20 Unknown Scrotum Anaerobic Culture - Preliminary 02/19/20 Unknown Scrotum Surgical Culture - Preliminary Mercado/IV: Voiding Method Incontinent IV Catheter Type [Right INT / Saline Lock Forearm] Active Medications - Current Medications Current Medications: Generic Name Dose Route Start Last Admin Trade Name Freq PRN Reason Stop Dose Admin Acetaminophen 650 mg 02/19/20 15:49 Tylenol PO Q4H PRN Pain MILD(1-3)/Fever >100.5/BARNES Heparin Sodium (Porcine) 5,000 unit 02/19/20 16:00 02/21/20 10:18 Heparin SUB-Q 5,000 unit Q12HR NESTOR Administration Lactated Ringer's 1,000 mls @ 100 mls/hr 02/19/20 11:29 02/19/20 12:10 Lactated Ringers IV 100 mls/hr DIRECT NESTOR Administration Sodium Chloride 1,000 mls @ 75 mls/hr 02/19/20 17:00 02/21/20 06:18 Nacl 0.9% 1000 Ml IV 75 mls/hr DIRECT NESTOR Administration Metoclopramide HCl 5 mg 02/20/20 12:00 Reglan IV Q6H PRN Nausea And Vomiting Ondansetron HCl 4 mg 02/19/20 15:49 Zofran IV Q8H PRN Nausea And Vomiting Oxycodone/Acetaminophen 2 tab 02/21/20 07:37 Percocet 5/325 PO Q6H PRN Pain, Moderate (4-6) Sodium Chloride 10 ml 02/19/20 22:00 02/21/20 10:18 Sodium Chloride Flush Syringe 10 Ml IV 10 ml BID NESTOR Administration Sodium Chloride 10 ml 02/19/20 15:49 Sodium Chloride Flush Syringe 10 Ml IV PRN PRN LINE FLUSH
[2020-02-20 19:21] LABS: Iron 21 ug/dL (49-181); Total Iron Binding Capacity 143 mcg/dL (250-450)
[2020-02-20] MEDS: oxyCODONE /ACETAMINOPHEN 5-325MG TAB PO PRN (22:29)
[2020-02-21 06:14] VITALS: BP 105/53
[2020-02-21] MEDS: oxyCODONE /ACETAMINOPHEN 5-325MG TAB PO PRN (06:17)
[2020-02-21] MEDS: SODIUM CHLORIDE 0.9% 1000 ML 1,000 ML IV SCH (06:18)
[2020-02-21 06:44] LABS: Calcium 7.1 mg/dL (8.4-10.2)
[2020-02-21] MEDS ORDERED: oxyCODONE /ACETAMINOPHEN 5-325MG TAB PO PRN (07:37)
[2020-02-21] MEDS ORDERED: SODIUM POLYSTYRENE 15 GM/60 ML ORAL LIQD PO SCH (07:37)
[2020-02-21] MEDS: HEPARIN 5,000 UNIT/1 ML VIAL SUB-Q SCH (10:18)
--- NOTE | 2020-02-21 10:26 | Discharge Summary ---
Providers - Providers Date of Admission: 02/19/20 15:49 Date of discharge: 02/21/20 Attending physician: STEPHANI VELEZ MD 02/20/20 07:44 Consult to Wound/ET Nurse [CONS] Routine Reason For Exam: wound eval Primary care physician: COMMUNICATIONS COORDINATOR Hospitalization Reason for admission: Hidrasdenitis suppurativa, CKD Procedures: Surgical excision of hidradenitis suppurativa Hospital course: Patient being admitted directly from PACU after extensive excision of hidradenitis tissue from groin and scrotum. Most of the scrotal wall is nearly excised as per Dr. Aguilar. Patient being admitted for pain management and wound care and possible discharge in 24 to 48 hours. Surgical procedure Description of procedure: Pt was placed supine on the OR table. GETA was administered. Lower abdomen, genitalia and upper thighs were prepped and draped. Involved skin and SQ tissue of the scrotum, lower right abdomen and right proximal thigh were excised with the Bovie. Bleeding was controlled with the Bovie. Wounds were then packed open with a dilute, Betadine moistened Kerlix roll followed by dry 4 X 4's, Medipore tape and mesh panties. Pt tolerated the procedure well. Pt was extubated in the OR. Pt was taken to PACU in stable condition. Patient was admitted to the floor for surgery for pain control. Patient was doing well and pain is manageable with p.o. medications. Patient was seen by wound care and will follow him as an outpatient in the office. His surgeon cleared him for discharge once pain is controlled. Patient discharged home with Po pain medications. Disposition: DC/TX- HOME [facility] Time spent for discharge: 34 - Discharge Diagnoses (1) Hidradenitis suppurativa Status: Acute (2) CKD (chronic kidney disease) stage 3, GFR 30-59 ml/min Status: Acute Core Measure Documentation - Palliative Care Palliative Care/ Comfort Measures: Not Applicable - Core Measures Any of the following diagnoses?: none Exam - Physical Exam Narrative exam: Not in cardiopulmonary distress. The patient appeared well nourished and normally developed. Vital signs as documented. Head exam is unremarkable. No scleral icterus . Neck is without jugular venous distension, thyromegaly, or carotid bruits. Lungs are clear to auscultation. Cardiac exam reveals regular rate and Rhythm. Abdominal exam reveals normal bowel sounds, nontender, no organomegaly. Extremities are nonedematous and both femoral and pedal pulses are normal. DIGITAL MEDIA DIRECTOR: Alert and oriented 3. No focal weakness. Skin; status post excision of hidradenitis suppurativa. - Constitutional Vitals: Temp Pulse Resp BP Pulse Ox 97.9 F 76 16 105/53 100 02/21/20 05:50 02/21/20 05:50 02/21/20 05:50 02/21/20 05:50 02/21/20 05:50 Plan Activity: no restrictions Weight Bearing Status: Full Weight Bearing Diet: regular Additional Instructions: f/u at wound care clinic on 02/23/20 Follow up with: PRIMARY CAREMD [Primary Care Provider] - 7 Days BECKY AGUILAR MD [Staff Physician] - 7 Days Prescriptions: Oxycodone HCl/Acetaminophen [Percocet 10/325 mg] 1 each PO Q6HR PRN #14 tablet PRN Reason: Pain
== END 2020-02-21 12:51 | disposition home health service (06) ==
LOC: OR 10:57 → 3A 15:49
PROVIDERS: ADMIT Internal Medicine; ATTEND Internal Medicine
DX: N17.9 Acute kidney failure, unspecified (principal); L73.2 Hidradenitis suppurativa; D64.9 Anemia, unspecified; I12.9 Hypertensive chronic kidney disease with stage 1 through stage 4 chronic kidney disease, or unspecified chronic kidney disease; N18.30 Chronic kidney disease, stage 3 unspecified; Z79.899 Other long term (current) drug therapy
CPT/HCPCS: 11462; 36415; 80048; 80053; 82962; 83036; 83550; 85025; 87075; 87116; 88305; 96361; 96372; 96374; G0378; J0690; J1100; J1170; J1644; J2250; J2405; J2704; J7030; J7120

== ENCOUNTER 2020-05-12 10:21 | Outpatient (CLI) | payer MEDICARE ==
[2020-05-12] MEDS ORDERED: LIDOCAINE (4%) 40 MG/ML TOPICAL SOLN 50 ML BOTTLE TP ONE (11:25)
== END 2020-05-12 10:22 | disposition home or self-care (01) ==
LOC: WOUND 10:21
PROVIDERS: ATTEND Surgery
DX: L73.2 Hidradenitis suppurativa (principal); S21.201D Unspecified open wound of right back wall of thorax without penetration into thoracic cavity, subsequent encounter; K62.1 Rectal polyp; F17.200 Nicotine dependence, unspecified, uncomplicated; X58.XXXD Exposure to other specified factors, subsequent encounter

== ENCOUNTER 2020-05-26 10:03 | Outpatient (CLI) | payer MEDICARE | END 2020-05-26 10:04 | disposition home or self-care (01) | LOC: WOUND 10:03 | PROVIDERS: ATTEND Surgery | DX: L73.2 Hidradenitis suppurativa (principal); S21.201D Unspecified open wound of right back wall of thorax without penetration into thoracic cavity, subsequent encounter; K62.1 Rectal polyp; F17.200 Nicotine dependence, unspecified, uncomplicated; X58.XXXD Exposure to other specified factors, subsequent encounter ==

== ENCOUNTER 2020-06-09 10:16 | Outpatient (CLI) | payer MEDICARE ==
[2020-06-09] MEDS ORDERED: LIDOCAINE (4%) 40 MG/ML TOPICAL SOLN 50 ML BOTTLE TP ONE (10:31)
[2020-06-09] MEDS ORDERED: SILVER NITRATE APPLICATOR 1 EA TP ONE (10:31)
== END 2020-06-09 10:17 | disposition home or self-care (01) ==
LOC: WOUND 10:16
PROVIDERS: ATTEND Surgery
DX: L73.2 Hidradenitis suppurativa (principal); S21.201D Unspecified open wound of right back wall of thorax without penetration into thoracic cavity, subsequent encounter; K62.1 Rectal polyp; F17.200 Nicotine dependence, unspecified, uncomplicated; X58.XXXD Exposure to other specified factors, subsequent encounter